=== PATIENT | male | born 1935 | race Caucasian/White ===

== ENCOUNTER → 2016-06-27 | Outpatient (CLI) | payer MEDICARE ==
[~2016-06-27] MED LIST: AMLO5TAB2 PO; ASP81TEC PO; EZET10TA5 PO; HYDR50TA3 PO; ISM60TCR PO; KCL10CCR PO; LISI20TA PO; METO100T2 PO; NTR.4SL SL; RANO10003 PO; SITA50TA PO; [UNRECOGNIZED DRUG - OTHER] PO
--- OUTSIDE RECORDS SUMMARY | 2016-06-27 08:27 | XMS REPORT | Continuity of Care Document ---
Author Author [facility] Organization [facility] Address Unknown Phone Unavailable Allergies Active Description Code Type Severity Reaction Onset Reported/Identified Relationship to Patient Clinical Status Yes No Known Drug Allergies [id number] Drug Allergy Unknown N/ A 09/29/2013 Medications Problems Date Dx Coded Attending Type Code Diagnosis Diagnosed By 06/11/2014 JEFF PENNINGTON MD Ot 327.23 06/11/2014 JEFF PENNINGTON MD Ot 327.51 09/06/2014 JEFF PENNINGTON MD Ot 585.3 09/06/2014 JEFF PENNINGTON MD Ot 793.19 09/06/2014 JEFF PENNINGTON MD Ot V81.5 10/21/2014 JEFF PENNINGTON MD Ot 585.3 10/21/2014 JEFF PENNINGTON MD Ot 793.19 10/21/2014 JEFF PENNINGTON MD Ot V81.5 Procedures Results Encounters ACCT No. Visit Date/Time Discharge Status Pt. Type Provider Facility Loc./Unit Complaint [id number] 09/03/2014 13:13:00 2014 23:59:59 CLS Outpatient JEFF PENNINGTON MD [facility] RAD [id number] 06/10/2014 19:50:00 2014 06:15:00 DIS Outpatient JEFF PENNINGTON MD [facility] SLEEP [id number] 02/02/2014 08:10:00 2013 23:59:59 CLS Outpatient [id number] 10/12/2013 11:52:00 2013 23:59:59 CLS Outpatient [id number] 09/29/2013 09:08:00 2013 13:45:00 DIS Inpatient
--- NOTE | 2016-06-27 12:06 | Diagnostic Imaging Report ---
Renal ultrasound. INDICATION: Chronic renal failure. FINDINGS: The right kidney is 10.7 cm, and the left kidney is 12.1 cm in length. The renal parenchyma is mildly atrophic and slightly hyperechoic compatible with chronic renal disease. In the upper pole of the left kidney there is a simple-appearing cyst measuring 2.5 x 1.8 x 1.8 cm. The urinary bladder appears unremarkable. IMPRESSION: A 2.5-cm simple cyst in the upper pole of the left kidney. No hydronephrosis. Dictated by: Dictated on workstation # [id number]
== END ==
LOC: RAD 08:24
PROVIDERS: ATTEND Internal Medicine Nephrology
DX: N28.1 Cyst of kidney, acquired (principal); N18.3 Chronic kidney disease, stage 3 (moderate); I10 Essential (primary) hypertension; E11.9 Type 2 diabetes mellitus without complications
CPT/HCPCS: 76770

== ENCOUNTER 2016-09-14 12:18 | Emergency (ER) | payer MEDICARE, OTHER ==
[~2016-09-14] VITALS: Ht 180.3 cm; Wt 95.5 kg
[2016-09-14 13:00] LABS: BASOPHILS % (AUTO) 0 % (0-10); EOSINOPHILS # (AUTO) 0.1 10^3/uL (0.0-0.3); EOSINOPHILS % (AUTO) 2 % (0-10); LYMPHOCYTES # (AUTO) 1.4 X 10^3 (1.0-4.0); LYMPHOCYTES % (AUTO) 26 % (12-44); MEAN CORPUSCULAR HEMOGLOBIN 32 PG (25-34); MEAN CORPUSCULAR HGB CONC 34 G/DL (32-36); MEAN CORPUSCULAR VOLUME 94 FL (80-99); MEAN PLATELET VOLUME 10.1 FL (7.4-10.4); MONOCYTES # (AUTO) 0.6 X 10^3 (0.0-1.0); MONOCYTES % (AUTO) 12 % (0-12); NEUTROPHILS # (AUTO) 3.2 X 10^3 (1.8-7.8); NEUTROPHILS % (AUTO) 59 % (42-75); PLATELET COUNT 144 10^3/uL (130-400); RED BLOOD COUNT 3.85 10^6/uL (4.35-5.85); RED CELL DISTRIBUTION WIDTH 13.8 % (10.0-14.5); WHITE BLOOD COUNT 5.3 10^3/uL (4.3-11.0)
[2016-09-14 13:12] LABS: ALANINE AMINOTRANSFERASE 23 U/L (0-55); ANION GAP 8 MMOL/L (5-14); ASPARTATE AMINO TRANSFERASE 26 U/L (5-34); BILIRUBIN,TOTAL 0.8 MG/DL (0.1-1.0); BLOOD UREA NITROGEN 42 MG/DL (7-18); BUN/CREATININE RATIO 21; CALCIUM 9.6 MG/DL (8.5-10.1); CARBON DIOXIDE 23 MMOL/L (21-32); CHLORIDE 103 MMOL/L (98-107); CREATININE SERUM 1.98 MG/DL (0.60-1.30); GFR ESTIMATED 33; GLUCOSE 134 MG/DL (70-105); MAGNESIUM 2.2 MG/DL (1.8-2.4); SODIUM 134 MMOL/L (135-145); TOTAL PROTEIN 6.6 G/DL (6.4-8.2)
--- NOTE | 2016-09-14 13:30 | Diagnostic Imaging Report ---
INDICATION: Bradycardia. COMPARISON: 09/29/2013. FINDINGS: PA and lateral view shows lungs to be well-aerated. There is no evidence of air trapping. There are no infiltrates. No pneumothorax or pleural effusion. No evidence of pulmonary edema. No pleural effusions. No bony abnormalities. IMPRESSION: Postoperative residue with no acute changes. Dictated by: Dictated on workstation # [id number]
[2016-09-14 13:31] LABS: TROPONIN I < 0.30 NG/ML (<0.30)
[2016-09-14 13:34] LABS: POTASSIUM 5.3 MMOL/L (3.6-5.0)
--- NOTE | 2016-09-14 14:05 | ED Cardiac General ---
History of Present Illness General Chief Complaint: Cardiac/General Problems Stated Complaint: IRR HEART RATE Nursing Triage Note: COMPLAINT OF IRREGULAR HR. STATES MACHINE AT HOME SAID IT WAS IN THE 40 AND 50. [facility] PHYSIC[facility] TOLD HIM TO COME TO THE ER. DENIES C/P ET SOA Source: patient Exam Limitations: no limitations History of Present Illness Time seen by provider: 12:35 Initial Comments This 81-year-old gentleman presents to the emergency room with complaints of bradycardia. He has noticed a low heart rate in the 40s and 50s for the past 3 days. He reports having less energy over the past month and feels fatigued with activity. He denies any chest pain, lightheadedness, or dizziness. He has some mild chronic shortness of air but no cough or fever. He presently takes metoprolol 50 mg twice daily. His primary care providers are in the [facility]. His PCP is Jeff Adame and his senior materials scientist is Dr. Lanza. Allergies and Home Medications Allergies Coded Allergies: No Known Drug Allergies (Unverified , 09/29/13) Home Medications Amlodipine Besylate 5 Mg Tablet, 5 MG PO DAILY, (Reported) Aspirin 81 Mg Tabec, 81 MG PO DAILY, (Reported) Ezetimibe 10 Mg Tablet, 10 MG PO HS, (Reported) Isosorbide Mononitrate 60 Mg Tab.sr.24h, 60 MG PO DAILY, (Reported) Lisinopril 20 Mg Tablet, 20 MG PO DAILY, (Reported) Metoprolol Tartrate 100 Mg Tablet, 25 MG PO BID, (Reported) TAKE ONE-FOURTH (100MG) TABLET TWICE A DAY Nitroglycerin 0.4 Mg Tab, SL UD PRN for CHEST PAIN, (Reported) TAKE 1 TABLET EVERY 5 MINUTES UP TO 3 DOSES NEEDED FOR CHEST PAIN Ranolazine 1,000 Mg Tab.sr.12h, 1,000 MG PO BID, (Reported) Sitagliptin Phosphate 50 Mg Tablet, 50 MG PO DAILY, (Reported) [colon care formula] , 1 TAB PO DAILY, (Reported) Review of Systems Constitutional: see HPI EENTM: No Symptoms Reported Respiratory: No Symptoms Reported Cardiovascular: See HPI Gastrointestinal: No Symptoms Reported Genitourinary: No Symptoms Reported Musculoskeletal: no symptoms reported Skin: no symptoms reported Psychiatric/Neurological: No Symptoms Reported Endocrine: No Symptoms Reported Hematologic/Lymphatic: No Symptoms Reported Past Zbgjaml-Zbujzx-Fblwqy Hx Patient Social History Alcohol Use: Denies Use Recreational Drug Use: No Smoking Status: Never a Smoker 2nd Hand Smoke Exposure: Yes Recent Foreign Travel: No Contact w/Someone Who Travel: No Recent Infectious Disease Expo: No Immunizations Up To Date Tetanus Booster (TDap): Less than 5yrs PED Vaccines UTD: No Date of Pneumonia Vaccine: Sep 30, 2011 Surgeries HX Surgeries: Yes (back surgery) Surgeries: CABG Respiratory Hx Respiratory Disorders: No Cardiovascular Hx Cardiac Disorders: Yes Cardiac Disorders: Coronary Artery Disease, Hypertension Neurological Hx Neurological Disorders: Yes Reproductive System Hx Reproductive Disorders: No Genitourinary Hx Genitourinary Disorders: No Gastrointestinal Hx Gastrointestinal Disorders: No Musculoskeletal Hx Musculoskeletal Disorders: Yes Musculoskeletal Disorders: Arthritis Endocrine Hx Endocrine Disorders: Yes Endocrine Disorders: Diabetes, Non-Insulin dep HEENT HX ENT Disorders: No Cancer Hx Cancer: No Psychosocial Hx Psychiatric Problems: No Integumentary HX Skin/Integumentary Disorder: No Blood Transfusions Hx Blood Disorders: No Adverse Reaction to a Blood Tr: No Family Medical History Family Medial History: Family history: Hypertension 19 MOTHER History of - disorder 19 FATHER (BACK PROBLEMS) 19 MOTHER (BACK PROBLEMS) G8 BROTHER (CANCER SPINE) G8 BROTHER (KNEE PROBLEMS) Hypercholesterolemia G8 SISTER Physical Exam Vital Signs Vital Sign - Last 12Hours 09/14/16 12:29 Temp 97.5 Pulse 44 Resp 18 B/P (MAP) 98/52 Pulse Ox 100 O2 Delivery Room Air Capillary Refill : Less Than 3 Seconds General Appearance: No Apparent Distress, WD/WN HEENT: PERRL/EOMI, Normal ENT Inspection Neck: Normal Inspection Respiratory: Lungs Clear, Normal Breath Sounds, No Accessory Muscle Use, No Respiratory Distress Cardiovascular: No Edema, Bradycardia, Systolic Murmur Gastrointestinal: Normal Bowel Sounds, Non Tender, Soft Extremity: Normal Inspection, No Pedal Edema Neurologic/Psychiatric: Alert, Oriented x3, No Motor/Sensory Deficits, Normal Mood/Affect, machine feeder raw stock II-XII Norm as Tested Skin: Normal Color, Warm/Dry Progress/Results/Core Measures Results/Orders Lab Results Laboratory Tests Test 09/14/16 12:42 Range/Units White Blood Count 5.3 4.3-11.0 10^3/uL Red Blood Count 3.85 L 4.35-5.85 10^6/uL Hemoglobin 12.2 L 13.3-17.7 G/DL Hematocrit 36 L 40-54 % Mean Corpuscular Volume 94 80-99 FL Mean Corpuscular Hemoglobin 32 25-34 PG Mean Corpuscular Hemoglobin Concent 34 32-36 G/DL Red Cell Distribution Width 13.8 10.0-14.5 % Platelet Count 144 130-400 10^3/uL Mean Platelet Volume 10.1 7.4-10.4 FL Neutrophils (%) (Auto) 59 42-75 % Lymphocytes (%) (Auto) 26 12-44 % Monocytes (%) (Auto) 12 0-12 % Eosinophils (%) (Auto) 2 0-10 % Basophils (%) (Auto) 0 0-10 % Neutrophils # (Auto) 3.2 1.8-7.8 X 10^3 Lymphocytes # (Auto) 1.4 1.0-4.0 X 10^3 Monocytes # (Auto) 0.6 0.0-1.0 X 10^3 Eosinophils # (Auto) 0.1 0.0-0.3 10^3/uL Basophils # (Auto) 0.0 0.0-0.1 10^3/uL Sodium Level 134 L 135-145 MMOL/L Potassium Level 5.3 H 3.6-5.0 MMOL/L Chloride Level 103 98-107 MMOL/L Carbon Dioxide Level 23 21-32 MMOL/L Anion Gap 8 5-14 MMOL/L Blood Urea Nitrogen 42 H 7-18 MG/DL Creatinine 1.98 H 0.60-1.30 MG/DL Estimat Glomerular Filtration Rate 33 BUN/Creatinine Ratio 21 Glucose Level 134 H 70-105 MG/DL Calcium Level 9.6 8.5-10.1 MG/DL Magnesium Level 2.2 1.8-2.4 MG/DL Total Bilirubin 0.8 0.1-1.0 MG/DL Aspartate Amino Transf (AST/SGOT) 26 5-34 U/L Alanine Aminotransferase (ALT/SGPT) 23 0-55 U/L Alkaline Phosphatase 44 40-136 U/L Troponin I < 0.30 <0.30 NG/ML B-Type Natriuretic Peptide 330.7 H <100.0 PG/ML Total Protein 6.6 6.4-8.2 G/DL Albumin 4.0 3.2-4.5 G/DL TSH [facility] Testing 2.63 0.35-4.94 UIU/ML My Orders Orders - BEVERLY JOHNSTON MD Ekg Tracing (09/14/16 12:24) Monitor-Rhythm Ecg Trace Only (09/14/16 12:24) BNP (09/14/16 12:49) Cbc With Automated Diff (09/14/16 12:49) Comprehensive Metabolic Panel (09/14/16 12:49) Magnesium (09/14/16 12:49) Thyroid Analyzer (09/14/16 12:49) Troponin I (09/14/16 12:49) Chest Pa/Lat (2 View) (09/14/16 12:49) Sodium Polystyrene Sulfonate (Kayexalate (09/14/16 14:15) Medications Given in ED Current Medications Medications Dose Ordered Sig/Hany Route Start Time Stop Time Status Last Admin Dose Admin Sodium Polystyrene Sulfonate 15 gm ONCE ONCE PO 09/14/16 14:15 09/14/16 14:16 DC 09/14/16 14:28 15 GM Vital Signs/I&O Vital Sign - Last 12Hours 09/14/16 09/14/16 12:29 17:38 Temp 97.5 Pulse 44 41 Resp 18 16 B/P (MAP) 98/52 Pulse Ox 100 100 O2 Delivery Room Air Blood Pressure Mean: 67 Progress Note : Progress Note Lab, EKG, and x-rays reviewed. Patient came to the emergency room specifically because of bradycardia but he has no specific symptoms directly associated with the bradycardia. Case was reviewed with Dr. Wheeler. We share some concerns about this patient's medications. First, the beta adamaris should be discontinued because of the significant bradycardia. Next, lisinopril should be discontinued due to patient's hyperkalemia and slight worsening of chronic renal failure. A dose of Kayexalate was provided prior to discharge at Dr. Wheeler's request. Finally, amlodipine should be increased to account for the loss of blood pressure control in the other 2 medications. Patient was advised to follow-up with his senior materials scientist and primary care provider soon as possible. He was also advised to consider consolidating the location of his health care services to facilitate better continuity of care. ECG Initial ECG Impression Date: September 14, 2016 Initial ECG Impression Time: 12:29 Initial ECG Rate: 44 Initial ECG Rhythm: S.Kishor Initial ECG Impression: Sinus Bradycardia Comment Sinus bradycardia with first-degree AV block. No ST elevation or depression. No axis deviation. Diagnostic Imaging Diagonstic Imaging: Xray Plain Films/CT/US/NM/MRI: chest Comments Chest x-ray viewed by me and report reviewed. See report below: NAME: VÍCTOR ORDONEZ [facility] REC#: [id number] PT STATUS: REG ER : 1935 PHYSICIAN: BEVERLY JOHNSTON MD ADMIT DATE: 09/14/16/ER Draft Date of Exam:09/14/16 CHEST PA/LAT (2 VIEW) INDICATION: Bradycardia. COMPARISON: 09/29/2013. FINDINGS: PA and lateral view shows lungs to be well-aerated. There is no evidence of air trapping. There are no infiltrates. No pneumothorax or pleural effusion. No evidence of pulmonary edema. No pleural effusions. No bony abnormalities. IMPRESSION: Postoperative residue with no acute changes. Dictated on workstation # [id number] Dict: 09/14/16 1325 Trans: 09/14/16 1329 [facility] [id number] Interpreted by: JOSE ARANDA MD Departure Impression Impression: Primary Impression: Sinus bradycardia Additional Impressions: Hyperkalemia Chronic kidney failure Qualified Codes: N18.9 - Chronic kidney disease, unspecified Disposition: 01 HOME, SELF-CARE Condition: Stable Time/Decision to Admit Time: 14:03 Departure-Patient Inst. Referrals: JEFF ADAME MD (PCP/Family) Primary Care Physician Patient Instructions: Bradycardia Add. Discharge Instructions: 1. Discontinue lisinopril. 2. Discontinue metoprolol. 3. Increase amlodipine to 10 mg daily starting with your next dose. 4. Follow-up with your senior materials scientist and your primary care provider soon as possible. 5. Return to the ER if you have worsening symptoms or become lightheaded or dizzy. 6. Consider establishing with a primary care provider and/or senior materials scientist locally to consolidate your healthcare. All discharge instructions reviewed with patient and/or family. Voiced understanding. BEVERLY JOHNSTON MD September 14, 2016 14:05
[2016-09-14] MEDS ORDERED: SOD POLYSTERENE 15 GM/60 ML (KAYEXALATE) UNIT DOSE PO ONE (14:15)
[2016-09-14 17:38] VITALS: BP 107/84
== END 2016-09-14 15:05 | disposition home or self-care (01) ==
LOC: EDUNIT# 12:18 → ER 12:21
DX: R00.1 Bradycardia, unspecified (principal); E87.5 Hyperkalemia; I12.9 Hypertensive chronic kidney disease with stage 1 through stage 4 chronic kidney disease, or unspecified chronic kidney disease; N18.9 Chronic kidney disease, unspecified; I11.9 Hypertensive heart disease without heart failure; I25.10 Atherosclerotic heart disease of native coronary artery without angina pectoris; I44.0 Atrioventricular block, first degree; E11.9 Type 2 diabetes mellitus without complications; Z79.82 Long term (current) use of aspirin; Z79.899 Other long term (current) drug therapy
CPT/HCPCS: 36415; 71020; 80053; 83735; 83880; 84443; 84484; 85025; 93005; 93041

== ENCOUNTER 2017-12-26 08:27 | Day surgery (SDC) | payer MEDICARE ==
[~2017-12-26] VITALS: Ht 180.3 cm; Wt 87.1 kg
[2017-12-26] VITALS (12 sets, daily range): BP systolic 113–141; BP diastolic 53–76
--- OUTSIDE RECORDS SUMMARY | 2017-12-26 08:32 | XMS REPORT | Continuity of Care Document ---
Author Author [facility] Organization [facility] Address Unknown Phone Unavailable Allergies Active Description Code Type Severity Reaction Onset Reported/Identified Relationship to Patient Clinical Status Yes No Known Drug Allergies [id number] Drug Allergy Unknown N/A 09/29/2013 Medications There is no data. Problems Date Dx Coded Attending Type Code Diagnosis Diagnosed By 09/30/2013 GIN ENRIQUE FACC, NINA FACP CCDS Ot 250.00 DIAB MATILDA WO COMPL, TYPE II OR UNSPEC TY 09/30/2013 NINA GREENFIELD MD, FACC FACP CCDS Ot 255.9 ADRENAL DISORDER N0S 09/30/2013 NINA GREENFIELD MD, FACC FACP CCDS Ot 272.4 HYPERLIPIDEMIA NEC/NOS 09/30/2013 NINA GREENFIELD MD, FACC FACP CCDS Ot 401.9 HYPERTENSION NOS 09/30/2013 NINA GREENFIELD MD, FACC FACP CCDS Ot 414.00 CORON ATHEROSCLER NOS TYPE VESSEL, NATIV 09/30/2013 NINA GREENFIELD MD, FACC FACP CCDS Ot 424.1 AORTIC VALVE DISORDER 09/30/2013 NINA GREENFIELD MD, FACC FACP CCDS Ot 433.10 CAROTID ARTERY OCCLUSION W O CEREBRAL IN 09/30/2013 NINA GREENFIELD MD, FACC FACP CCDS Ot 593.9 RENAL URETERAL DIS NOS 09/30/2013 NINA GREENFIELD MD, FACC FACP CCDS Ot 786.50 CHEST PAIN NOS 09/30/2013 NINA GREENFIELD MD, FACC FACP CCDS Ot 793.11 SOLITARY PULMONARY NODULE 09/30/2013 NINA GREENFIELD MD, FACC FACP CCDS Ot 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 06/11/2014 JEFF PENNINGTON MD Ot 327.23 OBSTRUCTIVE SLEEP APNEA (ADULT) (PEDIATR 06/11/2014 JEFF PENNINGTON MD Ot 327.51 PERIODIC LIMB MOVEMENT DISORDER 09/06/2014 JEFF PENNINGTON MD Ot 585.3 09/06/2014 JEFF PENNINGTON MD Ot 793.19 09/06/2014 JEFF PENNINGTON MD Ot V81.5 10/21/2014 JEFF PENNINGTON MD Ot 585.3 10/21/2014 JEFF PENNINGTON MD Ot 793.19 10/21/2014 JEFF PENNINGTON MD Ot V81.5 06/27/2016 YAHIR DPM, JOSÉ MIGUEL Q Ot 707.15 ULCER OF OTHER PART OF FOOT 06/27/2016 JEFF PENNINGTON MD Ot 793.11 SOLITARY PULMONARY NODULE 06/27/2016 JEFF PENNINGTON MD Ot V81.5 SCREEN FOR NEPHROPATHY 06/27/2016 JEFF PENNINGTON MD Ot 585.3 CHRONIC KIDNEY DISEASE, STAGE III (MODER 06/27/2016 JEFF PENNINGTON MD Ot 793.19 OTHER NONSPECIFIC ABNORMAL FINDING OF CHRISTINE 06/27/2016 JEFF PENNINGTON MD Ot V81.5 SCREEN FOR NEPHROPATHY 06/28/2016 JESSICA BENITEZ MD Ot E11.9 TYPE 2 DIABETES MELLITUS WITHOUT COMPLIC 06/28/2016 JESSICA BENITEZ MD Ot I10 ESSENTIAL (PRIMARY) HYPERTENSION 06/28/2016 JESSICA BENITEZ MD Ot N18.3 CHRONIC KIDNEY DISEASE, STAGE 3 (MODERAT 06/28/2016 JESSICA BENITEZ MD Ot N28.1 CYST OF KIDNEY, ACQUIRED 07/17/2016 JESSICA BENITEZ MD Ot E11.9 TYPE 2 DIABETES MELLITUS WITHOUT COMPLIC 07/17/2016 JESSICA BENITEZ MD Ot I10 ESSENTIAL (PRIMARY) HYPERTENSION 07/17/2016 JESSICA BENITEZ MD Ot N18.3 CHRONIC KIDNEY DISEASE, STAGE 3 (MODERAT 07/17/2016 JESSICA BENITEZ MD Ot N28.1 CYST OF KIDNEY, ACQUIRED 08/01/2016 JESSICA BENITEZ MD Ot E11.9 TYPE 2 DIABETES MELLITUS WITHOUT COMPLIC 08/01/2016 JESSICA BENITEZ MD Ot I10 ESSENTIAL (PRIMARY) HYPERTENSION 08/01/2016 JESSICA BENITEZ MD Ot N18.3 CHRONIC KIDNEY DISEASE, STAGE 3 (MODERAT 08/01/2016 JESSICA BENITEZ MD Ot N28.1 CYST OF KIDNEY, ACQUIRED 09/14/2016 VICKIE ENRIQUE, BEVERLY Rivera Ot E11.9 TYPE 2 DIABETES MELLITUS WITHOUT COMPLIC 09/14/2016 BEVERLY JOHNSTON MD Ot E87.5 HYPERKALEMIA 09/14/2016 BEVERLY JOHNSTON MD Ot 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 09/14/2016 BEVERLY JOHNSTON MD Ot I12.9 HYPERTENSIVE CHRONIC KIDNEY DISEASE W ST 09/14/2016 BEVERLY JOHNSTON MD Ot I25.10 ATHSCL HEART DISEASE OF [place] CORONARY 09/14/2016 BEVERLY JOHNSTON MD Ot I44.0 ATRIOVENTRICULAR BLOCK, FIRST DEGREE 09/14/2016 BEVERLY JOHNSTON MD Ot N18.9 CHRONIC KIDNEY DISEASE, UNSPECIFIED 09/14/2016 BEVERLY JOHNSTON MD Ot R00.1 BRADYCARDIA, UNSPECIFIED 09/14/2016 BEVERLY JOHNSTON MD Ot Z79.82 [facility]FP (CURRENT) USE OF ASPIRIN 09/14/2016 BEVERLY JOHNSTON MD Ot Z79.899 OTHER [facility] (CURRENT) DRUG THERAPY 09/14/2016 YAHIR DPM, JOSÉ MIGUEL Q Ot 707.15 ULCER OF OTHER PART OF FOOT 09/14/2016 JEFF PENNINGTON MD Ot 793.11 SOLITARY PULMONARY NODULE 09/14/2016 JEFF PENNINGTON MD Ot V81.5 SCREEN FOR NEPHROPATHY 09/14/2016 JEFF PENNINGTON MD Ot 585.3 CHRONIC KIDNEY DISEASE, STAGE III (MODER 09/14/2016 JEFF PENNINGTON MD Ot 793.19 OTHER NONSPECIFIC ABNORMAL FINDING OF CHRISTINE 09/14/2016 JEFF PENNINGTON MD Ot V81.5 SCREEN FOR NEPHROPATHY 09/14/2016 JESSICA BENITEZ MD, Ot E11.9 TYPE 2 DIABETES MELLITUS WITHOUT COMPLIC 09/14/2016 JESSICA BENITEZ MD, Ot I10 ESSENTIAL (PRIMARY) HYPERTENSION 09/14/2016 JESSICA BENITEZ MD, Ot N18.3 CHRONIC KIDNEY DISEASE, STAGE 3 (MODERAT 09/14/2016 JESSICA BENITEZ MD Ot N28.1 CYST OF KIDNEY, ACQUIRED 09/14/2016 YAHIR DPM, JOSÉ MIGUEL Q Ot 707.15 ULCER OF OTHER PART OF FOOT 09/14/2016 JEFF PENNINGTON MD Ot 793.11 SOLITARY PULMONARY NODULE 09/14/2016 JEFF PENNINGTON MD Ot V81.5 SCREEN FOR NEPHROPATHY 09/14/2016 JEFF PENNINGTON MD Ot 585.3 CHRONIC KIDNEY DISEASE, STAGE III (MODER 09/14/2016 JEFF PENNINGTON MD Ot 793.19 OTHER NONSPECIFIC ABNORMAL FINDING OF CHRISTINE 09/14/2016 JEFF PENNINGTON MD Ot V81.5 SCREEN FOR NEPHROPATHY 09/14/2016 JESSICA BENITEZ MD, Ot E11.9 TYPE 2 DIABETES MELLITUS WITHOUT COMPLIC 09/14/2016 JESSICA BENITEZ MD, Ot I10 ESSENTIAL (PRIMARY) HYPERTENSION 09/14/2016 JESSICA BENITEZ MD, Ot N18.3 CHRONIC KIDNEY DISEASE, STAGE 3 (MODERAT 09/14/2016 JESSICA BENITEZ MD, Ot N28.1 CYST OF KIDNEY, ACQUIRED 10/27/2016 BEVERLY JOHNSTON MD Ot E11.9 TYPE 2 DIABETES MELLITUS WITHOUT COMPLIC 10/27/2016 BEVERLY JOHNSTON MD Ot E87.5 HYPERKALEMIA 10/27/2016 BEVERLY JOHNSTON MD Ot 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 10/27/2016 BEVERLY JOHNSTON MD, Ot I12.9 HYPERTENSIVE CHRONIC KIDNEY DISEASE W ST 10/27/2016 BEVERLY JOHNSTON MD, Ot I25.10 ATHSCL HEART DISEASE OF [place] CORONARY 10/27/2016 BEVERLY JOHNSTON MD Ot I44.0 ATRIOVENTRICULAR BLOCK, FIRST DEGREE 10/27/2016 BEVERLY JOHNSTON MD, Ot N18.9 CHRONIC KIDNEY DISEASE, UNSPECIFIED 10/27/2016 BEVERLY JOHNSTON MD Ot R00.1 BRADYCARDIA, UNSPECIFIED 10/27/2016 BEVERLY JOHNSTON MD, Ot Z79.82 [facility] (CURRENT) USE OF ASPIRIN 10/27/2016 BEVERLY JOHNSTON MD, Ot Z79.899 OTHER INFECTION PREVENTION SPECIALIST (CURRENT) DRUG THERAPY Procedures There is no data. Results Test Result Range Complete blood count (CBC) with automated white blood cell (WBC) differential - 09/14/16 12:42 Blood leukocytes automated count (number/volume) 5.3 10*3/uL 4.3-11.0 Blood erythrocytes automated count (number/volume) 3.85 10*6/uL 4.35-5.85 Venous blood hemoglobin measurement (mass/volume) 12.2 g/dL 13.3-17.7 Blood hematocrit (volume fraction) 36 % 40-54 Automated erythrocyte mean corpuscular volume 94 [foz_us] 80-99 Automated erythrocyte mean corpuscular hemoglobin (mass per erythrocyte) 32 pg 25-34 Automated erythrocyte mean corpuscular hemoglobin concentration measurement ( mass/volume) 34 g/dL 32-36 Automated erythrocyte distribution width ratio 13.8 % 10.0-14.5 Automated blood platelet count (count/volume) 144 10*3/uL 130-400 Automated blood platelet mean volume measurement 10.1 [foz_us] 7.4-10.4 Automated blood neutrophils/100 leukocytes 59 % 42-75 Automated blood lymphocytes/100 leukocytes 26 % 12-44 Blood monocytes/100 leukocytes 12 % 0-12 Automated blood eosinophils/100 leukocytes 2 % 0-10 Automated blood basophils/100 leukocytes 0 % 0-10 Blood neutrophils automated count (number/volume) 3.2 10*3 1.8-7.8 Blood lymphocytes automated count (number/volume) 1.4 10*3 1.0-4.0 Blood monocytes automated count (number/volume) 0.6 10*3 0.0-1.0 Automated eosinophil count 0.1 10*3/uL 0.0-0.3 Automated blood basophil count (count/volume) 0.0 10*3/uL 0.0-0.1 Serum or plasma lithium measurement (moles/volume) - 09/14/16 12:42 BNP level 330.7 pg/mL <100.0 Comprehensive metabolic panel - 09/14/16 12:42 Serum or plasma sodium measurement (moles/volume) 134 mmol/L 135-145 Serum or plasma potassium measurement (moles/volume) 5.3 mmol/L 3.6-5.0 Serum or plasma chloride measurement (moles/volume) 103 mmol/L 98-107 Carbon dioxide 23 mmol/L 21-32 Serum or plasma anion gap determination (moles/volume) 8 mmol/L 5-14 Serum or plasma urea nitrogen measurement (mass/volume) 42 mg/dL 7-18 Serum or plasma creatinine measurement (mass/volume) 1.98 mg/dL 0.60-1.30 Serum or plasma urea nitrogen/creatinine mass ratio 21 NRG Serum or plasma creatinine measurement with calculation of estimated glomerular filtration rate 33 NRG Serum or plasma glucose measurement (mass/volume) 134 mg/dL 70-105 Serum or plasma calcium measurement (mass/volume) 9.6 mg/dL 8.5-10.1 Serum or plasma total bilirubin measurement (mass/volume) 0.8 mg/dL 0.1-1.0 Serum or plasma alkaline phosphatase measurement (enzymatic activity/volume) 44 U/L 40-136 Serum or plasma aspartate aminotransferase measurement (enzymatic activity/ volume) 26 U/L 5-34 Serum or plasma alanine aminotransferase measurement (enzymatic activity/volume ) 23 U/L 0-55 Serum or plasma protein measurement (mass/volume) 6.6 g/dL 6.4-8.2 Serum or plasma albumin measurement (mass/volume) 4.0 g/dL 3.2-4.5 Magnesium - 09/14/16 12:42 Magnesium 2.2 mg/dL 1.8-2.4 Serum or plasma troponin i.cardiac measurement (mass/volume) - 09/14/16 12:42 Serum or plasma troponin i.cardiac measurement (mass/volume) < ng/ mL <0.30 Serum or plasma thyrotropin measurement by detection limit <=0.05 miu/l (units/ volume) - 09/14/16 12:42 Serum or plasma thyrotropin measurement by detection limit <=0.05 miu/l (units/ volume) 2.63 u[iU]/mL 0.35-4.94 Encounters ACCT No. Visit Date/Time Discharge Status Pt. Type Provider Facility Loc./Unit Complaint [id number] 09/14/2016 12:21:00 09/14/2016 15:05:00 DIS Emergency BEVERLY JOHNSTON MD [facility] ER IRR HEART RATE [id number] 06/27/2016 08:24:00 06/27/2016 23:59:59 CLS Outpatient JESSICA BENITEZ MD [facility] RAD CHRONIC KIDNEY DISEASE,STAGE 3 [id number] 09/03/2014 13:13:00 09/03/2014 23:59:59 CLS Outpatient JEFF PENNINGTON MD [facility] RAD 6 MONTH FOLLOW UP [id number] 06/10/2014 19:50:00 06/11/2014 06:15:00 DIS Outpatient JEFF PENNINGTON MD [facility] SLEEP APNEA [id number] 02/02/2014 08:10:00 02/02/2014 23:59:59 CLS Outpatient JEFF PENNINGTON MD [facility] RAD ABNORMAL XRAY, MULTIPLE LUNG NODULES [id number] 10/12/2013 11:52:00 10/12/2013 23:59:59 CLS Outpatient YAHIR DPM, JOSÉ MIGUEL Q [facility] CARD HX OF R-4 TOE ULCER [id number] 09/29/2013 09:08:00 09/30/2013 13:45:00 DIS Inpatient GIN ENRIQUE FACC, NINA PRIETO CCDS [facility] CSD CHEST PAIN [id number] 09/04/2014 05:41:44 ACT Document Registration
[2017-12-26] MEDS ORDERED: LIDOCAINE 1% INJ 20 ML 20 ML VIAL ONE (08:40)
[2017-12-26] MEDS ORDERED: NS IV 1000 ML 1,000 ML ONE ×2 (08:41→11:08)
[2017-12-26] MEDS ORDERED: HEParin (CATH LAB) 2,000 ML IV ONE (08:46)
[2017-12-26] MEDS ORDERED: CLOPIDOGREL 300 MG (PLAVIX) TABLET PO ONE ×2 (08:52→09:15)
[2017-12-26] MEDS: NS IV 1000 ML 1,000 ML IV SCH ×4 (08:55→15:25)
[2017-12-26 09:24] LABS: HEMOGLOBIN 13.3 G/DL (13.3-17.7); MEAN PLATELET VOLUME 9.2 FL (7.4-10.4); RED BLOOD COUNT 4.11 10^6/uL (4.35-5.85); RED CELL DISTRIBUTION WIDTH 13.1 % (10.0-14.5)
[2017-12-26 09:33] LABS: INR 1.1 (0.8-1.4); PROTHROMBIN TIME PATIENT 14.1 SEC (12.2-14.7)
[2017-12-26 09:38] LABS: ALBUMIN 4.2 GM/DL (3.2-4.5); BILIRUBIN,TOTAL 0.7 MG/DL (0.1-1.0); CALCIUM 9.4 MG/DL (8.5-10.1); CREATININE SERUM 1.65 MG/DL (0.60-1.30); POTASSIUM 4.2 MMOL/L (3.6-5.0); TOTAL PROTEIN 7.2 GM/DL (6.4-8.2)
[2017-12-26] MEDS ORDERED: METO50TA15 PO (09:54)
[2017-12-26] MEDS ORDERED: TRAZ-190 PO (09:54)
[2017-12-26] MEDS ORDERED: KETOROLAC OD (09:54)
--- NOTE | 2017-12-26 10:32 | Cardiac Procedure Note-CS/ASA ---
Pre-Procedure Note Pre-Op Procedure Note H&P Reviewed The H&P was reviewed, patient examined and no changes noted. Date H&P Reviewed: Dec 26, 2017 Time H&P Reviewed: 10:32 Conscious Sedation Pre-Proced Time Reviewed: 10:32 ASA Class: 3 Airway Mallampati Classification: ([place] appropriate class) I. II. III, IV Lungs Heart ASA score ASA 1: a normal healthy patient ASA 2: a patient with a mild systemic disease (mid diabetes, controlled hypertension, obesity ASA 3: a patient with a severe systemic disease that limits activity (angina , COPD, prior Myocardial infarction) ASA 4: a patient with an incapacitating disease that is a constant threat to life (CHF, renal failure) ASA 5: a moribund patient not expected to survive 24 hrs. (ruptured aneurysm) ASA 6: a declared brain patient whose organs are being harvested. For emergent operations, add the letter E after the classification Grade 1 Sedation Plan: Analgesia, Amnesia, Plan communicated to team members, Discussed options with patient/fam, Discussed risks with patient/fam Note The patient is an appropriate candidate to undergo the planned procedure, sedation, and anesthesia. The patient immediately re-assessed prior to indication. Jensen QUEZADA MD Dec 26, 2017 10:32 am
[2017-12-26] MEDS ORDERED: fentaNYL INJECTION 100 MCG/2 ML AMP ONE (11:23)
[2017-12-26] MEDS ORDERED: HEParin 1000 UNIT/ML (10ML VIAL) FOR BOLUS ONE (11:23)
[2017-12-26] MEDS ORDERED: MIDAZOLAM 5 MG/5 ML (VERSED) VIAL ONE (11:23)
--- NOTE | 2017-12-26 13:24 | Coronary Angiography & PCI ---
Peripheral Angio & Interv DATE OF SERVICE: 12/26/17 PRIMARY PHYSICIAN: Alejandrina Adame MD PERFORMING INTERVENTIONALIST: Dr. Renetta Orourke REFERRING PHYSICIAN: Dr. Tod Grossman INDICATION: Left lower extremity critical limb ischemia PREOPERATIVE INDICATION: Left lower extremity critical limb ischemia, left big toe ulcer POSTOPERATIVE DIAGNOSIS: Severe bilateral PAD, successful drug-coated balloon angioplasty to left TP trunk and deep peroneal artery. HISTORY: This is a 82-year-old gentleman with history of diabetes, CAD/CABG. He presents with osteomyelitis and nonhealing ulcer of the left big toe. Severely abnormal left EZEKIEL and TBI. Left TBI 0.33, left EZEKIEL 0.65. Right TBI 0.65 and right EZEKIEL 1.13. CKD stage III with a GFR in the 40s. Therefore the patient was called in earlier and was given 1 L of normal saline. Plavix by mouth 600 mg was also given. Urgent peripheral angiography and possible intervention was recommended. PROCEDURE PERFORMED: 1. Abdominal aortogram and nonselective bilateral renal angiogram. 2. Bilateral lower extremity runoff. 3. Selective left lower extremity angiogram. 4. NEW ACCOUNTS CLERK to left TP trunk and deep peroneal artery. 5. Drug-coated balloon angioplasty to left TP trunk and deep peroneal artery. 6. Mynx closure of right femoral artery. SPECIMENS: None. ANESTHESIA: Conscious sedation. BLOOD LOSS: 20 mL. COMPLICATIONS: None. CONTRAST USED: 140 ml. FLUOROSCOPY DOSE: 192 Mgy. FLUOROSCOPY TIME: 10 minutes. ANTICOAGULATION: IV heparin. DESCRIPTION OF PROCEDURE: The patient was brought to the laborer filter plant after informed consent was taken. All the risks and complications were explained in detail. The patient was draped and prepped in the usual sterile fashion. Access was gained in the right femoral artery with a 6 Setswana sheath. We advanced a UF catheter over a 035 regular J-wire. The tip of the UF catheter was placed in the mid abdominal aorta and abdominal aortogram with nonselective renal angiogram was done. The UF catheter was then pulled down to the level of just above the bifurcation and a bilateral lower extremity runoff was done. Crossover was done with a storq wire. The tip of the storq wire was placed in the mid SFA. The UF catheter and the 6 Setswana sheath was taken out and a long 6 x 90 cm sheath was advanced till the level of distal left SFA. We then did a selective angiogram of the left lower extremity through this long sheath. FINDINGS: No significant disease in the mid abdominal aorta. Patent bilateral renal arteries. Patent left common iliac artery, external iliac artery, common femoral artery. Mild diffuse disease in the left SFA and popliteal artery. Subtotal occlusion of the left TP trunk with 99 percent stenosis of the proximal deep peroneal artery which supplies the left foot. Occluded left anterior tibial and posterior tibial arteries. Patent right common iliac artery, external iliac artery, common femoral artery. Mild diffuse disease in the right SFA and popliteal artery. Single-vessel runoff below the knee on the right through a deep peroneal artery which supplies collateral to a posterior tibial artery. Posterior tibial artery is totally occluded in the proximal and midsegment but reconstitutes distally via collaterals from the deep peroneal artery. The anterior tibial artery is occluded. RECOMMENDATIONS: Intervention is recommended to the TP trunk and deep peroneal artery on the left. INTERVENTIONAL DETAILS: 5000 units of IV heparin were given. ACT was 220 seconds. The lesion in the left TP trunk and deep peroneal artery was crossed with the command 0.014 wire. The tip of the wire was placed in the distal deep peroneal artery. We then took coyote 3X 120 balloon and inflated at 8 josiah for 3 minutes. Significant improvement in lesion stenosis was noted. The balloon was taken out and we then took a drug-coated balloon Lutonix 4 x 100 x 130 cm and inflated to 6 josiah for 3 minutes with excellent post results with less than 10 percent residual stenosis in both the TP trunk and the deep peroneal artery with brisk flow down to the foot. The wire, balloon was taken out and another picture was done which showed excellent results. The sheath was pulled back to the level of the bifurcation and another angiogram showed no vascular complication. Vascular closure to the right femoral artery was done. The patient tolerated the procedure well and did not have any complication. CONCLUSION: Severe bilateral PAD. Subtotal occlusion of the left TP trunk and severe stenosis of the proximal deep peroneal artery. Successful NEW ACCOUNTS CLERK followed by drug-coated balloon angioplasty of the left TP trunk and deep peroneal artery. Continue IV fluids and check BUN/creatinine the morning. Continue aspirin and plavix [facility]. Renetta Orourke MD, FACP, FACC, [facility] Vascular Medicine and Endovascular Interventions Jensen OROURKE MD Dec 26, 2017 1:24 pm
[2017-12-26] MEDS ORDERED: PATIENT MAY USE OWN MEDS, ALL PO SCH (13:30)
[2017-12-26] MEDS ORDERED: KETO5DRO79 OD (14:27)
[2017-12-26] MEDS ORDERED: AMLO10TA6 PO (14:27)
[2017-12-26] MEDS ORDERED: SODI473S7 TOP (14:27)
[2017-12-26] MEDS ORDERED: RANO10003 PO (14:27)
[2017-12-26] MEDS ORDERED: EZET10TA5 PO (14:27)
[2017-12-26] MEDS ORDERED: FURO20TA4 PO (14:27)
[2017-12-26] MEDS ORDERED: NITR0.4T42 SL (14:27)
[2017-12-26] MEDS ORDERED: ASPI-983 PO (14:27)
[2017-12-26] MEDS ORDERED: CIPR-226 PO (14:27)
[2017-12-26] MEDS ORDERED: SITA50TA PO (14:27)
[2017-12-26] MEDS ORDERED: ISM60TCR PO (14:27)
[2017-12-26] MEDS ORDERED: PRED5DRO24 OD (14:27)
[2017-12-26] MEDS ORDERED: NITROGLYCERIN 0.4 MG SL TABS BTL 25'S SL PRN (15:00)
[2017-12-26] MEDS: Prednisolone Acet 1% Eye Drop OD SCH ×2 (16:46→20:43)
[2017-12-26] MEDS: KETOROLAC TROMETHAMINE 0.5% OD SCH ×2 (16:46→20:43)
[2017-12-26] MEDS ORDERED: NON-FORMULARY MEDICATION 1 EA EA (Ketorolac Tromethamine 1 DROP) OD SCH (17:00)
[2017-12-26] MEDS: DAKIN'S 1/4 STRENGTH (0.125%) 473 ML BTL TOP SCH (20:43)
[2017-12-26] MEDS ORDERED: traZODone 100 MG (DESYREL) TAB PO SCH (21:00)
[2017-12-26] MEDS ORDERED: NON-FORMULARY MEDICATION 1 EA EA (Ciprofloxacin HCl (Cipro) 250 MG) PO SCH (21:00)
[2017-12-27] VITALS: BP 116/64
[2017-12-27] MEDS: NS IV 1000 ML 1,000 ML IV SCH ×2 (00:26→08:32)
[2017-12-27 04:26] VITALS: BP 125/65
[2017-12-27 06:07] LABS: HEMOGLOBIN 12.4 G/DL (13.3-17.7); MEAN PLATELET VOLUME 9.3 FL (7.4-10.4); RED BLOOD COUNT 3.95 10^6/uL (4.35-5.85); RED CELL DISTRIBUTION WIDTH 13.3 % (10.0-14.5)
[2017-12-27 06:20] LABS: CALCIUM 8.7 MG/DL (8.5-10.1); CREATININE SERUM 1.3 MG/DL (0.60-1.30); POTASSIUM 4.4 MMOL/L (3.6-5.0)
[2017-12-27] MEDS ORDERED: LINAGLIPTIN (TRADJENTA) 5 MG TABLET PO SCH (07:00)
[2017-12-27 08:22] VITALS: BP 128/66
[2017-12-27] MEDS: Prednisolone Acet 1% Eye Drop OD SCH (08:23)
[2017-12-27] MEDS: KETOROLAC TROMETHAMINE 0.5% OD SCH (08:23)
[2017-12-27] MEDS: DAKIN'S 1/4 STRENGTH (0.125%) 473 ML BTL TOP SCH (08:27)
[2017-12-27] MEDS ORDERED: amLODIPine 10 MG (NORVASC) TAB PO SCH ×2 (09:00)
[2017-12-27] MEDS ORDERED: ISOSORBIDE MONONITRATE 60 MG (IMDUR) TAB PO SCH ×2 (09:00)
[2017-12-27] MEDS ORDERED: eZETimibe 10 MG (ZETIA) TABLET PO SCH ×2 (09:00)
[2017-12-27] MEDS ORDERED: NON-FORMULARY MEDICATION 1 EA EA (Amlodipine Besylate 10 MG) PO SCH (09:00)
[2017-12-27] MEDS ORDERED: ASPIRIN E.C. 81 MG (ECOTRIN) TAB PO SCH ×3 (09:00)
[2017-12-27] MEDS ORDERED: CLOPIDOGREL 75 MG (PLAVIX) TABLET PO SCH (09:00)
[2017-12-27] MEDS ORDERED: NON-FORMULARY MEDICATION 1 EA EA (Sitagliptin Phosphate (Januvia) 50 MG) PO SCH (09:00)
--- NOTE | 2017-12-27 09:51 | Cardiology Discharge Summary ---
Diagnosis/Chief Complaint Date of Admission 12/26/2017 Date of Discharge 12/27/2017 Admission Diagnosis Left lower extremity critical limb ischemia. Final/Discharge Diagnosis Left lower extremity critical limb ischemia Chief Complaint/HPI Chief Complaint/HPI This is a 82-year-old gentleman with history of diabetes, CAD/CABG. He presents with osteomyelitis and nonhealing ulcer of the left big toe. Severely abnormal left EZEKIEL and TBI. Left TBI 0.33, left EZEKIEL 0.65. Right TBI 0.65 and right EZEKIEL 1.13. CKD stage III with a GFR in the 40s. Therefore the patient was called in earlier and was given 1 L of normal saline. Plavix by mouth 600 mg was also given. Urgent peripheral angiography and possible intervention was recommended. Discharge Summary Procedures Peripheral angiogram showed bilateral severe disease below the knee. Left lower extremity critical limb ischemia with one-vessel runoff below the knee. Subtotal left TP trunk and severe disease in proximal deep peroneal artery. Treated successfully with drug-coated balloon angioplasty. Discharge Physical Examination Cardiac: Normal first and second heart sounds, systolic murmur at the base. Normal peripheral examination. Normal right groin with no bruising or hematoma. Hospital Course Improved kidney function with IV fluids. Pending Labs Laboratory Tests 12/27/17 05:30: White Blood Count 6.0, Red Blood Count 3.95, Hemoglobin 12.4, Hematocrit 36, Mean Corpuscular Volume 91, Mean Corpuscular Hemoglobin 31, Mean Corpuscular Hemoglobin Concent 35, Red Cell Distribution Width 13.3, Platelet Count 195, Mean Platelet Volume 9.3, Sodium Level 136, Potassium Level 4.4, Chloride Level 106, Carbon Dioxide Level 22, Anion Gap 8, Blood Urea Nitrogen 26, Creatinine 1.30, Estimat Glomerular Filtration Rate 53, BUN/Creatinine Ratio 20, Glucose Level 99, Calcium Level 8.7 Discussion & Recommendations Discussion Long-term dual antiplatelet therapy. Will DC Lasix since the patient had CKD with improvement with IV fluids. Discharge took over 30 minutes to complete. Follow up appt.: Dr Grossman. I will be happy to see if the patient requires local vascular or cardiology follow up. Dicharge Diet: Cardiac Diet Activity as Tolerated: Yes Home Medications Reviewed patient Home Medication Reconciliation performed by pharmacy medication reconciliations appliance technician and/or nursing. Patients Allergies have been reviewed. Discharge Home Medications: Reviewed and agree with Discharge Medication list on patient's Discharge Instruction sheet Condition at discharge Stable. Instructions to patient/family Discussed at length with the patient. Jensen QUEZADA MD Dec 27, 2017 09:51
[2017-12-27] MEDS ORDERED: CLOP75TA28 PO (09:53)
--- NOTE | 2017-12-27 09:54 | Discharge Inst-Post CATH ---
Discharge Inst-CATH Post Cardiac Cath D/C Inst Follow Up/Plan Dr Grossman. Please let Dr Orourke if you need to follow up with Dr Orourke for vascular or Cardiology. CARDIAC CATH DISCHARGE INSTRUCTIONS *Hold Metformin for 48 hours post heart cath. ACTIVITY * Go Home directly and rest. * Limit activity of the leg (or wrist if it was used) for 7 days including aerobics, swimming, jogging, bicycling, etc. * Restrict stair-climbing for 7 days if possible, if not, climb up with your non -cath leg, then bring together on the same step. * Avoid lifting, pushing, pulling or excessive movement of the affected extremity for 7 days. * Customary sexual activity may be resumed after 2 days-use caution not to use a position that strains or causes pain to the affected extremity. * No driving for 24 hours. * NO SMOKING. * Avoid straining for bowel movements for 7 days. * Gentle walking on level ground is allowed. * Returning to work will depend on the type of procedure and the results. Your doctor will discuss this with you. CALL YOUR DOCTOR FOR ANY OF THE FOLLOWING: *If bleeding from the puncture site occurs- Apply gentle pressure to site with clean cloth and call your doctor or EMS. * If a knot or lump forms under the skin, increases in size, or causes pain. * If bruising appears to be worsening or moving further down your leg instead of disappearing. * Temperature above 101 F. CARE OF YOUR GROIN INCISION; * Bruising or purple discoloration of the skin near the puncture site is common. * You may shower only, no bathtub bathing for 5 days. Be careful to avoid slipping as your leg may feel stiff. * If a closure device was used on your femoral artery, please see the attached guide regarding care of the device and your leg. * REMOVE the dressing from your groin the next day after your procedure in the shower. CARE OF YOUR WRIST INCISION; * Bruising or purple discoloration of the skin near the puncture site is common. * You may shower. * DO NOT submerge wrist. * Remove dressing in 24 hours. Jensen OROURKE MD Dec 27, 2017 9:54 am
== END 2017-12-27 13:18 | disposition home or self-care (01) ==
LOC: CATH 08:27 → 4TH 13:25 → CATH 12-27 13:18
PROVIDERS: ATTEND Internal Medicine Interventional Cardiology
DX: I70.203 Unspecified atherosclerosis of native arteries of extremities, bilateral legs (principal); I70.245 Atherosclerosis of native arteries of left leg with ulceration of other part of foot; L97.529 Non-pressure chronic ulcer of other part of left foot with unspecified severity; M86.9 Osteomyelitis, unspecified; E11.9 Type 2 diabetes mellitus without complications; I25.10 Atherosclerotic heart disease of native coronary artery without angina pectoris; I12.9 Hypertensive chronic kidney disease with stage 1 through stage 4 chronic kidney disease, or unspecified chronic kidney disease; N18.3 Chronic kidney disease, stage 3 (moderate); E78.5 Hyperlipidemia, unspecified; Z95.1 Presence of aortocoronary bypass graft; Z79.82 Long term (current) use of aspirin; Z79.84 Long term (current) use of oral hypoglycemic drugs
CPT/HCPCS: 36415; 75625; 75716; 80048; 80053; 85027; 85347; 85610; 85730; 87081; 93005

== ENCOUNTER → 2017-12-31 | Outpatient (CLI) | payer MEDICARE ==
[~2017-12-31] MED LIST changes: +AMLO10TA6 PO; +ASPI-983 PO; +CIPR-226 PO; +CLOP75TA28 PO; +FURO20TA4 PO; +KETO5DRO79 OD; +KETOROLAC OD; +METO50TA15 PO; +NITR0.4T42 SL; +PRED5DRO24 OD; +SODI473S7 TOP; +TRAZ-190 PO
== END ==
LOC: WOUNDCARE 07:59
PROVIDERS: ATTEND Nurse Practitioner
DX: E11.621 Type 2 diabetes mellitus with foot ulcer (principal); I70.245 Atherosclerosis of native arteries of left leg with ulceration of other part of foot; L97.524 Non-pressure chronic ulcer of other part of left foot with necrosis of bone; L03.116 Cellulitis of left lower limb; N18.3 Chronic kidney disease, stage 3 (moderate)
CPT/HCPCS: 11042

== ENCOUNTER → 2018-01-09 | Outpatient (CLI) | payer MEDICARE | LOC: WOUNDCARE 10:35 | PROVIDERS: ATTEND Nurse Practitioner | DX: E11.621 Type 2 diabetes mellitus with foot ulcer (principal); L97.524 Non-pressure chronic ulcer of other part of left foot with necrosis of bone; L03.116 Cellulitis of left lower limb; N18.3 Chronic kidney disease, stage 3 (moderate); I70.245 Atherosclerosis of native arteries of left leg with ulceration of other part of foot | CPT/HCPCS: 11042 ==

== ENCOUNTER → 2018-01-14 | Outpatient (CLI) | payer MEDICARE | LOC: WOUNDCARE 09:18 | PROVIDERS: ATTEND Nurse Practitioner | DX: E11.621 Type 2 diabetes mellitus with foot ulcer (principal); L97.524 Non-pressure chronic ulcer of other part of left foot with necrosis of bone; L03.116 Cellulitis of left lower limb; N18.3 Chronic kidney disease, stage 3 (moderate); I70.245 Atherosclerosis of native arteries of left leg with ulceration of other part of foot | CPT/HCPCS: 11042 ==

== ENCOUNTER → 2018-01-16 | Outpatient (CLI) | payer MEDICARE | LOC: WOUNDCARE 10:16 | PROVIDERS: ATTEND Nurse Practitioner | DX: E11.621 Type 2 diabetes mellitus with foot ulcer (principal); L97.524 Non-pressure chronic ulcer of other part of left foot with necrosis of bone; L03.116 Cellulitis of left lower limb; N18.3 Chronic kidney disease, stage 3 (moderate); I70.245 Atherosclerosis of native arteries of left leg with ulceration of other part of foot | CPT/HCPCS: 29445 ==

== ENCOUNTER → 2018-01-23 | Outpatient (CLI) | payer MEDICARE | LOC: WOUNDCARE 10:03 | PROVIDERS: ATTEND Nurse Practitioner | DX: E11.621 Type 2 diabetes mellitus with foot ulcer (principal); L97.524 Non-pressure chronic ulcer of other part of left foot with necrosis of bone; L03.116 Cellulitis of left lower limb; N18.3 Chronic kidney disease, stage 3 (moderate); I70.245 Atherosclerosis of native arteries of left leg with ulceration of other part of foot | CPT/HCPCS: 11042 ==

== ENCOUNTER → 2018-01-30 | Outpatient (CLI) | payer MEDICARE | LOC: WOUNDCARE 09:43 | PROVIDERS: ATTEND Nurse Practitioner | DX: E11.621 Type 2 diabetes mellitus with foot ulcer (principal); I70.245 Atherosclerosis of native arteries of left leg with ulceration of other part of foot; L97.524 Non-pressure chronic ulcer of other part of left foot with necrosis of bone; L03.116 Cellulitis of left lower limb; N18.3 Chronic kidney disease, stage 3 (moderate) | CPT/HCPCS: 11042 ==

== ENCOUNTER → 2018-02-03 | Outpatient (CLI) | payer MEDICARE | LOC: WOUNDCARE 11:07 | PROVIDERS: ATTEND Surgery | DX: E11.621 Type 2 diabetes mellitus with foot ulcer (principal); I70.245 Atherosclerosis of native arteries of left leg with ulceration of other part of foot; L97.524 Non-pressure chronic ulcer of other part of left foot with necrosis of bone; M86.472 Chronic osteomyelitis with draining sinus, left ankle and foot; N18.3 Chronic kidney disease, stage 3 (moderate) | CPT/HCPCS: 11044; 87070; 87075; 87077; 87186; 87205 ==

== ENCOUNTER → 2018-02-13 | Outpatient (CLI) | payer MEDICARE | LOC: WOUNDCARE 09:56 | PROVIDERS: ATTEND Nurse Practitioner | DX: E11.621 Type 2 diabetes mellitus with foot ulcer (principal); I70.245 Atherosclerosis of native arteries of left leg with ulceration of other part of foot; L97.524 Non-pressure chronic ulcer of other part of left foot with necrosis of bone; N18.3 Chronic kidney disease, stage 3 (moderate); M86.472 Chronic osteomyelitis with draining sinus, left ankle and foot | CPT/HCPCS: 11042 ==

== ENCOUNTER → 2018-02-20 | Outpatient (CLI) | payer MEDICARE | LOC: WOUNDCARE 10:04 | PROVIDERS: ATTEND Nurse Practitioner | DX: E11.621 Type 2 diabetes mellitus with foot ulcer (principal); L97.524 Non-pressure chronic ulcer of other part of left foot with necrosis of bone; N18.3 Chronic kidney disease, stage 3 (moderate); I70.245 Atherosclerosis of native arteries of left leg with ulceration of other part of foot; M86.472 Chronic osteomyelitis with draining sinus, left ankle and foot | CPT/HCPCS: 11042 ==

== ENCOUNTER → 2018-02-27 | Outpatient (CLI) | payer MEDICARE | LOC: WOUNDCARE 09:44 | PROVIDERS: ATTEND Nurse Practitioner | DX: L97.524 Non-pressure chronic ulcer of other part of left foot with necrosis of bone (principal); E11.621 Type 2 diabetes mellitus with foot ulcer; N18.3 Chronic kidney disease, stage 3 (moderate); I70.245 Atherosclerosis of native arteries of left leg with ulceration of other part of foot; M86.472 Chronic osteomyelitis with draining sinus, left ankle and foot | CPT/HCPCS: 11042 ==

== ENCOUNTER → 2018-03-06 | Outpatient (CLI) | payer MEDICARE | LOC: WOUNDCARE 09:53 | PROVIDERS: ATTEND Nurse Practitioner | DX: E11.621 Type 2 diabetes mellitus with foot ulcer (principal); I70.245 Atherosclerosis of native arteries of left leg with ulceration of other part of foot; L97.524 Non-pressure chronic ulcer of other part of left foot with necrosis of bone; E11.69 Type 2 diabetes mellitus with other specified complication; M86.472 Chronic osteomyelitis with draining sinus, left ankle and foot; E11.22 Type 2 diabetes mellitus with diabetic chronic kidney disease; N18.3 Chronic kidney disease, stage 3 (moderate) | CPT/HCPCS: 97597 ==

== ENCOUNTER → 2018-03-17 | Outpatient (CLI) | payer MEDICARE | LOC: WOUNDCARE 12:06 | PROVIDERS: ATTEND Nurse Practitioner | DX: E11.621 Type 2 diabetes mellitus with foot ulcer (principal); I70.245 Atherosclerosis of native arteries of left leg with ulceration of other part of foot; L97.524 Non-pressure chronic ulcer of other part of left foot with necrosis of bone; M86.472 Chronic osteomyelitis with draining sinus, left ankle and foot; N18.3 Chronic kidney disease, stage 3 (moderate) | CPT/HCPCS: 99212 ==

== ENCOUNTER 2018-07-18 18:06 | Emergency (ER) | payer MEDICARE ==
[~2018-07-18] VITALS: Ht 182.9 cm; Wt 88.0 kg
[~2018-07-18 18:06] MED LIST changes: -AMLO10TA6 PO; +AMLO10TA7 PO
--- OUTSIDE RECORDS SUMMARY | 2018-07-18 18:12 | XMS REPORT | Encounter Summary ---
Author Author [facility] Organization [facility] Address Unknown Phone Unavailable Care Team Providers Care Overhauler Name Role Phone Alejandrina Adame MD PCP Encounter Details Date Type Department Care Team Description 06/18/2018 Documentation [facility] Harry Melchor MD Cardiovascular [address] [facility] [address] [place] [address] [address] [place] [address] [phone] Social History Tobacco Use Types Packs/Day Years Used Date Never Smoker Smokeless Tobacco: Never Used Alcohol Use Drinks/Week oz/Week Comments No Sex Assigned at Date Recorded Not on file as of this encounter Plan of Treatment Date Type Specialty Care Team Description 07/17/2018 Procedure Pass Radiology 07/17/2018 Procedure Pass Radiology 07/23/2018 Appointment [place] [address] [place] [address] [phone] 07/23/2018 [place] [address] [place] [address] [phone] 08/14/2018 Nurse Only Cardiology Vicky Duggan RN ANP [address] [place] [address] [phone] 08/14/2018 Office Visit Cardiology Vicky Duggan RN ANP [address] [place] [address] [phone] as of this encounter Visit Diagnoses Not on filein this encounter
--- OUTSIDE RECORDS SUMMARY | 2018-07-18 18:12 | XMS REPORT | Encounter Summary ---
Author Author [facility] Organization [facility] Address Unknown Phone Unavailable Care Team Providers Care Highway Painter Helper Name Role Phone Alejandrina Adame MD PCP Reason for Referral * Diagnostic Imaging (Routine) Status Reason Specialty Diagnoses / Referred By Referred To Procedures Contact Contact Closed Cardiology Diagnoses Ralph Arorah Cv Ultrasound Aortic valve MD Marlyn [address] stenosis, [address] [place], [place] etiology of [address] [address] cardiac valve [place], [place] Phone: disease [phone] unspecified Phone: Status post [phone] transcatheter Fax: aortic valve [phone] replacement (TAVR) using bioprosthesis P rocedures Echo Complete with Doppler and Color Flow * Diagnostic Imaging (Routine) Status Reason Specialty Diagnoses / Referred By Referred To Procedures Contact Contact Closed Cardiology Diagnoses Ralph Arora Cv Ultrasound Aortic valve MD Marlyn [address] stenosis, [address] [place], [place] etiology of [address] [address] cardiac valve [place], [place] Phone: disease [phone] unspecified Phone: Status post [phone] transcatheter Fax: aortic valve [phone] replacement (TAVR) using bioprosthesis P rocedures Echo Complete with Doppler and Color Flow Reason for Visit * Diagnostic Imaging (Routine) Status Reason Specialty Diagnoses / Referred By Referred To Procedures Contact Contact Closed Cardiology Diagnoses Ralph Arorah Cv Ultrasound Aortic valve MD Marlyn [address] stenosis, [address] [place], [place] etiology of [address] [address] cardiac valve [place], [place] Phone: disease [phone] unspecified Phone: Status post [phone] transcatheter Fax: aortic valve [phone] replacement (TAVR) using bioprosthesis P rocedures Echo Complete with Doppler and Color Flow Encounter Details Date Type Department Care Team Description 05/21/2018 [facility] Marlyn Arora MD Aortic valve stenosis, Encounter [address] [place] [address] [address] disease unspecified; [phone] [place] [address] Status post transcatheter [phone] aortic valve replacement (TAVR) using bioprosthesis Social History Tobacco Use Types Packs/Day Years Used Date Never Smoker Smokeless Tobacco: Never Used Alcohol Use Drinks/Week oz/Week Comments No Sex Assigned at Date Recorded Not on file as of this encounter Medications at Time of Discharge Medication Sig. Disp. Refills Start Date End Date acetaminophen (TYLENOL) Take 1-2 tablets (325-650 04/25/2018 325 MG tablet mg total) by mouth every 4 (four) hours as needed. amLODIPine (NORVASC) 5 MG Take 5 mg by mouth daily. tablet aspirin 81 MG EC tablet Take 81 mg by mouth daily. clopidogrel (PLAVIX) 75 Take 75 mg by mouth mg tablet daily. HYDROcodone-acetaminophen Take 1-2 tablets by mouth 20 tablet 0 2017 (NORCO) 5-325 mg per every 4 (four) hours as tablet needed. Max Daily Dose: 12 tablets isosorbide mononitrate Take 60 mg by mouth (IMDUR) 60 MG 24 hr daily. tablet lisinopril Take 1 tablet (20 mg 30 tablet 11 04/30/2018 (PRINIVIL,ZESTRIL) 20 MG total) by mouth daily. tablet nitroglycerin (NITROSTAT) Dissolve 0.4 mg under the 0.4 MG SL tablet tongue every 5 (five) minutes as needed for chest pain. May repeat for a total of 3 doses. ranolazine (RANEXA) 1,000 Take 1,000 mg by mouth 2 mg SR tablet (two) times a day. saw/vit E/sod Take by mouth. Take 1 willy/lyc/beta/pyg tablet daily. (PROSTATE HEALTH ORAL) sitaGLIPtin (JANUVIA) 50 Take 50 mg by mouth MG tablet daily. traZODone (DESYREL) 100 Take 100 mg by mouth MG tablet nightly. as of this encounter Plan of Treatment Date Type Specialty Care Team Description 07/17/2018 Procedure Pass Radiology 07/17/2018 Procedure Pass Radiology 07/23/2018 [place]oint[place] [address] [place] [address] [phone] 07/23/2018 [place] [address] [place] [address] [phone] 08/14/2018 Nurse Only Cardiology Vicky Duggan RN ANP [address] [facility] [address] [place] [address] 08/14/2018 Office Visit Cardiology [facility] [address] [place] [address] as of this encounter Procedures Procedure Name Priority Date/Time Associated Diagnosis Comments ECHO COMPLETE W DOPPLER Routine 05/21/2018 Aortic valve stenosis, Results for this AND COLOR FLOW 10:56 AM WEB MANAGER etiology of cardiac valve procedure are in the disease unspecified results section. Status post transcatheter aortic valve replacement (TAVR) using bioprosthesis in this encounter Results * Echo Complete with Doppler and Color Flow (05/21/2018 10:56 AM) Ejection Fraction 70 % [facility] Impressions Performed At 1. Normal left ventricular size and systolic function, with an estimated [facility] ejection fraction of 70%. 2. Borderline right ventricular with normal systolic function. 3. Status post 29 mm bioprosthetic transcatheter aortic valve.Mean gradient=10 mmHg.Mild perivalvular regurgitation (anterolateral jet).Trivial prosthetic regurgitation 4. Compared to the intraprocedural TTE dated 04/23/18, the mean bioprosthetic aortic valve gradient is higher (4 mmHg - > 10 mmHg) and mild perivalvular regurgitation is demonstrated.This is the first complete transthoracic echocardiogram since TAVR. Miquel Bojorquez M.D. (Electronically Signed) Final Date:21 May 2018 14:53 Narrative Performed At [facility] ECHOCARDIOGRAM REPORT [facility] Name:VÍCTOR HWANGDate: 19 10:19 Chart #:[id number] : 1935 Location:[employer] OPSono: banner Age: 82 Gender:MReferring: MARLYN ARORA MD Room #: OP Fellow: Indication:Status post transcatheter aortic valve replacement (TAVR) using bioprosthesis, Aortic valve stenosis, etiology of cardiac valve disease unspecified Procedure: [id number] Complete Echo 2D/Colorflow/Doppler BP: 136 / 68HR:60Ht: 72 Wt:191BSA 2.1 : 2D ECHO MEASUREMENTS LV Diastolic Diameter Bas4.8 cm3.6-5.4IVS Diastolic Thickness1.4 cm0.6-1.1 LV Systolic Diameter Base2.9 cm2.3-4.0LVPW Diastolic Thickness 1 cm0.6-1.1 LA Systolic Diameter LX4.9 cm2.3-3.8Ascending Aorta Diameter 3.3 cm2.1-3.4 AORTIC VALVE DOPPLER AV Peak Velocity 204 cm/s LVOT AV Kurtis Ratio0.47 AV Peak Gradient 16.6 mmHg MITRAL VALVE DOPPLER Mitral E Point Aiodswmt773 cm/s Mitral E to A Ratio1.6 MitralA Point Velocity 74.9 cm/s MV Deceleration Time 169 ms WALL SEGMENT ANALYSIS: ROUTINE LVSI : 1%FM :100 LAD: 1LCX : 1RCA : 1 FINDINGS LV Ejection Fraction: 70 This is the first transthoracic echocardiogram status post TAVR. Normal left ventricular systolic function, with an estimated ejection fraction of 70%. Mild septal hypertrophy. No regional wall motion abnormalities. Abnormal septal motion. Normal left ventricular dimensions. Borderline right ventricular with normal systolic function. Mild right and left atrial dilatation.LA volume index=36 ml/m2. Moderate diastolic dysfunction - elevated mean LA pressure with reduced LV relaxation. Status post 29 mm Medtronic Evolut Pro transcatheter aortic valve. Mean gradient=10 mmHg.Mild perivalvular regurgitation (anterolateral jet).Trivial prosthetic regurgitation. Mitral annular calcification with thickened leaflets and mild regurgitation. Normal pulmonic valve with trivial regurgitation. Normal tricuspid valve with trivial regurgitation. Unable to accurately estimate pulmonary artery pressure. No pericardial effusion. IVC is partially responsive to inspiration indicating elevated RA pressure. Ascending aorta not well visualized. No obvious intracardiac masses or thrombi. Atrial septal aneurysm. Procedure Note Interface, External Ris In - 05/21/2018 2:54 PM WEB MANAGER ECHOCARDIOGRAM REPORT [facility] Name: VÍCTOR HWANG Date: 05/21/2018 10:19 Chart #: [id number] : 1935 Location: [employer] OP Sono: [email or web address] Age: 82 Gender: M Referring: MARLYN ARORA MD Room #: OP Fellow: Indication:Status post transcatheter aortic valve replacement (TAVR) using bioprosthesis, Aortic valve stenosis, etiology of cardiac valve disease unspecified Procedure: [id number] Complete Echo 2D/Colorflow/Doppler BP: 136 / 68 HR: 60 Ht: 72 Wt: 191 BSA 2.1 : 2D ECHO MEASUREMENTS LV Diastolic Diameter Bas 4.8 cm 3.6-5.4 IVS Diastolic Thickness 1.4 cm 0.6-1.1 LV Systolic Diameter Base 2.9 cm 2.3-4.0 LVPW Diastolic Thickness 1 cm 0.6-1.1 LA Systolic Diameter LX 4.9 cm 2.3-3.8 Ascending Aorta Diameter 3.3 cm 2.1-3.4 AORTIC VALVE DOPPLER AV Peak Velocity 204 cm/s LVOT AV Kurtis Ratio 0.47 AV Peak Gradient 16.6 mmHg MITRAL VALVE DOPPLER Mitral E Point Velocity 119 cm/s Mitral E to A Ratio 1.6 Mitral A Point Velocity 74.9 cm/s MV Deceleration Time 169 ms WALL SEGMENT ANALYSIS: ROUTINE LVSI : 1 %FM : 100 LAD : 1 LCX : 1 RCA : 1 FINDINGS LV Ejection Fraction: 70 This is the first transthoracic echocardiogram status post TAVR. Normal left ventricular systolic function, with an estimated ejection fraction of 70%. Mild septal hypertrophy. No regional wall motion abnormalities. Abnormal septal motion. Normal left ventricular dimensions. Borderline right ventricular with normal systolic function. Mild right and left atrial dilatation. LA volume index=36 ml/m2. Moderate diastolic dysfunction - elevated mean LA pressure with reduced LV relaxation. Status post 29 mm Medtronic Evolut Pro transcatheter aortic valve. Mean gradient=10 mmHg. Mild perivalvular regurgitation (anterolateral jet). Trivial prosthetic regurgitation. Mitral annular calcification with thickened leaflets and mild regurgitation. Normal pulmonic valve with trivial regurgitation. Normal tricuspid valve with trivial regurgitation. Unable to accurately estimate pulmonary artery pressure. No pericardial effusion. IVC is partially responsive to inspiration indicating elevated RA pressure. Ascending aorta not well visualized. No obvious intracardiac masses or thrombi. Atrial septal aneurysm. IMPRESSION 1. Normal left ventricular size and systolic function, with an estimated ejection fraction of 70%. 2. Borderline right ventricular with normal systolic function. 3. Status post 29 mm bioprosthetic transcatheter aortic valve. Mean gradient= 10 mmHg. Mild perivalvular regurgitation (anterolateral jet). Trivial prosthetic regurgitation 4. Compared to the intraprocedural TTE dated 04/23/18, the mean bioprosthetic aortic valve gradient is higher (4 mmHg - > 10 mmHg) and mild perivalvular regurgitation is demonstrated. This is the first complete transthoracic echocardiogram since TAVR. Miquel Bojorquez M.D. (Electronically Signed) Final Date: 21 May 2018 14:53 Performing Organization Address City/State/Zipcode Phone Number [facility] in this encounter Visit Diagnoses Diagnosis Aortic valve stenosis, etiology of cardiac valve disease unspecified Status post transcatheter aortic valve replacement (TAVR) using bioprosthesis
--- OUTSIDE RECORDS SUMMARY | 2018-07-18 18:12 | XMS REPORT | Encounter Summary ---
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 Name Role Phone Alejandrina Adame MD PCP Reason for Referral * MRI/CAT/PET Scan (Routine) Status Reason Specialty Diagnoses / Referred By Referred To Procedures Contact Contact Pending Review Radiology Diagnoses Mirnawiharshal, [address] Other specified MD Michael [address] [facility] [facility] [place] [address] [place], [place] liver [address] [address] Solitary lung [place], Phone: [place] [address] P Phone: rocedures [phone] CT Abdomen w Fax: contrast [phone] * MRI/CAT/PET Scan (Routine) Status Reason Specialty Diagnoses / Referred By Referred To Procedures Contact Contact Pending Review Radiology Diagnoses Chicolwiharshal, [facility] [address] Other specified MD Michael [address] [place] [address] [place], [place] liver [address] [address] Solitary lung [place], Phone: [place] [address] P Phone: rocedures [phone] CT Chest w Fax: contrast [phone] Encounter Details Date Type Department Care Team Description 07/17/2018 Transcribe [facility] Michael Magdaleno MD Other specified diseases Orders [facility] [address] of liver (Primary Dx); [address] [address] [place] [address] [place] [address] [phone] Social History Tobacco Use Types Packs/Day Years Used Date Never Smoker Smokeless Tobacco: Never Used Alcohol Use Drinks/Week oz/Week Comments No Sex Assigned at Date Recorded Not on file as of this encounter Plan of Treatment Date Type Specialty Care Team Description 07/17/2018 Procedure Pass Radiology 07/17/2018 Procedure Pass Radiology 07/23/2018 Appointment [place] [address] [place] [address] [phone] 07/23/2018 Appointment [place] [address] [place] [address] [phone] 08/14/2018 Nurse Only Cardiology Vicky Duggan RN ANP [address] [place] [address] [phone] 08/14/2018 Office Visit Cardiology Vicky Duggan RN ANP [address] [place] [address] [phone] Name Priority Associated Diagnoses Order Schedule CT Chest w contrast Routine Other specified diseases 1 Occurrences starting of liver 07/17/2018 until Solitary lung [place] 2019 CT Abdomen w contrast Routine Other specified diseases 1 Occurrences starting of liver 07/17/2018 until Solitary lung [place] 2019 as of this encounter Visit Diagnoses Diagnosis Other specified diseases of liver - Primary Solitary lung [place] Other diseases of lung, not elsewhere classified
--- OUTSIDE RECORDS SUMMARY | 2018-07-18 18:12 | XMS REPORT | Clinical Summary ---
Author Author [facility] Organization [facility] Address Unknown Phone Unavailable Care Team Providers Care Computer Technician Name Role Phone Alejandrina Adame MD PCP Allergies Active Allergy Reactions Severity Noted Date Comments Atorvastatin 02/05/2018 Current Medications Prescription Sig. Disp. Refills Start End Date Status Date ranolazine (RANEXA) 1,000 Take 1,000 mg by mouth 2 Active mg SR tablet (two) times a day. clopidogrel (PLAVIX) 75 Take 75 mg by mouth Active mg tablet daily. amLODIPine (NORVASC) 5 MG Take 5 mg by mouth daily. Active tablet isosorbide mononitrate Take 60 mg by mouth Active (IMDUR) 60 MG 24 hr daily. tablet sitaGLIPtin (JANUVIA) 50 Take 50 mg by mouth Active MG tablet daily. aspirin 81 MG EC tablet Take 81 mg by mouth Active daily. traZODone (DESYREL) 100 Take 100 mg by mouth Active MG tablet nightly. nitroglycerin (NITROSTAT) Dissolve 0.4 mg under the Active 0.4 MG SL tablet tongue every 5 (five) minutes as needed for chest pain. May repeat for a total of 3 doses. saw/vit E/sod Take by mouth. Take 1 Active willy/lyc/beta/pyg tablet daily. (PROSTATE HEALTH ORAL) acetaminophen (TYLENOL) Take 1-2 tablets (325-650 04/25/20 Active 325 MG tablet mg total) by mouth every 18 4 (four) hours as needed. HYDROcodone-acetaminophen Take 1-2 tablets by mouth 20 tablet 0 Active (NORCO) 5-325 mg per every 4 (four) hours as 18 tablet needed. Max Daily Dose: 12 tablets lisinopril Take 1 tablet (20 mg 30 tablet 11 04/30/19 Active (PRINIVIL,ZESTRIL) 20 MG total) by mouth daily. 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), bioprosthetic 04/24/2018 Need for SBE (subacute bacterial endocarditis) prophylaxis 04/24/2018 New onset left bundle branch block (LBBB) s/p TAVR 04/24/2018 Cardiac pacemaker in situ 04/24/2018 Overview: Significant conduction disease/new LBBB post TAVR/Pacemaker Medtronic Mary Dr Xt Mri Device [id number] Coronary artery disease involving muscogee coronary artery 04/10/2018 Diabetes mellitus type 2, noninsulin dependent (HCC) Mixed hyperlipidemia Essential hypertension Coronary atherosclerosis of artery bypass graft CKD (chronic kidney disease) Aortic valve stenosis S/P CABG (coronary artery bypass graft) Overview: 1999: TRIANA to LAD, SVG to RCA. ZURDO (obstructive sleep apnea) Encounters Date Type Specialty Care Team Description 07/17/2018 Transcribe Radiology Michael Magdaleno MD Other specified diseases Orders of liver (Primary Dx); Solitary lung nodule 06/18/2018 Documentation Cardiology Marlyn Arora MD 05/29/2018 Telephone Cardiology Michael Calderón LPN [facility] 05/22/2018 Telephone Cardiology Michaelle Andino APRN 05/21/2018 [facility] Valve and Vascular Marlyn Arora MD S/p TAVR (transcatheter Encounter Michaelle Andino APRN aortic valve replacement), bioprosthetic (Primary Dx); Essential hypertension; Nonrheumatic aortic valve stenosis; Atherosclerosis of coronary artery bypass graft of muscogee heart with unstable angina pectoris (HCC); S/P CABG (coronary artery bypass graft); Need for SBE (subacute bacterial endocarditis) prophylaxis; New onset left bundle branch block (LBBB) s/p TAVR; Cardiac pacemaker in situ 05/21/2018 [facility] Cardiology Marlyn Arora MD Aortic valve stenosis, Encounter etiology of cardiac valve disease unspecified; Status post transcatheter aortic valve replacement (TAVR) using bioprosthesis 05/21/2018 Orders Only Valve and Vascular Michaelle Andino APRN 05/19/2018 Abstract Cardiology Belen Sands RN 05/13/2018 Telephone Valve and Vascular Cheryl Bundy LPN 04/30/2018 [facility] Valve and Vascular Lakisha Camp, ISAC S/p TAVR (transcatheter Encounter aortic valve replacement), bioprosthetic (Primary Dx); Essential hypertension; Stage 3 chronic kidney disease (HCC); Nonrheumatic aortic valve stenosis; S/P CABG (coronary artery bypass graft); Coronary artery disease involving muscogee coronary artery of muscogee heart without angina pectoris; Need for SBE (subacute bacterial endocarditis) prophylaxis; New onset left bundle branch block (LBBB) s/p TAVR 04/30/2018 Lab Lab Amauri Ac MD S/p TAVR (transcatheter aortic valve replacement), bioprosthetic 04/28/2018 Telephone Cardiology Okasna Perez LPN Follow-up 04/26/2018 Abstract Cardiology Toshia Colin RN 04/25/2018 Orders Only Cardiology Miriam England RN Pacemaker 04/25/2018 Orders Only Cardiology Miriam England RN Pacemaker ( Primary Dx) 04/25/2018 Transcribe Cardiology Sabrina Gray MA Cardiac pacemaker in situ Orders (Primary Dx) 04/24/2018 Procedure Pass Cardiothoracic Surgery 04/24/2018 Procedure Pass Cardiology 04/24/2018 Surgery Cardiology Bruno Oneill MD PACEMAKER INSERTION DUAL--MDT 04/23/2018 [facility] Cardiothoracic Surgery Amauri Ac MD S/P TAVR (transcatheter - Encounter aortic valve replacement) 04/25/2018 (Primary Dx); Aortic valve stenosis, etiology of cardiac valve disease unspecified; Aortic stenosis; Nonrheumatic aortic valve stenosis; Stage 3 chronic kidney disease (HCC); Coronary artery disease involving muscogee coronary artery of muscogee heart without angina pectoris; Essential hypertension; First degree atrioventricular block; Need for SBE (subacute bacterial endocarditis) prophylaxis 04/23/2018 Anesthesia Cardiothoracic Surgery Forrest Allen, DO Event 04/23/2018 Procedure Pass Cardiothoracic Surgery 04/23/2018 Surgery Cardiothoracic Surgery Amauri Ac MD Commercial: Transcatheter Aortic Valve Replacement, Right Transfemoral, 29 CV, perc con 04/21/2018 Procedure Pass Cardiothoracic Surgery 04/21/2018 Telephone Valve and Vascular Community Recreation CoordinatorCheryl LPN Records 04/21/2018 Documentation Cardiology Cheryl Dunham RN ANP 04/21/2018 Ancillary Cardiology Marlyn Arora MD Aortic stenosis Orders 04/16/2018 Procedure Pass Cardiology from Last 3 Months Social History Tobacco Use Types Packs/Day Years Used Date Never Smoker Smokeless Tobacco: Never Used Alcohol Use Drinks/Week oz/Week Comments No Sex Assigned at Date Recorded Not on file Last Filed Vital Signs Vital Sign Reading Time Taken Blood Pressure 135/64 05/21/2018 11:08 AM CUPBOARD BUILDER Pulse 62 05/21/2018 11:08 AM CUPBOARD BUILDER Temperature 36.8 C (98.2 F) 05/21/2018 11:08 AM CUPBOARD BUILDER Respiratory Rate 18 05/21/2018 11:08 AM CUPBOARD BUILDER Oxygen Saturation 97% 05/21/2018 11:08 AM CUPBOARD BUILDER Inhaled Oxygen - - Concentration Weight 90.7 kg (200 lb) 05/21/2018 11:08 AM CUPBOARD BUILDER Height 182.9 cm (6') 05/21/2018 11:08 AM CUPBOARD BUILDER Body Mass Index 27.12 05/21/2018 11:08 AM CUPBOARD BUILDER Plan of Treatment Date Type Specialty Care Team Description 07/17/2018 Procedure Pass Radiology 07/17/2018 Procedure Pass Radiology 07/23/2018 [place] [address] [place] [address] [phone] 07/23/2018 [place] [address] [place] [address] [phone] 08/14/2018 Nurse Only Cardiology Vicky Duggan RN ANP [address] [place] [address] [phone] 08/14/2018 Office Visit Cardiology Vicky Duggan RN ANP [address] [place] [address] [phone] Health Maintenance Due Date Last Done Comments Diabetes Mellitus 1935 Ophthalmology Exam Medicare Annual Wellness 1935 Td # 1935 Diabetes Mellitus Foot 1945 Exam Zoster Vaccine# (1 of 2) 1986 Pneumococcal Immunization 2001 65+ High/Highest Risk# (1 of 2 - PCV13) Lipid Screening 09/18/2018 09/18/2017 Diabetes Mellitus 10/15/2018 04/16/2018, 09/18/2017 Hemoglobin A1C Influenza Vaccine (Season 02/27/2019 03/20/2016, 03/21/2015, 02/18/2014, Ended) Additional history exists Fall Risk Assessment # 04/25/2019 04/25/2018 Implants Implanted Type Area Training Development Manager Device Expiration Model / Identifier Date Serial / Lot Closure Device Perclose Proglide Closure GOSS VASCULAR 97260-94 / (Order In 10's) [id number] Device / - [id number] Implanted: Qty: 1 on 04/17/2018 by Donald Upton III, MD Closure Device Perclose Proglide Closure GOSS VASCULAR 77805-27 / (Order In 10's) [id number] Device / - [id number] Implanted: Qty: 1 on 04/23/2018 by Amauri Ac MD Closure Device Perclose Proglide Closure GOSS VASCULAR 85456-64 / (Order In 10's) [id number] Device / - [id number] Implanted: Qty: 1 on 04/23/2018 by Amauri Ac MD Closure Device Perclose Proglide Closure GOSS VASCULAR 61912-03 / (Order In 10's) [id number] Device / - [id number] Implanted: Qty: 1 on 04/23/2018 by Amauri Ac MD Implant Lead Capsure Fix Novus Is-1 Lead Right: [employer] 12/06/2019 4076-58 / B1 Atrial/Ventricular Silicone 58cm Heart CARDIAC RHYTHM [id number] - [id number] Ventricle MGMT / Implanted: Qty: 1 on 04/24/2018 by [id number] Bruno Oneill MD Implant Lead Pacemaker Lead Right: MEDTR[employer] 01/30/2020 4076-52 / Atrial/Ventricle 52cm Capsure Fix Heart CARDIAC RHYTHM [id number] Novus 4076-52 - [id number] Atrium MGMT / Implanted: Qty: 1 on 04/24/2018 by [id number] Bruno Oneill MD Implant Evolut Pro Transcatheter Non-Tissue MEDTRONIC HEART 2019 EVOLUTPRO- Aortic Valve 29mm [id number] - Implant VALVE 29-US / [id number] / Implanted: Qty: 1 on 04/23/2018 by [id number] Marlyn Arora MD Implant Pacemaker Mary Dr Xt Mri Pacemaker Left: MED[employer]ONIC 2019 [id number] / Device [id number] - [id number] Chest CARDIAC RHYTHM [id number] Implanted: Qty: 1 on 04/24/2018 by MGMT / Bruno Oneill MD [id number] Procedures Procedure Name Priority Date/Time Associated Diagnosis Comments ECG Routine 05/21/2018 S/p TAVR (transcatheter Results for this 11:14 AM CUPBOARD BUILDER aortic valve procedure are in the replacement), results section. bioprosthetic ECHO COMPLETE W DOPPLER Routine 05/21/2018 Aortic valve stenosis, Results for this AND COLOR FLOW 10:56 AM CUPBOARD BUILDER etiology of cardiac valve procedure are in the disease unspecified results section. Status post transcatheter aortic valve replacement (TAVR) using bioprosthesis BASIC METABOLIC PANEL Routine 05/13/2018 Results for this 12:00 AM CUPBOARD BUILDER procedure are in the results section. BASIC METABOLIC PANEL Routine 04/30/2018 S/p TAVR (transcatheter Results for this 9:14 AM CUPBOARD BUILDER aortic valve procedure are in the replacement), results section. bioprosthetic INPATIENT DEVICE CHECK Routine 04/25/2018 Pacemaker Results for this 2:08 PM CUPBOARD BUILDER procedure are in the results section. GLUCOSE POC Routine 04/25/2018 Results for this 12:02 PM CUPBOARD BUILDER procedure are in the results section. XR CHEST 2 VIEWS (PA AND Timed 04/25/2018 Results for this LATERAL) 7:46 AM CUPBOARD BUILDER procedure are in the results section. GLUCOSE POC Routine 04/25/2018 Results for this 7:26 AM CUPBOARD BUILDER procedure are in the results section. ECG Routine 04/25/2018 Results for this 3:52 AM CUPBOARD BUILDER procedure are in the results section. COMPLETE BLOOD COUNT Routine 04/25/2018 Results for this 2:00 AM CUPBOARD BUILDER procedure are in the results section. BASIC METABOLIC PANEL Routine 04/25/2018 Results for this 2:00 AM CUPBOARD BUILDER procedure are in the results section. GLUCOSE POC Routine 04/24/2018 Results for this 9:16 PM CUPBOARD BUILDER procedure are in the results section. PACEMAKER INSERTION DUAL Routine 04/24/2018 Results for this 4:36 PM CUPBOARD BUILDER procedure are in the results section. GLUCOSE POC Routine 04/24/2018 Results for this 12:37 PM CUPBOARD BUILDER procedure are in the results section. GLUCOSE POC Routine 04/24/2018 Results for this 7:42 AM CUPBOARD BUILDER procedure are in the results section. XR CHEST SINGLE VIEW Routine 04/24/2018 Results for this FRONTAL 6:59 AM CUPBOARD BUILDER procedure are in the results section. BASIC METABOLIC PANEL Routine 04/24/2018 Results for this 2:51 AM CUPBOARD BUILDER procedure are in the results section. COMPLETE BLOOD COUNT Routine 04/24/2018 Results for this 2:51 AM CUPBOARD BUILDER procedure are in the results section. ECG Routine 04/24/2018 Results for this 2:42 AM CUPBOARD BUILDER procedure are in the results section. GLUCOSE POC Routine 04/23/2018 Results for this 9:09 PM CUPBOARD BUILDER procedure are in the results section. GLUCOSE POC Routine 04/23/2018 Results for this 5:02 PM CUPBOARD BUILDER procedure are in the results section. ECG Routine 04/23/2018 Results for this 1:39 PM CUPBOARD BUILDER procedure are in the results section. ECG STAT 04/23/2018 Results for this 10:39 AM CUPBOARD BUILDER procedure are in the results section. TAVR, FEMORAL APPROACH Routine 04/23/2018 Results for this 9:26 AM CUPBOARD BUILDER procedure are in the results section. ACTIVATED CLOTTING TIME Routine 04/23/2018 Results for this POC 9:12 AM CUPBOARD BUILDER procedure are in the results section. ECHO LIMITED W DOPPLER Routine 04/23/2018 Aortic stenosis Results for this AND COLOR FLOW 9:00 AM CUPBOARD BUILDER procedure are in the results section. ACTIVATED CLOTTING TIME Routine 04/23/2018 Results for this POC 8:22 AM CUPBOARD BUILDER procedure are in the results section. PROTHROMBIN TIME/INR STAT 04/23/2018 Results for this 6:57 AM CUPBOARD BUILDER procedure are in the results section. BASIC METABOLIC PANEL STAT 04/23/2018 Results for this 6:57 AM CUPBOARD BUILDER procedure are in the results section. RBCS 2 UNITS STAT 04/23/2018 Results for this 6:55 AM CUPBOARD BUILDER procedure are in the results section. ABORH TYPE STAT 04/23/2018 Results for this 6:55 AM CUPBOARD BUILDER procedure are in the results section. ANTIBODY SCREEN STAT 04/23/2018 Results for this 6:55 AM CUPBOARD BUILDER procedure are in the results section. ANESTHESIA ARTERIAL LINE Routine 04/23/2018 6:41 AM CUPBOARD BUILDER Procedure Note - Arabella Grigsby MD - 04/23/2018 6:41 AM CUPBOARD BUILDER Art Line Patient location during procedure: pre-op Start time: 04/23/2018 6:41 AM End time: 04/23/2018 6:41 AM Staffing Performed by: resident Preanesthe tic Checklist Preanesthe tic Checklist: patient identified , risks and benefits discussed, monitors and equipment checked, anesthesia consent and pre-op evaluation Timeout: correct patient, correct site, correct position, correct procedure and correct laterality Timeout Performed: 06:41 Line Placement Sterile Prep: hygiene prior to donning sterile gloves and ChloraPrep Insertion Site: right radial Local skin infiltrati on: 1% lidocaine administer ed. Catheter size: 20 gauge Dressing: occlusive dressing and biopatch Complicati ons: none Arterial waveform: Yes GLUCOSE POC Routine 04/23/2018 Results for this 6:41 AM CUPBOARD BUILDER procedure are in the results section. XMATCH STAT 04/23/2018 6:04 AM CUPBOARD BUILDER from Last 3 Months Results * Electrocardiogram (ECG) (05/21/2018 11:14 AM) Only the most recent of 5 results within the time period is included. QRSd 160 TRACEMASTER QT 467 TRACEMASTER QTC 471 TRACEMASTER ECGHR 61 TRACEMASTER ECGPR 295 [facility]:2018[facility]21 Pat Name: RONALDO HWANG Department: [facility] Room: Gender: Male Cloth Grader: [id number] :1935 Requested By: MARLYN ARORA Order Number: [id number] MD: Guille Corley Measurements IntervalsAxis Rate: 61 P:-74 ME: 295QRS:122 QRSD: 160T:57 QT: 467 QTc:471 Interpretive Statements Sinus or ectopic atrial rhythm Prolonged ME interval Consider left ventricular hypertrophy Anterior Q waves, possibly due to LVH Electronically Signed On 05-22-2018 9:23:22 CUPBOARD BUILDER by Guille Corley Procedure Note Interface, External Ris In - 05/22/2018 9:23 AM CUPBOARD BUILDER [facility] Test Date: 2018-05-21 Pat Name: RONALDO HWANG Department: [facility] Room: Gender: Male Cloth Grader: [id number] : 1935 Requested By: MARLYN ARORA Order Number: [id number] Reading MD: Guille Corley Measurements Intervals Hubbard Rate: 61 P: -74 ME: 295 QRS: 122 QRSD: 160 T: 57 QT: 467 QTc: 471 Interpretive Statements Sinus or ectopic atrial rhythm Prolonged ME interval Consider left ventricular hypertrophy Anterior Q waves, possibly due to LVH Electronically Signed On 05-22-2018 9:23:22 CUPBOARD BUILDER by Guille Corley Performing Organization Address City/State/Zipcode Phone Number TRACEMASTER * Echo Complete with Doppler and Color [...] At [facility] ECHOCARDIOGRAM REPORT [facility] Name:RONALDO HWANGDate: 19 10:19 Chart #:[id number] : 1935 Location:[facility] OPSono: npfeffer Age: 82 Gender:MReferring: MARLYN ARORA MD Room #: OP Fellow: Indication:Status post transcatheter aortic valve replacement (TAVR) using bioprosthesis, Aortic valve stenosis, etiology of cardiac valve disease unspecified Procedure: 15937 Complete Echo 2D/Colorflow/Doppler BP: 136 / 68HR:60Ht: 72 Wt:191BSA 2.1 : 2D ECHO MEASUREMENTS LV Diastolic Diameter Bas4.8 cm3.6-5.4IVS Diastolic Thickness1.4 cm0.6-1.1 LV Systolic Diameter Base2.9 cm2.3-4.0LVPW Diastolic Thickness 1 cm0.6-1.1 LA Systolic Diameter LX4.9 cm2.3-3.8Ascending Aorta Diameter 3.3 cm2.1-3.4 AORTIC VALVE DOPPLER AV Peak Velocity 204 cm/s LVOT AV Kurtis Ratio0.47 AV Peak Gradient 16.6 mmHg MITRAL VALVE DOPPLER Mitral E Point [id number] cm/s Mitral E to A Ratio1.6 MitralA [...] External Ris In - 05/21/2018 2:54 PM CUPBOARD BUILDER ECHOCARDIOGRAM REPORT [facility] Name: RONALDO HWANG Date: 05/21/2018 10:19 Chart #: [id number] : 1935 Location: [facility] OP Sono: npfealena Age: 82 Gender: M Referring: MARLYN ARORA MD Room #: OP Fellow: Indication:Status post transcatheter aortic valve replacement (TAVR) using bioprosthesis, Aortic valve stenosis, etiology of cardiac valve disease unspecified Procedure: 41324 Complete Echo 2D/Colorflow/Doppler BP: 136 / 68 [...] 21 May 2018 14:53 Performing Organization Address City/[facility] Phone Number [facility] * Basic Metabolic Panel (05/13/2018) Only the most recent of 5 results within the time period is included. Calcium 8.7 - 10.7 mg/dL Glucose 129 mg/dL Blood Urea Nitrogen 4 - 21 mg/dL Potassium 5.2 3.4 - 5.3 mmol/L Sodium 137 - 147 mmol/L Chloride 99 - 108 mmol/L Creatinine 1.6 (A) 0.6 - 1.3 mg/dL Carbon Dioxide 13 - 22 mmol/L BUN/Creatinine Ratio eGFR If NonAfricn Am 44 eGFR If Africn Am Specimen Blood * Inpatient Device Check (04/25/2018 2:08 PM) Impressions Performed At Device Interrogation Report DATE/TIME: 04/25/2018 2:09 PM Indication for interrogation: Next day post implant check Device Training Development Manager/Model:Rapidlea Boring Battery Voltage: MASOUD Atrial Pacing0.5% Ventricular Pacing 0.4% Underlying Rhythm: Normal Sinus Rhythm No Episodes noted. Based upon this interrogation, the device appears to be functioning normally and the leads appear stable. Atrial Lead Impedance 437 ohms Sensing 3 mV Pacing threshold 0.5V @ 0.4 ms Ventricle Lead Impedance 722 ohms Sensing 20 mV Pacing threshold 0.5V @ 0.4 ms Results communicated to primary team. Patient instructed regarding incision care, arm restrictions, and device follow up. Interrogation reviewed with Dr. Nino England, KAREN 04/25/2018 2:09 PM Electrophysiology Nurse Narrative Performed At * GLUCOSE POC (04/25/2018 12:02 PM) Only the most recent of 8 results within the time period is included. Glucose POC 118 (H) 70 - 100 mg/dL [facility] Performing Organization Address City/[facility]/Zipcode Phone Number [facility] [address] [place] [address] LABORATORIES * XR Chest 2 views (PA and lateral) (04/25/2018 7:46 AM) Impressions Performed At No complication of pacer insertion CHRISTINA READING SITE: [facility] Narrative Performed At Patient: SONI HWANG Sex#:Jensen # 1935 Bull#:[id number] Location:[address] [id number]#: [id number] Procedure Requested:[id number] XR CHEST 2 VIEWS (PA AND LATERAL) Reason for Exam:Lead placement Exam Ordered:04/25/20180700 Exam Date/Time:46 Begin exam date/time:04/25/20180742 XR CHEST 2 VIEWS (PA AND LATERAL) INDICATION: Lead placement. COMPARISON STUDY: Chest x-ray 04/24/2018 Life Support Devices: Since previous day, a dual-lead cardiac pacer has been inserted on the left. The leads lie in conventional locations. Lungs: Negative Pleura: Negative Heart and Mediastinum: Negative Bones and Soft Tissues: Sternotomy wires as before Procedure Note Interface, Rad Results In - 04/25/2018 9:24 AM CUPBOARD BUILDER Patient: RONALDO HWANG Sex#: M # 1935 Bull#: [id number] Location: [address] H417-01 Procedure Requested: [id number] XR CHEST 2 VIEWS (PA AND LATERAL) Reason for Exam: Lead placement Exam Ordered: 04/25/2018 0700 Exam Date/Time: 04/25/2018 0746 Begin exam date/time: 04/25/2018 0742 XR CHEST 2 VIEWS (PA AND LATERAL) INDICATION: Lead placement. COMPARISON STUDY: Chest x-ray 04/24/2018 Life Support Devices: Since previous day, a dual-lead cardiac pacer has been inserted on the left. The leads lie in conventional locations. Lungs: Negative Pleura: Negative Heart and Mediastinum: Negative Bones and Soft Tissues: Sternotomy wires as before IMPRESSION No complication of pacer insertion READING SITE: [facility] Performing Organization Address City/State/Zipcode Phone Number [facility] * Complete Blood Count (04/25/2018 2:00 AM) Only the most recent of 2 results within the time period is included. WBC 7.45 4.00 - 11.00 TH/uL [facility] RBC 3.74 (L) 4.31 - 5.84 MIL/uL [facility] Hemoglobin 11.9 (L) 13.0 - 17.0 g/dL [facility] Hematocrit 34 (L) 40 - 50 % [facility] MCV 90 80 - 99 fL [facility] MCH 32 27 - 34 pg [facility] MCHC 35 32 - 36 % [facility] RDW 13.3 9.0 - 14.5 % [facility] Platelet Count 118 (L) 140 - 400 TH/uL [facility] MPV 9.5 9.4 - 12.3 fL [facility] Nucleated RBCs 0 0 - 0 /100 [facility] Specimen Blood Performing Organization Address City/State/Zipcode Phone Number [facility] [address] [place] [address] LABORATORIES * Electrophysiology Procedure (04/24/2018 4:36 PM) Narrative Performed At [facility] CARDIAC ELECTROPHYSIOLOGY SERVICE OPERATIVE REPORT- PPM IMPLANTATION Date of Procedure: 04/24/2018 PREOPERATIVE DIAGNOSES:Significant conduction disease with 1st degree AV delay and new LBBB s/p TAVR, high risk for progressive complete heart block POSTOPERATIVE DIAGNOSES: Significant conduction disease with 1st degree AV delay and new LBBB s/p TAVR, high risk for progressive complete heart block PROCEDURES PERFORMED: 1. Implantation of RV lead 2. Implantation of RA lead 3. Implantation of pulse generator at the infraclavicular site. ATTENDING PHYSICIAN: Dr. Oneill DIRECTORY COMPILER PHYSICIAN(S): None ESTIMATED BLOOD LOSS: 20cc COMPLICATIONS: None ANESTHESIA: Fentanyl, Midazolam SPECIMEN: None PATIENT CONDITION:Stable TIME OUT: Time out was completed with verification of the correct patient identity, procedure to be performed, procedure site and implanted equipment. INDICATION FOR PROCEDURE: Briefly, the patient is a 82 y.o. male with a history of Significant conduction disease with 1st degree AV delay and new LBBB s/p TAVR, high risk for progressive complete heart block. The patient was seen and examined by an electrophysiology staff physician and deemed appropriate for implantation of a permanent pacemaker. PROCEDURE AND FINDINGS: The patient was brought to the electrophysiology laboratory in a fasted state. Informed consent was given by the Patient prior to the procedure and confirmed. Intravenous prophylactic antibiotics were administered prior to the procedure. After the patient and site of implantation was prepped and draped in the usual sterile fashion and after adequate anesthesia was given, the skin was infiltrated with 2% lidocaine and 1% bupivacaine 50/50 mixture. The skin was incised with a #10 scalpel. Blunt and electrosurgical dissection was carried out to the level of the prepectoral fascia with careful attention paid to hemostasis.The cephalic vein was identified and the vein was cannulated via modified Seldinger technique.J tip 0.035 inch guide wires were introduced and their course throughout the venous system was confirmed by visualizing their presence under fluoroscopy in the inferior vena cava. RIGHT VENTRICULAR LEAD: A 7 Serbian peel away sheath was brought to the field and placed into the venous system via over the wire technique. The right ventricular lead was placed via this sheath into the right ventricular [place] location. Adequate sensing, pacing impedance and pacing threshold parameters were obtained. The lead was attached via active fixation. There was no evidence of diaphragmatic stimulation at 10 V output. The peel away sheath was removed and the lead collar was advanced to the pectoral muscle and sutured with a pair of 0 Ethibond sutures and the suture sleeve. Tug testing of this lead confirmed stability of the lead and the length of the lead's slack was assessed as optimal with fluoroscopy. RIGHT ATRIAL LEAD: A 7 Serbian peel away sheath was brought to the field and placed into the venous system via over the wire technique. The right atrial lead was placed via this sheath into the right atrial [place] location. Adequate sensing, pacing impedance and pacing threshold parameters were obtained. The lead was attached via active fixation. There was no evidence of diaphragmatic stimulation at 10 V output. The peel away sheath was removed and the lead collar was advanced to the pectoral muscle and sutured with a pair of 0 Ethibond sutures and the suture sleeve. Tug testing of this lead confirmed stability of the lead and the length of the lead's slack was assessed as optimal with fluoroscopy. A pocket to house the pulse generator was formed between the prepectoral fascia and subcutaneous fat with a combination of blunt and electrosurgical dissection. The pocket to house the pulse generator was copiously irrigated with antibiotic containing normal saline and subsequently observed. The pulse generator was then brought to the field. The lead tips for all leads were cleaned and dried thoroughly. The leads were attached to the appropriate ports on the pulse generator. Tug testing was performed on all connections. The device and leads were placed within the pocket such that the coiled redundant leads were posterior to the pulse generator. The pocket was closed with 3 layers with one interrupted layer of 2-0 Vicryl, one continuous layer of 2-0 Vicryl, and Indermil surgical adhesive. The wound was covered with a sterile dressing. DEVICE IMPLANT SUMMARY: Devices Pacemaker Implant Pacemaker Boring Dr Xt Mri Device W1dr01 - [id number] - Implanted (Left) Chest Inventory item: Implant Pacemaker Mary Dr Xt Mri Device W1dr01 Model/Cat number: [id number] Serial number: [id number] Training Development Manager: [employer] [facility] Lot number: [id number] Implant Date: 04/24/2018 Pocket Location: Subcutaneous As of 04/24/2018 Status: Implanted Mode: MVP Lower Rate: 60 Upper Rate: 130 Lead Implant Lead Capsure Fix Novus Is-1 B1 Atrial/Ventricular Silicone 58cm - [id number] - Implanted (Right) Heart Ventricle Inventory item: Implant Lead Capsure Fix Novus Is-1 B1 Atrial/Ventricular Silicone 58cm Model/Cat number: [id number] Serial number: [id number] Training Development Manager: [employer] MGMT Lot number: [id number] Area/Chamber: Heart Ventricle Implant Date: 04/24/2018 As of 04/24/2018 Status: Implanted Location: RV Sensing Threshold (mV): 18.4 Slew Rate (V/s): 4 Pacing Impedance (ohms): 1,045 Capture Threshold (V): 0.4 Capture Threshold (mA): 0.4 Implant Lead Pacemaker Atrial/Ventricle 52cm Capsure Fix Novus 4076-52 - [id number] - Implanted (Right) Heart Atrium Inventory item: Implant Lead Pacemaker Atrial/Ventricle 52cm Capsure Fix Novus 4076-52 Model/Cat number: [id number] Serial number: [id number] Training Development Manager: [employer] MGMT Lot number: [id number] Area/Chamber: Heart Atrium Implant Date: 04/24/2018 As of 04/24/2018 Status: Implanted Location: RA Sensing Threshold (mV): 3.9 Slew Rate (V/s): 1.2 Pacing Impedance (ohms): 521 Capture Threshold (V): 0.7 Capture Threshold (mA): 1.2 CONCLUSION: Successful implantation of permanent pacemaker. RECOMMENDATION: 1. Chest x-ray, electrocardiogram, device check in a.m. 2. No routine post-procedure antibiotics. 3. Wound check in 10-14 days, device check in 3 months. 4. Patient to be instructed not to touch the wound or get wound wet for the period of one week. Patient instructed not to flex, extend, or abduct the shoulder joint ipsilateral to implantation more than 90 degrees for a period of 6 weeks. Movement of the shoulder below this threshold is encouraged. Patient also instructed not to drive x 1 week. Bruno Taylor, Attending Physician, was present for the duration of the procedure and performed all aspects of this procedure as the stiff leg derrick operator. Bruno Oneill MD 04/24/20184:30 PM Performing Organization Address City/State/Zipcode Phone Number [facility] * XR Chest single view frontal (04/24/2018 6:59 AM) Impressions Performed At No acute cardiopulmonary process [facility] READING SITE: [facility] Narrative Performed At Patient: SONI HWANG Sex#:Jensen # [id number] Bull#:[id number] Location:[address] [id number]#: [id number] Procedure Requested:[id number] XR CHEST SINGLE VIEW FRONTAL Reason for Exam:Post Transcatheter Aortic Valve Replacement Exam Ordered:04/24/20180000 Exam Date/Time: Begin exam date/time: XR CHEST SINGLE VIEW FRONTAL INDICATION: Post Transcatheter Aortic Valve Replacement. COMPARISON STUDY: Chest x-ray 04/16/2018 Life Support Devices: None Lungs: The limited visualized aspects of the lungs are clear. 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 COMPARISON STUDY: Chest x-ray 04/16/2018 Life Support Devices: None Lungs: The limited visualized aspects of the lungs are clear. The retrocardiac region is not well seen Pleura: Negative Heart and Mediastinum: New valve replacement Bones and Soft Tissues: Negative IMPRESSION No acute cardiopulmonary process READING SITE: [facility] Organization Address City/State/Zipcode Phone Number [facility] * Hybrid Cardiac Procedure (04/23/2018 9:26 AM) Narrative Performed At [facility] INTER[facility]AL CARDIOLOGY Transcatheter Aortic Valve Replacement via Transfemoral Approach Procedure Note Name: Ronaldo Hwang Age: 82 y.o. Date: April 23, 2018 STAFF PHYSICIANS: 1.Dr. Marlyn Arora 2.Dr. Amauri Ac Structural Interventional Fellow: Sera Tijerina MD All members of the heart team were present for the following: Vascular access Catheter placement Diagnostic Intervention Device implantation Vascular closure Intraprocedural medication ordering INDICATION FOR PROCEDURE: Severe Symptomatic Aortic Stenosis in a patient at intermediate risk for surgical AVR due to coexisting comorbidities PROCEDURES: 1.Successful transfemoral implantation of a 29 mm Medtronic CoreValve Evolut PRO Transcatheter Aortic Valve 2.Placement of a temporary venous pacemaker 3.Left heart catheterization 4.Balloon aortic valvuloplasty PROCEDURAL DETAILS: The patient was counseled extensively regarding the risks, benefits, and alternatives to the procedure and after answering all questions, the patient yielded informed consent. The patient was thereafter brought to the operative suite and monitored anesthesia care was delivered. Preprocedural antibiotic was administered intravenously. Sterile technique was used throughout the case. All vascular access was obtained using modified Seldinger technique. 6F sheaths were placed in the right and left femoral arteries, and a 8F sheath in the left femoral vein. A temporary pacing wire was placed in the right ventricle via the femoral venous sheath. The 6F sheath in the right femoral artery was preclosed with dual Perclose Proglide devices and the arteriotomy was upsized to an 8F sheath. A 6F pigtail catheter was advanced to the ascending aorta via the left femoral artery sheath and aortography was performed.Heparin anticoagulation was administered and ACT maintained within therapeutic range. A 6F JR4 was advanced to the aortic root via the 8F sheath.Using a 0.035" straight wire, the aortic valve was crossed.Over the wire, the JR4 catheter was advanced across the valve. Baseline hemodynamics (left heart catheterization) were obtained.A Confida wire was then advanced to the LV, and the CoreValve Evolut delivery systemwas delivered to the ascending aorta over the wire.After confirming appropriate placement across the aortic valve using aortic root angiogaphy, the 29 mm CoreValve Evolut was deployed without ventricular pacing. Following valve deployment, the valve was not well expanded; therefore, the valve was post-dilated with a 24 mm True Balloon during rapid ventricular pacing. Following post-dilatation, the valve was visibly expanded on fluoroscopy and transthoracic echocardiogram and aortography revealed a well-placed and well-seated valve, with trace aortic regurgitation. Next, the delivery catheter system was removed.A JR4 was advanced to the LV, and hemodynamics (left heart catheterization) were measured.Via the left femoral artery, a crossovercatheter was advanced to the right common iliac artery ostium. The right femoral artery device access site was successfully closed using the pre-deployed dual Perclose devices. Iliofemoral angiography demonstrated adequate hemostasis with brisk flow. Next, the left femoral artery access site was successfully closed using a Perclose device.The temporary pacemaker and the left femoral venous sheath were secured in place due to new bundle branch block. The patient tolerated the procedure well. Pre-procedural hemodynamics: AV mean gradient: 47 mmHg ANTONIA: 0.6 cm2 Ao: 129/57 mmHg LV: 175/22 mmHg Post-procedural hemodynamics: AV mean gradient: 6 mmHg ANTONIA: 2.6 cm2 Ao: 169/67 mmHg LV: 179/23 mmHg Follow-up: Patient was transferred to the CV Post Anesthesia care unit for further management. Sera Tijerina 04/23/2018 9:12 AM Performing Organization Address City/State/[facility] Hospital[facility] Phone Number [facility] * Activated Clotting Time POC (04/23/2018 9:12 AM) Only the most recent of 2 results within the time period is included. Activated Clotting Time 132 (H) 99 - 130 sec [facility] Performing Organization Address City/[facility]/Unm Hospitalcode Phone Number [facility] [address] [facility] [place] [address] [facility] [address] [place] [address] [facility] * Echo Limited with Doppler and Color Flow if Necessary (04/23/2018 9:00 AM) Ejection Fraction 70 % [facility] Impressions Performed At 1. Limited echo study to guide transcatheter aortic valve replacement. [facility] 2. Normal left ventricular systolic function, with an estimated ejection fraction of 70%. 3. Pre-procedure: severe calcific aortic valve stenosis with trivial regurgitation. 4. Post-procedure: successful implantation of a 29 mm Medtronic Evolut Pro transcatheter aortic valve with a mean gradient of 4 mmHg and trivialregurgitation Tod Maguire M.D. (Electronically Signed) Final Date:23 April 2018 10:01 Narrative Performed At [facility] ECHOCARDIOGRAM REPORT [facility] Name:RONALDO HWANGDate: 18 07:09 Chart #:[id number] : 1935 Location[facility]PSono: [facility] Age: 82 Gender:MReferring: MARLYN ARORA MD Room #: CVOR-5 Fellow: Indication:Nonrheumatic aortic (valve) stenosis Procedure: [id number] BP: 132 / 54HR:56Ht: 72 Wt:182BSA 2.0 : WALL SEGMENT ANALYSIS: ROUTINE LVSI : 1%FM :100 LAD: 1LCX : 1RCA : 1 FINDINGS LV Ejection Fraction: 70 Limited echo study to guide transcatheter aortic valve replacement. Normal left ventricular systolic function, with an estimated ejection fraction of 70%. Normal wall thickness. Normal wall motion. Normal left ventricular dimensions. Normal right ventricular size and systolic function. Normal right atrial size.Mild left atrial dilatation with an LA volume index=34 ml/m2. Moderate diastolic dysfunction - elevated mean LA pressure with reduced LV relaxation. Severe calcific aortic valve stenosis with trivial regurgitation. Moderate mitral annular calcification with trivial regurgitation. Normal tricuspid valve without regurgitation. No pericardial effusion. 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 Normal left ventricular systolic function, with an estimated ejection fraction of 70%. Normal wall thickness. Normal wall motion. Normal left ventricular dimensions. Normal right ventricular size and systolic function. Normal right atrial size. Mild left atrial dilatation with an LA volume index =34 ml/m2. Moderate diastolic dysfunction - elevated mean LA pressure with reduced LV relaxation. Severe calcific aortic valve stenosis with trivial regurgitation. Moderate mitral annular calcification with trivial regurgitation. Normal tricuspid valve without regurgitation. No pericardial effusion. IMPRESSION 1. Limited echo study to guide transcatheter aortic valve replacement. 2. Normal left ventricular systolic function, with an estimated ejection fraction of 70%. 3. Pre-procedure: severe calcific aortic valve stenosis with trivial regurgitation. 4. Post-procedure: successful implantation of a 29 mm Medtronic Evolut Pro transcatheter aortic valve with a mean gradient of 4 mmHg and trivial regurgitation Tod Maguire M.D. (Electronically Signed) Final Date: 23 April 2018 10:01 Performing Organization Address City/State/Zipcode Phone Number [facility] * Prothrombin Time/INR (04/23/2018 6:57 AM) Protime 14.7 11.4 - 15.0 sec [facility] INR 1.2 0.8 - 1.2 [facility] Specimen Blood Performing Organization Address City/[facility]/Zipcode Phone Number [facility] [address] [place] [address] LABORATORIES * RBCs 2 Units (04/23/2018 6:55 AM) 01 - PRODUCT ID Red Blood Cells [facility] 01 - UNIT NUMBER [id number] [facility] 01 - CROSS MATCH Compatible [facility] 01 - STATUS INFO Ready [facility] 01 - PRODUCT CODE [id number] [facility] 01 - BLOOD TYPE A Pos [facility] 02 - PRODUCT ID Red Blood Cells [facility] 02 - UNIT NUMBER [id number] [facility] 02 - CROSS MATCH Compatible [facility] 02 - STATUS INFO Ready [facility] 02 - PRODUCT CODE [id number] [facility] 02 - BLOOD TYPE A Pos [facility] Specimen Blood Performing Organization Address City/[facility]/Zipcode Phone Number [facility] [address] [place] [address] [phone] LABORATORIES * Antibody Screen (04/23/2018 6:55 AM) Antibody Screen Negative Negative [facility] Specimen Blood Performing Organization Address City/[facility]/Zipcode Phone Number [facility] [address] [place] [address] [phone] LABORATORIES * ABORH Type (04/23/2018 6:55 AM) ABORH Type A Positive [facility] Specimen Blood Performing Organization Address City/[facility]/Zipcode Phone Number [facility] [address] [place], [place] [address] [phone] LABORATORIES * XMATCH (04/23/2018 6:04 AM) Performing Organization Address City/[facility]/Zipcode Phone Number [facility] [address] [place] [address] from Last 3 Months
--- OUTSIDE RECORDS SUMMARY | 2018-07-18 18:12 | XMS REPORT | Encounter Summary ---
Author Author [facility] Organization [facility] Address Unknown Phone Unavailable Care Team Providers Care Assembly Person Name Role Phone Alejandrina Adame MD PCP Encounter Details Date Type Department Care Team Description 05/21/2018 Orders Only [facility] Michaelle Andino APRN [facility] [address] [place] [address] [place] [address] [phone] Social History Tobacco Use Types Packs/Day Years Used Date Never Smoker Smokeless Tobacco: Never Used Alcohol Use Drinks/Week oz/Week Comments No Sex Assigned at Date Recorded Not on file as of this encounter Plan of Treatment Date Type Specialty Care Team Description 07/17/2018 Procedure Pass Radiology 07/17/2018 Procedure Pass Radiology 07/23/2018 Appointment [place] [address] [place] [address] [phone] 07/23/2018 [place] [address] [place] [address] [phone] 08/14/2018 Nurse Only Cardiology Vicky Duggan RN ANP [address] [place] [address] [phone] 08/14/2018 Office Visit Cardiology Vicky Duggan RN ANP [address] [place] [address] [phone] as of this encounter Visit Diagnoses Not on filein this encounter
--- OUTSIDE RECORDS SUMMARY | 2018-07-18 18:12 | XMS REPORT | Encounter Summary ---
Author Author [facility] Organization [facility] Address Unknown Phone Unavailable Care Team Providers Care Nursery Hand Name Role Phone Alejandrina Adame MD PCP Reason for Visit * Reason Comments 1 month post TAVR Encounter Details Date Type Department Care Team Description 05/21/2018 [facility] Marlyn Arora MD S/p TAVR (transcatheter [facility]counter [facility] [address] aortic valve [address] replacement), [place] [address] [place] [address] bioprosthetic (Primary [phone] Dx); Essential hypertension; H Nonrheumatic aortic valve Michaelle gonzalez APRN stenosis; [address] Atherosclerosis of [address] [place] [address] graft of [place]aloon heart [phone] with unstable angina pectoris (HCC); S/P CABG (coronary artery bypass graft); Need for SBE (subacute bacterial endocarditis) prophylaxis; New onset left bundle branch block (LBBB) s/p TAVR; Cardiac pacemaker in situ Social History Tobacco Use Types Packs/Day Years Used Date Never Smoker Smokeless Tobacco: Never Used Alcohol Use Drinks/Week oz/Week Comments No Sex Assigned at Date Recorded Not on file as of this encounter Last Filed Vital Signs Vital Sign Reading Time Taken Blood Pressure 135/64 05/21/2018 11:08 AM COMMERCIAL ACCOUNT MANAGER Pulse 62 05/21/2018 11:08 AM COMMERCIAL ACCOUNT MANAGER Temperature 36.8 C (98.2 F) 05/21/2018 11:08 AM COMMERCIAL ACCOUNT MANAGER Respiratory Rate 18 05/21/2018 11:08 AM COMMERCIAL ACCOUNT MANAGER Oxygen Saturation 97% 05/21/2018 11:08 AM COMMERCIAL ACCOUNT MANAGER Inhaled Oxygen - - Concentration Weight 90.7 kg (200 lb) 05/21/2018 11:08 AM COMMERCIAL ACCOUNT MANAGER Height 182.9 cm (6') 05/21/2018 11:08 AM COMMERCIAL ACCOUNT MANAGER Body Mass Index 27.12 05/21/2018 11:08 AM COMMERCIAL ACCOUNT MANAGER in this encounter Medications at Time of Discharge [...] MG tablet nightly. as of this encounter Progress Notes * Michaelle Andino APRN - 05/21/2018 11:12 AM COMMERCIAL ACCOUNT MANAGER Formatting of this note may be different from the original. [facility] Appointment Date: 05/21/2018 Alejandrina Adame MD [address] [facility] [address] RE: Ronaldo Hwang : 1935 Visit provider: Michaelle Andino APRN Dear Alejandrina Adame MD, I had the pleasure of seeing Ronaldo Hwang in the office today. He is a(n) 82 y.o. male and presents with the following chief complaint(s): 1 month post TAVR HPI: Mr. Ronaldo Hwang presents to the valve clinic today for his 1-month followup status post transcatheter aortic valve replacement. As you know, he is an 82- year-old male with a past medical history of coronary artery disease status post prior CABG, hypertension, Type 2 diabetes, severe aortic stenosis, and chronic diastolic heart failure. He underwent a successful implantation of a 29 -mm Medtronic CoreValve Evolut Pro on 04/23/2018. He had a permanent pacemaker placed on postoperative day 1 due to a new left bundle branch block and first- degree AV block. Mr. Hwang presents to the clinic alone today and since his procedure last week he is doing well. 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 He states that his dyspnea on exertion is improving. He denies chest pain, dizziness, lightheadedness, palpitations, orthopnea, or syncope. He has NYHA class I symptoms today in the office. Patient Active Problem List Diagnosis SNOMED CT(R) Diabetes mellitus type 2, noninsulin dependent (HCC) TYPE 2 DIABETES MELLITUS Mixed hyperlipidemia MIXED HYPERLIPIDEMIA Essential hypertension ESSENTIAL HYPERTENSION Coronary atherosclerosis of artery bypass graft ARTERIOSCLEROSIS OF CORONARY ARTERY BYPASS GRAFT CKD (chronic kidney disease) CHRONIC KIDNEY DISEASE Aortic valve stenosis AORTIC VALVE STENOSIS S/P CABG (coronary artery bypass graft) HISTORY OF CORONARY ARTERY BYPASS GRAFTING Coronary artery disease involving [place] coronary artery CORONARY ARTERIOSCLEROSIS IN [place] ARTERY S/p TAVR (transcatheter aortic valve replacement), bioprosthetic HISTORY OF TISSUE GRAFT AORTIC VALVE REPLACEMENT Need for SBE (subacute bacterial endocarditis) prophylaxis RISK OF SUBACUTE BACTERIAL ENDOCARDITIS New onset left bundle branch block (LBBB) s/p TAVR LEFT BUNDLE BRANCH BLOCK ZURDO (obstructive sleep apnea) OBSTRUCTIVE SLEEP APNEA SYNDROME Cardiac pacemaker in situ CARDIAC PACEMAKER IN SITU 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 CHRONIC DIASTOLIC HEART FAILURE Past Medical History: Diagnosis Date Adrenal adenoma Cardiac pacemaker in situ 04/24/2018 Significant conduction disease/new LBBB post TAVR/Pacemaker Medtronic [address] Dr Xt Mri Device [id number] Cataract Cellulitis of left lower limb Chronic diastolic heart failure (HCC) Chronic osteoarthritis CKD (chronic kidney disease) Coronary atherosclerosis of artery bypass graft Coronary atherosclerosis of [place] coronary artery Diabetes mellitus, type 2 (HCC) 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 (HCC) Essential hypertension HL (hearing loss) LBBB (left bundle branch block) 04/25/2018 New onset left bundle branch block (LBBB) s/p TAVR Lung nodules Mixed hyperlipidemia Need for SBE (subacute bacterial endocarditis) prophylaxis 04/24/2018 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) Nonrheumatic aortic (valve) stenosis ZURDO (obstructive sleep apnea) 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 Surgeon: Donald Upton III, MD; Location: [facility]; Service: Cardiology - Cardiac Intervention Hemodynamics Peripheral Structural; Laterality: N/A; CORONARY ANGIOGRAPHY WITH SVG/TRIANA GRAFT VISUALIZATION 09/27/2016 Severe [place] vessel CAD manifested by OPTOMECHANICAL TECHNICIAN of LAD and RCA. Mild-moderate disease involving the LCX. Widely patent TRIANA to LAD. Known chronic occlusion of SVG to right coronary system. (SMPG) CORONARY ANGIOGRAPHY WITH SVG/TRIANA GRAFT VISUALIZATION 06/06/2012 1. Significant 2 vessel coronary disease with total occlusion of the RCA which filled retrograde with collaterals from the circumflex coronary artery. The LAD coronary artery was totally occluded and filled with a patent TRIANA which was poorly visualized.2. The SVG to the RCA was totally occluded. This graft had a large amount of thrombus.3. EMELYN was performed in conjunction with this study demonstr CORONARY ARTERY BYPASS GRAFT 08/1998 TRIANA to LAD, SVG to RCA. LUMBAR DISC SURGERY 04/1991 PACEMAKER INSERTION DUAL Left 04/24/[address] Xt Mri Device --MDT; Surgeon: Bruno Oneill MD; Location: [facility] CV LAB; Service: Electrophysiology lab - Invasive; Laterality: Left; TAVR, FEMORAL APPROACH Right 04/23/2018 Procedure: Commercial: Transcatheter Aortic Valve Replacement, Right Transfemoral, 29 CV, perc con ; Surgeon: Amauri Ac MD; Location: [facility] CV OR; Service: Heart; Laterality: Right; TONSILLECTOMY 1943 Final Medications: Current Outpatient Prescriptions Medication Sig Dispense Refill acetaminophen (TYLENOL) 325 MG tablet Take 1-2 tablets (325-650 mg total) by mouth every 4 (four) hours as needed. amLODIPine (NORVASC) 5 MG tablet Take 5 mg by mouth daily. aspirin 81 MG EC tablet Take 81 mg by mouth daily. clopidogrel (PLAVIX) 75 mg tablet Take 75 mg by mouth daily. HYDROcodone-acetaminophen (NORCO) 5-325 mg per tablet Take 1-2 tablets by mouth every 4 (four) hours as needed. Max Daily Dose: 12 tablets 20 tablet 0 isosorbide mononitrate (IMDUR) 60 MG 24 hr tablet Take 60 mg by mouth daily. lisinopril (PRINIVIL,ZESTRIL) 20 MG tablet Take 1 tablet (20 mg total) by mouth daily. 30 tablet 11 nitroglycerin (NITROSTAT) 0.4 MG SL tablet Dissolve 0.4 mg under the tongue every 5 (five) minutes as needed for chest pain. May repeat for a total of 3 doses. ranolazine (RANEXA) 1,000 mg SR tablet Take 1,000 mg by mouth 2 (two) times a day. saw/vit E/sod willy/lyc/beta/pyg (PROSTATE HEALTH ORAL) Take by mouth. Take 1 tablet daily. sitaGLIPtin (JANUVIA) 50 MG tablet Take 50 mg by mouth daily. traZODone (DESYREL) 100 MG tablet Take 100 mg by mouth nightly. No current facility-administered medications for this encounter. Allergies Allergen Reactions Lipitor [Atorvastatin] History reviewed. No pertinent family history. Social History: Social History Substance Use Topics Smoking status: Never Smoker Smokeless tobacco: Never Used Alcohol use No Review of Systems Constitution: Negative for chills, diaphoresis, fever, weakness, malaise/ fatigue and weight gain. HENT: Negative for nosebleeds and sore throat. Eyes: Negative for blurred vision, double vision, vision loss in left eye and vision loss in right eye. Cardiovascular: Positive for dyspnea on exertion. Negative for chest pain, irregular heartbeat, leg swelling, near-syncope, orthopnea, palpitations, paroxysmal nocturnal dyspnea and syncope. Respiratory: Negative for hemoptysis, sleep disturbances due to breathing and snoring. Endocrine: Negative for cold intolerance and heat intolerance. Hematologic/Lymphatic: Negative for bleeding problem. Bruises/bleeds easily. Skin: Positive for rash. Negative for poor wound healing and skin cancer. Musculoskeletal: Negative for falls. Gastrointestinal: Negative for hematemesis and hematochezia. Genitourinary: Negative for hematuria and non-menstrual bleeding. Neurological: Positive for numbness and paresthesias. Negative for dizziness and light-headedness. Psychiatric/Behavioral: Negative for altered mental status and depression. Allergic/Immunologic: Negative for HIV exposure and persistent infections. Vitals 05/21/2018 BP 135/64 Pulse 62 Resp 18 Height 6' 0" Weight 200 lb SpO2 97 Some recent data might be hidden BMI: Body mass index is 27.12 kg/m. Physical Exam Constitutional: He is oriented to person, place, and time. He appears well- developed and well-nourished. No distress. Neck: No JVD present. Cardiovascular: Normal rate and regular rhythm. Murmur heard. Pulses: Radial pulses are 2+ on the right side, and 2+ on the left side. Posterior tibial pulses are 2+ on the right side, and 2+ on the left side. Pulmonary/Chest: Effort normal and breath sounds normal. He has no rales. Abdominal: Soft. Bowel sounds are normal. He exhibits no distension. Musculoskeletal: Normal range of motion. He exhibits no edema. Neurological: He is alert and oriented to person, place, and time. Skin: Skin is warm and dry. Psychiatric: He has a normal mood and affect. His behavior is normal. Cholesterol Date Value 04/16/2018 151 mg/dL 09/18/2017 148 HDL Cholesterol (mg/dL) Date Value 09/18/2017 36 Triglycerides (mg/dL) Date Value 09/18/2017 161 (A) LDL Cholesterol Date/Time Value Ref Range Status 09/18/2017 80 mg/dL Final EKG: First Degree Heart Block and Ventricular pacing at 61 bpm Encounter Diagnoses Name Primary? 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 Severe aortic stenosis, now status post transcatheter aortic valve replacement. The patient remains on aspirin and Plavix. Plavix was initiated by his primary electrical tester, Dr. Drake, and we will defer management to him. He will require lifelong SBE prophylaxis. He should remain on aspirin 81 mg lifelong as well. The patient was noted to have a hematoma on his one-week followup. This is now improving and is nontender with no bruit heard on auscultation. He had an echocardiogram that was completed today. I will give him a call with these results once they are available. He had a referral to cardiac rehab; however, he has not been called, and I will follow up with this program for the patient. 2. Chronic diastolic heart failure. His last ejection fraction was 70%. He appears euvolemic on exam today. He brings in his weight log from home, and they have remained stable. No changes made to his medical therapy. 3. Hypertension. Blood pressure is 135/64. His home blood pressure logs are also well controlled. No changes made today. 4. Coronary artery disease, status post CABG. He had an angiogram completed prior to his TAVR that required no intervention. He does have some moderate disease. He has no complaints of angina and remains on Ranexa, Imdur, aspirin, and Norvasc. No changes made to his medicines today. He has a history of statin intolerance. 5. Diabetes Types 2. He also brings in his blood sugars from home, which are also well controlled and managed by his primary care physician. 6. Cardiac pacemaker in situ. His device incision site is well approximated and healed. He has his next device check on 05/26/2018. He will follow up with [facility] device clinic. Mr. Hwang will return to the valve clinic in 1 year's time with an office and echocardiogram. Treatment goals, progress and next steps, as above, were discussed and mutually agreed upon with the patient/family. Thank you for allowing me to participate in Ronaldo Hwang's care. If I can be of any further assistance, please do not hesitate to contact me. Sincerely, Michaelle Andino APRN /krystal in this encounter Plan of Treatment Date Type Specialty Care Team Description 07/17/2018 Procedure Pass Radiology 07/17/2018 Procedure Pass Radiology 07/23/2018 Appoint[place] [address] [place] [address] [phone] 07/23/2018 App[place] [address] [place] [address] [phone] 08/14/2018 Nurse Only Cardiology Vicky Duggan RN ANP [address] [place] [address] [phone] 08/14/2018 Office Visit Cardiology Vicky Duggan RN ANP [address] [place] [address] [phone] as of this encounter Procedures Procedure Name Priority Date/Time Associated Diagnosis Comments ECG Routine 05/21/2018 S/p TAVR (transcatheter Results for this 11:14 AM COMMERCIAL ACCOUNT MANAGER aortic valve procedure are in the replacement), results section. bioprosthetic in this encounter Results * Electrocardiogram (ECG) (05/21/2018 11:14 AM) QRSd 160 TRACEMASTER QT 467 TRACEMASTER QTC 471 TRACEMASTER ECGHR 61 TRACEMASTER ECGPR 295 TRACEMASTER Narrative Performed At [email or web address] [facility] Test Date:2018-05-21 Pat Name: RONALDO HWANG Department: [facility] Room: Gender: Male Air Box Tester: [id number] :1935 Requested By: MARLYN ARORA Order Number: [id number] MD: Guille Corley Measurements IntervalsAxis Rate: 61 P:-74 CA: 295QRS:122 QRSD: 160T:57 QT: 467 QTc:471 Interpretive Statements Sinus or ectopic atrial rhythm Prolonged CA interval Consider left ventricular hypertrophy Anterior Q waves, possibly due to LVH Electronically Signed On 05-22-2018 9:23:22 COMMERCIAL ACCOUNT MANAGER by Guille Corley Procedure Note Interface, External Ris In - 05/22/2018 9:23 AM COMMERCIAL ACCOUNT MANAGER [facility] Test Date: 2018-05-21 Pat Name: RONALDO HWANG Department: [facility] Room: Gender: Male Air Box Tester: [id number] : 1935 Requested By: MARLYN ARORA Order Number: [id number] Reading : Guille Corley Measurements Intervals [place] Rate: 61 P: -74 CA: 295 QRS: 122 QRSD: 160 T: 57 QT: 467 QTc: 471 Interpretive Statements Sinus or ectopic atrial rhythm Prolonged CA interval Consider left ventricular hypertrophy Anterior Q waves, possibly due to LVH Electronically Signed On 05-22-2018 9:23:22 COMMERCIAL ACCOUNT MANAGER by Guille Corley Performing Organization Address City/State/Zipcode Phone Number TRACEMASTER in this encounter Visit Diagnoses Diagnosis S/p TAVR (transcatheter aortic valve replacement), bioprosthetic - Primary Essential hypertension Unspecified essential hypertension Nonrheumatic aortic valve stenosis Atherosclerosis of coronary artery bypass graft of [place] heart with unstable angina pectoris (HCC) S/P CABG (coronary artery bypass graft) Postsurgical aortocoronary bypass status Need for SBE (subacute bacterial endocarditis) prophylaxis New onset left bundle branch block (LBBB) s/p TAVR Cardiac pacemaker in situ Diabetes mellitus type 2, noninsulin dependent (HCC) 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
--- OUTSIDE RECORDS SUMMARY | 2018-07-18 18:12 | XMS REPORT | Encounter Summary ---
Author Author [facility] Organization [facility] Address Unknown Phone Unavailable Care Team Providers Care Voicer Name Role Phone Alejandrina Adame MD PCP Encounter Details Date Type Department Care Team Description 05/22/2018 Telephone [facility] Michaelle Andino, ISAC [address] [address] [address] [place] [address] [phone] Social History Tobacco Use Types Packs/Day Years Used Date Never Smoker Smokeless Tobacco: Never Used Alcohol Use Drinks/Week oz/Week Comments No Sex Assigned at Date Recorded Not on file as of this encounter Miscellaneous Notes * Telephone Encounter - Michaelle Andino, ISAC - 05/22/2018 1:06 PM OPERATIONS BUSINESS PARTNER Called patient with one month echocardiogram results from 05/21/2018 s/p TAVR. Bioprosthetic aortic valve functioning well with mild regurgitation, mean gradient of 10 mmHg, was 4 mmHg at time of procedure. LMOM with valve clinic number to call back with questions per patient approval. in this encounter Plan of Treatment Date Type Specialty Care Team Description 07/17/2018 Procedure Pass Radiology 07/17/2018 Procedure Pass Radiology 07/23/2018 Appoint[place] [address] [place], [place] [id number] 07/23/2018 Appoint[place] [address] [place] [address] 08/14/2018 Nurse Only Cardiology Vicky Duggan RN ANP [address] [place] [address] [phone] 08/14/2018 Office Visit Cardiology Vicky Duggan RN ANP [address] [place] [address] [phone] as of this encounter Visit Diagnoses Not on filein this encounter
--- OUTSIDE RECORDS SUMMARY | 2018-07-18 18:12 | XMS REPORT | Encounter Summary ---
Author Author [facility] Organization [facility] Address Unknown Phone Unavailable Care Team Providers Care Solution Director Name Role Phone Alejandrina Adame MD PCP Reason for Visit * Reason Comments [facility] Encounter Details Date Type Department Care Team Description 05/29/2018 Telephone [facility] Michael Calderón LPN [facility] [address] [facility] [address] [place] [address] Social History Tobacco Use Types Packs/Day Years Used Date Never Smoker Smokeless Tobacco: Never Used Alcohol Use Drinks/Week oz/Week Comments No Sex Assigned at Date Recorded Not on file as of this encounter Miscellaneous Notes * Telephone Encounter - Michael Calderón LPN - 06/03/2018 1:50 PM TRAIN DRIVER Faxed signed paperwork to provided number. Confirmation received. Kept copy in file. * Telephone Encounter - Michael Calderón LPN - 05/29/2018 2:59 PM TRAIN DRIVER Received cardiac rehab orders for signature from Claudia Coates. Put into [facility] folder for signature. in this encounter Plan of Treatment Date Type Specialty Care Team Description 07/17/2018 Procedure Pass Radiology 07/17/2018 Procedure Pass Radiology 07/23/2018 Appoint[place] [address] [place] [address] 07/23/2018 Appoint[place] [address] [place], [place] [id number] 08/14/2018 Nurse Only Cardiology Vicky Duggan RN ANP [address] [place] [address] [phone] 08/14/2018 Office Visit Cardiology Vicky Duggan RN ANP [address] [place] [address] [phone] as of this encounter Visit Diagnoses Not on filein this encounter
--- OUTSIDE RECORDS SUMMARY | 2018-07-18 18:13 | XMS REPORT | Encounter Summary ---
Author Author [facility] Organization [facility] Address Unknown Phone Unavailable Care Team Providers Care Drag Car Racer Name Role Phone Alejandrina Adame MD PCP Reason for Visit * Reason Comments 1 week post TAVR Encounter Details Date Type Department Care Team Description 04/30/2018 [facility] Lakisha Camp APRN S/p TAVR (transcatheter Encounter [facility] [address] aortic valve [address]), [place] [address] [place] [address] bioprosthetic (Primary [phone] Dx); Essential hypertension; Stage 3 chronic kidney disease (HCC); Nonrheumatic aortic valve stenosis; S/P CABG (coronary artery bypass graft); Coronary artery disease involving [place] coronary artery of [place] heart without angina pectoris; Need for SBE (subacute bacterial endocarditis) prophylaxis; New onset left bundle branch block (LBBB) s/p TAVR Social History Tobacco Use Types Packs/Day Years Used Date Never Smoker Smokeless Tobacco: Never Used Alcohol Use Drinks/Week oz/Week Comments No Sex Assigned at Date Recorded Not on file as of this encounter Last Filed Vital Signs Vital Sign Reading Time Taken Blood Pressure 136/68 04/30/2018 9:36 AM AIRPLANE PILOT Pulse 65 04/30/2018 9:29 AM AIRPLANE PILOT Temperature 36.5 C (97.7 F) 04/30/2018 9:29 AM AIRPLANE PILOT Respiratory Rate 20 04/30/2018 9:29 AM AIRPLANE PILOT Oxygen Saturation 100% 04/30/2018 9:29 AM AIRPLANE PILOT Inhaled Oxygen - - Concentration Weight 86.8 kg (191 lb 6.4 oz) 04/30/2018 9:29 AM AIRPLANE PILOT Height 182.9 cm (6') 04/30/2018 9:29 AM AIRPLANE PILOT Body Mass Index 25.96 04/30/2018 9:29 AM AIRPLANE PILOT in this encounter Medications at Time of [...] as of this encounter Progress Notes * Lakisha Camp APRN - 04/30/2018 9:33 AM AIRPLANE PILOT Formatting of this note may be different from the original. [facility] Appointment Date: 04/30/2018 Alejandrina Adame MD [address] [facility] [address] RE: Ronaldo Hwang : 1935 Visit provider: Lakisha Camp APRN Dear Alejandrina Adame MD, I had the pleasure of seeing Ronaldo Hwang in the office today. He is a(n) 82 y.o. male and presents with the following chief complaint(s): 1 week post TAVR HPI: Mr. Ronaldo Hwang is a very pleasant 82-year-old gentleman with a past medical history of aortic stenosis, coronary artery disease status post CABG, hypertension, type 2 diabetes, chronic kidney disease, peripheral neuropathy, peripheral arterial disease, and a recent diabetic foot ulcer. He was evaluated in the multidisciplinary valve clinic and underwent successful right transfemoral implantation of a 29 mm Medtronic CoreValve Evolut Pro transcatheter valve in the aortic position on 04/23/2018. Postoperatively, he was monitored with a temporary pacemaker in place for development of a new left bundle branch block. Electrophysiology was consulted given his first-degree AV block at baseline with his new left bundle branch block and blocked PACs on telemetry and implanted a dual-chamber permanent pacemaker on 04/24/2018. The rest of his postoperative course was uncomplicated and he was discharged home on postoperative day #2. He presents to clinic today for his 1 week post-TAVR followup appointment. Mr. Hwang reports feeling quite a bit better following his valve replacement. He denies symptoms of angina, shortness of breath, dizziness, lightheadedness, palpitations, and bilateral lower extremity edema. He does have a knot in his right groin that is tender to deep palpation. He brings a log of his vital signs and daily weights. His weights and heart rates have been stable, but his blood pressure ranges from 138-145. His initial blood pressure in the office today was 150/70. On recheck, it was 136/68. He also tells me he has a followup appointment with his primary care doctor on May 06. Patient Active Problem List Diagnosis SNOMED CT(R) Type 2 diabetes mellitus (HCC) TYPE 2 DIABETES MELLITUS Mixed hyperlipidemia MIXED HYPERLIPIDEMIA Essential hypertension ESSENTIAL HYPERTENSION Coronary atherosclerosis of artery bypass graft ARTERIOSCLEROSIS OF CORONARY ARTERY BYPASS GRAFT CKD (chronic kidney disease) CHRONIC KIDNEY DISEASE Aortic valve stenosis AORTIC VALVE STENOSIS S/P CABG (coronary artery bypass graft) HISTORY OF CORONARY ARTERY BYPASS GRAFTING Coronary artery disease involving [place] coronary artery CORONARY ARTERIOSCLEROSIS IN [place]VI ARTERY S/p TAVR (transcatheter aortic valve replacement), bioprosthetic HISTORY OF TISSUE GRAFT AORTIC VALVE REPLACEMENT Need for SBE (subacute bacterial endocarditis) prophylaxis RISK OF SUBACUTE BACTERIAL ENDOCARDITIS New onset left bundle branch block (LBBB) s/p TAVR LEFT BUNDLE BRANCH BLOCK Past Medical History: Diagnosis Date Aortic valve stenosis Cataract Cellulitis of left lower limb Chronic osteoarthritis CKD (chronic kidney disease) Coronary atherosclerosis of artery bypass graft Coronary atherosclerosis of [place] coronary artery Diabetes mellitus, type 2 (HCC) 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 (HCC) Essential hypertension HL (hearing loss) Mixed hyperlipidemia Need for SBE (subacute bacterial endocarditis) prophylaxis 04/24/2018 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) ZURDO (obstructive sleep apnea) 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), bioprosthetic 04/24/2018 Past Surgical History: Procedure Laterality Date CATARACT SURGERY CATHETERIZATION, HEART, LEFT N/A 04/17/2018 Procedure: LEFT HEART CATHETERIZATION; Surgeon: Donald Upton III, MD; Location: [facility] CV LAB; Service: Cardiology - Cardiac Intervention Hemodynamics Peripheral Structural; Laterality: N/A; CORONARY ANGIOGRAM WITH GRAFT VISUALIZATION POSSIBLE PCI N/A 04/17/2018 Procedure: CORONARY ANGIOGRAPHY WITH POSSIBLE PCI w/ graft viz; Surgeon: Donald Upton III, MD; Location: [facility] CV LAB; Service: Cardiology - Cardiac Intervention Hemodynamics Peripheral Structural; Laterality: N/A; CORONARY ANGIOGRAPHY WITH SVG/TRIANA GRAFT VISUALIZATION 09/27/2016 Severe [place] vessel CAD manifested by ADVENTURE EDUCATION TEACHER of LAD and RCA. Mild-moderate disease involving [...] SURGERY 04/1991 PACEMAKER INSERTION DUAL Left 04/24/2018 Procedure: PACEMAKER INSERTION DUAL--MDT; Surgeon: Bruno Oneill MD; Location: [facility]; Service: Electrophysiology lab - Invasive; Laterality: Left; TAVR, FEMORAL APPROACH Right 04/23/2018 Procedure: Commercial: Transcatheter Aortic Valve Replacement, Right Transfemoral, 29 CV, perc con ; Surgeon: Amauri Ac MD; Location: [facility] CV OR; Service: Heart; Laterality: Right; TONSILLECTOMY [...] and vision loss in right eye. Cardiovascular: Negative for chest pain, dyspnea on exertion, irregular heartbeat, leg swelling, near-syncope, orthopnea, palpitations, paroxysmal nocturnal dyspnea and syncope. Respiratory: Negative for hemoptysis, shortness of breath, sleep disturbances due to breathing and snoring. Endocrine: Negative for cold intolerance and heat intolerance. Hematologic/Lymphatic: Negative for bleeding problem. Bruises/bleeds easily. Skin: Negative for poor wound healing, rash and skin cancer. Musculoskeletal: Negative for falls. Gastrointestinal: Negative for bloating, hematemesis and hematochezia. Genitourinary: Negative for hematuria and non-menstrual bleeding. Neurological: Negative for dizziness, light-headedness, numbness and paresthesias. Psychiatric/Behavioral: Negative for altered mental status and depression. Allergic/Immunologic: Negative for HIV exposure and persistent infections. Vitals 04/30/2018 04/30/2018 BP 136/68 150/70 Pulse - 65 Resp - 20 Height - 6' 0" Weight - 191 lb 6.4 oz SpO2 - 100 Some recent data might be hidden BMI: Body mass index is 25.96 kg/m. Physical Exam Constitutional: He is oriented to person, place, and time. He appears well- developed and well-nourished. No distress. HENT: Head: Normocephalic and atraumatic. Eyes: Conjunctivae are normal. No scleral icterus. Neck: Normal range of motion. Neck supple. No JVD present. Cardiovascular: Normal rate and regular rhythm. Murmur heard. Pulmonary/Chest: Effort normal and breath sounds normal. No respiratory distress. Abdominal: Soft. Musculoskeletal: Normal range of motion. He exhibits no edema. Neurological: He is alert and oriented to person, place, and time. No aphasia. Symmetrical facial movements. Skin: Skin is warm and dry. He is not diaphoretic. Left femoral access site WNL with no hematoma, bruit, or drainage. Right access site with small tender hematoma. No drainage or bruit. Pacemaker incision well approximated with no drainage. Mild ecchymosis. Psychiatric: He has a normal mood and affect. His behavior is normal. Cholesterol Date Value 04/16/2018 151 mg/dL 09/18/2017 148 HDL Cholesterol (mg/dL) Date Value 09/18/2017 36 Triglycerides (mg/dL) Date Value 09/18/2017 161 (A) LDL Cholesterol Date/Time Value Ref Range Status 09/18/2017 80 mg/dL Final Encounter Diagnoses Name Primary? S/p TAVR (transcatheter aortic valve replacement), bioprosthetic Yes Essential hypertension Stage 3 chronic kidney disease (HCC) Nonrheumatic aortic valve stenosis S/P CABG (coronary artery bypass graft) Coronary artery disease involving [place] coronary artery of [place] heart without angina pectoris Need for SBE (subacute bacterial endocarditis) prophylaxis New onset left bundle branch block (LBBB) s/p TAVR Cardiac pacemaker in situ Impression and Plan: 1. Severe aortic stenosis, status post transcatheter aortic valve replacement. He continues on aspirin therapy indefinitely. He is currently on Plavix, which is not required post-TAVR. Plavix was continued and we will defer the duration to his primary coal washer tender. He will require lifelong SBE prophylaxis. His post-procedure aortic valve mean gradient was 6.5 mmHg. We will repeat an echocardiogram 1 month post-TAVR to reassess his valve function. 2. Conduction disease with first-degree atrioventricular block and new left bundle branch block. Due to blocked PACs on telemetry, it was felt that he was at high risk for development of complete heart block and a dual-chamber pacemaker was implanted. I have taken off the Silverlon dressing today, and his wound is well approximated with no hematoma or drainage. He still has some mild ecchymosis around the site. 3. Chronic diastolic heart failure due to valvular disease. He is euvolemic on exam and reports symptoms consistent with NYHA class I functional status. 4. Coronary artery disease status post coronary artery bypass graft. Patient denies angina and continues on Norvasc, Imdur and Ranexa for anginal prevention. 5. Hypertension. The patient's home log of blood pressures have been elevated and in the office today. I have asked him to increase his lisinopril from 10 mg to 20 mg daily. He states that he has a followup appointment with his primary care physician, Dr. Alejandrina Adame, on the . He will have labs drawn at this time, and we will request a copy to make sure that his kidney function remains stable. 6. Chronic kidney disease. See plan above. 7. Lung nodules/hepatic mass/adrenal mass. 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 He is following with Dr. Michael Magdaleno. 8. Right femoral hematoma. Small hematoma without bruit at right access site. No drainage. Tender to deep palpation. We will recheck site at one month and if it is ribbon lap machine tender, will consider ultrasound. We will plan to see Mr. Hwang back in the multidisciplinary valve clinic for his 1 month post TAVR followup appointment. Treatment goals, progress and next steps, as above, were discussed and mutually agreed upon with the patient/ family. Thank you for allowing me to participate in Ronaldo Hwang's care. If I can be of any further assistance, please do not hesitate to contact me. Sincerely, Lakisha Camp APRN /aleisha in this encounter Plan of Treatment Date Type Specialty Care Team Description 07/17/2018 Procedure Pass Radiology 07/17/2018 Procedure Pass Radiology 07/23/2018 Appoint[place] [address] [place] [address] 07/23/2018 [place] [address] [place] [address] 08/14/2018 Nurse Only Cardiology Vicky Duggan RN ANP [address] [place] [address] [phone] 08/14/2018 Office Visit Cardiology Vicky Duggan RN ANP [address] [place] [address] [phone] as of this encounter Visit Diagnoses Diagnosis S/p TAVR (transcatheter aortic valve replacement), bioprosthetic - Primary Essential hypertension Unspecified essential hypertension Stage 3 chronic kidney disease (HCC) Nonrheumatic aortic valve stenosis S/P CABG (coronary artery bypass graft) Postsurgical aortocoronary bypass status Coronary artery disease involving [place] coronary artery of [place] heart without angina pectoris Need for SBE (subacute bacterial endocarditis) prophylaxis New onset left bundle branch block (LBBB) s/p TAVR Cardiac pacemaker in situ
--- OUTSIDE RECORDS SUMMARY | 2018-07-18 18:13 | XMS REPORT | Encounter Summary ---
Author Author [facility] Organization [facility] Address Unknown Phone Unavailable Care Team Providers Care Door Frame Builder Name Role Phone Alejandrina Adame MD PCP Encounter Details Date Type Department Care Team Description 04/30/2018 Lab [facility] Amauri Ac MD S/p TAVR ( transcatheter [address] aortic valve [address]), [place] [address] [place] [address] bioprosthetic [phone] Social History Tobacco Use Types Packs/Day Years Used Date Never Smoker Smokeless Tobacco: Never Used Alcohol Use Drinks/Week oz/Week Comments No Sex Assigned at Date Recorded Not on file as of this encounter Plan of Treatment Date Type Specialty Care Team Description 07/17/2018 Procedure Pass Radiology 07/17/2018 Procedure Pass Radiology 07/23/2018 Appoint[place] [address] [place] [address] [phone] 07/23/2018 [place] [address] [place] [address] [phone] 08/14/2018 Nurse Only Cardiology Vicky Duggan RN ANP [address] [place] [address] [phone] 08/14/2018 Office Visit Cardiology Vicky Duggan RN ANP [address] [place] [address] [phone] as of this encounter Procedures Procedure Name Priority Date/Time Associated Diagnosis Comments BASIC METABOLIC PANEL Routine 04/30/2018 S/p TAVR (transcatheter Results for this 9:14 AM MARINE DRAFTER aortic valve procedure are in the replacement), results section. bioprosthetic in this encounter Results * Basic Metabolic Panel (04/30/2018 9:14 AM) Sodium 136 133 - 147 MEQ/L [facility] Potassium 5.5 (H) 3.5 - 5.3 MEQ/L [facility] Chloride 102 96 - 112 [facility] Carbon Dioxide 26 20 - 32 [facility] Anion Gap 9 5 - 17 [facility] Calcium 9.2 8.4 - 10.5 mg/dL [facility] Glucose 129 (H) 70 - 100 mg/dL [facility] Blood Urea Nitrogen 32 (H) 7 - 26 mg/dL [facility] Creatinine 1.5 (H) 0.6 - 1.3 mg/dL [facility] eGFR Male AA 54 (L) 60 - 200 [facility] Comment: REGIONAL Chronic Kidney Disease less LABORATORIES than 60 mL/min/1.73 sq.m Kidney failure less than 15 mL/min/1.73 sq.m eGFR Male Non-AA 45 (L) 60 - 200 [facility] Comment: REGIONAL Chronic Kidney Disease less LABORATORIES than 60 mL/min/1.73 sq.m Kidney failure less than 15 mL/min/1.73 sq.m Specimen Blood Performing Organization Address City/State/Zipcode Phone Number [facility] [address] [place] [address] LABORATORIES in this encounter Visit Diagnoses Diagnosis S/p TAVR (transcatheter aortic valve replacement), bioprosthetic
--- OUTSIDE RECORDS SUMMARY | 2018-07-18 18:13 | XMS REPORT | Encounter Summary ---
Author Author [facility] Organization [facility] Address Unknown Phone Unavailable Care Team Providers Care Seo Analyst Name Role Phone Alejandrina Adame MD PCP Reason for Referral * Electrophysiology (Routine) Status Reason Specialty Diagnoses / Referred By Referred To Procedures Contact Contact Authorized Cardiology Diagnoses Nino [facility] Cardio Cl Pacemaker MD Bruno [address] [facility] [address] [place], [place] [address] Check [id number] Phone: Encounter Details Date Type Department Care Team Description 04/25/2018 Orders Only [facility] Miriam England RN Pacemaker ( Primary Dx) [facility] [address] [place] [address] Social History Tobacco Use Types Packs/Day Years Used Date Never Smoker Smokeless Tobacco: Never Used Alcohol Use Drinks/Week oz/Week Comments No Sex Assigned at Date Recorded Not on file as of this encounter Plan of Treatment Date Type Specialty Care Team Description 07/17/2018 Procedure Pass Radiology 07/17/2018 Procedure Pass Radiology 07/23/2018 [place] [address] [place] [address] 07/23/2018 [place] [address] [place] [address] 08/14/2018 Nurse Only Cardiology Vicky Duggan RN ANP [address] [place] [address] [phone] 08/14/2018 Office Visit Cardiology Vicky Duggan RN ANP [address] [place] [address] [phone] as of this encounter Results * Inpatient Device Check (04/25/2018 2:08 PM) Impressions Performed At Device Interrogation Report DATE/TIME: 04/25/2018 2:09 PM Indication for interrogation: Next day post implant check Device Telemetry Tech/Model:Wilocity Mary Battery Voltage: MASOUD Atrial Pacing0.5% Ventricular Pacing [...] follow up. Interrogation reviewed with Dr. Nino England RN 04/25/2018 2:09 PM Electrophysiology Nurse Narrative Performed At in this encounter Visit Diagnoses Diagnosis Pacemaker - Primary Cardiac pacemaker in situ
--- OUTSIDE RECORDS SUMMARY | 2018-07-18 18:13 | XMS REPORT | Encounter Summary ---
Author Author [facility] Organization [facility] Address Unknown Phone Unavailable Care Team Providers Care Rn Homecare Name Role Phone Alejandrina Adame MD PCP Encounter Details Date Type Department Care Team Description 05/13/2018 Telephone [facility] Cheryl Bundy LPN [facility] [address] [place] [address] Social History Tobacco Use Types Packs/Day Years Used Date Never Smoker Smokeless Tobacco: Never Used Alcohol Use Drinks/Week oz/Week Comments No Sex Assigned at Date Recorded Not on file as of this encounter Miscellaneous Notes * Telephone Encounter - Cheryl Bundy LPN - 05/13/2018 10:17 AM BENCH MACHINE OPERATOR [facility] [phone] * Telephone Encounter - Cheryl Bundy LPN - 05/13/2018 10:16 AM BENCH MACHINE OPERATOR From: Lakisha Camp [email or web address]> Sent: Sunday, May 13, 2018 9:07 AM To: Cheryl Bundy [email or web address]>; Maya Baugh [email or web address]> Subject: RE: Clinic Follow Up Yes please Lakisha Camp RN, [facility] Structural Cardiology Advanced Practice Provider [facility] From: Cheryl Bundy [email or web address]> Sent: Sunday, May 13, 2018 7:19 AM To: aLkisha Camp [email or web address]>; Maya Baugh <[email or web address]> Subject: RE: Clinic Follow Up Ronaldo Hwang did not collect labs when he was in to see his PCP. Would you like me to have him collect locally? From: Lakisha Camp <[email or web address]> Sent: April 10:49 AM To: Maya Baugh <[email or web address]>; Gregor Cheryl Arnold [email or web address]> Cc: Lakisha Camp <[email or web address]> Subject: FW: Clinic Follow Up Also, can you request lab records on Ronaldo Hwang [address] Alejandrina Hollins office. I increased Lisinopril and he was seeing her on 05/06 to have labs drawn. Thank you Lakisha Camp RN, [facility] in this encounter Plan of Treatment Date Type Specialty Care Team Description 07/17/2018 Procedure Pass Radiology 07/17/2018 Procedure Pass Radiology 07/23/2018 [place] [address] [place] [address] 07/23/2018 [place] [address] [place] [address] 08/14/2018 Nurse Only Cardiology Vicky Duggan RN ANP [address] [place] [address] [phone] 08/14/2018 Office Visit Cardiology Vicky Duggan RN ANP [address] [place] [address] [phone] Name Priority Associated Diagnoses Order Schedule Basic Metabolic Panel STAT Medication management Expected: 05/13/2018, Essential hypertension Expires: 05/13/2019 S/p TAVR (transcatheter aortic valve replacement), bioprosthetic as of this encounter Visit Diagnoses Diagnosis Medication management - Primary Essential hypertension Unspecified essential hypertension S/p TAVR (transcatheter aortic valve replacement), bioprosthetic
--- OUTSIDE RECORDS SUMMARY | 2018-07-18 18:13 | XMS REPORT | Encounter Summary ---
Author Author [facility] Organization [facility] Address Unknown Phone Unavailable Care Team Providers Care Procurement Assistant Name Role Phone Alejandrina Adame MD PCP Encounter Details Date Type Department Care Team Description 04/16/2018 Procedure Pass [facility] [address] [place] [address] Social History Tobacco Use Types Packs/Day Years Used Date Never Smoker Smokeless Tobacco: Never Used Alcohol Use Drinks/Week oz/Week Comments No Sex Assigned at Date Recorded Not on file as of this encounter Plan of Treatment Date Type Specialty Care Team Description 07/17/2018 Procedure Pass Radiology 07/17/2018 Procedure Pass Radiology 07/23/2018 [place] [address] [place] [address] [phone] 07/23/2018 App[place] [address] [place] [address] [phone] 08/14/2018 Nurse Only Cardiology Vicky Duggan RN ANP [address] [place] [address] [phone] 08/14/2018 Office Visit Cardiology Vicky Duggan RN ANP [address] [place] [address] [phone] as of this encounter Visit Diagnoses Not on filein this encounter
--- OUTSIDE RECORDS SUMMARY | 2018-07-18 18:13 | XMS REPORT | Encounter Summary ---
Author Author [facility] Organization [facility] Address Unknown Phone Unavailable Care Team Providers Care Lamp Shade Assembler Name Role Phone Alejandrina Adame MD PCP Reason for Referral * Electrophysiology (Routine) Status Reason Specialty Diagnoses / Referred By Referred To Procedures Contact Contact Authorized Cardiology Diagnoses [facility] Cardio Cl Pacemaker MD Bruno [address] [facility] [address] [place], [place] [address] Check [address] Phone: Encounter Details Date Type Department Care Team Description 04/25/2018 Orders Only [facility] Miriam England RN Pacemaker [facility] [address] [place] [address] Social History Tobacco Use Types Packs/Day Years Used Date Never Smoker Smokeless Tobacco: Never Used Alcohol Use Drinks/Week oz/Week Comments No Sex Assigned at Date Recorded Not on file as of this encounter Plan of Treatment Date Type Specialty Care Team Description 07/17/2018 Procedure Pass Radiology 07/17/2018 Procedure Pass Radiology 07/23/2018 Appointment [place] [address] [place], [place] [address] 07/23/2018 [place] [address] [place] [address] 08/14/2018 Nurse Only Cardiology Vicky Duggan RN ANP [address] [place] [address] [phone] 08/14/2018 Office Visit Cardiology Vicky Duggan RN ANP [address] [place] [address] [phone] as of this encounter Procedures Procedure Name Priority Date/Time Associated Diagnosis Comments INPATIENT DEVICE CHECK Routine 04/25/2018 Pacemaker Results for this 2:08 PM HEEL GOUGER procedure are in the results section. in this encounter Results * Inpatient Device Check (04/25/2018 2:08 PM) Impressions Performed At Device Interrogation Report DATE/TIME: 04/25/2018 2:09 PM Indication for interrogation: Next day post implant check Device Setup Operator/Model:Emprego Ligado Battery Voltage: MASOUD Atrial Pacing0.5% Ventricular Pacing [...] in this encounter Visit Diagnoses Diagnosis Pacemaker Cardiac pacemaker in situ
--- OUTSIDE RECORDS SUMMARY | 2018-07-18 18:13 | XMS REPORT | Encounter Summary ---
Author Author [facility] Organization [facility] Address Unknown Phone Unavailable Care Team Providers Care Gis Scientist Name Role Phone Alejandrina Adame MD PCP Reason for Referral * PaceArt (Routine) Status Reason Specialty Diagnoses / Referred By Referred To Procedures Contact Contact Authorized Cardiology Diagnoses [facility] Remote Cardiac MD Bruno Device pacemaker in [address] Remote Check at situ [address] [place], [place] rocedures [address] Remote Device Phone: Phone: Monitoring [phone] Fax: * PaceArt (Routine) Status Reason Specialty Diagnoses / Referred By Referred To Procedures Contact Contact Authorized Cardiology Diagnoses [facility] Cardio Cl Cardiac MD Bruno [address] pacemaker in [address] situ [place] [place] [address] rocedures [id number] Phone: Pacemaker Interrogation [phone] Encounter Details Date Type Department Care Team Description 04/25/2018 TranscriSabrina Kulkarni MA Cardiac pacemaker in situ Orders [facility] [address] [place] [address] Social History Tobacco Use Types Packs/Day Years Used Date Never Smoker Smokeless Tobacco: Never Used Alcohol Use Drinks/Week oz/Week Comments No Sex Assigned at Date Recorded Not on file as of this encounter Plan of Treatment Date Type Specialty Care Team Description 07/17/2018 Procedure Pass Radiology 07/17/2018 Procedure Pass Radiology 07/23/2018 [place] [address] [place] [address] [phone] 07/23/2018 [place] [address] [place] [address] [phone] 08/14/2018 Nurse Only Cardiology Vicky Duggan RN ANP [address] [place] [address] [phone] 08/14/2018 Office Visit Cardiology Vicky Duggan RN ANP [address] [place] [address] [phone] Name Priority Associated Diagnoses Order Schedule Pacemaker Interrogation Routine Cardiac pacemaker in situ 30 Occurrences starting 04/25/2018 until 04/20/2038 Remote Device Monitoring Routine Cardiac pacemaker in situ 100 Occurrences starting 04/25/2018 until 04/20/2038 as of this encounter Visit Diagnoses Diagnosis Cardiac pacemaker in situ - Primary
--- OUTSIDE RECORDS SUMMARY | 2018-07-18 18:13 | XMS REPORT | Encounter Summary ---
Author Author [facility] Organization [facility] Address Unknown Phone Unavailable Care Team Providers Care Filter Washer Name Role Phone Alejandrina Adame MD PCP Encounter Details Date Type Department Care Team Description 04/26/2018 Abstract [facility] Toshia Colin RN [facility] [address] [place] [address] Social History Tobacco Use Types Packs/Day Years Used Date Never Smoker Smokeless Tobacco: Never Used Alcohol Use Drinks/Week oz/Week Comments No Sex Assigned at Date Recorded Not on file as of this encounter Plan of Treatment Date Type Specialty Care Team Description 07/17/2018 Procedure Pass Radiology 07/17/2018 Procedure Pass Radiology 07/23/2018 [place] [address] [place] [address] [phone] 07/23/2018 Appoint[place] [address] [place] [address] [phone] 08/14/2018 Nurse Only Cardiology Vicky Duggan RN ANP [address] [place] [address] [phone] 08/14/2018 Office Visit Cardiology Vicky Duggan RN ANP [address] [place] [address] [phone] as of this encounter Visit Diagnoses Not on filein this encounter
--- OUTSIDE RECORDS SUMMARY | 2018-07-18 18:13 | XMS REPORT | Encounter Summary ---
Author Author [facility] Organization [facility] Address Unknown Phone Unavailable Care Team Providers Care Auto Body Detailer Name Role Phone Alejandrina Adame MD PCP Reason for Visit * Reason Comments Follow-up Encounter Details Date Type Department Care Team Description 04/28/2018 Telephone [facility] Oksana Perez LPN Follow-up [facility] [address] [place] [address] Social History Tobacco Use Types Packs/Day Years Used Date Never Smoker Smokeless Tobacco: Never Used Alcohol Use Drinks/Week oz/Week Comments No Sex Assigned at Date Recorded Not on file as of this encounter Miscellaneous Notes * Telephone Encounter - Oksana Perez LPN - 04/28/2018 11:37 AM RESEARCH LABORATORY TECHNICIAN Pt inquired about appts - Reported appt on 04/30 and 05/01- inquired if both could be done at the same time. Educated pt to keep appts- Two different scheduled appt. in this encounter Plan of Treatment Date Type Specialty Care Team Description 07/17/2018 Procedure Pass Radiology 07/17/2018 Procedure Pass Radiology 07/23/2018 [place]oint[place] [address] [place], [place] [address] 07/23/2018 Appoint[place] [address] [place], [place] [address] 08/14/2018 Nurse Only Cardiology Vicky Duggan RN ANP [address] [facility] [address] [place] [address] [phone] 08/14/2018 Office Visit Cardiology Vicky Duggan RN ANP [address] [facility] [address] [place] [address] [phone] as of this encounter Visit Diagnoses Not on filein this encounter
--- OUTSIDE RECORDS SUMMARY | 2018-07-18 18:13 | XMS REPORT | Encounter Summary ---
Author Author [facility] Organization [facility] Address Unknown Phone Unavailable Care Team Providers Care Manager Rfid Name Role Phone Alejandrina Adame MD PCP Encounter Details Date Type Department Care Team Description 05/19/2018 Abstract [facility] solution [facility] [address] [place] [address] Social History Tobacco Use Types Packs/Day Years Used Date Never Smoker Smokeless Tobacco: Never Used Alcohol Use Drinks/Week oz/Week Comments No Sex Assigned at Date Recorded Not on file as of this encounter Plan of Treatment Date Type Specialty Care Team Description 07/17/2018 Procedure Pass Radiology 07/17/2018 Procedure Pass Radiology 07/23/2018 [place] [address] [place] [address] [phone] 07/23/2018 [place] [address] [place] [address] [phone] 08/14/2018 Nurse Only Cardiology Vicky Duggan RN ANP [address] [place] [address] [phone] 08/14/2018 Office Visit Cardiology Vicky Duggan RN ANP [address] [place] [address] [phone] as of this encounter Procedures Procedure Name Priority Date/Time Associated Diagnosis Comments BASIC METABOLIC PANEL Routine 05/13/2018 Results for this 12:00 AM RESAWYER procedure are in the results section. in this encounter Results * Basic Metabolic Panel (05/13/2018) Calcium 8.7 - 10.7 mg/dL Glucose 129 mg/dL Blood Urea Nitrogen 4 - 21 mg/dL Potassium 5.2 3.4 - 5.3 mmol/L Sodium 137 - 147 mmol/L Chloride 99 - 108 mmol/L Creatinine 1.6 (A) 0.6 - 1.3 mg/dL Carbon Dioxide 13 - 22 mmol/L BUN/Creatinine Ratio eGFR If NonAfricn Am 44 eGFR If Africn Am Specimen Blood in this encounter Visit Diagnoses Diagnosis ZURDO (obstructive sleep apnea) Obstructive sleep apnea (adult) (pediatric) Cardiac pacemaker in situ
--- OUTSIDE RECORDS SUMMARY | 2018-07-18 18:14 | XMS REPORT | Encounter Summary ---
Author Author [facility] Organization [facility] Address Unknown Phone Unavailable Care Team Providers Care Ekg Technician Name Role Phone Alejandrina Adame MD PCP Encounter Details Date Type Department Care Team Description 04/24/2018 Procedure Pass [facility] [address] [place] [address] Social History Tobacco Use Types Packs/Day Years Used Date Never Smoker Smokeless Tobacco: Never Used Alcohol Use Drinks/Week oz/Week Comments No Sex Assigned at Date Recorded Not on file as of this encounter Plan of Treatment Date Type Specialty Care Team Description 07/17/2018 Procedure Pass Radiology 07/17/2018 Procedure Pass Radiology 07/23/2018 [place] [address] [place] [address] [phone] 07/23/2018 App[place] [address] [place] [address] [phone] 08/14/2018 Nurse Only Cardiology Vicky Duggan RN ANP [address] [place] [address] [phone] 08/14/2018 Office Visit Cardiology Vicky Duggan RN ANP [address] [place] [address] [phone] as of this encounter Visit Diagnoses Not on filein this encounter
--- OUTSIDE RECORDS SUMMARY | 2018-07-18 18:14 | XMS REPORT | Encounter Summary ---
Author Author [facility] Organization [facility] Address Unknown Phone Unavailable Care Team Providers Care Gre Tutor Name Role Phone Alejandrina Adame MD PCP Encounter Details Date Type Department Care Team Description 04/24/2018 Procedure Pass [facility] [address] [place] [address] Social History Tobacco Use Types Packs/Day Years Used Date Never Smoker Smokeless Tobacco: Never Used Alcohol Use Drinks/Week oz/Week Comments No Sex Assigned at Date Recorded Not on file as of this encounter Plan of Treatment Date Type Specialty Care Team Description 07/17/2018 Procedure Pass Radiology 07/17/2018 Procedure Pass Radiology 07/23/2018 Appoint[place] [address] [place] [address] [phone] 07/23/2018 [place] [address] [place] [address] [phone] 08/14/2018 Nurse Only Cardiology Vicky Duggan RN ANP [address] [place] [address] [phone] 08/14/2018 Office Visit Cardiology Vicky Duggan RN ANP [address] [place] [address] [phone] as of this encounter Visit Diagnoses Not on filein this encounter
--- OUTSIDE RECORDS SUMMARY | 2018-07-18 18:14 | XMS REPORT | Encounter Summary ---
Author Author [facility] Address Unknown Phone Unavailable Care Team Providers Care Insole And Outsole Preparer Name Role Phone Alejandrina Adame MD PCP Reason for Referral * Rehabilitation - Outpatient (Routine) Status Reason Specialty Diagnoses / Referred By Referred To Procedures Contact Contact Closed Specialty Cardiac Diagnoses Ruiz, Services Rehabilitation S/P TAVR MD Marlyn Required (transcatheter [address] aortic valve Landon 1999 replacement) [place] [address] * Diagnostic Imaging (Routine) Status Reason Specialty Diagnoses / Referred By Referred To Procedures Contact Contact Pending Review Diagnoses Estrellitatrmikaela, Aortic stenosis MD Marlyn P [address] rocedures [place] 1999 Echo Limited [place], [place] with Doppler and [address] Color Flow if Phone: Necessary [phone] * Diagnostic Imaging (Routine) Status Reason Specialty Diagnoses / Referred By Referred To Procedures Contact Contact Pending Review Diagnoses Estrellitatriwalla, Aortic stenosis MD Marlyn P [address] rocedures [address] Limited [place], [place] with Doppler and [address] Color Flow if Phone: Necessary [phone] Reason for Visit * Auth/Cert (Routine) Status Reason Specialty Diagnoses / Referred By Referred To Procedures Contact Contact Pending Review Procedures Amauri Ac, Case request operating room: [facility]0 [address] Commercial: Landon 50-II Transcatheter [place], [place] Aortic Valve [address] Replacement, Phone: Right [phone] Transfemoral 26 Fax: ED or 29 CV, perc con Encounter Details Date Type Department Care Team Description 04/23/2018 [facility] Amauri Ac MD S/P TAVR (transcatheter - Encounter [address] aortic valve replacement ) 04/25/2018 [place] [address] Landon 50-II (Primary Dx); [phone] [place] [address] Aortic valve stenosis, etiology of cardiac valve disease unspecified; Aortic stenosis; Nonrheumatic aortic valve stenosis; Stage 3 chronic kidney disease (HCC); Coronary artery disease involving [place] coronary artery of [place] heart without angina pectoris; Essential hypertension; First degree atrioventricular block; Need for SBE (subacute bacterial endocarditis) prophylaxis Social History Tobacco Use Types Packs/Day Years Used Date Never Smoker Smokeless Tobacco: Never Used Alcohol Use Drinks/Week oz/Week Comments No Sex Assigned at Date Recorded Not on file as of this encounter Last Filed Vital Signs Vital Sign Reading Time Taken Blood Pressure 125/52 04/25/2018 11:13 AM CLINICAL TRIALS MANAGER Pulse 68 04/25/2018 11:13 AM CLINICAL TRIALS MANAGER Temperature 36.5 C (97.7 F) 04/25/2018 11:13 AM CLINICAL TRIALS MANAGER Respiratory Rate 20 04/25/2018 11:13 AM CLINICAL TRIALS MANAGER Oxygen Saturation 100% 04/25/2018 11:13 AM CLINICAL TRIALS MANAGER Inhaled Oxygen - - Concentration Weight 82.7 kg (182 lb 4.8 oz) 04/25/2018 3:58 AM CLINICAL TRIALS MANAGER Height 182.9 cm (6' 0.01") 04/23/2018 6:10 AM CLINICAL TRIALS MANAGER Body Mass Index 24.72 04/25/2018 3:58 AM CLINICAL TRIALS MANAGER in this encounter Discharge Summaries * Amauri Ac MD - 04/25/2018 1:01 PM CLINICAL TRIALS MANAGER Formatting of this note may be different from the original. [facility] Discharge Summary Admission Date: 04/23/2018 Discharge Date: 04/25/2018 PCP: Alejandrina Adame MD Today I had the pleasure of discharging Ronaldo Hwang from the [facility] following Procedure(s): Commercial: Transcatheter Aortic Valve Replacement, Right Transfemoral, 29 CV, perc con , performed by Primary: Amauri Ac MD Assisting: Marlyn Arora MD Fruit Loader Machine Operator: Tod Maguire MD Fellow: Sera Tijerina MD on 04/23/2018. As you know, Ronaldo Hwang is an 82 y.o. male with PMH significant for CAD s/p CABG 1998, HTN, DM2 with peripheral neuropathy, and PAD. 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 He experienced progressively worsening symptoms of dyspnea on exertion, exertional angina, edema, and shortness of breath (on Ranexa therapy). ECHO 02/05/18 demonstrated EF 70% with severe aortic valve stenosis with trivial regurgitation (mean gradient 42mmHg, ANTONIA 0.8cm2) with mild dilatation of the ascending aorta at 4.3cm, trivial mitral and tricuspid valve regurgitation. Most recent cardiac cath 2016 demonstrated patent TRIANA to LAD but with a RCA VAMP THROATER and RCA EVH graft that was occluded. He was evaluated in our multidisciplinary valve clinic and with an STS of 4.1% was deemed a TAVR candidate and underwent the above procedure by Dr. Ac on . Postoperatively, Ronaldo Hwang has done well. He recovered and was transferred to the step down unit same day. While on the step-down unit, Ronaldo Hwang had post op pain and new left bundle branch. He was evaluated by cardiology and underwent PPM placement . He was restarted on his Plavix by cardiology prior to his discharge. He has continued to progress postoperatively with no pressing issues. He is ambulating, tolerating food and fluids, and has had a bowel movement. All labs and CXR are within normal limits and his rhythm has been stable in the post op period.Medications have been titrated appropriately and we feel he has achieved maximum hospital benefit at this time and is ready to discharge home. Criteria Met for Discharge: a stable rhythm ambulating eating bowel movement vital signs stable pain under control all surgical incisions are within normal limits We feel at this time that the patient is ready for discharge. Discharge Diagnosis: Patient Active Problem List Diagnosis SNOMED CT(R) Type 2 diabetes mellitus (HCC) TYPE 2 DIABETES MELLITUS Mixed hyperlipidemia MIXED HYPERLIPIDEMIA Essential hypertension ESSENTIAL HYPERTENSION Coronary atherosclerosis of [place] coronary artery CORONARY ARTERIOSCLEROSIS IN [place] ARTERY Coronary atherosclerosis of artery bypass graft ARTERIOSCLEROSIS OF CORONARY ARTERY BYPASS GRAFT CKD (chronic kidney disease) CHRONIC KIDNEY DISEASE Aortic valve stenosis AORTIC VALVE STENOSIS S/P CABG (coronary artery bypass graft) HISTORY OF CORONARY ARTERY BYPASS GRAFTING Coronary artery disease involving [place] coronary artery CORONARY ARTERIOSCLEROSIS IN [place] ARTERY Acute on chronic [facility] chf Lab Results: Last 3 CBC Results (within last 7 days): Most Recent Result within the last 7 days Lab Units 04/24/18 0251 WBC TH/uL 9.89 HEMOGLOBIN g/dL 12.4* HEMATOCRIT % 36* PLATELET COUNT TH/uL 132* Last 3 BMP Results (within the last 7 days): Most Recent Result within the last 7 days Lab Units 04/24/18 0251 04/23/18 0657 SODIUM MEQ/L 132* 136 POTASSIUM MEQ/L 4.3 4.9 CHLORIDE MEQ/L 102 103 CARBON DIOXIDE MEQ/L 24 25 BLOOD UREA NITROGEN mg/dL 29* 33* CREATININE mg/dL 1.3 1.4* GLUCOSE mg/dL 119* 141* CALCIUM mg/dL 8.3* 9.1 Last 3 INR Results (within the last 7 days): Most Recent Result within the last 7 days Lab Units 04/23/18 0657 INR 1.2 Last [id number] Hemoglobin A1C Date Value Ref Range Status 04/16/2018 6.1 (H) 4.0 - 5.6 % Final Comment: Non-diabetic 4.0 - 5.6 % Prediabetes 5.7 - 6.4 % Diabetes >=6.5 % Vitals: 04/24/18 0342 04/24/18 0738 BP: 122/51 Pulse: 67 Resp: 19 Temp: 36.7 C (98.1 F) SpO2: 96% Weight: 85 kg (187 lb 4.8 oz) Height: Ejection Fraction: 70% Admission Weight: Weight: 85.7 kg (189 lb) Current Weight: Weight: 85 kg (187 lb 4.8 oz) Dismissal Plan: Ronaldo Hwang will be discharged to home with self care. Post-Operative Instructions: Seek immediate medical help by calling 911 or go to your nearest Emergency Department if you experience any of the following: Sudden numbness or weakness in your face, arms, or legs could be signs of a stroke. Think "BE FAST": Balance, Eyes, Face, Arms, Speech, and Time Bowel movement that is dark black or bright red Access Site Care Your access sites will have small bandages. Please keep them clean and dry. You may wash your access sites with soap and water in the shower. Avoid all lotions and salves to the access site. Avoid bath tubs, hot tubs, pools for the first 1-2 weeks until your access sites are healed. You should check your access/incision site for any drainage, redness, pain, or swelling. It is normal for the puncture/incision site to be tender, but this should improve with time. If you notice any of these changes, please call our office promptly. Activity Restrictions No driving for one week (unless otherwise instructed) No lifting greater than 10 pounds for one week Try not to strain when coughing, sneezing or when using the bathroom Walk. One of the best ways to get stronger after your TAVR procedure is to walk. If your physician team agrees, start with short walks at home. Walk a little more each day. Take someone with you until you feel OK to walk alone. Permanent Restrictions You now have an artificial heart valve and will require antibiotics prior to seeing your dentist. Please tell your dentist that you have an artificial heart valve and he/she should provide you antibiotics for any procedures. Attached, you will find the AHA's wallet card that you should take with you to any dental appointments. Home Monitoring Please keep a daily record of your Heart Rate, Blood Pressure, and Weight written down for 1 week following your procedure. Your TAVR team will ask for this log at your follow up visit. TAVR Post-Procedure Home Monitoring Log Date Time Heart Rate Blood Pressure Temp Weight Incision/Groin Site Inspection Please bring with you at your 1 week appointment in the Valve Clinic Follow Up We will plan to see you back in our TAVR clinic three times post-operatively (1 week, 1 month, and 1 year). If you need to change this appointment, please call our valve clinic. 1 week: Your appointment has been arranged prior to discharge. We will be looking at your access sites and making sure you are recovering well. You will need to bring your Home Monitoring Log. 1 month: You will have an echocardiogram to check your valve function before your appointment. 1 year: You will have another echocardiogram prior to your appointment in clinic to check your valve function. Thank you so much for choosing [facility] for your TAVR It was a pleasure to be involved in your care! Questions: TAVR Clinic Team [phone] (VALV) Travel Nurse's Office: [facility] ([facility]) [phone] Surgeon's Office: [facility] [phone] Hygiene Guidelines: Keep incisions clean and dry Wash your incisions with soap and water every day and allow to pat or air dry and leave open to air No creams or ointments on your incision Follow-up Instructions: PCP in 1 month Follow-Up with Cardiology Heart Failure Service in 1 week (at below appointment) Follow-Up in Valve Clinic in 1 week: 04/30/17 at 10AM Follow-Up in Valve Clinic in 1 month: 05/21/17 ECHO at 10:15 with appointment to follow at 11:30AM Discharge Medications: Discharge Medications Unreviewed Medications Indication(s) amLODIPine 5 MG tablet Commonly known as: NORVASC 5 mg, Oral, Daily aspirin 81 MG EC tablet 81 mg, Oral, Daily clopidogrel 75 mg tablet Commonly known as: PLAVIX 75 mg, Oral, Daily isosorbide mononitrate 60 MG 24 hr tablet Commonly known as: IMDUR 60 mg, Oral, Daily lisinopril 10 MG tablet Commonly known as: PRINIVIL,ZESTRIL 10 mg, Oral, Daily nitroglycerin 0.4 MG SL tablet Commonly known as: NITROSTAT 0.4 mg, Sublingual, Every 5 min PRN, May repeat for a total of 3 doses. PROSTATE HEALTH ORAL Oral, Take 1 tablet daily. RANEXA 1,000 mg SR tablet Generic drug: ranolazine 1,000 mg, Oral, 2 times daily sitaGLIPtin 50 MG tablet Commonly known as: JANUVIA 50 mg, Oral, Daily traZODone 100 MG tablet Commonly known as: DESYREL 100 mg, Oral, Nightly Thank you for the opportunity to participate in Ronaldo frances. If you should have any questions or concerns, please do not hesitate to contact us at [phone]. Chanelle Radha RENAE 04/24/2018 11:30 AM in this encounter Discharge Instructions * Pre-Procedure Instructions - Raquel Ledezma RN - 04/17/2018 9:38 AM CLINICAL TRIALS MANAGER Formatting of this note may be different from the original. Current Outpatient Prescriptions Medication Sig Note: amLODIPine (NORVASC) 5 MG tablet Take 5 mg by mouth daily. Note: aspirin 81 MG EC tablet Take 81 mg by mouth daily. Note:Take day of surgery clopidogrel (PLAVIX) 75 mg tablet Take 75 mg by mouth daily. Note:Take day of surgery isosorbide mononitrate (IMDUR) 60 MG 24 hr tablet Take 60 mg by mouth daily. Note: lisinopril (PRINIVIL,ZESTRIL) 10 MG tablet Take 10 mg by mouth daily. Note: nitroglycerin (NITROSTAT) 0.4 MG SL tablet Dissolve 0.4 mg under the tongue every 5 (five) minutes as needed for chest pain. May repeat for a total of 3 doses. Note: ranolazine (RANEXA) 1,000 mg SR tablet Take 1,000 mg by mouth 2 (two) times a day. Note: saw/vit E/sod willy/lyc/beta/pyg (PROSTATE HEALTH ORAL) Take by mouth. Take 1 tablet daily. Note: sitaGLIPtin (JANUVIA) 50 MG tablet Take 50 mg by mouth daily. Note: traZODone (DESYREL) 100 MG tablet Take 100 mg by mouth nightly. Note: * Michaelle Andino APRN - 04/25/2018 Discharge Instructions for Patients with Transcatheter Aortic Valve Replacement Access site care Your access sites will have small bandages. These bandages can be removed the day after your procedure if there is no drainage. Please keep your access sites clean and dry. You may wash them with soap and water in the shower the day after your procedure. Avoid all lotions and salves to the access site. Avoid bath tubs, hot tubs, pools for the first 1-2 weeks until your access sites are healed. You should check your access/ incision site for any drainage, redness, pain, or swelling. It is normal for the puncture/ incision site to be tender, but this should improve with time. If you notice any of these changes, please call our office promptly. Activity Restrictions -No driving for one week (unless otherwise instructed). -No lifting greater than 10 pounds x 1 week. -Do not submerge access sites in water x 1 week. You may shower the day after your procedure. Permanent Restrictions You now have an artificial heart valve and will require prevention of infective endocarditis with dental procedures, including cleaning. You should have been given a wallet card prior to discharge. If you cannot locate this card, you can download the information from the [place] [employer] website ( search Infective (Bacterial) Endocarditis Wallet Card). Please tell your dentist that you have an artificial heart valve and he/she should provide you with the appropriate antibiotics. Other Items Following a TAVR, you may be at risk for developing conduction system disease and require the placement of a pacemaker. Please promptly alert our office or seek emergency evaluation if you experience any new or worsening dizziness, lightheadedness, or feel like you are going to pass out. Follow Up We will plan to see you back in our TAVR clinic three times post-operatively (1 week, 1 month, and 1 year). Your 1 week follow up appointment has been arranged prior to your discharge. If you need to change this appointment, please call our valve clinic. At one week, we are assessing your access sites and making sure you are recovering well from your procedure and are not experiencing any complications. At one month and one year, please plan on a long day. You will have an echocardiogram prior to your appointment in clinic to assess your valve function. Cardiac Rehabilitation Your valve replacement qualifies you for cardiac rehab. Our cardiac rehab nurse specialist should have visited with you prior to discharge to discuss your preferred location. We encourage you to participate in cardiac rehab to regain your strength and increase your exercise tolerance following your valve replacement. Most of our patients receive a call from the rehab facility three weeks after discharge. If you have not been contacted by your preferred facility, please let us know at your 1 month follow up appointment. Thank you so much for choosing [facility] for your transcatheter valve replacement. It was a pleasure to be involved in your care ! If you have any questions, please contact the TAVR Clinic Team at . in this encounter Medications at Time of [...] (IMDUR) 60 MG 24 hr daily. tablet nitroglycerin (NITROSTAT) Dissolve 0.4 mg [...] 100 mg by mouth MG tablet nightly. lisinopril Take 10 mg by mouth 04/30/2018 (PRINIVIL,ZESTRIL) 10 MG daily. tablet as of this encounter Progress Notes * Vicky Duggan RN ANP - 04/25/2018 10:49 AM [facility] Electrophysiology Follow up 04/25/2018 Ronaldo Hwang 1935 Today's post implant chest x-ray, ECG, and device interrogation have been reviewed. The chest x-ray shows no effusion or pneumothorax. The ECG demonstrates sinus rhythm with LBBB, rate 69 bpm, QT 468 ms/ cQT 502 ms Device interrogation demonstrates normal device function and stable leads. The patient has been instructed on wound care, temporary and permanent restrictions, as well as follow-up. We have arranged a 7-10 day nurse visit to assess the pocket incision. I have added the instructions to discharge AVS for reference. The dressing may be removed on 04/30/2018 at time of follow up TAVR visit. At this time, we will sign off. If any questions or concerns, please do not hesitate to contact us at or . Vicky Duggan RN, ANP- * Amauri Ac MD - 04/25/2018 7:15 AM CLINICAL TRIALS MANAGER Formatting of this note may be different from the original. [facility] POST-OP Progress Note Date: 04/25/2018 POD #2 TAVR via right transfemoral with 29mm Morales Medtronic Evolut Pro POD # 1 PPM due to conduction delay and first degree Surgeon: Osorio Subjective: no acute events overnight Vitals: Vitals: 04/25/18 0339 04/25/18 0358 BP: 100/52 Pulse: 71 Resp: 18 Temp: 36.4 C (97.6 F) SpO2: 97% Weight: 82.7 kg (182 lb 4.8 oz) Height: Labs: Last 3 CBC Results (within last 7 days): Most Recent Result within the last 7 days Lab Units 04/25/18 0200 04/24/18 0251 WBC TH/uL 7.45 9.89 HEMOGLOBIN g/dL 11.9* 12.4* HEMATOCRIT % 34* 36* PLATELET COUNT TH/uL 118* 132* Last 3 BMP Results (within the last 7 days): Most Recent Result within the last 7 days Lab Units 04/25/18 0200 04/24/18 0251 04/23/18 0657 SODIUM MEQ/L 133 132* 136 POTASSIUM MEQ/L 4.7 4.3 4.9 CHLORIDE MEQ/L 103 102 103 CARBON DIOXIDE MEQ/L 25 24 25 BLOOD UREA NITROGEN mg/dL 30* 29* 33* CREATININE mg/dL 1.4* 1.3 1.4* GLUCOSE mg/dL 130* 119* 141* CALCIUM mg/dL 8.7 8.3* 9.1 INR: Most Recent Result within the last 7 days Lab Units 04/23/18 0657 INR 1.2 Cultures: no ABx: n/a Weight on Admission: Weight: 85.7 kg (189 lb) Weight Trend: Vitals: 04/23/18 0610 04/24/18 0342 04/25/18 0358 Weight: 85.7 kg (189 lb) 85 kg (187 lb 4.8 oz) 82.7 kg (182 lb 4.8 oz) Diuretics: No Intake/Output Summary (Last 24 hours) at 04/25/18 0715 Last data filed at 04/25/18 0500 Gross per 24 hour Intake 990 ml Output 650 ml Net 340 ml Telemetry: NSR with 1st degree AVB. Physical Exam: General Appearance: Well developed, no acute distress, appears stated age Resp: Clear, non-labored, no wheezing Cardiac: Regular rate and rhythm, no murmurs, gallops or rubs. No edema. No jugular venous distension. Normal pulses throughout without carotid bruit. No LE varicosities GI: Soft, active bowel sounds, non-tender, non-distended, no hepatomegaly Extremeties No edema, FROM Incision: Bilateral puncture sites-Clean, dry, and intact. Assessment/Plan: 1. POD #2 TAVR POD # 1 PPM 2. Acute on Chronic diastolic heart failure due to valvular disease 3. Severe aortic stenosis s/p #1 4. CAD s/p CABG 5. 1st degree AVB- s/p PPM 6. CKD- stable Plan: discuss resumption of Plavix today. Home soon. * Alfreda Ann RN - 04/24/2018 11:59 AM CLINICAL TRIALS MANAGER TAVR 04/23/18. Spoke with patient and his family about the benefits of Outpatient Cardiac Rehab. Stated he very doesn't want to go but is interested in hearing more from the program at [facility] in [place], [place]. Given brochure from program. I will fax his contact information and order to the program for follow-up at home. Stated he is always active and hasn't been slowing down so he doesn't think cardiac rehab will be necessary. * Collette Oconnor RN [facility] - 04/24/2018 10:56 AM CLINICAL TRIALS MANAGER Formatting of this note may be different from the original. Initial Wound Assessment Chief Complaint/Reason for Consult: hawa buttocks rash, abrasion to left great toe History of Present Illness: pt had chronic left great toe neuropathic ulcer for 3 months. Pt reports wound healed recently. Pt admitted for TAVR. Pt also reports chronic rash on his buttocks that he has "had for years" Pt has seen dermatology. Pt reports using lotion to area. Focused Review of Systems: CAD, CABG x3, HTN, DM, PAD, CKD, Assessment: 04/24/18 1000 Skin Integumentary (WDL) X Skin Abnormality Scar (left great plantar toe, resolving wound. healed) Wound Other (comment) Buttocks Right;Left chronic rash vs dermatitis Date First Assessed/Time First Assessed: 04/24/18 1053 Present on hospital admission?: Yes Primary Wound Type: Other (comment) Location: Buttocks Wound Location Orientation: Right;Left Wound Description (Comments): chronic rash vs dermatitis Wound Image Dressing Status Open to air Non-Staged Extent of Tissue Involvement Partial thickness, skin Wound Site Assessment Blanchable;Red;White Shape Irregular Edges Indistinct, diffuse edges Drainage Amount None Tammy-wound Assessment Appropriate for race;Dry Interventions Assessed, no intervention at this time Plan/Recommendation: Q 2 hour turn while in bed Q 1 hour turn when in chair or HOB is over 30 degrees Pressure Redistribution Boot Chair Cushion Reduce layers of linen Position Wedges Dressing changes: no dressing. Apply clear zinc to area BIDprn. If pt does not discharge home in 24hours, then start Eucerin cream daily as needed. Education: Pressure ulcer prevention, Pressure ulcer treatment, wound care plan was mutally agreed upon with pt. Collette Oconnor RN [facility] * Lakisha Camp, ASSISTANT FINANCE MANAGER - 04/24/2018 10:00 AM CLINICAL TRIALS MANAGER Formatting of this note may be different from the original. Structural Cardiology Progress Note Hospital Day: 1 Chief complaint: Severe aortic stenosis s/p TAVR POD 1 Clinical summary: Mr. Ronaldo Hwang is a very pleasant 82 year old male with a history of aortic stenosis, coronary artery disease s/p CABG (1998), hypertension, type 2 diabetes, chronic kidney disease, peripheral neuropathy, peripheral arterial disease, diabetic foot ulcer with possible osteomyelitis. He was referred to the Multidisciplinary Valve Clinic following an echocardiogram that demonstrated severe aortic stenosis with a preserved ejection fraction. At that time, he noted increased fatigue and reduced exercise tolerance, consistent with NYHA class III functional status. Given a calculated STS predicted risk of morality equal to 4.1%, the patient was deemed an intermediate surgical risk and the collaborative decision was made to proceed with TAVR. Unfortunately, valve replacement had to be delayed until he recovered from a diabetic ulcer and had his hepatic mass, adrenal mass, and pulmonary nodules further evaluated. He was electively admitted and underwent a successful right transfemoral implantation of a 29 mm Medtronic CoreValve Evolut PRO transcatheter valve in the aortic position on 04/23/2018. Post-operatively, he was monitored in the CV PACU with a TPM in place for new left bundle branch block. [place] events during this stay: 04/23- TAVR with echo guidance. TPM for new LBBB. Discontinued. 04/24- PPM implantation. CHANGES IN THE PAST 24 HOURS: Clinical: Doing very well sitting up in chair. Ambulating without difficulty. Denies angina, SOA, palpitations, dizziness/ lightheadedness. Sinus pauses on telemetry. Labs/tests/procedures: Procedures performed 04/23/2018: 1. Successful transfemoral implantation of a 29 mm Medtronic CoreValve Evolut PRO Transcatheter Aortic Valve 2. Placement of a temporary venous pacemaker 3. Left heart catheterization 4. Balloon aortic valvuloplasty Intraoperative echocardiogram 04/23/2018: 1. Limited echo study to guide transcatheter aortic valve replacement. 2. Normal left ventricular systolic function, with an estimated ejection fraction of 70%. 3. Pre-procedure: severe calcific aortic valve stenosis with trivial regurgitation. 4. Post-procedure: successful implantation of a 29 mm Medtronic Evolut Pro transcatheter aortic valve with a mean gradient of 4 mmHg and trivial regurgitation Chest X Ray 04/24/2018: No acute cardiopulmonary process EKG/Telemetry: Normal Sinus Rhythm, first degree AVB. LBBB. Occasional sinus pause. and Telemetry was personally reviewed ASSESSMENT & PLAN: Principal Problem: Aortic valve stenosis Active Problems: Type 2 diabetes mellitus (HCC) Essential hypertension Coronary atherosclerosis of artery bypass graft CKD (chronic kidney disease) S/P CABG (coronary artery bypass graft) Coronary artery disease involving [place] coronary artery S/p TAVR (transcatheter aortic valve replacement), bioprosthetic Need for SBE (subacute bacterial endocarditis) prophylaxis First degree atrioventricular block New onset left bundle branch block (LBBB) s/p TAVR Severe aortic stenosis s/p TAVR -Pre-procedure hemodynamics: AV mean gradient 47.3 mmHg; ANTONIA 0.59 cm2 -Post-procedure hemodynamics: AV mean gradient 6.5 mmHg; ANTONIA 2.6 cm2 -Aspirin 81 mg daily indefinitely. Patient currently on Plavix, defer to primary cardiology on duration. -Ongoing surveillance for radiation dermatitis. Patient recently received 361 mGy of radiation during coronary angiography and 514 mGy for TAVR procedure. Conduction disease -Pre-existing first degree AVB with new LBBB s/p TAVR. Sinus pauses on telemetry. -EP consulted. Chronic diastolic heart failure due to valvular disease (EF 70%) -Intraoperative LVEDP=23. ETfpcVRJ=219. Coronary artery disease s/p CABG -Recent angiogram with no indication for PCI. Hypertension -Well controlled. Instructed to bring log of daily vitals to clinic follow up. Chronic kidney disease -Preoperative Cr/ GFR=1.4/49. -Patient received 110 mL of contrast during procedure. -Pre and post op hydration. -Kidney function stable. Lung nodules/ hepatic mass/ adrenal mass -PET scan performed at [facility] on 03/03/18 (scanned into media), which was not definitive for lung cancer. -Needle biopsy performed- Chondroid [place]. -Following with Dr. Michael Scott. Discharge Planning -Referral to cardiac rehabilitation at discharge -Lifelong SBE prophylaxis. Patient and son educated and given wallet card. -One week follow up in Valve Clinic. I have performed an independent review of the following: Telemetry I have discussed the case with the following: Consulting Physician Family OBJECTIVE: Vitals: BP: 122/51 Pulse: 67 Temp: 36.7 C (98.1 F) Resp: 19 SpO2: 96 % Patient Vitals for the past 96 hrs: Weight 04/24/18 0342 85 kg (187 lb 4.8 oz) 04/23/18 0610 85.7 kg (189 lb) Intake/Output Summary (Last 24 hours) at 04/24/18 1141 Last data filed at 04/24/18 0738 Gross per 24 hour Intake 3786.8 ml Output 1865 ml Net 1921.8 ml Physical Exam Constitutional: He is oriented to person, place, and time. He appears well- developed and well-nourished. No distress. Neck: Normal range of motion. Neck supple. No JVD present. Cardiovascular: Normal rate and normal heart sounds. No murmur heard. Pulmonary/Chest: Effort normal and breath sounds normal. No respiratory distress. Abdominal: Soft. Musculoskeletal: Normal range of motion. He exhibits no edema. Neurological: He is alert and oriented to person, place, and time. No aphasia. Symmetrical facial movements. Skin: Skin is warm and dry. He is not diaphoretic. Groin sites soft with no drainage, hematoma, or bruit. Scheduled medications: amLODIPine 5 mg Oral Daily aspirin 81 mg Oral Daily clopidogrel 75 mg Oral Daily isosorbide mononitrate 60 mg Oral Daily lidocaine (cardiac) (pf) 1 mg/kg Intravenous See Admin Instructions lisinopril 10 mg Oral Daily pantoprazole 40 mg Oral Daily polyethylene glycol 17 g Oral Daily ranolazine 1,000 mg Oral BID senna-docusate 2 tablet Oral BID sitaGLIPtin 50 mg Oral Daily traZODone 100 mg Oral Nightly Infusion medications: DOButamine Stopped (04/23/18 1108) [facility] labs: Recent Labs 04/23/18 0657 04/24/18 0251 WBC -- 9.89 HGB -- 12.4* HCT -- 36* PLT -- 132* INR 1.2 -- Recent Labs 04/23/18 0657 04/24/18 0251 NA 136 132* K 4.9 4.3 CL 103 102 CO2 25 24 BUN 33* 29* CREAT 1.4* 1.3 GLU 141* 119* No lab components to display No lab components to display Lab Results Component Value Date HGBA1C 6.1 (H) 04/16/2018 GLU 119 (H) 04/24/2018 GLU 141 (H) 04/23/2018 GLU 106 (H) 04/16/2018 * Amauri Ac MD - 04/24/2018 6:49 AM CLINICAL TRIALS MANAGER Formatting of this note may be different from the original. [facility] POST-OP Progress Note Date: 04/24/2018 POD #1 TAVR via right transfemoral with 29mm [place] Medtronic Evolut Pro Surgeon: Osorio Subjective: no acute events overnight Vitals: Vitals: 04/24/18 0234 04/24/18 0342 BP: 110/46 Pulse: 66 Resp: 18 Temp: 36.8 C (98.3 F) SpO2: 95% Weight: 85 kg (187 lb 4.8 oz) Height: Labs: Last 3 CBC Results (within last 7 days): Most Recent Result within the last 7 days Lab Units 04/24/18 0251 WBC TH/uL 9.89 HEMOGLOBIN g/dL 12.4* HEMATOCRIT % 36* PLATELET COUNT TH/uL 132* Last 3 BMP Results (within the last 7 days): Most Recent Result within the last 7 days Lab Units 04/24/18 0251 04/23/18 0657 SODIUM MEQ/L 132* 136 POTASSIUM MEQ/L 4.3 4.9 CHLORIDE MEQ/L 102 103 CARBON DIOXIDE MEQ/L 24 25 BLOOD UREA NITROGEN mg/dL 29* 33* CREATININE mg/dL 1.3 1.4* GLUCOSE mg/dL 119* 141* CALCIUM mg/dL 8.3* 9.1 INR: Most Recent Result within the last 7 days Lab Units 04/23/18 0657 INR 1.2 Cultures: no ABx: n/a Weight on Admission: Weight: 85.7 kg (189 lb) Weight Trend: Vitals: 04/23/18 0610 04/24/18 0342 Weight: 85.7 kg (189 lb) 85 kg (187 lb 4.8 oz) Diuretics: No Intake/Output Summary (Last 24 hours) at 04/24/18 0649 Last data filed at 04/24/18 0608 Gross per 24 hour Intake 4980.84 ml Output 1725 ml Net 3255.84 ml Urine: 1715ml/24 hours Telemetry: NSR with 1st degree AVB. Physical Exam: General Appearance: Well developed, no acute distress, appears stated age Resp: Clear, non-labored, no wheezing Cardiac: Regular rate and rhythm, no murmurs, gallops or rubs. No edema. No jugular venous distension. Normal pulses throughout without carotid bruit. No LE varicosities GI: Soft, active bowel sounds, non-tender, non-distended, no hepatomegaly Extremeties No edema, FROM Incision: Bilateral puncture sites-Clean, dry, and intact. Assessment/Plan: 1. POD #1 TAVR 2. Acute on Chronic diastolic heart failure due to valvular disease 3. Severe aortic stenosis s/p #1 4. CAD s/p CABG 5. 1st degree AVB-new left BBB after TAVR 6. 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 No pacing. No indication for pacer. Discharge home. Amauri Ac md * Phi Carrolla, STACKER DRIVER - 04/23/2018 5:32 PM CLINICAL TRIALS MANAGER EP brief note: Reviewed baseline EKG and post TAVR EKG's x [address] Solis at the request of structural service. Given new LBBB and pre-existing first degree recommend leaving temporary wire in overnight. Would keep NPO in the event conduction disease does not recover. Ultimate decision regarding removal of temporary wire up to structural service. Marlyn [id number] 04/23/2018 5:39 PM * Lakisha Camp, ASSISTANT FINANCE MANAGER - 04/23/2018 5:17 PM CLINICAL TRIALS MANAGER Structural Cardiology Rounds with Dr. Arora -s/p TAVR via right femoral artery access site. -Patient in CVPACU with no complaints. -Bilateral groin with no drainage, hematoma, or bruit. Right access site with old drainage contained within gauze dressing. Left access site with venous sheath in place. -TPM left in place post-procedure due to new LBBB. First degree AVB at baseline + new LBBB with QRS stable in 150s + self expanding valve. EKG in AM. Discussed with EP (Marlyn and Dr. Solis) who recommend TPM overnight and keeping NPO for possible PPM if conduction disease does not recover. Discussed recommendations with Dr. Arora and given lack of pacing on telemetry, decision was made to discontinue TPM. -Okay to transfer. * Simi Villavicencio - 04/23/2018 6:58 AM CLINICAL TRIALS MANAGER Ronaldo was lying in bed, waiting for surgery. When asked what I should include in the prayer, the first thing he said was, "For the doctors, nurses, and technicians who will be doing the surgery." I also prayed for comfort and strength for Ronaldo. Ronaldo stated he wasn't sure why God has kept him around for 82 years, but he thought God must not be done with him. Ronaldo has a positive attitude toward his surgery, and relies on his flaco. ..Spiritual Care Assessment Spiritual Care Assessment Referral Source: Architectural Renderer Rounding Visit Status: Other (see note) (Pt welcomed surgical dental assistant) Spiritual Distress: None Distress: None Well Being Indicators: Coping, Hopeful, Involved w Decisions, Meaning/Purpose, Spiritual Well Being, Utilizes Support Is the patient receiving a transplant?: No Spiritual Care Plan Spiritual Care Plan/Intervention Interventions: Patient Support, Caring Presence, Spiritual Support, Prayers/ Scripture Outcomes: Uses support/resources, Decides with Values, Personal Spiritualty, Practice Spirituality, Spiritual Well Being Evaluation: Outcomes met Duration of Visit (mins): 10 ..Simi Villavicencio, 04/23/2018 7:17 AM in this encounter H&P Notes * Ning Nicholas PA - 04/23/2018 6:49 AM CLINICAL TRIALS MANAGER Mr. Hwang is seen and examined in the pre-op holding area. His history and physical examination done on 04/16/18 were reviewed and have no significant changes. The patient's questions were answered to his satisfaction, and he desires to proceed as scheduled with Transcatheter aortic valve replacement via femoral acess. Pre-op labs and CXR have been reviewed and results are acceptable. * Ning Nicholas PA - 04/23/2018 6:47 AM CLINICAL TRIALS MANAGER Formatting of this note may be different from the original. Below is the H&P of Mr. Ronaldo Hwang performed by Dr. Vernon on 04/16/18. RE: Ronaldo Hwang : 1935 Visit provider: Henrry Vernon MD Dear Alejandrina Adame MD, I had the pleasure of seeing Ronaldo Hwang in the office today. He is a(n) 82 y.o. male and presents with the following chief complaint(s): No chief complaint on file. HPI: Mr. Ronaldo Hwang is a 82 y.o. male who presents to the multidisciplinary valve clinic for TAVR second opinion. He has a past medical history of coronary artery disease status post coronary artery bypass grafting x3 in 1998, hypertension, diabetes, peripheral neuropathy, peripheral artery disease. 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 He had a cathin 2016 showing a patent TRIANA to the LAD but a chronic total occlusion of the RCA and RCA EVH graft that was occluded. Mild to moderate disease involving the LCX. Most recent echocardiogram on 02/05/18 demonstrated an EF of 70%, severe aortic valve stenosis with trivial regurgitation (mean gradient=42mmHg,ANTONIA=0.8cm2), mild dilatation of the ascending aorta at 4.3cm, trivial mitral and tricuspid valve regurgitation. Carotid ultrasound on 02/05/18 demonstrated mild heterogeneous atherosclerotic changes. Today,he continues to describe progressive symptoms of dyspnea with activity. He does have angina with exertion as well as shortness of breath and he is on Ranexa therapy. He states that he has some mild swelling in his lower extremities. He has been released by [facility] wound care as his diabetic ulceration of the plantar aspect of his left great toe has improved. He does describe a procedure that he had to improve blood flow to his left leg in November. He denies any syncope or near syncope, dizziness or palpitations. STS Risk 4.1% Patient Active Problem List Diagnosis SNOMED CT(R) Type 2 diabetes mellitus (HCC) TYPE 2 DIABETES MELLITUS Mixed hyperlipidemia MIXED HYPERLIPIDEMIA Essential hypertension ESSENTIAL HYPERTENSION Coronary atherosclerosis of [place] coronary artery CORONARY ARTERIOSCLEROSIS IN [place] ARTERY Coronary atherosclerosis of artery bypass graft ARTERIOSCLEROSIS OF CORONARY ARTERY BYPASS GRAFT CKD (chronic kidney disease) CHRONIC KIDNEY DISEASE Aortic valve stenosis AORTIC VALVE STENOSIS S/P CABG (coronary artery bypass graft) HISTORY OF CORONARY ARTERY BYPASS GRAFTING Coronary artery disease involving [place] coronary artery CORONARY ARTERIOSCLEROSIS IN [place] ARTERY Past Medical History: Diagnosis Date Aortic valve stenosis Cellulitis of left lower limb Chronic osteoarthritis CKD (chronic kidney disease) Coronary atherosclerosis of artery bypass graft Coronary atherosclerosis of [place] coronary artery Diabetes mellitus, type 2 (HCC) 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 Mild-moderate disease involving [...] this study demonstr CORONARY ARTERY BYPASS GRAFT 1998 TRIANA to LAD, SVG to RCA. LUMBAR DISC SURGERY TONSILLECTOMY Final Medications: Current Medications Current Outpatient Prescriptions Medication Sig Dispense Refill amLODIPine (NORVASC) 5 MG tablet Take 5 mg by mouth daily. aspirin 81 MG EC tablet Take 81 mg by mouth daily. clopidogrel (PLAVIX) 75 mg tablet Take 75 mg by mouth daily. isosorbide mononitrate (IMDUR) 60 MG 24 hr tablet Take 60 mg by mouth daily. lisinopril (PRINIVIL,ZESTRIL) 10 MG tablet Take 10 mg by mouth daily. nitroglycerin (NITROSTAT) 0.4 MG SL tablet Dissolve 0.4 mg under the tongue every 5 (five) minutes as needed for chest pain. May repeat for a total of 3 doses. ranolazine (RANEXA) 1,000 mg SR tablet Take 1,000 mg by mouth 2 (two) times a day. sitaGLIPtin (JANUVIA) 50 MG tablet Take 50 mg by mouth daily. traZODone (DESYREL) 100 MG tablet Take 100 mg by mouth nightly. No current facility-administered medications for this encounter. Allergies Allergen Reactions Lipitor [Atorvastatin] No family history on file. Social History: Social History Substance Use Topics Smoking status: Never Smoker Smokeless tobacco: Never Used Alcohol use No Review of Systems Constitution: Positive for malaise/fatigue. Negative for chills and fever. HENT: Negative. Negative for sore throat. Eyes: Negative. Negative for blurred vision. Cardiovascular: Positive for chest pain, dyspnea on exertion and leg swelling ( occaisional). Negative for syncope. Respiratory: Positive for shortness of breath. Endocrine: Negative. Hematologic/Lymphatic: Negative. Skin: Positive for poor wound healing (left great toe wound improved). Negative for rash. Musculoskeletal: Negative. Gastrointestinal: Positive for constipation (occaisional). Negative for abdominal pain, diarrhea and nausea. Genitourinary: Negative. Neurological: Negative. Psychiatric/Behavioral: Negative. Negative for altered mental status. Allergic/Immunologic: Negative. Vitals 04/10/2018 BP 120/64 BP Location Left arm Pulse 67 Height 6' 0" Weight 190 lb Some recent data might be hidden BMI: There is no height or weight on file to calculate BMI. Physical Exam Constitutional: He is oriented to person, place, and time. He appears well- developed and well-nourished. HENT: Head: Normocephalic and atraumatic. Nose: Nose normal. Eyes: Pupils are equal, round, and reactive to light. EOM are normal. Neck: Normal range of motion. Neck supple. Cardiovascular: Normal rate and intact distal pulses. Murmur heard. Systolic murmur is present Pulmonary/Chest: Effort normal and breath sounds normal. Abdominal: Soft. Bowel sounds are normal. Musculoskeletal: Normal range of motion. Neurological: He is alert and oriented to person, place, and time. Skin: Skin is warm and dry. Left great toe ulcer healing, with no tunneling noted. Psychiatric: He has a normal mood and affect. His behavior is normal. Cholesterol (no units) Date Value 09/18/2017 148 HDL Cholesterol (mg/dL) Date Value 09/18/2017 36 Triglycerides (mg/dL) Date Value 09/18/2017 161 (A) LDL Cholesterol Date/Time Value Ref Range Status 09/18/2017 80 mg/dL Final No diagnosis found. Impression and Plan: Mr. Hwang is an 82-year-old male with prior CABG and severe aortic stenosis. Cardiac catheterization in 2017 demonstrated patent TRIANA-LAD. His symptoms today include progressive shortness of breath and chest pain with activity. Given his advanced age, medical comorbidities, and prior sternotomy with patent grafts, he is at increased risk for surgical AVR. I agree with plan for TAVR. He will need repeat coronary angiography prior to TAVR as well. Treatment goals , progress and next steps, as above, were discussed and mutually agreed upon with the patient/family. Thank you for allowing me to participate in Ronaldo Hwang's care. If I can be of any further assistance, please do not hesitate to contact me. Sincerely, Henrry Vernon MD in this encounter Procedure Notes * 04/23/2018 9:11 AM CLINICAL TRIALS MANAGER Formatting of this note may be different from the original. INTERVENTIONAL CARDIOLOGY Transcatheter Aortic Valve Replacement via Transfemoral Approach Procedure Note Name: Ronaldo Hwang Age: 82 y.o. Date: April 23, 2018 STAFF PHYSICIANS: 1. Dr. Marlyn Arora 2. Dr. Amauri Ac Structural Interventional Fellow: Sera Tijerina MD All members of the heart team were present for the following: Vascular access Catheter placement Diagnostic Intervention Device implantation Vascular closure Intraprocedural medication ordering INDICATION FOR PROCEDURE: Severe Symptomatic Aortic Stenosis in a patient at intermediate risk for surgical AVR due to coexisting comorbidities PROCEDURES: 1. Successful transfemoral implantation of a 29 mm Medtronic CoreValve Evolut PRO Transcatheter Aortic Valve 2. Placement of a temporary venous pacemaker 3. Left heart catheterization 4. Balloon aortic valvuloplasty PROCEDURAL DETAILS: The patient was [...] left femoral artery sheath and aortography was performed. Heparin anticoagulation was administered and ACT maintained within therapeutic range. A 6F JR4 was advanced to the aortic root via the 8F sheath. Using a 0.035" straight wire, the aortic valve was crossed. Over the wire, the JR4 catheter was advanced across the valve. Baseline hemodynamics (left heart catheterization ) were obtained. A Confida wire was then advanced to the LV, and the CoreValve Evolut delivery system was delivered to the ascending aorta over the wire. After confirming appropriate placement across the aortic valve using aortic root angiogaphy, the 29 mm CoreValve Evolut was deployed without ventricular pacing. Following valve deployment, the valve was not well expanded; therefore, the valve was post-dilated with a 24 mm True Balloon during rapid ventricular pacing. Following post-dilatation, the valve was visibly expanded on fluoroscopy and transthoracic echocardiogram and aortography revealed a well- placed and well-seated valve, with trace aortic regurgitation. Next, the delivery catheter system was removed. A JR4 was advanced to the LV, and hemodynamics (left heart catheterization) were measured. Via the left femoral artery, a crossover catheter was advanced to the right common iliac artery ostium. The right femoral artery device access site was successfully closed using the pre-deployed dual Perclose devices. Iliofemoral angiography demonstrated adequate hemostasis with brisk flow. Next, the left femoral artery access site was successfully closed using a Perclose device. The temporary pacemaker and the left femoral venous [...] further management. Sera Tijerina 04/23/2018 9:12 AM in this encounter Consult Notes * Bruno Oneill MD - 04/24/2018 9:01 AM CLINICAL TRIALS MANAGER Associated Order(s): IP CONSULT TO ELECTROPHYSIOLOGY Formatting of this note may be different from the original. [facility] EP Cardiology Consult Date: 04/24/2018 Established [facility] patient: Yes: Provider: MIRTA Evans Last date seen: 04/10/2018 PCP: Alejandrina Adame MD Case discussed with Requesting Physician: Yes Requesting Physician: Dr Arora Reason for consult: LBBB Note generated by: Vicky Duggan RN, ANP-BC HPI: This is a 82 year old male with a PMH of CAD, prior CABG, HTN, HLP, CKD, DM2 severe who underwent TAVR evaluation. He was subsequently admitted on and underwent successful TAVR with 29 mm Medtronic CoreValve. Post procedure he was noted to have a LBBB that has persisted overnight. Echocardiogram shows preserved EF at 70%. He has been followed at [facility] in [place] wound care clinic for a diabetic foot ulcer that has now improved. He has been discharged from their care. Overnight, he denies dizziness, lightheadedness or near syncope. He denies chest pain or SOA. No lower extremity edema today, and procedure site is minimally tender. 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) Essential hypertension First degree atrioventricular block HL (hearing loss) Mixed hyperlipidemia 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) ZURDO (obstructive sleep apnea) Osteomyelitis (HCC) distal phalanx Past Surgical History: Procedure Laterality Date CATARACT SURGERY CATHETERIZATION, HEART, LEFT N/A 04/17/2018 Procedure: LEFT HEART CATHETERIZATION; Surgeon: Donald Upton III, MD; Location: [facility]; Service: Cardiology - Cardiac Intervention Hemodynamics Peripheral Structural; Laterality: N/A; CORONARY ANGIOGRAM WITH GRAFT VISUALIZATION POSSIBLE PCI N/A 04/17/2018 Procedure: CORONARY ANGIOGRAPHY WITH POSSIBLE PCI w/ graft viz; Surgeon: Donald Upton III, MD; Location: [facility]; Service: Cardiology - Cardiac Intervention Hemodynamics Peripheral Structural; Laterality: N/A; CORONARY ANGIOGRAPHY WITH SVG/TRIANA GRAFT VISUALIZATION 09/27/2016 Severe [place] vessel CAD manifested by VAMP THROATER of LAD and RCA. Mild-moderate disease involving [...] this study demonstr CORONARY ARTERY BYPASS GRAFT 1998 TRIANA to LAD, SVG to RCA. LUMBAR DISC SURGERY TAVR, FEMORAL APPROACH 04/23/2018 TONSILLECTOMY Social History: reports that he has never smoked. He has never used smokeless tobacco. He reports that he does not drink alcohol or use drugs. No family history on file. Family History of Premature CAD: No Review of Systems 10 points reviewed and found negative except as noted in the HPI, or below: Review of Systems Allergies Allergen Reactions Lipitor [Atorvastatin] Medications-Current: amLODIPine 5 mg Oral Daily aspirin 81 mg Oral Daily clopidogrel 75 mg Oral Daily isosorbide mononitrate 60 mg Oral Daily lidocaine (cardiac) (pf) 1 mg/kg Intravenous See Admin Instructions lisinopril 10 mg Oral Daily pantoprazole 40 mg Oral Daily polyethylene glycol 17 g Oral Daily ranolazine 1,000 mg Oral BID senna-docusate 2 tablet Oral BID sitaGLIPtin 50 mg Oral Daily traZODone 100 mg Oral Nightly DOButamine Stopped (04/23/18 1108) LABS & IMAGING: Xr Chest Single View Frontal Result Date: 04/24/2018 No acute cardiopulmonary process READING SITE: [facility] EKG: Normal Sinus Rhythm and LBBB at 66 bpm with first degree AV block, QT 488 ms, cQT 512 ms Telemetry: Normal Sinus Rhythm Most Recent Result within the last 7 days Lab Units 04/24/18 0251 04/23/18 0657 WBC TH/uL 9.89 -- HEMOGLOBIN g/dL 12.4* -- HEMATOCRIT % 36* -- PLATELET COUNT TH/uL 132* -- INR -- 1.2 Recent Labs 04/23/18 0657 04/24/18 0251 NA 136 132* CL 103 102 CO2 25 24 BUN 33* 29* CREAT 1.4* 1.3 Most Recent Result within the last 7 days Lab Units 04/24/18 0251 04/23/18 0657 POTASSIUM MEQ/L 4.3 4.9 Most Recent Result within the last 7 days Lab Units 04/24/18 0251 04/23/18 0657 GLUCOSE mg/dL 119* 141* No lab components to display No lab components to display Lab Results Component Value Date HGBA1C 6.1 (H) 04/16/2018 NTPROBNP 514 04/16/2018 Coronary angiogram: Date: 04/17/2018 40-50% focal ostial LM w/o pressure damping, VAMP THROATER of proximal LAD after S1/D1 with patent TRIANA to mid LAD, mild to moderate nonobstructive disease in large LCX and OMB1, dom RCA with long ostial and distal RCA CTOs with good L to R collaterals from LCX to RPL and from TRIANA supplied LAD to RPDA. L to L collaterals are noted from OMB to occluded D2. Patent TRIANA to LAD. VAMP THROATER of RCA SVG. No left sided vein graft was seen, thus if ever present is occluded at ostium. Echo: Date: 04/23/2018 1. Limited echo study to guide transcatheter aortic valve replacement. 2. Normal left ventricular systolic function, with an estimated ejection fraction of 70%. 3. Pre-procedure: severe calcific aortic valve stenosis with trivial regurgitation. 4. Post-procedure: successful implantation of a 29 mm Medtronic Evolut Pro transcatheter aortic valve with a mean gradient of 4 mmHg and trivial regurgitation PHYSICAL EXAM: Temp: [36 C (96.8 F)-38.1 C (100.5 F)] 36.7 C (98.1 F) Pulse: [58-82] 67 Resp: [12-38] 19 BP: (99-139)/(38-78) 122/51 Arterial Line BP: (117-187)/(24-65) 187/65 Physical Exam Constitutional: He is oriented to person, place, and time. He appears well- developed. HENT: Head: Normocephalic. Eyes: Pupils are equal, round, and reactive to light. Neck: Normal range of motion. Neck supple. Cardiovascular: Normal rate and regular rhythm. Pulmonary/Chest: Effort normal and breath sounds normal. Abdominal: Soft. Bowel sounds are normal. Musculoskeletal: Normal range of motion. Neurological: He is alert and oriented to person, place, and time. Skin: Skin is warm and dry. Psychiatric: He has a normal mood and affect. ASSESSMENT & PLAN: Active Problems: * No active hospital problems. * 1. First degree AV block with new LBBB - Patient at risk for progression of AV block post TAVR - Recommend proceeding with dual chamber pacemaker today per Dr Oneill - Procedure, restrictions post implant and follow up reviewed with patient. He is aware that arc welding will not be recommended post implant. He is disappointed with that recommendation, but is interesting in proceeding with implant. Electronically signed by Vicky Duggan RN ANP, 04/24/2018 9:01 AM STAFF ATTESTATION: I, Bruno Oneill MD, have seen and examined this patient. I have reviewed and edited the details outlined by my colleague ROSALINDA Duggan in this note as needed. I would add the following centeno elements of the patient's history, physical exam and plan after my personal evaluation: 82M with CAD, CABG, HTN, HLD, CKD, DM2, severe s/p TAVR 04/23 now with new LBBB and preexisting 1st degree AV block. He is otherwise feeling well currently and tolerated the TAVR procedure well. Telemetry now demonstrates sinus rhythm, 1st deg AV block, LBBB, and blocked PACs. Exam demonstrates normal rhythm and II/ systolic murmur. With new wide LBBB and 1st degree AV block there is reasonable concern for worsening conduction disease and complete heart block. Given this risk, believe it is reasonable to implant a dual chamber PPM. I discussed with the patient the risks/benefits of this approach. We discussed risks/benefits of device implant. We discussed risks of bleeding, damage to blood vessels, infection, pericardial effusion/tamponade, pneumothorax, lead dislodgement, lead /device malfunction. The patient understands and agrees to proceed. Plan -dual chamber PPM today I have performed an independent review of the following: EKG Telemetry Echocardiogram I have discussed the case with the following: Consulting Physician Another healthcare provider in this encounter Nursing Notes * Aishwarya Morris RN - 04/25/2018 5:40 AM CLINICAL TRIALS MANAGER End of shift note: Pt remains in SR with 1st degree AVB and BBB per tele. Pressure dressing in place over left upper chest incision s/p PPM placement. Shoulder immobilizer also in place. Pt reporting mild discomfort at incision site. Pt reporting adequate relief with PRN norco administered x1 through shift. Slept well overnight. Continue plan of care. * Alejandrina Garcia RN - 04/24/2018 5:34 PM CLINICAL TRIALS MANAGER Pt transferred back to bed from [facility]. Diet transitioned to simply healthy - menu given to patient. Family remains at bedside. Jello given. Pt states he feels groggy. Given warm blanket and bed alarm in place. Will continue to monitor. * Alejandrina Garcia RN - 04/24/2018 2:46 PM CLINICAL TRIALS MANAGER [facility] Family at bedside. * Aishwarya Morris RN - 04/24/2018 5:41 AM CLINICAL TRIALS MANAGER End of shift note: Pt remains in sinus rhythm with 1st degree AVB and BBB per tele. Pt did have occasional short pauses overnight, often after a PVC. Tele strips saved to chart. EKG completed this AM. NPO since midnight for potential pacemaker today. EP and cardiology to assess. Pt with low grade fever early in night with temp max of 100.5 F. PRN tylenol administered x1. Last temp 98.3 F. Bilat groin sites remain clean, dry, and intact. Pt ambulated one lap around unit this AM with minimal assist with gait belt and shopping cart. Pt tolerating activity well with no complaints. Continue plan of care. * Aishwarya Morris RN - 04/23/2018 7:00 PM CLINICAL TRIALS MANAGER Pt transferred to [facility]. Bedside report received from W1 RN. 2 RN skin check completed with Arleth Rosales RN. Bilat groin sites clean, dry, and intact covered with gauze and Tegaderm dressing. Blanchable redness with flaking to bilat gluteal folds - pt states is "not new". Healing abrasion noted under L great toe - pt reports was "infected" and has been following at wound clinic for. Will consult wound. Pt resting in bed comfortably with no complaints. VSS. Continue plan of care. * Sisi Minor RN - 04/23/2018 6:59 PM CLINICAL TRIALS MANAGER Patient transferred to [facility] 417. Report given to Elisha. Patient able to have HOB adjusted to 30 degrees. Transferred on telemetry. * Jamal Rosales RN - 04/23/2018 6:50 PM CLINICAL TRIALS MANAGER Patient received to 417 per bed. B groin with gauze and tegaderm intact. Report taken from Sisi from CVICU and relayed to Aishwarya on W2 shift. 2 RN skin check with Aishwarya JONES.Jamal Rosales in this encounter Miscellaneous Notes * Care Progression Final DC Note - Gavi Giraldo LMSW - 04/25/2018 12:09 PM CLINICAL TRIALS MANAGER Final Discharge Note Pt had a TAVR on 04/23/18. Pt had PPM placed on 04/24/18. MARVEL completed a chart review and met pt in rounds. MARVEL does not anticipate pt will have any needs to be addressed by this SW. Anticipated discharge disposition: Home Self Care Discharge goal and plan is mutually agreed upon by patient and team. Patient will discharge to: Home, self-care. Transportation: Family. Discharge Time: Once pts ride arrives. Special Instructions: None. Gavi Giraldo, 04/25/2018 12:11 PM * Multidisciplinary Discharge Rounds Note - Gavi Giraldo LMSW - 04/25/2018 12: 09 PM CLINICAL TRIALS MANAGER Care Progression Multidisciplinary Discharge Rounds Note Patients Anticipated discharge disposition: Home Self Care Discharge Comments: PPM placement yesterday. Pt is ready for discharge home, self-care today. The following are potential DC Needs/Barriers: Additional Testing needed ( comment) Consults needed and/or active: Consults Needed: (None) Disciplines Present: Social Work, Primary RN, Physician, Patient, Nurse Practitioner Gavi Giraldo, 04/25/2018 12:09 PM #[phone] * Sign-Off Note - Michaelle Andino, ISAC - 04/25/2018 8:55 AM CLINICAL TRIALS MANAGER Formatting of this note may be different from the original. [facility] Sign-Off Note Name: Ronaldo Hwang CPI: [id number] Date of : 1935 Primary care physician: Alejandrina Adame MD Date of admission: 04/23/2018 Date of sign-off: 04/25/2018 Admitting physician: Amauri Ac MD Reason for consult: s/p TAVR Current problem list: Principal Problem: Aortic valve stenosis Active Problems: Type 2 diabetes mellitus (HCC) Essential hypertension Coronary atherosclerosis of artery bypass graft CKD (chronic kidney disease) S/P CABG (coronary artery bypass graft) Coronary artery disease involving [place] coronary artery S/p TAVR (transcatheter aortic valve replacement), bioprosthetic Need for SBE (subacute bacterial endocarditis) prophylaxis First degree atrioventricular block New onset left bundle branch block (LBBB) s/p TAVR Hospital course/plans: Mr. Ronaldo Carlisle a very pleasant 82year old malewith a history of aortic stenosis, coronary artery disease s/p CABG, hypertension, type 2 diabetes , chronic kidney disease, chronic diastolic heart failure, peripheral arterial disease with a healed diabetic foot ulcer with possible osteomyelitis. Hewas referred to the [facility] following an echocardiogram that demonstrated severe aortic stenosis with a preserved ejection fraction. At that time, henoted increased fatigue and reduced exercise tolerance, consistent with NYHA class IIIfunctional status. Given a calculated STS predicted risk of morality equal to4.1%, the patient was deemed an intermediatesurgical risk and the collaborative decision was made to proceed with TAVR. Unfortunately, valve replacement had to be delayed until he recovered from a diabetic ulcer and had his hepatic mass, adrenal mass, and pulmonary nodules further evaluated. Hewas electively admitted and underwent a successful right transfemoral implantation of a 29 mm Medtronic CoreValve Evolut PROtranscatheter valveon 04/23/2018. Post-operatively,he was monitored in the CV PACU with a TPM in place for new left bundle branch block and 1st degree AV block. Given the new LBBB and 1st degree AV block electrophysiology was consulted and a PPM was placed on 04/24/2018. He has been able to ambulate in the halls with standby nursing assistance without difficulty or complaints. He has no complaints of pain and is ready to go home today. He denies chest pain, shortness of breath, dizziness, lightheadedness, orthopnea, palpitations or syncope. Centeno events during this stay: 04/23- TAVR with echo guidance. TPM for new LBBB. Discontinued. 04/24- PPM implantation. 04/25-home ASSESSMENT & PLAN: Severe aortic stenosis s/p TAVR -POD 2 -Aspirin 81 mg daily indefinitely. Patient currently on Plavix, defer to primary cardiology on duration. -Ongoing surveillance for radiation dermatitis. Patient 514 mGy for TAVR procedure. -Cardiac rehab ordered. Plans to attend at [facility] in [place], [place]. -lifelong SBE prophylaxis, wallet card given to patient Conduction disease -Pre-existing first degree AVB with new LBBB s/p TAVR. -EP consulted and a dual chamber PPM was placed on 04/24/2018. -pocket site without hematoma or ecchymosis. Dressing in place. Received pacemaker education by EP nurse prior to discharge. -will complete wound check at his one week follow up appointment. -follow with EP as directed. Chronic diastolic heart failure due to valvular disease (EF 70%) -Intraoperative LVEDP=23. MYhqoKOI=648. -NYHA class I symptoms -weight stable, down 7 lbs since admission. -patient does not take a diuretic at home. -patient to keep weight log and bring to his one week follow up. Coronary artery disease s/p CABG -Moderate disease on recent angiogram with no indication for PCI. -continue aspirin, imdur, ranexa, and plavix. Allergy to statins. 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 -denies angina today. Previously had intermittent complaints of chest pain with exertion prior to TAVR. Hypertension -Controlled. SBP 96-130. -continue Norvasc 5 mg daily, Isosorbide 60 mg daily, and lisinopril 10 mg daily. -patient to keep blood pressure log and bring to his follow up appointment. Chronic kidney disease -Preoperative Cr/ GFR=1.3/53. Today is, 1.4/49. -Patient received 110 mL of contrast during procedure. -BMP in one week. Lung nodules/ hepatic mass/ adrenal mass -PET scan performed at [facility] on 03/03/18 (scanned into media), which was not definitive for lung cancer. -Needle biopsy performed- Chondroid [place]. -Following with Dr. Michael Scott. Diabetes mellitus type II -continue home sitagliptin 50 mg daily -recent hemoglobin a1c 6.1 -follow up with PCP for management. Physical exam: BP 130/58 (BP Location: Right arm, Patient Position: Supine) | Pulse 67 | Temp 37.1 C (98.8 F) (Oral) | Resp 18 | Ht 1.829 m (6' 0.01") | Wt 82.7 kg (182 lb 4.8 oz) | SpO2 94% | BMI 24.72 kg/m General appearance: NAD, Well developed CV: Regular rate and rhythm, Systolic ejection murmur, grade 2/6, S1, S2 normal Ext: no pedal edema Vasc: Left Radial: 2+ Right Radial: 2+ Left DP: 2+ Right DP: 2+ Psych: Appropriate, Alert, Oriented x 3, Conversant Resp: clear to auscultation, non-labored GI: Soft, +BS, Nontender, Nondistended Skin: Warm, No jaundice, No rashes Neuro: No focal neuro deficits, Moves all extremities MS: Stable gait, ROM intact, No clubbing Centeno laboratory findings during this hospitalization: Most Recent Result within the last 7 days Lab Units 04/25/18 0200 04/23/18 0657 HEMOGLOBIN g/dL 11.9* < > -- HEMATOCRIT % 34* < > -- WBC TH/uL 7.45 < > -- PLATELET COUNT TH/uL 118* < > -- INR -- -- 1.2 CREATININE mg/dL 1.4* < > 1.4* BLOOD UREA NITROGEN mg/dL 30* < > 33* POTASSIUM MEQ/L 4.7 < > 4.9 < >=values in this interval not displayed. Imaging/Procedures performed during this hospitalization: Procedures performed 04/23/2018: 1. Successful transfemoral implantation of a 29mm Medtronic CoreValve Evolut PRO TranscatheterAortic Valve 2. Placement of a temporary venous pacemaker 3. Left heart catheterization 4. Balloon aortic valvuloplasty Intraoperative echocardiogram 04/23/2018: 1. Limited echo study to guide transcatheter aortic valve replacement. 2. Normal left ventricular systolic function, with an estimated ejection fraction of 70%. 3. Pre-procedure: severe calcific aortic valve stenosis with trivial regurgitation. 4. Post-procedure: successful implantation of a 29 mm Medtronic Evolut Pro transcatheter aortic valve with a mean gradient of 4 mmHg and trivial regurgitation Chest X Ray 04/24/2018: No acute cardiopulmonary process. PPM 04/24/2018: PROCEDURES PERFORMED: 1. Implantation of RV lead 2. Implantation of RA lead 3. Implantation of pulse generator at the infraclavicular site. Successful implantation of permanent pacemaker. amLODIPine 5 mg Oral Daily aspirin 81 mg Oral Daily aspirin 81 mg Oral Once ceFAZolin 2 g Intravenous Once clopidogrel 75 mg Oral Daily isosorbide mononitrate 60 mg Oral Daily lidocaine (cardiac) (pf) 1 mg/kg Intravenous See Admin Instructions lisinopril 10 mg Oral Daily pantoprazole 40 mg Oral Daily polyethylene glycol 17 g Oral Daily ranolazine 1,000 mg Oral BID senna-docusate 2 tablet Oral BID sitaGLIPtin 50 mg Oral Daily traZODone 100 mg Oral Nightly Activity limitations: No lifting greater than 10 pounds for 1 week Follow up: EMIGDIO Morton in 1 week(s) at [facility] on 2018 at 10:00 am Lab testing to be completed after discharge: BMP in one week. At this point we will plan to sign-off. We appreciate the opportunity to have participated in this patient's care. Please call us if we can be of any further assistance to the care of this patient. * Plan of Care - Alejandrina Garcia RN - 04/25/2018 8:33 AM CLINICAL TRIALS MANAGER Problem: Knowledge Deficit Goal: Patient/family/caregiver demonstrates understanding of disease process, treatment plan, medications, and discharge instructions Complete learning assessment and assess knowledge base. Outcome: Progressing Patient verbalizes understanding of treatment plan and asks questions appropriately. All questions answered to patient's satisfaction. Encouraged patient to participate in plan of care. Goal: Patient/Family/Caregiver sets realistic goals Outcome: Progressing Problem: Pain Goal: Patient's pain/discomfort is manageable Outcome: Progressing Pain controlled with current regimen. Pain assessed per protocol. Problem: Skin Integrity Goal: Skin integrity is maintained or improved Assess and monitor skin integrity. Identify patients at risk for skin breakdown on admission and per policy. Collaborate with interdisciplinary team and initiate plans and interventions as needed. Outcome: Progressing Skin clean, dry, and intact unless otherwise noted. See flowsheet for exceptions. Problem: Safety Goal: Patient will be injury free during hospitalization Outcome: Progressing Problem: Nutrition Goal: Patient's nutritional intake is adequate Outcome: Progressing Patient tolerating prescribed diet. Denies N/V. Bowel sounds WNL. Encouraged PO intake. Problem: Potential for Compromised Skin Integrity Goal: Nutritional status is improving Monitor and assess patient for malnutrition (ex- brittle hair, bruises, dry skin , pale skin and conjunctiva, muscle wasting, smooth red tongue, and disorientation). Collaborate with interdisciplinary team and initiate plan and interventions as ordered. Monitor patient's weight and dietary intake as ordered or per policy. Utilize nutrition screening tool and intervene per policy. Determine patient's food preferences and provide high-protein, high- caloric foods as appropriate. Outcome: Progressing Goal: Skin integrity is maintained or improved Assess and monitor skin integrity. Identify patients at risk for skin breakdown on admission and per policy. Collaborate with interdisciplinary team and initiate plans and interventions as needed. Outcome: Progressing Skin clean, dry, and intact unless otherwise noted. See flowsheet for exceptions. Problem: Risk for Falls Goal: Patient will not fall during their Inpatient stay Outcome: Progressing All necessary fall precautions in place including non-slip socks, bed alarm in place, fall band on, bed in lowest locked position, floor free of clutter, and the call light in reach. Patient instructed to call nurse before getting out of bed. Will continue to monitor. * Plan of Care - Aishwarya Morris RN - 04/25/2018 1:47 AM CLINICAL TRIALS MANAGER Problem: Knowledge Deficit Goal: Patient/family/caregiver demonstrates understanding of disease process, treatment plan, medications, and discharge instructions Complete learning assessment and assess knowledge base. Outcome: Progressing Reviewed plan of care with pt. Pt asking appropriate questions related to plan of care with all questions answered to pt's satisfaction. Continue with plan. Goal: Patient/Family/Caregiver sets realistic goals Outcome: Progressing Problem: Pain Goal: Patient's pain/discomfort is manageable Outcome: Progressing Pt reporting mild discomfort at left upper chest. PRN norco administered with good relief. Will continue to assess and monitor. Problem: Skin Integrity Goal: Skin integrity is maintained or improved Assess and monitor skin integrity. Identify patients at risk for skin breakdown on admission and per policy. Collaborate with interdisciplinary team and initiate plans and interventions as needed. Outcome: Progressing All skin clean, dry, and intact unless otherwise noted on flowsheet. See flowsheet for wound and skin assessment. Problem: Safety Goal: Patient will be injury free during hospitalization Outcome: Progressing All necessary fall precautions in place; see flowsheet. Problem: Nutrition Goal: Patient's nutritional intake is adequate Outcome: Progressing Simply healthy diet; tolerating well. Denies n/v. Audible bowel sounds. Problem: Potential for Compromised Skin Integrity Goal: Nutritional status is improving Monitor and assess patient for malnutrition (ex- brittle hair, bruises, dry skin , pale skin and conjunctiva, muscle wasting, smooth red tongue, and disorientation). Collaborate with interdisciplinary team and initiate plan and interventions as ordered. Monitor patient's weight and dietary intake as ordered or per policy. Utilize nutrition screening tool and intervene per policy. Determine patient's food preferences and provide high-protein, high- caloric foods as appropriate. Outcome: Progressing Simply healthy diet; tolerating well. Denies n/v. Audible bowel sounds. Goal: Skin integrity is maintained or improved Assess and monitor skin integrity. Identify patients at risk for skin breakdown on admission and per policy. Collaborate with interdisciplinary team and initiate plans and interventions as needed. Outcome: Progressing All skin clean, dry, and intact unless otherwise noted on flowsheet. See flowsheet for wound and skin assessment. Problem: Risk for Falls Goal: Patient will not fall during their Inpatient stay Outcome: Progressing All necessary fall precautions in place; see flowsheet. * Sedation Documentation - Bruno Oneill MD - 04/24/2018 3:00 PM [facility] Pre-Sedation Assessment H&P Update Chief complaint/ History of present illness/ Indication for procedure: Significant conduction disease with 1st degree AV delay and new LBBB s/p TAVR Planned Procedure/ Treatment: Pacemaker Implantation History and Physical Status: New H&P on Chart (within 24 hours of procedure) Pre-Sedation/Analgesia ASA Status: III - Patient with severe systemic disease Plan for Anesthesia: Level 2 (Moderate - EP Lab) Airway Assessment: Mallampati Class II: Visibility of hard and soft palate, upper portion of tonsils and uvula [facility] Clinical Frailty Scale: Vulnerable - While not dependent on others for daily help, often symptoms limit activities. A common complaint is being " slowed up", and/or being tired during the day. * Discharge Planning - Gavi Giraldo, OLYA - 04/24/2018 1:06 PM CLINICAL TRIALS MANAGER Discharge Planning Interventions General Discharge Note Pt had a TAVR on 04/23/18. Pt is having PPM placed today. Anticipate discharge home soon. SW attempted to meet with pt, but his room was full of family will attempt at a later, more appropriate time. Gavi Enzo, 04/24/2018 1:08 PM #[phone] * Plan of Care - Alejandrina Garcia RN - 04/24/2018 12:13 PM CLINICAL TRIALS MANAGER Problem: Knowledge Deficit Goal: Patient/family/caregiver demonstrates understanding of disease process, treatment plan, medications, and discharge instructions Complete learning assessment and assess knowledge base. Outcome: Progressing Patient verbalizes understanding of treatment plan and asks questions appropriately. All questions answered to patient's satisfaction. Encouraged patient to participate in plan of care. Goal: Patient/Family/Caregiver sets realistic goals Outcome: Progressing Problem: Pain Goal: Patient's pain/discomfort is manageable Outcome: Progressing Pain controlled with current regimen. Pain assessed per protocol. Problem: Skin Integrity Goal: Skin integrity is maintained or improved Assess and monitor skin integrity. Identify patients at risk for skin breakdown on admission and per policy. Collaborate with interdisciplinary team and initiate plans and interventions as needed. Outcome: Progressing Skin clean, dry, and intact unless otherwise noted. See flowsheet for exceptions. Problem: Safety Goal: Patient will be injury free during hospitalization Outcome: Progressing Problem: Nutrition Goal: Patient's nutritional intake is adequate Outcome: Progressing Patient tolerating prescribed diet. Denies N/V. Bowel sounds WNL. Encouraged PO intake. Problem: Potential for Compromised Skin Integrity Goal: Nutritional status is improving Monitor and assess patient for malnutrition (ex- brittle hair, bruises, dry skin , pale skin and conjunctiva, muscle wasting, smooth red tongue, and disorientation). Collaborate with interdisciplinary team and initiate plan and interventions as ordered. Monitor patient's weight and dietary intake as ordered or per policy. Utilize nutrition screening tool and intervene per policy. Determine patient's food preferences and provide high-protein, high- caloric foods as appropriate. Outcome: Progressing Goal: Skin integrity is maintained or improved Assess and monitor skin integrity. Identify patients at risk for skin breakdown on admission and per policy. Collaborate with interdisciplinary team and initiate plans and interventions as needed. Outcome: Progressing Skin clean, dry, and intact unless otherwise noted. See flowsheet for exceptions. * Plan of Care - Aishwarya Morris RN - 04/24/2018 2:12 AM CLINICAL TRIALS MANAGER Problem: Knowledge Deficit Goal: Patient/family/caregiver demonstrates understanding of disease process, treatment plan, medications, and discharge instructions Complete learning assessment and assess knowledge base. Outcome: Progressing Reviewed plan of care with pt. Pt asking appropriate questions r/t plan of care with all questions answered to pt's satisfaction. Continue with plan. Goal: Patient/Family/Caregiver sets realistic goals Outcome: Progressing Problem: Pain Goal: Patient's pain/discomfort is manageable Outcome: Progressing Pt denying pain at assessment. Will continue to assess and monitor. Problem: Skin Integrity Goal: Skin integrity is maintained or improved Assess and monitor skin integrity. Identify patients at risk for skin breakdown on admission and per policy. Collaborate with interdisciplinary team and initiate plans and interventions as needed. Outcome: Progressing 2 RN skin check completed. See flowsheet for assessment. Problem: Safety Goal: Patient will be injury free during hospitalization Outcome: Progressing All necessary fall precautions in place; see flowsheet. Problem: Nutrition Goal: Patient's nutritional intake is adequate Outcome: Progressing NPO at midnight for potential pacemaker placement today per EP. Problem: Potential for Compromised Skin Integrity Goal: Nutritional status is improving Monitor and assess patient for malnutrition (ex- brittle hair, bruises, dry skin , pale skin and conjunctiva, muscle wasting, smooth red tongue, and disorientation). Collaborate with interdisciplinary team and initiate plan and interventions as ordered. Monitor patient's weight and dietary intake as ordered or per policy. Utilize nutrition screening tool and intervene per policy. Determine patient's food preferences and provide high-protein, high- caloric foods as appropriate. Outcome: Progressing NPO at midnight for potential pacemaker placement today per EP. Goal: Skin integrity is maintained or improved Assess and monitor skin integrity. Identify patients at risk for skin breakdown on admission and per policy. Collaborate with interdisciplinary team and initiate plans and interventions as needed. Outcome: Progressing 2 RN skin check completed. See flowsheet for assessment. Problem: Risk for Falls Goal: Patient will not fall during their Inpatient stay Outcome: Progressing All necessary fall precautions in place; see flowsheet. * Operative Note - Amauri Ac MD - 04/23/2018 9:08 AM CLINICAL TRIALS MANAGER Name: RONALDO HWANG MRN: Date of : 1935 Attending Physician: Amauri Ac MD Date of Procedure: 04/23/2018 PREOPERATIVE DIAGNOSES: Critical aortic stenosis with vgqrx-qn-yoqipzm diastolic congestive heart failure as evidenced by an elevated LVEDP of 22 at the time of his intervention. POSTOPERATIVE DIAGNOSES: Critical aortic stenosis with mdyye-nh-gxmyvok diastolic congestive heart failure as evidenced by an elevated LVEDP of 22 at the time of his intervention. PROCEDURES: 1. Intraoperative transthoracic echo per echocardiology. 2. Transcatheter aortic valve replacement utilizing a 29-mm Medtronic Evolut Pro transcatheter aortic valve with right percutaneous transfemoral access. 3. Left heart catheterization with pre and post-valve deployment LVEDP. 4. Temporary right ventricular pacemaker. 5. Ascending and iliofemoral angiography. 6. Balloon aortic valvuloplasty. SURGEON: Amauri Ac MD. JOY OPERATOR HELPER: Marlyn Arora MD. PURCHASING SUPERVISOR: Tod Maguire MD. ANESTHESIOLOGIST: Arabella Grigsby MD. COMPLICATIONS: None. DRAINS: None. ANESTHESIA: Conscious sedation and local infiltration of 1% lidocaine without epinephrine. INDICATIONS: Please see consult note. TECHNIQUE: The patient was taken to the hybrid room, placed in supine position. Under conscious sedation, his chest, abdomen, groins were prepped and draped in the usual sterile fashion. After obtaining adequate monitoring, local infiltration of lidocaine was achieved and percutaneous bilateral femoral artery and left femoral venous access were obtained with micropuncture technique and 6 Nigerien sheaths. A temporary right ventricular pacemaker was positioned with good thresholds tested and ascending angiography was done with pigtail catheter in the noncoronary sinus to determine our appropriate deployment angle. We exchanged out our right transfemoral arterial sheath over a stiff wire and then crossed the aortic valve and obtained a left heart catheterization with a note of elevated LVEDP of 22. We then inspected under fluoroscopy our crimped 29-mm Evolut Pro transcatheter valve and once confirmed it was crimped appropriately. We then exchanged out our previously placed a 16- Nigerien Cook catheter and took our device in. We initially deployed it and we were too low. We recaptured and redeployed, but it was markedly constrained. We removed the device and then anticipating the need for ballooning, prepped a 24-mm balloon. Patient had some decrease in blood pressure and was supported with inotropes with improvement of LV function by transthoracic echocardiogram as well as hemodynamics. We then proceeded to go back in and redeploy the valve , released it at a nice depths of 4, and then post-dilated with rapid ventricular pacing. Balloon demonstrated good expansion of the transcatheter valve with trivial to no perivalvular AI. Hemodynamics now were baseline with a mean gradient of 5-6 with left heart catheterization measurement. Completion ascending angiography was done. Crossover catheter was placed [id number], and the device was removed and Percloses placed. Iliofemoral angiography demonstrated widely patent vessel. We did have a new bundle branch, but no need for pacing. A temporary pacemaker was left in place. The patient tolerated the procedure well. Amauri Ac MD [id number] CC: cc: [facility] * Brief Operative Note - Amauri Ac MD - 04/23/2018 9:02 AM CLINICAL TRIALS MANAGER Formatting of this note may be different from the original. Brief Operative Note Ronaldo Hwang 04/23/2018 Event Time In Procedure / Incision Start 0800 No case tracking events are documented in the log. Pre-op Diagnosis: Aortic Stenosis with acute on chronic lehman chf with elevated lvedp of 22 Post-op Diagnosis: same Procedure: Commercial: Transcatheter Aortic Valve Replacement, Right Transfemoral, 29 CV, perc con , Right Surgeon(s) and Role: * Sera Tijerina MD - Fellow * Marlyn Arora MD - Assisting * Tod Maguire MD - Fruit Loader Machine Operator * Amauri Ac MD - Primary Anesthesia Type: Monitor Anesthesia Care Staff: Street Cleaning Equipment Operator: Simi Diaz RN; Albertina Boo RN Assembler Equipment: Toan Kincaid CCP Assistant Buyer: ANTHONY Perez Scrub Person: SHARRI HudsonT; Charlette Rodrigez RN CV Lab Nurse: Stevie Souza RN CV Lab Recorder: ANTHONY Cruz Anesthesiologist: Arabella Grigsby MD Insurance Office Manager: Forrest Allen DO Findings: Estimated Blood Loss: Specimens: Implants: Implant Name Type Inv. Item Serial No. Gut Snatcher Lot No. LRB No. Used Action IMPLANT EVOLUT PRO TRANSCATHETER AORTIC VALVE 29MM [id number] Non-Tissue Implant IMPLANT EVOLUT PRO TRANSCATHETER AORTIC VALVE 29MM EVOLUTPRO- 29-US [id number] MEDTRONIC HEART VALVE [id number] Right 1 Implanted Complications: none Amauri Ac Date: 04/23/2018 Time: 9:02 AM in this encounter Plan of Treatment Date Type Specialty Care Team Description 07/17/2018 Procedure Pass Radiology 07/17/2018 Procedure Pass Radiology 07/23/2018 Appointment [place] [address] [place] [address] 07/23/2018 [place] [address] [place] [address] 08/14/2018 Nurse Only Cardiology Vicky Duggan RN ANP [address] [place] [address] [phone] 08/14/2018 Office Visit Cardiology Vicky Duggan RN ANP [address] [place] [address] [phone] Name Priority Associated Diagnoses Order Schedule PACEMAKER OUTSIDE RECORD Ordered: 04/24/2018 Name Priority Associated Diagnoses Order Schedule Amb Referral To Cardiac Rehab Routine S/P TAVR (transcatheter 1 Occurrences starting aortic valve replacement) 04/24/2018 until 10/25/2018 as of this encounter Procedures Procedure Name Priority Date/Time Associated Diagnosis Comments GLUCOSE POC Routine 04/25/2018 Results for this 12:02 PM CLINICAL TRIALS MANAGER procedure are in the results section. XR CHEST 2 VIEWS (PA AND Timed 04/25/2018 Results for this LATERAL) 7:46 AM CLINICAL TRIALS MANAGER procedure are in the results section. GLUCOSE POC Routine 04/25/2018 Results for this 7:26 AM CLINICAL TRIALS MANAGER procedure are in the results section. ECG Routine 04/25/2018 Results for this 3:52 AM CLINICAL TRIALS MANAGER procedure are in the results section. COMPLETE BLOOD COUNT Routine 04/25/2018 Results for this 2:00 AM CLINICAL TRIALS MANAGER procedure are in the results section. BASIC METABOLIC PANEL Routine 04/25/2018 Results for this 2:00 AM CLINICAL TRIALS MANAGER procedure are in the results section. GLUCOSE POC Routine 04/24/2018 Results for this 9:16 PM CLINICAL TRIALS MANAGER procedure are in the results section. PACEMAKER INSERTION DUAL Routine 04/24/2018 Results for this 4:36 PM CLINICAL TRIALS MANAGER procedure are in the results section. GLUCOSE POC Routine 04/24/2018 Results for this 12:37 PM CLINICAL TRIALS MANAGER procedure are in the results section. GLUCOSE POC Routine 04/24/2018 Results for this 7:42 AM CLINICAL TRIALS MANAGER procedure are in the results section. XR CHEST SINGLE VIEW Routine 04/24/2018 Results for this FRONTAL 6:59 AM CLINICAL TRIALS MANAGER procedure are in the results section. COMPLETE BLOOD COUNT Routine 04/24/2018 Results for this 2:51 AM CLINICAL TRIALS MANAGER procedure are in the results section. BASIC METABOLIC PANEL Routine 04/24/2018 Results for this 2:51 AM CLINICAL TRIALS MANAGER procedure are in the results section. ECG Routine 04/24/2018 Results for this 2:42 AM CLINICAL TRIALS MANAGER procedure are in the results section. GLUCOSE POC Routine 04/23/2018 Results for this 9:09 PM CLINICAL TRIALS MANAGER procedure are in the results section. GLUCOSE POC Routine 04/23/2018 Results for this 5:02 PM CLINICAL TRIALS MANAGER procedure are in the results section. ECG Routine 04/23/2018 Results for this 1:39 PM CLINICAL TRIALS MANAGER procedure are in the results section. ECG STAT 04/23/2018 Results for this 10:39 AM CLINICAL TRIALS MANAGER procedure are in the results section. TAVR, FEMORAL APPROACH Routine 04/23/2018 Results for this 9:26 AM CLINICAL TRIALS MANAGER procedure are in the results section. ACTIVATED CLOTTING TIME Routine 04/23/2018 Results for this POC 9:12 AM CLINICAL TRIALS MANAGER procedure are in the results section. ECHO LIMITED W DOPPLER Routine 04/23/2018 Aortic stenosis Results for this AND COLOR FLOW 9:00 AM CLINICAL TRIALS MANAGER procedure are in the results section. ACTIVATED CLOTTING TIME Routine 04/23/2018 Results for this POC 8:22 AM CLINICAL TRIALS MANAGER procedure are in the results section. PROTHROMBIN TIME/INR STAT 04/23/2018 Results for this 6:57 AM CLINICAL TRIALS MANAGER procedure are in the results section. BASIC METABOLIC PANEL STAT 04/23/2018 Results for this 6:57 AM CLINICAL TRIALS MANAGER procedure are in the results section. RBCS 2 UNITS STAT 04/23/2018 Results for this 6:55 AM CLINICAL TRIALS MANAGER procedure are in the results section. ANTIBODY SCREEN STAT 04/23/2018 Results for this 6:55 AM CLINICAL TRIALS MANAGER procedure are in the results section. ABORH TYPE STAT 04/23/2018 Results for this 6:55 AM CLINICAL TRIALS MANAGER procedure are in the results section. GLUCOSE POC Routine 04/23/2018 Results for this 6:41 AM CLINICAL TRIALS MANAGER procedure are in the results section. XMATCH STAT 04/23/2018 6:04 AM CLINICAL TRIALS MANAGER in this encounter Results * Basic Metabolic Panel (04/30/2018 9:14 AM) Only the most recent of 4 results within the time period is included. Sodium 136 133 - 147 MEQ/L [facility] Potassium 5.5 (H) 3.5 - 5.3 MEQ/L [facility] Chloride 102 96 - 112 MEQ/L [facility] Carbon Dioxide 26 20 - 32 MEQ/L [facility] Anion Gap 9 5 - 17 [facility] Calcium 9.2 8.4 - 10.5 mg/dL [facility] Glucose 129 (H) 70 - 100 mg/dL [facility] Blood Urea Nitrogen 32 (H) 7 - 26 mg/dL [facility] Creatinine 1.5 (H) 0.6 - 1.3 mg/dL [facility] eGFR Male AA 54 (L) 60 - 200 [facility] Comment: REGIONAL Chronic Kidney Disease less LABORATORIES than 60 mL/min/1.73 sq.m Kidney failure less than 15 mL/min/1.73 sq.m eGFR Male Non-AA 45 (L) 60 - 200 [facility] Comment: REGIONAL Chronic Kidney Disease less LABORATORIES than 60 mL/min/1.73 sq.m Kidney failure less than 15 mL/min/1.73 sq.m Specimen Blood Performing Organization Address City/[facility] Phone Number [facility] [address] [place] [address] LABORATORIES * GLUCOSE POC (04/25/2018 12:02 PM) Only the most recent of 8 results within the time period is included. Glucose POC 118 (H) 70 - 100 mg/dL [facility] LABORATORIES Performing Organization Address [facility] Phone Number [facility] [address] [place] [address] LABORATORIES * XR Chest 2 views (PA and lateral) (04/25/2018 7:46 AM) Impressions Performed At No complication of pacer insertion [facility] READING SITE: [facility] Narrative Performed At Patient: SONI HWANG Sex#:Jensen # 1935 Bull#:[id number] Location:[address] K010-59Jcotohker#: [id number] Procedure Requested:[id number] XR CHEST 2 VIEWS (PA AND LATERAL) Reason for Exam:Lead placement Exam Ordered: Exam Date/Time: Begin exam date/time: XR CHEST 2 VIEWS (PA AND LATERAL) INDICATION: Lead placement. COMPARISON STUDY: Chest x-ray 04/24/2018 Life Support Devices: Since previous day, a dual-lead cardiac pacer has been inserted on the left. The leads lie in conventional locations. Lungs: Negative Pleura: Negative Heart and Mediastinum: Negative Bones and Soft Tissues: Sternotomy wires as before Procedure Note Interface, Rad Results In - 04/25/2018 9:24 AM CLINICAL TRIALS MANAGER Patient: RONALDO HWANG Sex#: M # 1935 Bull#: [id number] Location: [address] H417-01 Procedure Requested: [id number] XR CHEST 2 VIEWS (PA AND LATERAL) Reason for Exam: Lead placement Exam Ordered: 04/25/2018 0700 Exam Date/Time: 04/25/201846 Begin exam date/time: 04/25/2018741 XR CHEST 2 VIEWS (PA AND LATERAL) INDICATION: Lead placement. COMPARISON STUDY: Chest x-ray 04/24/2018 Life Support Devices: Since previous day, a dual-lead cardiac pacer has been inserted on the left. The leads lie in conventional locations. Lungs: Negative Pleura: Negative Heart and Mediastinum: Negative Bones and Soft Tissues: Sternotomy wires as before IMPRESSION No complication of pacer insertion READING SITE: [facility] Performing Organization Address City/[facility] Phone Number [facility] * Electrocardiogram (ECG) (04/25/2018 3:52 AM) Only the most recent of 4 results within the time period is included. 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: [id number] :1935 Requested By: BRUNO ONEILL Order Number: [id number] MD: Ignacio Trejo Measurements IntervalsAxis Rate: 69 P:-65 NH: 264QRS:35 QRSD: 150T:95 QT: 468 QTc:502 Interpretive Statements SINUS RHYTHM FIRST DEGREE AV BLOCK PROBABLE LEFT ATRIAL ABNORMALITY NONSPECIFIC INTRAVENTRICULAR CONDUCTION DELAY LEFT VENTRICULAR HYPERTROPHY Electronically Signed On 04-25-2018 10:16:55 CLINICAL TRIALS MANAGER by Ignacio Trejo Procedure Note Interface, External Ris In - 04/25/2018 10:16 AM CLINICAL TRIALS MANAGER [facility] Test Date: 2018-04-25 Pat Name: RONALDO HWANG Department: [address] Room: [facility] 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: [id number] : 1935 Requested By: BRUNO ONEILL Order Number: [id number] Reading MD: Ignacio Trejo Measurements Intervals [place] Rate: 69 P: -65 NH: 264 QRS: 35 QRSD: 150 T: 95 QT: 468 QTc: 502 Interpretive Statements SINUS RHYTHM FIRST DEGREE AV BLOCK PROBABLE LEFT ATRIAL ABNORMALITY NONSPECIFIC INTRAVENTRICULAR CONDUCTION DELAY LEFT VENTRICULAR HYPERTROPHY Electronically Signed On 04-25-2018 10:16:55 CLINICAL TRIALS MANAGER by Ignacio Trejo Performing Organization Address City/[facility]/Zipcode Phone Number [facility]AC[facility] * Complete Blood Count (04/25/2018 2:00 AM) Only the most recent of 2 results within the time period is included. WBC 7.45 4.00 - 11.00 TH/uL [facility] RBC 3.74 (L) 4.31 - 5.84 MIL/uL [facility] Hemoglobin 11.9 (L) 13.0 - 17.0 g/dL [facility] Hematocrit 34 (L) 40 - 50 % [facility] MCV 90 80 - 99 fL [facility] MCH 32 27 - 34 pg [facility] MCHC 35 32 - 36 % [facility] RDW 13.3 9.0 - 14.5 % [facility] Platelet Count 118 (L) 140 - 400 TH/uL [facility] MPV 9.5 9.4 - 12.3 fL [facility] Nucleated RBCs 0 0 - 0 /100 [facility] Specimen Blood Performing Organization Address City/[facility]/Zipcode Phone Number [facility] [address] [place] [address] LABORATORIES * Electrophysiology Procedure (04/24/2018 4:36 PM) Narrative Performed At [facility] CARDIAC ELECTROPHYSIOLOGY SERVICE OPERATIVE REPORT- PPM IMPLANTATION [...] the infraclavicular site. ATTENDING PHYSICIAN: Dr. Oneill GRAND SCRIBE PHYSICIAN(S): None ESTIMATED BLOOD LOSS: 20cc COMPLICATIONS: [...] vena cava. RIGHT VENTRICULAR LEAD: A 7 Nigerien peel away sheath was brought to the field and placed into the venous system via over the wire technique. The right ventricular lead was placed via this sheath into the right ventricular Berth[place] location. Adequate sensing, pacing impedance and pacing [...] with fluoroscopy. RIGHT ATRIAL LEAD: A 7 Nigerien peel away sheath was brought to the [...] DEVICE IMPLANT SUMMARY: Devices Pacemaker Implant Pacemaker Mary Dr Xt Mri Device [id number] - [id number] - Implanted (Left) Chest Inventory item: Implant Pacemaker Mary Dr Xt Mri Device [id number] Model/Cat number: [id number] Serial number: [id number] Gut Snatcher: MEDTRONIC CARDIAC RHYTHM MGMT Lot number: [id number] Implant Date: 04/24/2018 Pocket Location: Subcutaneous As of 04/24/2018 Status: Implanted Mode: MVP Lower Rate: 60 Upper Rate: 130 Lead Implant Lead Capsure Fix Novus Is-1 B1 Atrial/Ventricular Silicone 58cm - [id number] - Implanted (Right) Heart Ventricle Inventory item: Implant Lead Capsure Fix Novus Is-1 B1 Atrial/Ventricular Silicone 58cm Model/Cat number: 4076-58 Serial number: [id number] Gut Snatcher: MEDTRONIC CARDIAC RHYTHM MGMT Lot number: [id number] Area/Chamber: Heart Ventricle Implant Date: 04/24/2018 As of 04/24/2018 Status: Implanted Location: RV Sensing Threshold (mV): 18.4 Slew Rate (V/s): 4 Pacing Impedance (ohms): 1,045 Capture Threshold (V): 0.4 Capture Threshold (mA): 0.4 Implant Lead Pacemaker Atrial/Ventricle 52cm Capsure Fix Novus 4076-52 - [id number] - Implanted (Right) Heart Atrium Inventory item: Implant Lead Pacemaker Atrial/Ventricle 52cm Capsure Fix Novus 4076-52 Model/Cat number: [id number] Serial number: [id number] Gut Snatcher: MEDTRONIC CARDIAC RHYTHM MGMT Lot number: [id number] Area/Chamber: Heart Atrium Implant Date: 04/24/2018 As [...] 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 Bruno Oneill MD 04/24/20184:30 PM Performing Organization Address City/State/Zipcode Phone Number [facility] * XR Chest single view frontal (04/24/2018 6:59 AM) Impressions Performed At No acute cardiopulmonary process [facility] READING SITE: [facility] Narrative Performed At Patient: SONI HWANG Sex#:M # 1935 Bull#:[id number] Location:[address] Y924-66Fbccmdtsk#: [id number] Procedure Requested:[id number] XR CHEST SINGLE VIEW FRONTAL Reason for [...] Rad Results In - 04/24/2018 8:09 AM CLINICAL TRIALS MANAGER Patient: RONALDO HWANG Sex#: M # 1935 Bull#: [id number] Location: [address] H417-01 Procedure Requested: [id number] XR CHEST SINGLE VIEW FRONTAL Reason for [...] IMPRESSION No acute cardiopulmonary process READING SITE: [facility] Organization Address City/State/Zipcode Phone Number [facility] * Hybrid Cardiac Procedure (04/23/2018 9:26 AM) Narrative Performed At [facility] Transcatheter Aortic Valve Replacement via [...] mmHg Follow-up: Patient was transferred to the Post Anesthesia care unit for further management. Sera Tijerina 04/23/2018 9:12 AM Performing Organization Address City/State/Zipcode Phone Number [facility] * Activated Clotting Time POC (04/23/2018 9:12 AM) Only the most recent of 2 results within the time period is included. Activated Clotting Time 132 (H) 99 - 130 sec [facility] Performing Organization Address City/[facility]/Zipcode Phone Number [facility] [address] [facility] [place] [address] [facility] [address] [facility] [facility] [place] [address] [facility] * Echo Limited with Doppler [...] Imaging Center Name:RONALDO HWANGDate: 18 07:09 Chart #:[id number] : 1935 [facility]ono: [facility] Age: 82 Gender:MReferring: MARLYN ARORA MD [facility] Fellow: Indication:Nonrheumatic aortic (valve) stenosis Procedure: [id number] BP: 132 / 54HR:56Ht: 72 Wt:182BSA 2.0 [...] External Ris In - 04/23/2018 10:02 AM CLINICAL TRIALS MANAGER ECHOCARDIOGRAM REPORT [facility] Name: RONALDO HWANG Date: 04/23/2018 07:09 Chart #: [id number] : 1935 Location: [facility] Sono: [facility] Age: 82 Gender: M Referring: MARLYN ARORA MD Room #: CVOR-5 Fellow: Indication:Nonrheumatic aortic (valve) stenosis Procedure: [id number] BP: 132 / 54 HR: 56 Ht: [...] 23 April 2018 10:01 Performing Organization Address City/[facility]/Zipcode Phone Number [facility] * Prothrombin Time/INR (04/23/2018 6:57 AM) Protime 14.7 11.4 - 15.0 sec [facility] LABORATORIES INR 1.2 0.8 - 1.2 [facility] LABORATORIES Specimen Blood Performing Organization Address City/[facility] [facility]Zipcode Phone Number [address] [address] LABORATORIES * RBCs 2 Units (04/23/2018 6:55 AM) 01 - PRODUCT ID Red Blood Cells [facility] LABORATORIES 01 - UNIT NUMBER [id number] [facility] LABORATORIES 01 - CROSS MATCH Compatible [facility] LABORATORIES 01 - STATUS INFO Ready [facility] LABORATORIES 01 - PRODUCT CODE [id number] [facility] LABORATORIES 01 - BLOOD TYPE A Pos [facility] LABORATORIES 02 - PRODUCT ID Red Blood Cells [facility] LABORATORIES 02 - UNIT NUMBER [id number] [facility] LABORATORIES 02 - CROSS MATCH Compatible [facility] LABORATORIES 02 - STATUS INFO Ready [facility] LABORATORIES 02 - PRODUCT CODE [id number] [facility] LABORATORIES 02 - BLOOD TYPE A Pos [facility] LABORATORIES Specimen Blood Performing Organization Address City/[facility] Phone Number [address] [address] [phone] LABORATORIES * Antibody Screen (04/23/2018 6:55 AM) Antibody Screen Negative Negative [facility] LABORATORIES Specimen Blood Performing Organization Address City/[facility] Phone Number [address] [address] LABORATORIES * ABORH Type (04/23/2018 6:55 AM) ABORH Type A Positive [facility] LABORATORIES Specimen Blood Performing Organization Address City/[facility]/Zipcode Phone Number [address] [phone] LABORATORIES * XMATCH (04/23/2018 6:04 AM) Performing Organization Address City/State/Zipcode Phone Number [facility] [phone] [place] [address] in this encounter Visit Diagnoses Diagnosis Aortic valve stenosis, etiology of cardiac valve disease unspecified S/P TAVR (transcatheter aortic valve replacement) Nonrheumatic aortic valve stenosis Stage 3 chronic kidney disease (HCC) Coronary artery disease involving [place] coronary artery of [place] heart without angina pectoris Essential hypertension Unspecified essential hypertension First degree atrioventricular block Need for SBE (subacute bacterial endocarditis) prophylaxis New onset left bundle branch block (LBBB) s/p TAVR S/p TAVR (transcatheter aortic valve replacement), 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, without long-term current use of insulin (HCC) CKD (chronic kidney disease) Chronic kidney disease, unspecified Coronary atherosclerosis of artery bypass graft Diabetes mellitus type 2, noninsulin dependent (HCC) 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 If 65 or older do not exceed 3 GM/DAY. If chronic alcoholic do not exceed 2 GM/DAY. acetaminophen (TYLENOL) tablet 650 mg Given 04/23/2018 650 mg 650 mg, Oral, Every 4 hours PRN, 21:03 CLINICAL TRIALS MANAGER headaches, fever, mild pain (1-3), or if patients declines higher pain score therapy, Starting 04/23/18 at 1034, Do not exceed 4 GM/DAY of acetaminophen. If 65 or older do not exceed 3 GM/DAY. If chronic alcoholic do not exceed 2 GM/DAY. aluminum-magnesium hydroxide-simethicone (MAALOX PLUS) 400-400-40 mg/5 mL suspension 15 mL 15 mL, Oral, Every 4 hours PRN, indigestion, heartburn, dyspepsia, Starting Sat04/23/18 at 1034 amLODIPine (NORVASC) tablet 5 mg Given 04/24/2018 5 mg 5 mg, Oral, Daily, First dose on Ban 08:59 CLINICAL TRIALS MANAGER 04/24/18 at 0900 Given 04/25/2018 5 mg 07:58 CLINICAL TRIALS MANAGER aspirin chewable tablet 81 mg Given 04/24/2018 81 mg 81 mg, Oral, Daily, First dose on Ban 07:56 CLINICAL TRIALS MANAGER 04/24/18 at 0900, Hold for platelets less than 90. Start POD #1. Given 04/25/2018 81 mg 07:59 CLINICAL TRIALS MANAGER atropine injection 0.5-1 mg 0.5-1 mg, Intravenous, As indicated, bradycardia, Starting Sat04/23/18 at 1034, Symptomatic bradycardia, and notify physician. bisacodyl (DULCOLAX) suppository 10 mg 10 mg, Rectal, Daily PRN, constipation, Starting Sat04/23/18 at 1034, If unable to take PO ceFAZolin (ANCEF) injection New Bag 04/24/2018 2 g Intra-op continuous PRN, Starting Ban 15:40 CLINICAL TRIALS MANAGER 04/24/18 at 1540, Intra-Procedure (Cath) ceFAZolin (ANCEF) injection New Bag 04/24/2018 1 g Chest Intra-op continuous PRN, Starting Ban 16:14 CLINICAL TRIALS MANAGER 04/24/18 at 1614, Intra-Procedure (Cath) cefuroxime (ZINACEF) 1.5 g in sodium New Bag 04/23/2018 1.5 g 100 mL/ hr chloride ADDV (NS) 50 mL IVPB 17:20 CLINICAL TRIALS MANAGER 1.5 g, Intravenous, at 100 mL/hr, Every 8 hours, Indications: PERIOPERATIVE, First dose on Sat04/23/18 at 1600, For 2 doses, PACU & Post-op, 1st post-op dose to be given 8 hours after the pre-op dose. New Bag 04/24/2018 1.5 g 100 mL/hr 00:18 CLINICAL TRIALS MANAGER clopidogrel (PLAVIX) tablet 75 mg Given 04/24/2018 75 mg 75 mg, Oral, Daily, First dose on Ban 08:59 CLINICAL TRIALS MANAGER 04/24/18 at 0900 Given 04/25/2018 75 mg 07:58 CLINICAL TRIALS MANAGER DOBUTamine (DOBUTREX) infusion 2000 Restarted 04/23/2018 3 mcg/kg/min 7.71 mL/hr mcg/mL (PMX) 09:34 CLINICAL TRIALS MANAGER 2.5-20 mcg/kg/min 85.7 kg (6.4275-51.42 mL/hr, rounded to 6.43-51.42 mL/hr), Intravenous, at 6.43-51.42 mL/hr, Continuous, Starting Sat04/23/18 at 1030, PACU & Post-op, Begin infusion at 2.5 mcg/kg/min and titrate by 2.5 mcg/kg/min every 5 minutes to maintain a CI greater than BP >65mmHg Infusion not to exceed 20 mcg/kg/min. Rate/Dose Change 04/23/2018 2 mcg/kg/min 5.14 mL/hr 10:05 CLINICAL TRIALS MANAGER Rate/Dose Change 04/23/2018 1 mcg/kg/min 2.57 mL/hr 11:00 CLINICAL TRIALS MANAGER HYDROcodone-acetaminophen (NORCO) 5-325 Given 04/24/2018 1 tablet mg per tablet 1-2 tablet 20:58 CLINICAL TRIALS MANAGER 1-2 tablet, Oral, Every 4 hours PRN, moderate pain (pain score 4-6), or if patients declines higher pain score therapy, Starting Sat04/23/18 at 1034, Do not exceed 4 GM/DAY of acetaminophen. If 65 or older do not exceed 3 GM/DAY. If chronic alcoholic do not exceed 2 GM/DAY. isosorbide mononitrate (IMDUR) 24 hr Given 04/24/2018 60 mg tablet 60 mg 08:59 CLINICAL TRIALS MANAGER 60 mg, Oral, Daily, First dose on Ban 04/24/18 at 0900, DO NOT CRUSH OR CHEW. Given 04/25/2018 60 mg 07:58 CLINICAL TRIALS MANAGER lidocaine (cardiac) (pf) (XYLOCAINE) syringe 84 mg 84 mg (rounded from 84.8 mg=1 mg/kg 84.8 kg), Intravenous, See admin instructions, Starting Sat04/23/18 at 1034, For PVC's greater than 6 per min., V-tech,bigeminy, or multifocal PVC's and notify physician. lisinopril (PRINIVIL,ZESTRIL) tablet 10 Given 04/24/2018 10 mg mg 08:59 CLINICAL TRIALS MANAGER 10 mg, Oral, Daily, First dose on Ban 04/24/18 at 0900 Given 04/25/2018 10 mg 07:58 CLINICAL TRIALS MANAGER magnesium hydroxide (MILK OF MAGNESIA) suspension 30 mL 30 mL, Oral, Daily PRN, constipation, Starting Sat04/23/18 at 1034 nitroglycerin (NITROSTAT) SL tablet 0.4 mg 0.4 mg, Sublingual, As needed, chest pain, Starting Sat04/23/18 at 1034, For suspected angina and notify physician. Obtain 12 lead ECG before administering medication. May repeat every 5 minutes for a total of 3 doses. Check BP prior to each dose. Discontinue use for SBP less than 90 mmHg. Notify physician if given. DO NOT CRUSH OR CHEW. ondansetron (ZOFRAN) injection 4 mg 4 mg, Intravenous, Every 6 hours PRN, nausea, Starting Sat04/23/18 at 1034 pantoprazole (PROTONIX) EC tablet 40 mg Given 04/24/2018 40 mg 40 mg, Oral, Daily, First dose on Ban 07:56 CLINICAL TRIALS MANAGER 04/24/18 at 0700, Start POD #1 DO NOT CRUSH OR CHEW. Given 04/25/2018 40 mg 06:24 CLINICAL TRIALS MANAGER polyethylene glycol (GLYCOLAX) packet 17 Given 04/25/2018 17 g g 08:09 CLINICAL TRIALS MANAGER 17 g, Oral, Daily, First dose on Ban 04/24/18 at 0900, Administer daily until first BM, then PRN for prevention of constipation. Mixed in 4-8 ounces liquid. potassium chloride (KAYCIEL) 20 mEq/15 mL solution 20 mEq 20 mEq, Oral, As needed, for potassium replacement, Starting Sat04/23/18 at 1034, K+ < 3.5 - 20 mEq and notify physician K+ 3.5 - 3.6 - 20 mEq every 4 hours x 2 doses K+ 3.7 - 4 - 20 mEq Re-check potassium level the following AM potassium chloride (KLOR-CON) CR tablet 20 mEq 20 mEq, Oral, As needed, for potassium replacement, Starting Sat04/23/18 at 1034, K+ < 3.5 - 20 mEq and notify physician K+ 3.5 - 3.6 - 20 mEq every 4 hours x 2 doses K+ 3.7 - 4 - 20 mEq Re-check potassium level the following AM DO NOT CRUSH OR CHEW. potassium chloride 20 mEq in 100 mL IVPB 20 mEq, Intravenous, Administer over 60 Minutes, As needed, for potassium replacement, Starting Sat04/23/18 at 1034, If UO is < 30 mL/hr, check with physician prior to K+ replacement. K+ 3.7 - 4.3 - 20 mEq via central line over 60 minutes K+ < 3.7 - 40 mEq via central line over 120 minutes Recheck potassium PRN. Potassium chloride should be infused at a rate of 10 mEq/hr through a peripheral line, or at a rate of 20 mEq/hr through a central line. ranolazine (RANEXA) 12 hr tablet 1,000 Given 04/24/2018 1,000 mg mg 20:59 CLINICAL TRIALS MANAGER 1,000 mg, Oral, 2 times daily, First dose on Ban 04/24/18 at 0900, DO NOT CRUSH OR CHEW. Given 04/25/2018 1,000 mg 07:59 CLINICAL TRIALS MANAGER senna-docusate (PERICOLACE) 8.6-50 mg 2 tablet 2 tablet, Oral, 2 times daily, First dose on Ban 04/24/18 at 0900, Start POD #1. May hold for loose stools. sitaGLIPtin (JANUVIA) tablet 50 mg Given 04/25/2018 50 mg 50 mg, Oral, Daily, First dose on Ban 07:58 CLINICAL TRIALS MANAGER 04/24/18 at 0900 sodium chloride 0.9% (NS) IV Bolus New Bag 04/23/2018 259 mL 259 mL/ hr Left Arm 259 mL (rounded from 258.6 mL=3 mL/kg 07:05 CLINICAL TRIALS MANAGER 86.2 kg), Intravenous, Administer over 60 Minutes, Once, Sat04/23/18 at 0630, For 1 dose, Pre-op, Resume sodium chloride 0.9% infusion at 100 mL/hr when bolus is complete sodium chloride 0.9% infusion New Bag 04/23/2018 1.5 mL/kg/hr 127.2 mL /hr 1.5 mL/kg/hr 10:48 CLINICAL TRIALS MANAGER 84.8 kg (127.2 mL/hr), Intravenous, Continuous, Starting Sat04/23/18 at 1100, For 4 hours, PACU & Post-op, Maximum rouj=283 mL/hr traZODone (DESYREL) tablet 100 mg Given 04/24/2018 100 mg 100 mg, Oral, Nightly, First dose on Abn 20:59 CLINICAL TRIALS MANAGER 04/24/18 at 2100 in this encounter
--- OUTSIDE RECORDS SUMMARY | 2018-07-18 18:15 | XMS REPORT | Encounter Summary ---
Author Author [facility] Organization [facility] Address Unknown Phone Unavailable Care Team Providers Care Wafer Polisher Name Role Phone Alejandrina Adame MD PCP Encounter Details Date Type Department Care Team Description 04/23/2018 Procedure Pass [facility] [address] [place] [address] Social History Tobacco Use Types Packs/Day Years Used Date Never Smoker Smokeless Tobacco: Never Used Alcohol Use Drinks/Week oz/Week Comments No Sex Assigned at Date Recorded Not on file as of this encounter Plan of Treatment Date Type Specialty Care Team Description 07/17/2018 Procedure Pass Radiology 07/17/2018 Procedure Pass Radiology 07/23/2018 Appointment [place] [address] [place] [address] [phone] 07/23/2018 App[place] [address] [place] [address] [phone] 08/14/2018 Nurse Only Cardiology Vicky Duggan RN ANP [address] [place] [address] [phone] 08/14/2018 Office Visit Cardiology Vicky Duggan RN ANP [address] [place] [address] [phone] as of this encounter Visit Diagnoses Not on filein this encounter
--- OUTSIDE RECORDS SUMMARY | 2018-07-18 18:15 | XMS REPORT | Encounter Summary ---
Author Author [facility] Organization [facility] Address Unknown Phone Unavailable Care Team Providers Care Director Of Materials Management Name Role Phone Alejandrina Adame MD PCP Reason for Visit * Auth/Cert (Routine) Status Reason Specialty Diagnoses / Referred By Referred To Procedures Contact Contact Pending Review Procedures Amauri Ac, Case request operating room: [address] [place] [address] Commercial: [address] 50-II Transcatheter [place], [place] Aortic Valve [address] Replacement, Phone: Right [phone] Transfemoral 26 Fax: ED or 29 CV, perc con Encounter Details Date Type Department Care Team Description 04/23/2018 Anesthesia [facility] Forrest Allen DO Event [address] [facility] [address] [place] [address] Med Ed Dept [phone] [place] [address] [phone] Anesthesia Record Procedure Name Responsible Anesthesia Start Time Anesthesia Stop Time Anesthesiologist Commercial: Transcatheter Arabella Grigsby MD 04/23/18 0718 04/23/18 0931 Aortic Valve Replacement, Right Transfemoral, 29 CV, perc con (Right ) Date Time Event Comment 627 Anesthesia 2018 Initial Contact 0658 AN Equip Check 0718 In room 0718 An Start 0724 An Start Data 0724 Pt eval immediately prior to anesthesia 0724 An Induction 0725 Spontaneous respirations 0730 Anesthesia Ready 0801 Quick Note Procedure Start 0835 Quick Note Deploying valve 0915 Procedure stop - Primary case 0919 an stop data 0926 Out of Room 0931 Handoff I completed my SBAR handoff to the receiving nurse in the PACU. 0931 An Stop Meds Name Total propofol 10mg/mL 50 mg protamine 100 mg heparin 1,000unit/mL 10mL 14,000 Units phenylepherine 0.1mg/mL 600 mcg fentaNYL (SUBLIMAZE) injection 50 mcg/mL 25 mcg propofol (DIPRIVAN) infusion 10 mg/mL 625.4 mg phenylephrine (CHRIS-SYNEPHRINE) 10 mg in No volumes recorded sodium chloride 0.9 % (NS) 250 mL infusion cefuroxime (ZINACEF) injection 1.5 g 1,500 mg epinephrine 1mg/mL 100 mcg DOBUTamine (DOBUTREX) infusion 2000 8.06 mg mcg/mL (PMX) sodium chloride 0.9% 350 mL * Name Cell Saver Blood Intake O2 N2O Air EtSEVO EtISO EtDES EtN2O * No blood administrations on file. Type Details Placement Removal Arterial Date: 04/23/18; Time: 0641 (created via 04/23/18 0641 by Arabella 04/23/18 1357 by Sisi Barrett Line procedure documentation); Size: 20 G; MD Iván Watson RN Location: Radial; Site Prep: Other (Comment), Other (Comment); Removal Date: 04/23/18; Removal Time: 1357 Peripheral Date: 04/23/18; Time: 0800; Size 04/23/18 0800 by Sisi Barrett 1317 by Alejandrina IV (gauge): 20 G; Orientation: Right; KAREN Minor RN Location: Forearm; Site Prep: Chlorhexidine; Inserted By: Anesthesia; Removal Date: 04/25/18; Removal Time: 1317 Arterial 04/23/18; 0806; 6 Fr.; Left; Anatomical 04/23/18 0806 by Simi 0902 by Simi Sheath landmarks, Guidewire; Femoral; Sutured; KAREN Diaz RN Dr Almomani; 04/23/18; 09; Treatment Complete Arterial 04/23/18; 0808; 16 Fr.; Right; 04/23/18 0808 by Simi 04/23/18 0903 by Simi Sheath Guidewire, Anatomical landmarks; KAREN Diaz RN Femoral; Sutured; Dr. Bhatia; 04/23/18; 0903; Treatment Complete Venous 04/23/18; 0808; 8 Fr.; Left; Anatomical 04/23/18 0808 by Simi 1710 by Sheath landmarks, Guidewire; Femoral; Sutured, KAREN Diaz Securement device - adhesive; Dr. Bhatia; 04/23/18; 1710; Per order; No complications Wound 04/23/18; 0911; Groin; 04/25/18; 1317 04/23/18 0911 by Simi 1317 by KAREN Mccain RN in this encounter Social History Tobacco Use Types Packs/Day Years Used Date Never Smoker Smokeless Tobacco: Never Used Alcohol Use Drinks/Week oz/Week Comments No Sex Assigned at Date Recorded Not on file as of this encounter Plan of Treatment Date Type Specialty Care Team Description 07/17/2018 Procedure Pass Radiology 07/17/2018 Procedure Pass Radiology 07/23/2018 Appoint[place] [address] [place] [address] [phone] 07/23/2018 App[place] [address] [place] [address] [phone] 08/14/2018 Nurse Only Cardiology Vicky Duggan RN ANP [address] [facility] [address] [place] [address] [phone] 08/14/2018 Office Visit Cardiology Vicky Duggan RN ANP [address] [facility] [address] [place] [address] [phone] Name Priority Associated Diagnoses Date/Time Anesthesia Art Line Routine 04/23/2018 6:41 AM ASSOCIATE OF SCIENCE IN NURSING as of this encounter Visit Diagnoses Not on filein this encounter Administered Medications Medication Order MAR Action Action Date Dose Rate Site cefuroxime (ZINACEF) injection Given 04/23/2018 1,500 mg As needed, Starting 04/23/18 at 07:57 ASSOCIATE OF SCIENCE IN NURSING 0757, Anesthesia Intra-op DOBUTamine (DOBUTREX) infusion [address] [facility] Bag 04/23/2018 3 mcg/kg/min 7.63 mL/hr mcg/mL (PMX) 08:46 ASSOCIATE OF SCIENCE IN NURSING Continuous PRN, Starting Sat04/23/18 at 0846, Anesthesia Intra-op Rate/Dose Change 04/23/2018 2 mcg/kg/min 5.09 mL/hr 08:51 ASSOCIATE OF SCIENCE IN NURSING EPINEPHrine HCl (PF) (ADRENALIN) 1 mg/mL Given 04/23/2018 100 mcg (1 mL) injection 08:43 ASSOCIATE OF SCIENCE IN NURSING As needed, Starting Sat04/23/18 at 0843, Anesthesia Intra-op fentaNYL (SUBLIMAZE) injection Given 04/23/2018 25 mcg As needed, Starting Sat04/23/18 at 07:23 ASSOCIATE OF SCIENCE IN NURSING 0723, Anesthesia Intra-op heparin (porcine) 1,000 unit/mL Given 04/23/2018 10,000 Units injection 08:15 ASSOCIATE OF SCIENCE IN NURSING As needed, Starting Sat04/23/18 at 0815, Anesthesia Intra-op Given 04/23/2018 4,000 Units 08:26 ASSOCIATE OF SCIENCE IN NURSING phenylephrine (CHRIS-SYNEPHRINE) 10 mg in New Bag 04/23/2018 0.5 63.6 mL /hr sodium chloride 0.9 % (NS) 250 mL 07:31 ASSOCIATE OF SCIENCE IN NURSING mcg/kg/min infusion Continuous PRN, Starting Sat04/23/18 at 0731, Anesthesia Intra-op Rate/Dose Change 04/23/2018 1 mcg/kg/min 127.2 mL/hr 07:36 ASSOCIATE OF SCIENCE IN NURSING Rate/Dose Change 04/23/2018 1.5 190.8 mL/hr 07:51 ASSOCIATE OF SCIENCE IN NURSING mcg/kg/min phenylephrine HCl in 0.9% NaCl Given 04/23/2018 200 mcg (NEOSYNEPHRINE) 1 mg/10 mL (100 mcg/mL) 08:37 ASSOCIATE OF SCIENCE IN NURSING injection As needed, Starting Sat04/23/18 at 0731, Anesthesia Intra-op Given 04/23/2018 100 mcg 09:02 ASSOCIATE OF SCIENCE IN NURSING Given 04/23/2018 100 mcg 09:03 ASSOCIATE OF SCIENCE IN NURSING propofol (DIPRIVAN) infusion 10 mg/mL New Bag 04/23/2018 75 38.16 mL/ hr Continuous PRN, Starting Sat04/23/18 at 07:24 ASSOCIATE OF SCIENCE IN NURSING mcg/kg/min 0724, Anesthesia Intra-op Rate/Dose Change 04/23/2018 50 25.44 mL/hr 08:53 ASSOCIATE OF SCIENCE IN NURSING mcg/kg/min propofol (DIPRIVAN) injection Given 04/23/2018 20 mg As needed, Starting Sat04/23/18 at 07:25 ASSOCIATE OF SCIENCE IN NURSING 0725, Anesthesia Intra-op Given 04/23/2018 30 mg 07:28 ASSOCIATE OF SCIENCE IN NURSING protamine (AMATINE) injection Given 04/23/2018 100 mg As needed, Starting Sat04/23/18 at 09:03 ASSOCIATE OF SCIENCE IN NURSING 0903, Anesthesia Intra-op sodium chloride 0.9% infusion New Bag 04/23/2018 Continuous PRN, Starting Sat04/23/18 at 07:24 ASSOCIATE OF SCIENCE IN NURSING 0724, Anesthesia Intra-op in this encounter
--- OUTSIDE RECORDS SUMMARY | 2018-07-18 18:15 | XMS REPORT | Encounter Summary ---
Author Author [facility] Organization [facility] Address Unknown Phone Unavailable Care Team Providers Care Heel Attacher Wood Name Role Phone Alejandrina Adame MD PCP Reason for Visit * Auth/Cert (Routine) Status Reason Specialty Diagnoses / Referred By Referred To Procedures Contact Contact Pending Review Procedures Amauri Ac, Case request operating room: [address] [facility] Commercial: Landon 50-II Transcatheter [place], [place] Aortic Valve [address] Replacement, Phone: Right [phone] Transfemoral 26 Fax: ED or 29 CV, perc con Encounter Details Date Type Department Care Team Description 04/24/2018 Surgery [facility] Bruno Oneill MD PACEMAKER INSERTION [address] [facility] [address] [facility] D[place]--[place] [address] [address] [place] [address] [phone] Social History Tobacco Use Types Packs/Day Years Used Date Never Smoker Smokeless Tobacco: Never Used Alcohol Use Drinks/Week oz/Week Comments No Sex Assigned at Date Recorded Not on file as of this encounter Last Filed Vital Signs Vital Sign Reading Time Taken Blood Pressure 125/52 04/25/2018 11:13 AM OCCUPATIONAL HYGIENIST Pulse 68 04/25/2018 11:13 AM OCCUPATIONAL HYGIENIST Temperature 36.5 C (97.7 F) 04/25/2018 11:13 AM OCCUPATIONAL HYGIENIST Respiratory Rate 20 04/25/2018 11:13 AM OCCUPATIONAL HYGIENIST Oxygen Saturation 100% 04/25/2018 11:13 AM OCCUPATIONAL HYGIENIST Inhaled Oxygen - - Concentration Weight 82.7 kg (182 lb 4.8 oz) 04/25/2018 3:58 AM OCCUPATIONAL HYGIENIST Height 182.9 cm (6' 0.01") 04/23/2018 6:10 AM OCCUPATIONAL HYGIENIST Body Mass Index 24.72 04/25/2018 3:58 AM OCCUPATIONAL HYGIENIST in this encounter Discharge Summaries * Amauri Ac MD - 04/25/2018 1:01 PM OCCUPATIONAL HYGIENIST Formatting of this note may be different from the original. [facility] Cardiothoracic and Vascular Discharge Summary Admission Date: 04/23/2018 Discharge Date: 04/25/2018 PCP: Alejandrina Adame MD Today I had the pleasure of discharging Ronaldo Hwang from the [facility] following Procedure(s): Commercial: Transcatheter Aortic Valve Replacement, Right Transfemoral, 29 CV, perc con , performed by Primary: Amauri Ac MD Assisting: Marlyn Arora MD Patent Paralegal: Tod Maguire MD Fellow: Sera Tijerina MD on 04/23/2018. As you know, Ronaldo Hwang is an 82 y.o. male with PMH significant for CAD s/p CABG 1998, HTN, DM2 with peripheral neuropathy, and PAD. He follows with his credit portfolio advisor at [facility]. He experienced progressively worsening symptoms of dyspnea on exertion, exertional angina, edema, and shortness of breath (on Ranexa therapy). ECHO 02/05/18 demonstrated EF 70% with severe aortic valve stenosis with trivial regurgitation (mean gradient 42mmHg, ANTONIA 0.8cm2) with mild dilatation of the ascending aorta at 4.3cm, trivial mitral and tricuspid valve regurgitation. Most recent cardiac cath 2017 demonstrated patent TRIANA to LAD but with a RCA CLOCK AND WATCH HANDS DIPPER and RCA EVH graft that was occluded. [...] Essential hypertension ESSENTIAL HYPERTENSION Coronary atherosclerosis of [place] coronary artery CORONARY ARTERIOSCLEROSIS IN [place] ARTERY Coronary atherosclerosis of artery bypass graft ARTERIOSCLEROSIS OF CORONARY ARTERY BYPASS GRAFT CKD (chronic kidney disease) CHRONIC KIDNEY DISEASE Aortic valve stenosis AORTIC VALVE STENOSIS S/P CABG (coronary artery bypass graft) HISTORY OF CORONARY ARTERY BYPASS GRAFTING Coronary artery disease involving [place] coronary artery CORONARY ARTERIOSCLEROSIS IN [place] ARTERY Acute on chronic lehman chf Lab [...] function. Thank you so much for choosing [facility] for your TAVR It was a pleasure to be involved in your care! Questions: TAVR Clinic Team [phone] (VALV) Head Cleaning Porter's Office: [facility] ([facility] [phone] Surgeon's Office: [facility] ([facility] [phone] Hygiene Guidelines: Keep incisions clean and dry [...] you for the opportunity to participate in [facility]. If you should have any questions or concerns, please do not hesitate to contact us at [phone]. Chanelle PALACIOS-C 04/24/2018 11:30 AM in this encounter Discharge Instructions * Pre-Procedure Instructions - Raquel Ledezma RN - 04/17/2018 9:38 AM OCCUPATIONAL HYGIENIST Formatting of this note may be different [...] you can download the information from the [employer] website ( search Infective (Bacterial) [...] appointment. Thank you so much for choosing [facility] for your transcatheter valve replacement. It was a pleasure to be involved in your care ! If you have any questions, please contact the TAVR Clinic Team at [phone]. in this encounter Medications at Time of [...] Duggan RN ANP - 04/25/2018 10:49 AM [facility] Electrophysiology Follow up 04/25/2018 Ronaldo Hwang 1935 [...] us at or . Vicky Duggan RN, ANP-BC * Amauri Ac MD - 04/25/2018 7:15 AM OCCUPATIONAL HYGIENIST Formatting of this note may be different from the original. [facility] Cardiothoracic and Vascular POST-OP Progress Note Date: [...] Alfreda Ann RN - 04/24/2018 11:59 AM OCCUPATIONAL HYGIENIST TAVR 04/23/18. Spoke with patient and his family about the benefits of Outpatient Cardiac Rehab. Stated he very doesn't want to go but is interested in hearing more from the program at [facility] in [place], [place]. Given brochure from program. I will fax his contact information and order to the program for follow-up at home. Stated he is always active and hasn't been slowing down so he doesn't think cardiac rehab will be necessary. * Collette Oconnor RN WCC - 04/24/2018 10:56 AM OCCUPATIONAL HYGIENIST Formatting of this note may be different [...] agreed upon with pt. Collette Oconnor RN [facility] * Lakisha Camp APRN - 04/24/2018 10:00 AM OCCUPATIONAL HYGIENIST Formatting of this note may be different [...] artery bypass graft) Coronary artery disease involving [place] coronary artery S/p TAVR (transcatheter aortic valve [...] to valvular disease (EF 70%) -Intraoperative LVEDP=23. HXnfrBOA=867. Coronary artery disease s/p CABG -Recent angiogram with no indication for PCI. Hypertension -Well controlled. Instructed to bring log of daily vitals to clinic follow up. Chronic kidney disease -Preoperative Cr/ GFR=1.4/49. -Patient received 110 mL of contrast during procedure. -Pre and post op hydration. -Kidney function stable. Lung nodules/ hepatic mass/ adrenal mass -PET scan performed at [facility] on 03/03/18 (scanned into media), [...] Amauri Ac MD - 04/24/2018 6:49 AM OCCUPATIONAL HYGIENIST Formatting of this note may be different from the original. 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 CKD-pulmonary physician 1.3 today Pt is progressing with resolving acute on chronic lehman chf after tavr. No pacing. No indication for pacer. Discharge home. Amauri Ac md * Marlyn Carroll, ESTEFANY - 04/23/2018 5:32 PM OCCUPATIONAL HYGIENIST EP brief note: Reviewed baseline EKG and post TAVR EKG's x [address] Solis at the request of structural service. Given new LBBB and pre-existing first degree recommend leaving temporary wire in overnight. Would keep NPO in the event conduction disease does not recover. Ultimate decision regarding removal of temporary wire up to structural service. Marlyn CarrollKicxt-JicdqASE-KH 04/23/2018 5:39 PM * Lakisha Camp APRN - 04/23/2018 5:17 PM OCCUPATIONAL HYGIENIST Structural Cardiology Rounds with Dr. Arora -s/p [...] to discontinue TPM. -Okay to transfer. * CristianotoriSimi Jensen - 04/23/2018 6:58 AM OCCUPATIONAL HYGIENIST Ronaldo was lying in bed, waiting for [...] Care Assessment Spiritual Care Assessment Referral Source: Insurance Agency Owner Rounding Visit Status: Other (see note) (Pt welcomed pmo lead) Spiritual Distress: None Distress: None Well Being [...] Ning Nicholas PA - 04/23/2018 6:49 AM OCCUPATIONAL HYGIENIST Mr. Hwang is seen and examined in [...] Ning Nicholas PA - 04/23/2018 6:47 AM OCCUPATIONAL HYGIENIST Formatting of this note may be different from the original. Below is the H&P of Mr. Ronaldo Hwang performed by Dr. Vernon on 04/16/18. RE: Ronaldo Hwang : 1935 Visit provider: Henrry Vernon MD Dear Alejandrina Admae MD, I had the pleasure of seeing [...] He was sent to us by his credit portfolio advisor at [facility]. He had a cathin 2016 showing a [...] extremities. 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 He does describe a procedure that he had to improve blood flow to his left leg in November /December. He denies any syncope or near syncope, dizziness or palpitations. STS Risk 4.1% Patient Active Problem List Diagnosis SNOMED CT(R) Type 2 diabetes mellitus (HCC) TYPE 2 DIABETES MELLITUS Mixed hyperlipidemia MIXED HYPERLIPIDEMIA Essential hypertension ESSENTIAL HYPERTENSION Coronary atherosclerosis of [place] coronary artery CORONARY ARTERIOSCLEROSIS IN [place] ARTERY Coronary atherosclerosis of artery bypass graft ARTERIOSCLEROSIS OF CORONARY ARTERY BYPASS GRAFT CKD (chronic kidney disease) CHRONIC KIDNEY DISEASE Aortic valve stenosis AORTIC VALVE STENOSIS S/P CABG (coronary artery bypass graft) HISTORY OF CORONARY ARTERY BYPASS GRAFTING Coronary artery disease involving [place] coronary artery CORONARY ARTERIOSCLEROSIS IN [place] ARTERY Past Medical History: Diagnosis Date Aortic valve stenosis Cellulitis of left lower limb Chronic osteoarthritis CKD (chronic kidney disease) Coronary atherosclerosis of artery bypass graft Coronary atherosclerosis of [place] coronary artery Diabetes mellitus, type 2 (HCC) [...] ANGIOGRAPHY WITH SVG/TRIANA GRAFT VISUALIZATION 09/27/2016 Severe [place] vessel CAD manifested by CLOCK AND WATCH HANDS DIPPER of LAD and RCA. Mild-moderate disease involving [...] encounter Procedure Notes * 04/23/2018 9:11 AM OCCUPATIONAL HYGIENIST Formatting of this note may be different [...] Bruno Oneill MD - 04/24/2018 9:01 AM OCCUPATIONAL HYGIENIST Associated Order(s): IP CONSULT TO ELECTROPHYSIOLOGY Formatting of this note may be different from the original. [facility] EP Cardiology Consult Date: 04/24/2018 Established [facility] patient: Yes: Provider: MIRTA Evans Last [...] at 70%. He has been followed at [facility] in [place] wound care clinic for a diabetic foot [...] of artery bypass graft Coronary atherosclerosis of [place] coronary artery Diabetes mellitus, type 2 (HCC) [...] CATHETERIZATION; Surgeon: Donald Upton III, MD; Location: [facility]; Service: Cardiology - Cardiac Intervention Hemodynamics Peripheral Structural; Laterality: N/A; CORONARY ANGIOGRAM WITH GRAFT VISUALIZATION POSSIBLE PCI N/A 04/17/2018 Procedure: CORONARY ANGIOGRAPHY WITH POSSIBLE PCI w/ graft viz; Surgeon: Donald Upton III, MD; Location: [facility]; Service: Cardiology - Cardiac Intervention Hemodynamics Peripheral Structural; Laterality: N/A; CORONARY ANGIOGRAPHY WITH SVG/TRIANA GRAFT VISUALIZATION 09/27/2016 Severe [place] vessel CAD manifested by CLOCK AND WATCH HANDS DIPPER of LAD and RCA. Mild-moderate disease involving [...] this study demonstr CORONARY ARTERY BYPASS GRAFT 1999 TRIANA to LAD, SVG to RCA. LUMBAR [...] 04/24/2018 No acute cardiopulmonary process READING SITE: [facility] EKG: Normal Sinus Rhythm and LBBB at 66 bpm with first degree AV block, QT 488 ms, cQT 512 ms Telemetry: Normal Sinus Rhythm Most Recent Result within the last 7 days Lab Units 04/24/18 0251 04/23/18 0657 WBC TH/uL 9.89 -- HEMOGLOBIN g/dL 12.4* -- HEMATOCRIT % 36* -- PLATELET COUNT TH/uL 132* -- INR -- 1.2 Recent Labs 04/23/18 0657 04/24/18 025 NA 136 132* CL 103 102 CO2 [...] 40-50% focal ostial LM w/o pressure damping, CLOCK AND WATCH HANDS DIPPER of proximal LAD after S1/D1 with patent TRIANA to mid LAD, mild to moderate nonobstructive disease in large LCX and OMB1, dom RCA with long ostial and distal RCA CTOs with good L to R collaterals from LCX to RPL and from TRIANA supplied LAD to RPDA. L to L collaterals are noted from OMB to occluded D2. Patent TRIANA to LAD. CLOCK AND WATCH HANDS DIPPER of RCA SVG. No left sided vein [...] Aishwarya Morris RN - 04/25/2018 5:40 AM OCCUPATIONAL HYGIENIST End of shift note: Pt remains in [...] Alejandrina Garcia RN - 04/24/2018 5:34 PM OCCUPATIONAL HYGIENIST Pt transferred back to bed from [facility]. Diet transitioned to simply healthy - menu given to patient. Family remains at bedside. Jello given. Pt states he feels groggy. Given warm blanket and bed alarm in place. Will continue to monitor. * Alejandrina Garcia RN - 04/24/2018 2:46 PM OCCUPATIONAL HYGIENIST Pt transferred to [facility] via cart. Family at bedside. * Aishwarya Morris RN - 04/24/2018 5:41 AM OCCUPATIONAL HYGIENIST End of shift note: Pt remains in [...] Aishwarya Morris RN - 04/23/2018 7:00 PM OCCUPATIONAL HYGIENIST Pt transferred to [facility]. Bedside report received from W1 RN. 2 [...] Sisi Minor RN - 04/23/2018 6:59 PM OCCUPATIONAL HYGIENIST Patient transferred to [facility]. Report given to Elisha. Patient able to have HOB adjusted to 30 degrees. Transferred on telemetry. * Jamal Rosales RN - 04/23/2018 6:50 PM OCCUPATIONAL HYGIENIST Patient received to 417 per bed. B groin with gauze and tegaderm intact. Report taken from Sisi from CVICU and relayed to Aishwarya on W2 shift. 2 RN skin check with Aishwarya JONES.Jamal Rosales in this encounter Miscellaneous Notes * Care Progression Final DC Note - Gavi Giraldo PSYCHIC READER - 04/25/2018 12:09 PM OCCUPATIONAL HYGIENIST Final Discharge Note Pt had a TAVR on 04/23/18. Pt had PPM placed on 04/24/18. SW completed a chart review and met pt in rounds. SW does not anticipate pt will have any [...] Giraldo LMSW - 04/25/2018 12: 09 PM OCCUPATIONAL HYGIENIST Care Progression Multidisciplinary Discharge Rounds Note Patients Anticipated discharge disposition: Home Self Care Discharge Comments: PPM placement yesterday. Pt is ready for discharge home, self-care today. The following are potential DC Needs/Barriers: Additional Testing needed ( comment) Consults needed and/or active: Consults Needed: (None) Disciplines Present: Social Work, Primary RN, Physician, Patient, Nurse Practitioner Gavi Giraldo, 04/25/2018 12:09 PM #[phone] * Sign-Off Note - Michaelle Andino APRN - 04/25/2018 8:55 AM OCCUPATIONAL HYGIENIST Formatting of this note may be different from the original. [facility] Sign-Off Note Name: Ronaldo Hwang CPI: [id number] Date of : 1935 Primary care physician: [...] artery bypass graft) Coronary artery disease involving [place] coronary artery S/p TAVR (transcatheter aortic valve [...] -Cardiac rehab ordered. Plans to attend at [facility] in [place], [place]. -lifelong SBE prophylaxis, wallet card given [...] to valvular disease (EF 70%) -Intraoperative LVEDP=23. YBhmeHUE=716. -NYHA class I symptoms -weight stable, down 7 lbs since admission. -patient does not take a diuretic at home. -patient to keep weight log and bring to his one week follow up. Coronary artery disease s/p CABG -Moderate disease on recent angiogram with no indication for PCI. -continue aspirin, imdur, ranexa, and plavix. Allergy to statins. Follows wit his primary credit portfolio advisor at [facility]. -denies angina today. Previously [...] mass/ adrenal mass -PET scan performed at [facility] on 03/03/18 (scanned into media), [...] 10 pounds for 1 week Follow up: Lakisha Camp, AGACNP-BC in 1 week(s) at [facility] on 2018 at 10:00 am Lab testing to be completed after discharge: TAM in one week. At this point we will plan to sign-off. We appreciate the opportunity to have participated in this patient's care. Please call us if we can be of any further assistance to the care of this patient. * Plan of Care - Alejandrina Garcia RN - 04/25/2018 8:33 AM OCCUPATIONAL HYGIENIST Problem: Knowledge Deficit Goal: Patient/family/caregiver demonstrates understanding [...] Aishwarya Morris RN - 04/25/2018 1:47 AM OCCUPATIONAL HYGIENIST Problem: Knowledge Deficit Goal: Patient/family/caregiver demonstrates understanding [...] Bruno Oneill MD - 04/24/2018 3:00 PM OCCUPATIONAL HYGIENIST [facility] Pre-Sedation Assessment H&P Update Chief complaint/ History [...] palate, upper portion of tonsils and uvula CSHA Clinical Frailty Scale: Vulnerable - While not dependent on others for daily help, often symptoms limit activities. A common complaint is being " slowed up", and/or being tired during the day. * Discharge Planning - Gavi Giraldo LMSW - 04/24/2018 1:06 PM OCCUPATIONAL HYGIENIST Discharge Planning Interventions General Discharge Note Pt had a TAVR on 04/23/18. Pt is having PPM placed today. Anticipate discharge home soon. SW attempted to meet with pt, but his room was full of family will attempt at a later, more appropriate time. Gavi Giraldo, 04/24/2018 1:08 PM * Plan of Care - Alejandrina Garcia RN - 04/24/2018 12:13 PM OCCUPATIONAL HYGIENIST Problem: Knowledge Deficit Goal: Patient/family/caregiver demonstrates understanding [...] Aishwarya Morris RN - 04/24/2018 2:12 AM OCCUPATIONAL HYGIENIST Problem: Knowledge Deficit Goal: Patient/family/caregiver demonstrates understanding [...] Amauri Ac MD - 04/23/2018 9:08 AM OCCUPATIONAL HYGIENIST Name: RONALDO HWANG MRN: Date of : 1935 Attending Physician: Amauri Ac MD Date of Procedure: 04/23/2018 PREOPERATIVE DIAGNOSES: Critical aortic stenosis with xqgam-py-fiuyrjm diastolic congestive heart failure as evidenced by an elevated LVEDP of 22 at the time of his intervention. POSTOPERATIVE DIAGNOSES: Critical aortic stenosis with lyhix-sc-sflcudq diastolic congestive heart failure as evidenced by [...] Balloon aortic valvuloplasty. SURGEON: Amauri Ac MD. TIN CAN FEEDER: Marlyn Arora MD. COMMUNICATIONS EQUIPMENT INSTALLER: Tod Maguire MD. ANESTHESIOLOGIST: Arabella Grigsby MD. [...] were obtained with micropuncture technique and 6 Beninese sheaths. A temporary right ventricular pacemaker was [...] exchanged out our previously placed a 16- Beninese Cook catheter and took our device in. [...] angiography was done. Crossover catheter was placed jtfx-xn-ceyzr, and the device was removed and Percloses placed. Iliofemoral angiography demonstrated widely patent vessel. We did have a new bundle branch, but no need for pacing. A temporary pacemaker was left in place. The patient tolerated the procedure well. Amauri Ac MD [id number] CC: cc: [facility] * Brief Operative Note - Amauri Ac MD - 04/23/2018 9:02 AM OCCUPATIONAL HYGIENIST Formatting of this note may be different [...] - Assisting * Tod Maguire MD - Patent Paralegal * Amauri Ac MD - Primary Anesthesia Type: Monitor Anesthesia Care Staff: Executive Communications Manager: Simi Diaz RN; Albertina Boo RN Fuel Technician: Toan Kincaid CCP Steel Box Toe Inserter: Efra Sarkar SENIOR ACCOUNTING MANAGER Scrub Person: SHRARI HudsonT; Charlette Rodrigez RN CV Lab Nurse: Stevie Souza RN CV Lab Recorder: Phoenix Wade RUST Anesthesiologist: Arabella Grigsby MD Furniture Maker: Forrest Allen DO Findings: Estimated Blood Loss: Specimens: Implants: Implant Name Type Inv. Item Serial No. Local Coordinator Lot No. LRB No. Used Action IMPLANT EVOLUT PRO TRANSCATHETER AORTIC VALVE 29MM [id number] - [id number] Non-Tissue Implant IMPLANT EVOLUT PRO TRANSCATHETER AORTIC VALVE 29MM EVOLUTPRO- 29-US [id number] MEDTR[employer] HEART VALVE [id number] Right 1 Implanted Complications: none Amauri Ac Date: 04/23/2018 Time: 9:02 AM in this encounter Plan of Treatment Date Type Specialty Care Team Description 07/17/2018 Procedure Pass Radiology 07/17/2018 Procedure Pass Radiology 07/23/2018 Appoint[place] [address] [place] [address] 07/23/2018 [place] [address] [place] [address] 08/14/2018 Nurse Only Cardiology Vicky Duggan RN ANP [address] [place] [address] [phone] 08/14/2018 Office Visit Cardiology Vicky Duggan RN ANP [address] [place] [address] [phone] Name Priority Associated Diagnoses Order Schedule PACEMAKER OUTSIDE RECORD Ordered: 04/24/2018 Name Priority Associated Diagnoses Order Schedule Amb Referral To Cardiac Rehab Routine S/P TAVR (transcatheter 1 Occurrences starting aortic valve replacement) 04/24/2018 until 10/25/2018 as of this encounter Procedures Procedure Name Priority Date/Time Associated Diagnosis Comments GLUCOSE POC Routine 04/25/2018 Results for this 12:02 PM OCCUPATIONAL HYGIENIST procedure are in the results section. XR CHEST 2 VIEWS (PA AND Timed 04/25/2018 Results for this LATERAL) 7:46 AM OCCUPATIONAL HYGIENIST procedure are in the results section. GLUCOSE POC Routine 04/25/2018 Results for this 7:26 AM OCCUPATIONAL HYGIENIST procedure are in the results section. ECG Routine 04/25/2018 Results for this 3:52 AM OCCUPATIONAL HYGIENIST procedure are in the results section. COMPLETE BLOOD COUNT Routine 04/25/2018 Results for this 2:00 AM OCCUPATIONAL HYGIENIST procedure are in the results section. BASIC METABOLIC PANEL Routine 04/25/2018 Results for this 2:00 AM OCCUPATIONAL HYGIENIST procedure are in the results section. GLUCOSE POC Routine 04/24/2018 Results for this 9:16 PM OCCUPATIONAL HYGIENIST procedure are in the results section. PACEMAKER INSERTION DUAL Routine 04/24/2018 Results for this 4:36 PM OCCUPATIONAL HYGIENIST procedure are in the results section. GLUCOSE POC Routine 04/24/2018 Results for this 12:37 PM OCCUPATIONAL HYGIENIST procedure are in the results section. GLUCOSE POC Routine 04/24/2018 Results for this 7:42 AM OCCUPATIONAL HYGIENIST procedure are in the results section. XR CHEST SINGLE VIEW Routine 04/24/2018 Results for this FRONTAL 6:59 AM OCCUPATIONAL HYGIENIST procedure are in the results section. COMPLETE BLOOD COUNT Routine 04/24/2018 Results for this 2:51 AM OCCUPATIONAL HYGIENIST procedure are in the results section. BASIC METABOLIC PANEL Routine 04/24/2018 Results for this 2:51 AM OCCUPATIONAL HYGIENIST procedure are in the results section. ECG Routine 04/24/2018 Results for this 2:42 AM OCCUPATIONAL HYGIENIST procedure are in the results section. GLUCOSE POC Routine 04/23/2018 Results for this 9:09 PM OCCUPATIONAL HYGIENIST procedure are in the results section. GLUCOSE POC Routine 04/23/2018 Results for this 5:02 PM OCCUPATIONAL HYGIENIST procedure are in the results section. ECG Routine 04/23/2018 Results for this 1:39 PM OCCUPATIONAL HYGIENIST procedure are in the results section. ECG STAT 04/23/2018 Results for this 10:39 AM OCCUPATIONAL HYGIENIST procedure are in the results section. TAVR, FEMORAL APPROACH Routine 04/23/2018 Results for this 9:26 AM OCCUPATIONAL HYGIENIST procedure are in the results section. ACTIVATED CLOTTING TIME Routine 04/23/2018 Results for this POC 9:12 AM OCCUPATIONAL HYGIENIST procedure are in the results section. ECHO LIMITED W DOPPLER Routine 04/23/2018 Aortic stenosis Results for this AND COLOR FLOW 9:00 AM OCCUPATIONAL HYGIENIST procedure are in the results section. ACTIVATED CLOTTING TIME Routine 04/23/2018 Results for this POC 8:22 AM OCCUPATIONAL HYGIENIST procedure are in the results section. PROTHROMBIN TIME/INR STAT 04/23/2018 Results for this 6:57 AM OCCUPATIONAL HYGIENIST procedure are in the results section. BASIC METABOLIC PANEL STAT 04/23/2018 Results for this 6:57 AM OCCUPATIONAL HYGIENIST procedure are in the results section. RBCS 2 UNITS STAT 04/23/2018 Results for this 6:55 AM OCCUPATIONAL HYGIENIST procedure are in the results section. ANTIBODY SCREEN STAT 04/23/2018 Results for this 6:55 AM OCCUPATIONAL HYGIENIST procedure are in the results section. ABORH TYPE STAT 04/23/2018 Results for this 6:55 AM OCCUPATIONAL HYGIENIST procedure are in the results section. GLUCOSE POC Routine 04/23/2018 Results for this 6:41 AM OCCUPATIONAL HYGIENIST procedure are in the results section. XMATCH STAT 04/23/2018 6:04 AM OCCUPATIONAL HYGIENIST in this encounter Results * Basic Metabolic Panel (04/30/2018 9:14 AM) Only the most recent of 4 results within the time period is included. Sodium 136 133 - 147 MEQ/L [facility] Potassium 5.5 (H) 3.5 - 5.3 MEQ/L [facility] Chloride 102 96 - 112 MEQ/L [facility] Carbon Dioxide 26 20 - 32 MEQ/L [facility] Anion Gap 9 5 - 17 [facility] Calcium 9.2 8.4 - 10.5 mg/dL [facility] Glucose 129 (H) 70 - 100 mg/dL [facility] Blood Urea Nitrogen 32 (H) 7 - 26 mg/dL [facility] Creatinine 1.5 (H) 0.6 - 1.3 mg/dL [facility] eGFR Male AA 54 (L) 60 - 200 [facility] Comment: REGIONAL Chronic Kidney Disease less LABORATORIES than 60 mL/min/1.73 sq.m Kidney failure less than 15 mL/min/1.73 sq.m eGFR Male Non-AA 45 (L) 60 - 200 [facility] Comment: REGIONAL Chronic Kidney Disease less LABORATORIES than 60 mL/min/1.73 sq.m Kidney failure less than 15 mL/min/1.73 sq.m Specimen Blood Performing Organization Address City/[facility] Phone Number [address] [phone] LABORATORIES * GLUCOSE POC (04/25/2018 12:02 PM) Only the most recent of 8 results within the time period is included. Glucose POC 118 (H) 70 - 100 mg/dL [facility] Performing Organization Address City/[facility] Phone Number [address] [phone] LABORATORIES * XR Chest 2 views (PA and lateral) (04/25/2018 7:46 AM) Impressions Performed At No complication of pacer insertion CHRISTINA READING SITE: [facility] Narrative Performed At Patient: SONI HWANG Sex#:Jensen # 1935 Bull#:[id number] Location:[facility] H4S [id number]#: [id number] Procedure Requested:[id number] XR CHEST 2 VIEWS (PA AND LATERAL) [...] Rad Results In - 04/25/2018 9:24 AM OCCUPATIONAL HYGIENIST Patient: RONALDO HWANG Sex#: M # 1935 Bull#: [id number] Location: [place] [address] Procedure Requested: [id number] XR CHEST 2 VIEWS (PA AND LATERAL) [...] No complication of pacer insertion READING SITE: [facility] Organization Address City/State/[facility] Phone Number [facility] * Electrocardiogram (ECG) (04/25/2018 3:52 AM) Only the most recent of 4 results within the time period is included. QRSd 150 [facility] QT 468 [facility] QTC 502 [facility] ECGHR 69 [facility] ECGPR 264 [facility] Narrative Performed At [facility] Test Date:2018-04-25 Pat Name: RONALDO HWANG Department: [address] Room: [facility] Gender: Male Mdm Developer: [id number] :1935 Requested By: BRUNO ONEILL Order Number: [id number] MD: Ignacio Trejo Measurements IntervalsAxis Rate: 69 P:-65 LA: 264QRS:35 QRSD: 150T:95 QT: 468 QTc:502 Interpretive Statements SINUS RHYTHM FIRST DEGREE AV BLOCK PROBABLE LEFT ATRIAL ABNORMALITY NONSPECIFIC INTRAVENTRICULAR CONDUCTION DELAY LEFT VENTRICULAR HYPERTROPHY Electronically Signed On 04-25-2018 10:16:55 OCCUPATIONAL HYGIENIST by Ignacio Trejo Procedure Note Interface, External Ris In - 04/25/2018 10:16 AM OCCUPATIONAL HYGIENIST [facility] Test Date: 2018-04-25 Pat Name: RONALDO HWANG Department: [address] Room: H417 Gender: Male Mdm Developer: [id number] : 1935 Requested By: BRUNO ONEILL Order Number: [id number] Reading MD: Ignacio Trejo Measurements Intervals [place] Rate: 69 P: -65 LA: 264 QRS: 35 QRSD: 150 T: 95 QT: 468 QTc: 502 Interpretive Statements SINUS RHYTHM FIRST DEGREE AV BLOCK PROBABLE LEFT ATRIAL ABNORMALITY NONSPECIFIC INTRAVENTRICULAR CONDUCTION DELAY LEFT VENTRICULAR HYPERTROPHY Electronically Signed On 04-25-2018 10:16:55 OCCUPATIONAL HYGIENIST by Ignacio Trejo Performing Organization Address City/State/Zipcode Phone Number [facility] * Complete Blood Count (04/25/2018 2:00 AM) Only the most recent of 2 results within the time period is included. WBC 7.45 4.00 - 11.00 TH/uL [facility] RBC 3.74 (L) 4.31 - 5.84 MIL/uL [facility] Hemoglobin 11.9 (L) 13.0 - 17.0 g/dL [facility] Hematocrit 34 (L) 40 - 50 % [facility] MCV 90 80 - 99 fL [facility] MCH 32 27 - 34 pg [facility] MCHC 35 32 - 36 % [facility] RDW 13.3 9.0 - 14.5 % [facility] Platelet Count 118 (L) 140 - 400 TH/uL [facility] MPV 9.5 9.4 - 12.3 fL [facility] Nucleated RBCs 0 0 - 0 /100 [facility] Specimen Blood Performing Organization Address City/State/Zipcode Phone Number [facility] [address] [place] [address] [phone] LABORATORIES * Electrophysiology Procedure (04/24/2018 4:36 PM) Narrative Performed At [facility] CARDIAC ELECTROPHYSIOLOGY SERVICE OPERATIVE REPORT- PPM IMPLANTATION [...] the infraclavicular site. ATTENDING PHYSICIAN: Dr. Oneill PROCESS PLANNER PHYSICIAN(S): None ESTIMATED BLOOD LOSS: 20cc COMPLICATIONS: [...] vena cava. RIGHT VENTRICULAR LEAD: A 7 Beninese peel away sheath was brought to the field and placed into the venous system via over the wire technique. The right ventricular lead was placed via this sheath into the right ventricular [place] location. Adequate sensing, pacing impedance and pacing [...] with fluoroscopy. RIGHT ATRIAL LEAD: A 7 Beninese peel away sheath was brought to the [...] DEVICE IMPLANT SUMMARY: Devices Pacemaker Implant Pacemaker Okay Dr Xt Mri Device [id number] - [id number] - Implanted (Left) Chest Inventory item: Implant Pacemaker Okay Dr Xt Mri Device [id number] Model/Cat number: [id number] Serial number: [id number] Local Coordinator: [employer] CARDIAC RHYTHM MGMT Lot number: [id number] Implant Date: 04/24/2018 Pocket Location: Subcutaneous As of 04/24/2018 Status: Implanted Mode: MVP Lower Rate: 60 Upper Rate: 130 Lead Implant Lead Capsure Fix Novus Is-1 B1 Atrial/Ventricular Silicone 58cm - [id number] - Implanted (Right) Heart Ventricle Inventory item: Implant Lead Capsure Fix Novus Is-1 B1 Atrial/Ventricular Silicone 58cm Model/Cat number: [id number] Serial number: [id number] Local Coordinator: [employer] CARDIAC RHYTHM MGMT Lot number: [id number] Area/Chamber: Heart Ventricle Implant Date: 04/24/2018 As of 04/24/2018 Status: Implanted Location: RV Sensing Threshold (mV): 18.4 Slew Rate (V/s): 4 Pacing Impedance (ohms): 1,045 Capture Threshold (V): 0.4 Capture Threshold (mA): 0.4 Implant Lead Pacemaker Atrial/Ventricle 52cm Capsure Fix Novus 4076-52 - [id number] - Implanted (Right) Heart Atrium Inventory item: Implant Lead Pacemaker Atrial/Ventricle 52cm Capsure Fix Novus 4076-52 Model/Cat number: [id number] Serial number: [id number] Local Coordinator: [employer] CARDIAC RHYTHM MGMT Lot number: [id number] Area/Chamber: Heart Atrium Implant Date: 04/24/2018 As [...] all aspects of this procedure as the proof operator. Bruno Oneill MD 04/24/20184:30 PM Performing Organization Address City/State/Zipcode Phone Number [facility] * XR Chest single view frontal (04/24/2018 6:59 AM) Impressions Performed At No acute cardiopulmonary process CHRISTINA READING SITE: [facility] Narrative Performed At Patient: SONI HWANG Sex#:Jensen # 1935 Bull#:[id number] Location:[address] [id number]#: [id number] Procedure Requested:[id number] XR CHEST SINGLE VIEW FRONTAL Reason for Exam:Post Transcatheter Aortic Valve Replacement Exam Ordered:04/24/20180000 Exam Date/Time:59 Begin exam date/time:04/24/20180640 XR CHEST SINGLE VIEW FRONTAL INDICATION: Post Transcatheter Aortic Valve Replacement. COMPARISON STUDY: Chest x-ray 04/16/2018 Life Support Devices: None Lungs: The limited visualized aspects of the lungs are clear. The retrocardiac region is not well seen Pleura: Negative Heart and Mediastinum: New valve replacement Bones and Soft Tissues: Negative Procedure Note Interface, Rad Results In - 04/24/2018 8:09 AM OCCUPATIONAL HYGIENIST Patient: RONALDO HWANG Sex#: M # 1935 Bull#: [id number] Location: [address] H417-01 Procedure Requested: [id number] XR CHEST SINGLE VIEW FRONTAL Reason for Exam: Post Transcatheter Aortic Valve Replacement Exam Ordered: 04/24/2018 0000 Exam Date/Time: 04/24/201859 Begin exam date/time: 04/24/2018 06 XR CHEST SINGLE VIEW FRONTAL INDICATION: Post Transcatheter Aortic Valve Replacement. COMPARISON STUDY: Chest x-ray 04/16/2018 Life Support Devices: None Lungs: The limited visualized aspects of the lungs are clear. The retrocardiac region is not well seen Pleura: Negative Heart and Mediastinum: New valve replacement Bones and Soft Tissues: Negative IMPRESSION No acute cardiopulmonary process READING SITE: [facility] Performing Organization Address City/State/Zipcode Phone Number [facility] * Hybrid Cardiac Procedure (04/23/2018 9:26 AM) Narrative Performed At [facility] Transcatheter Aortic Valve Replacement via [...] Post Anesthesia care unit for further management. Abbiejane Tijerina 04/23/2018 9:12 AM Performing Organization Address City/[facility] Phone Number [facility] * Activated Clotting Time POC (04/23/2018 9:12 AM) Only the most recent of 2 results within the time period is included. Activated Clotting Time 132 (H) 99 - 130 sec [facility] Performing Organization Address City/[facility] Phone Number [facility] [address] [facility] [place] [address] [facility] [address] [place] [facility] [place] [address] [facility] * Echo Limited with Doppler and [...] Imaging Center Name:RONALDO HWANGDate: 18 07:09 Chart #:[id number] : 1935 Location:[facility] IPSono: [facility] Age: 82 Gender:MReferring: MARLYN ARORA MD Room #: CVOR-5 Fellow: Indication:Nonrheumatic aortic (valve) stenosis Procedure: [id number] BP: 132 / 54HR:56Ht: 72 Wt:182BSA 2.0 [...] External Ris In - 04/23/2018 10:02 AM OCCUPATIONAL HYGIENIST ECHOCARDIOGRAM REPORT Cardiovascular Imaging Center Name: RONALDO HWANG Date: 04/23/2018 07:09 Chart #: [id number] : 1935 Location: [facility] Sono: [facility] Age: 82 Gender: M Referring: MARLYN ARORA MD Room #: CVOR-5 Fellow: Indication:Nonrheumatic aortic (valve) stenosis Procedure: [id number] BP: 132 / 54 HR: 56 Ht: [...] 23 April 2018 10:01 Performing Organization Address [facility] Phone Number [facility] * Prothrombin Time/INR (04/23/2018 6:57 AM) Protime 14.7 11.4 - 15.0 sec [facility]ORATORIES INR 1.2 0.8 - 1.2 [facility] Specimen Blood Performing Organization Address City/[facility] Phone Number [address] [address] LABORATORIES * RBCs 2 Units (04/23/2018 6:55 AM) 01 - PRODUCT ID Red Blood Cells [facility] 01 - UNIT NUMBER [id number] [facility] 01 - CROSS MATCH Compatible [facility] 01 - STATUS INFO Ready [facility] 01 - PRODUCT CODE [id number] [facility] 01 - BLOOD TYPE A Pos [facility] 02 - PRODUCT ID Red Blood Cells [facility] 02 - UNIT NUMBER [id number] [facility] 02 - CROSS MATCH Compatible [facility] 02 - STATUS INFO Ready [facility] 02 - PRODUCT CODE [id number] [facility] 02 - BLOOD TYPE A Pos [facility] Specimen Blood Performing Organization Address [facility] Phone Number [address] [address] LABORATORIES * Antibody Screen (04/23/2018 6:55 AM) Antibody Screen Negative Negative [facility] Specimen Blood Performing Organization Address City/[facility] Phone Number [facility] [address] [place] [address] LABORATORIES * ABORH Type (04/23/2018 6:55 AM) ABORH Type A Positive [facility] Specimen Blood Performing Organization Address [facility] Phone Number [facility] [address] [place] [address] [phone] LABORATORIES * XMATCH (04/23/2018 6:04 AM) Performing Organization Address [facility] Phone Number [facility] [address] [place] [address] in this encounter Visit Diagnoses Not on filein this encounter Admitting Diagnoses Diagnosis Aortic Stenosis Aortic valve [...] mg, Oral, Every 4 hours PRN, 21:03 OCCUPATIONAL HYGIENIST headaches, fever, mild pain (1-3), or if [...] Oral, Daily, First dose on Ban 08:59 OCCUPATIONAL HYGIENIST 04/24/18 at 0900 Given 04/25/2018 5 mg 07:58 OCCUPATIONAL HYGIENIST aspirin chewable tablet 81 mg Given 04/24/2018 81 mg 81 mg, Oral, Daily, First dose on Ban 07:56 OCCUPATIONAL HYGIENIST 04/24/18 at 0900, Hold for platelets less than 90. Start POD #1. Given 04/25/2018 81 mg 07:59 OCCUPATIONAL HYGIENIST atropine injection 0.5-1 mg 0.5-1 mg, Intravenous, As indicated, bradycardia, Starting Sat04/23/18 at 1034, Symptomatic bradycardia, and notify physician. bisacodyl (DULCOLAX) suppository 10 mg 10 mg, Rectal, Daily PRN, constipation, Starting 04/23/18 at 1034, If unable to take PO bupivacaine (MARCAINE) 0.5 % (5 mg/mL) Given 04/24/2018 17 mL Chest injection 15:51 OCCUPATIONAL HYGIENIST As needed, Starting Ban 04/24/18 at 1551, Intra-Procedure (Cath) ceFAZolin (ANCEF) injection New Bag 04/24/2018 2 g Intra-op continuous PRN, Starting Ban 15:40 OCCUPATIONAL HYGIENIST 04/24/18 at 1540, Intra-Procedure (Cath) ceFAZolin (ANCEF) injection New Bag 04/24/2018 1 g Chest Intra-op continuous PRN, Starting Ban 16:14 OCCUPATIONAL HYGIENIST 04/24/18 at 1614, Intra-Procedure (Cath) clopidogrel (PLAVIX) tablet 75 mg Given 04/24/2018 75 mg 75 mg, Oral, Daily, First dose on Ban 08:59 OCCUPATIONAL HYGIENIST 04/24/18 at 0900 Given 04/25/2018 75 mg 07:58 OCCUPATIONAL HYGIENIST fentaNYL (SUBLIMAZE) injection Given 04/24/2018 25 mcg As needed, Starting Ban 04/24/18 at 15:49 OCCUPATIONAL HYGIENIST 1541, Intra-Procedure (Cath) Given 04/24/2018 25 mcg 15:54 OCCUPATIONAL HYGIENIST Given 04/24/2018 25 mcg 16:15 OCCUPATIONAL HYGIENIST HYDROcodone-acetaminophen (NORCO) 5-325 Given 04/24/2018 1 tablet mg per tablet 1-2 tablet 20:58 OCCUPATIONAL HYGIENIST 1-2 tablet, Oral, Every 4 hours PRN, moderate pain (pain score 4-6), or if patients declines higher pain score therapy, Starting 04/23/18 at 1034, Do not exceed 4 GM/DAY of acetaminophen. If 65 or older do not exceed 3 GM/DAY. If chronic alcoholic do not exceed 2 GM/DAY. isosorbide mononitrate (IMDUR) 24 hr Given 04/24/2018 60 mg tablet 60 mg 08:59 OCCUPATIONAL HYGIENIST 60 mg, Oral, Daily, First dose on Ban 04/24/18 at 0900, DO NOT CRUSH OR CHEW. Given 04/25/2018 60 mg 07:58 OCCUPATIONAL HYGIENIST lidocaine (cardiac) (pf) (XYLOCAINE) syringe 84 mg 84 mg (rounded from 84.8 mg=1 mg/kg 84.8 kg), Intravenous, See admin instructions, Starting 04/23/18 at 1034, For PVC's greater than 6 per min., V-tech,bigeminy, or multifocal PVC's and notify physician. lidocaine (XYLOCAINE) 10 mg/mL (1 %) Given 04/24/2018 17 mL Chest injection 15:51 OCCUPATIONAL HYGIENIST As needed, Starting Ban 04/24/18 at 1551, Intra-Procedure (Cath) lisinopril (PRINIVIL,ZESTRIL) tablet 10 Given 04/24/2018 10 mg mg 08:59 OCCUPATIONAL HYGIENIST 10 mg, Oral, Daily, First dose on Ban 04/24/18 at 0900 Given 04/25/2018 10 mg 07:58 OCCUPATIONAL HYGIENIST magnesium hydroxide (MILK OF MAGNESIA) suspension 30 mL 30 mL, Oral, Daily PRN, constipation, Starting Sat04/23/18 at 1034 midazolam (PF) (VERSED) injection Given 04/24/2018 1 mg As needed, Starting Ban 04/24/18 at 15:49 OCCUPATIONAL HYGIENIST 1541, Intra-Procedure (Cath) Given 04/24/2018 1 mg 15:54 OCCUPATIONAL HYGIENIST Given 04/24/2018 0.5 mg 16:13 OCCUPATIONAL HYGIENIST nitroglycerin (NITROSTAT) SL tablet 0.4 mg 0.4 mg, Sublingual, As needed, chest pain, Starting 04/23/18 at 1034, For suspected angina and notify [...] Oral, Daily, First dose on Ban 07:56 OCCUPATIONAL HYGIENIST 04/24/18 at 0700, Start POD #1 DO NOT CRUSH OR CHEW. Given 04/25/2018 40 mg 06:24 OCCUPATIONAL HYGIENIST polyethylene glycol (GLYCOLAX) packet 17 Given 04/25/2018 17 g g 08:09 OCCUPATIONAL HYGIENIST 17 g, Oral, Daily, First dose on [...] 1,000 Given 04/24/2018 1,000 mg mg 20:59 OCCUPATIONAL HYGIENIST 1,000 mg, Oral, 2 times daily, First dose on Ban 04/24/18 at 0900, DO NOT CRUSH OR CHEW. Given 04/25/2018 1,000 mg 07:59 OCCUPATIONAL HYGIENIST senna-docusate (PERICOLACE) 8.6-50 mg 2 tablet 2 tablet, Oral, 2 times daily, First dose on Ban 04/24/18 at 0900, Start POD #1. May hold for loose stools. sitaGLIPtin (JANUVIA) tablet 50 mg Given 04/25/2018 50 mg 50 mg, Oral, Daily, First dose on Ban 07:58 OCCUPATIONAL HYGIENIST 04/24/18 at 0900 traZODone (DESYREL) tablet 100 mg Given 04/24/2018 100 mg 100 mg, Oral, Nightly, First dose on Ban 20:59 OCCUPATIONAL HYGIENIST 04/24/18 at 2100 in this encounter
--- OUTSIDE RECORDS SUMMARY | 2018-07-18 18:16 | XMS REPORT | Encounter Summary ---
Author Author [facility] Organization [facility] Address Unknown Phone Unavailable Care Team Providers Care Pediatric Oncology Nurse Name Role Phone Alejandrina Adame MD PCP Encounter Details Date Type Department Care Team Description 04/21/2018 Procedure Pass [facility] [address] [place] [address] Social History Tobacco Use Types Packs/Day Years Used Date Never Smoker Smokeless Tobacco: Never Used Alcohol Use Drinks/Week oz/Week Comments No Sex Assigned at Date Recorded Not on file as of this encounter Plan of Treatment Date Type Specialty Care Team Description 07/17/2018 Procedure Pass Radiology 07/17/2018 Procedure Pass Radiology 07/23/2018 Appoint[place] [address] [place] [address] [phone] 07/23/2018 [place] [address] [place] [address] [phone] 08/14/2018 Nurse Only Cardiology Vicky Duggan RN ANP [address] [place] [address] [phone] 08/14/2018 Office Visit Cardiology Vicky Duggna RN ANP [address] [place] [address] [phone] as of this encounter Visit Diagnoses Not on filein this encounter
--- OUTSIDE RECORDS SUMMARY | 2018-07-18 18:16 | XMS REPORT | Encounter Summary ---
Author Author [facility] Organization [facility] Address Unknown Phone Unavailable Care Team Providers Care Pediatrics Physician Name Role Phone Alejandrina Adame MD PCP Reason for Visit * Reason Comments Records Encounter Details Date Type Department Care Team Description 04/21/2018 Telephone [facility] Gregor RENAE Luna [facility] [address] [facility], [address] [place] [address] Social History Tobacco Use Types Packs/Day Years Used Date Never Smoker Smokeless Tobacco: Never Used Alcohol Use Drinks/Week oz/Week Comments No Sex Assigned at Date Recorded Not on file as of this encounter Miscellaneous Notes * Telephone Encounter - Gregor RENAE Luna - 04/21/2018 1:29 PM SMOKE EATER Requested stat records KDriver in this encounter Plan of Treatment Date Type Specialty Care Team Description 07/17/2018 Procedure Pass Radiology 07/17/2018 Procedure Pass Radiology 07/23/2018 Appoint[place] [address] [place] [address] [phone] 07/23/2018 App[place] [address] [place] [address] [phone] 08/14/2018 Nurse Only Cardiology Vicky Duggan, RN ANP [address] [place] [address] [phone] 08/14/2018 Office Visit Cardiology Vicky Duggan RN ANP [address] [facility] [address] [place] [address] [phone] as of this encounter Visit Diagnoses Not on filein this encounter
--- OUTSIDE RECORDS SUMMARY | 2018-07-18 18:16 | XMS REPORT | Encounter Summary ---
Author Author [facility] Organization [facility] Address Unknown Phone Unavailable Care Team Providers Care Airborne Operations Manager Name Role Phone Alejandrina Adame MD PCP Reason for Visit * Auth/Cert (Routine) Status Reason Specialty Diagnoses / Referred By Referred To Procedures Contact Contact Pending Review Procedures Amauri Ac, Case request operating room: [address] [facility] Commercial: Landon 50-II Transcatheter [place], [place] Aortic Valve [address] Replacement, Phone: Right [phone] Transfemoral 26 Fax: ED or 29 CV, perc con Encounter Details Date Type Department Care Team Description 04/23/2018 Surgery [facility] Amauri Ac MD Commercial : [address]catheter [address] Aortic Valve Replacement, [place] [address] [address]andon 50-II Right Transfemoral, [address] [place] [address] CV, perc con [phone] Social History Tobacco Use Types Packs/Day Years Used Date Never Smoker Smokeless Tobacco: Never Used Alcohol Use Drinks/Week oz/Week Comments No Sex Assigned at Date Recorded Not on file as of this encounter Last Filed Vital Signs Vital Sign Reading Time Taken Blood Pressure 125/52 04/25/2018 11:13 AM WEALTH MANAGEMENT ADVISOR Pulse 68 04/25/2018 11:13 AM WEALTH MANAGEMENT ADVISOR Temperature 36.5 C (97.7 F) 04/25/2018 11:13 AM WEALTH MANAGEMENT ADVISOR Respiratory Rate 20 04/25/2018 11:13 AM WEALTH MANAGEMENT ADVISOR Oxygen Saturation 100% 04/25/2018 11:13 AM WEALTH MANAGEMENT ADVISOR Inhaled Oxygen - - Concentration Weight 82.7 kg (182 lb 4.8 oz) 04/25/2018 3:58 AM WEALTH MANAGEMENT ADVISOR Height 182.9 cm (6' 0.01") 04/23/2018 6:10 AM WEALTH MANAGEMENT ADVISOR Body Mass Index 24.72 04/25/2018 3:58 AM WEALTH MANAGEMENT ADVISOR in this encounter Discharge Summaries * Amauri Ac MD - 04/25/2018 1:01 PM WEALTH MANAGEMENT ADVISOR Formatting of this note may be different from the original. [facility] Cardiothoracic and Vascular Discharge Summary Admission Date: 04/23/2018 Discharge Date: 04/25/2018 PCP: Alejandrina Adame MD Today I had the pleasure of discharging Ronaldo Hwang from the [facility] following Procedure(s): Commercial: Transcatheter Aortic Valve Replacement, Right Transfemoral, 29 CV, perc con , performed by Primary: Amauri Ac MD Assisting: Marlyn Arora MD Winder Hand: Tod Maguire MD Fellow: Sera Tijerina MD on 04/23/2018. As you know, Ronaldo Hwang is an 82 y.o. male with PMH significant for CAD s/p CABG 1998, HTN, DM2 with peripheral neuropathy, and PAD. He follows with his content production specialist at [facility]. He experienced progressively worsening symptoms of dyspnea [...] TRIANA to LAD but with a RCA SUPERVISOR OF OPERATIONS and RCA EVH graft that was occluded. [...] Essential hypertension ESSENTIAL HYPERTENSION Coronary atherosclerosis of yocha dehe coronary artery CORONARY ARTERIOSCLEROSIS IN LITTLE SHELL TRIBE ARTERY Coronary atherosclerosis of artery bypass graft ARTERIOSCLEROSIS OF CORONARY ARTERY BYPASS GRAFT CKD (chronic kidney disease) CHRONIC KIDNEY DISEASE Aortic valve stenosis AORTIC VALVE STENOSIS S/P CABG (coronary artery bypass graft) HISTORY OF CORONARY ARTERY BYPASS GRAFTING Coronary artery disease involving yocha dehe coronary artery CORONARY ARTERIOSCLEROSIS IN LITTLE SHELL TRIBE ARTERY Acute on chronic lehman chf Lab [...] function. Thank you so much for choosing [facility] for your TAVR It was a pleasure to be involved in your care! Questions: TAVR Clinic Team [phone] (VALV) Supervisor Beam Department's Office: [facility] ([facility]) [phone] Surgeon's Office: [facility] ([facility] [phone] Hygiene Guidelines: Keep incisions clean and dry [...] you for the opportunity to participate in [facility]. If you should have any questions or concerns, please do not hesitate to contact us at [phone]. Chanelle PALACIOS-C 04/24/2018 11:30 AM in this encounter Discharge Instructions * Pre-Procedure Instructions - Raquel Ledezma RN - 04/17/2018 9:38 AM WEALTH MANAGEMENT ADVISOR Formatting of this note may be different [...] mg by mouth nightly. Note: * Michaelle Andino, PASTING INSPECTOR - 04/25/2018 Discharge Instructions for Patients with [...] you can download the information from the [place] [employer] website ( search Infective (Bacterial) [...] appointment. Thank you so much for choosing [facility] for your transcatheter valve replacement. It [...] saw/vit E/sod Take by mouth. Take 1 iwlly/lyc/beta/pyg tablet daily. (PROSTATE HEALTH ORAL) sitaGLIPtin (JANUVIA) 50 Take 50 mg by mouth MG tablet daily. traZODone (DESYREL) 100 Take 100 mg by mouth MG tablet nightly. lisinopril Take 10 mg by mouth 04/30/2018 (PRINIVIL,ZESTRIL) 10 MG daily. tablet as of this encounter Progress Notes * Vicky Duggan RN ANP - 04/25/2018 10:49 AM WEALTH MANAGEMENT ADVISOR [facility] Electrophysiology Follow up 04/25/2018 Ronaldo [...] Amauri Ac MD - 04/25/2018 7:15 AM WEALTH MANAGEMENT ADVISOR Formatting of this note may be different from the original. [facility] Cardiothoracic and Vascular POST-OP Progress Note [...] Alfreda Ann RN - 04/24/2018 11:59 AM WEALTH MANAGEMENT ADVISOR TAVR 04/23/18. Spoke with patient and his family about the benefits of Outpatient Cardiac Rehab. Stated he very doesn't want to go but is interested in hearing more from the program at [facility] in [place], [place]. Given brochure from program. I will fax his contact information and order to the program for follow-up at home. Stated he is always active and hasn't been slowing down so he doesn't think cardiac rehab will be necessary. * Collette Oconnor RN WCC - 04/24/2018 10:56 AM WEALTH MANAGEMENT ADVISOR Formatting of this note may be different [...] plan was mutally agreed upon with pt. KAREN Valente * Lakisha Camp, PASTING INSPECTOR - 04/24/2018 10:00 AM WEALTH MANAGEMENT ADVISOR Formatting of this note may be different [...] artery bypass graft) Coronary artery disease involving yocha dehe coronary artery S/p TAVR (transcatheter aortic valve [...] to valvular disease (EF 70%) -Intraoperative LVEDP=23. ODirpGHY=430. Coronary artery disease s/p CABG -Recent angiogram with no indication for PCI. Hypertension -Well controlled. Instructed to bring log of daily vitals to clinic follow up. Chronic kidney disease -Preoperative Cr/ GFR=1.4/49. -Patient received 110 mL of contrast during procedure. -Pre and post op hydration. -Kidney function stable. Lung nodules/ hepatic mass/ adrenal mass -PET scan performed at [facility] on 03/03/18 (scanned into media), which was [...] Vitals for the past 96 hrs: Weight 12/27/18 0342 85 kg (187 lb 4.8 oz) [...] Amauri Ac MD - 04/24/2018 6:49 AM WEALTH MANAGEMENT ADVISOR Formatting of this note may be different from the original. 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 No pacing. No indication for pacer. Discharge home. Amauri Ac md * Marlyn Carroll, HOME HEALTH CAREGIVER - 04/23/2018 5:32 PM WEALTH MANAGEMENT ADVISOR EP brief note: Reviewed baseline EKG and post TAVR EKG's x [address] Solis at the request of structural service. Given new LBBB and pre-existing first degree recommend leaving temporary wire in overnight. Would keep NPO in the event conduction disease does not recover. Ultimate decision regarding removal of temporary wire up to structural service. Marlyn CarrollYhwgc-[id number]-XC 04/23/2018 5:39 PM * Lakisha Camp, ISAC - 04/23/2018 5:17 PM WEALTH MANAGEMENT ADVISOR Structural Cardiology Rounds with Dr. Arora -s/p [...] * Simi Villavicencio - 04/23/2018 6:58 AM WEALTH MANAGEMENT ADVISOR Ronaldo was lying in bed, waiting for [...] Care Assessment Spiritual Care Assessment Referral Source: Operational Risk Consultant Rounding Visit Status: Other (see note) (Pt welcomed telemetry rn) Spiritual Distress: None Distress: None Well Being [...] Ning Nicholas PA - 04/23/2018 6:49 AM WEALTH MANAGEMENT ADVISOR Mr. Hwang is seen and examined in [...] Ning Nicholas PA - 04/23/2018 6:47 AM WEALTH MANAGEMENT ADVISOR Formatting of this note may be different [...] He was sent to us by his content production specialist at [facility]. He had a cathin 2016 showing a patent TRINAA to the LAD but a chronic total [...] extremities. He has been released by [facility] wound care as his diabetic ulceration of [...] Essential hypertension ESSENTIAL HYPERTENSION Coronary atherosclerosis of yocha dehe coronary artery CORONARY ARTERIOSCLEROSIS IN LITTLE SHELL TRIBE ARTERY Coronary atherosclerosis of artery bypass graft ARTERIOSCLEROSIS OF CORONARY ARTERY BYPASS GRAFT CKD (chronic kidney disease) CHRONIC KIDNEY DISEASE Aortic valve stenosis AORTIC VALVE STENOSIS S/P CABG (coronary artery bypass graft) HISTORY OF CORONARY ARTERY BYPASS GRAFTING Coronary artery disease involving yocha dehe coronary artery CORONARY ARTERIOSCLEROSIS IN LITTLE SHELL TRIBE ARTERY Past Medical History: Diagnosis Date Aortic valve stenosis Cellulitis of left lower limb Chronic osteoarthritis CKD (chronic kidney disease) Coronary atherosclerosis of artery bypass graft Coronary atherosclerosis of yocha dehe coronary artery Diabetes mellitus, type 2 (HCC) [...] ANGIOGRAPHY WITH SVG/TRIANA GRAFT VISUALIZATION 09/27/2016 Severe yocha dehe vessel CAD manifested by SUPERVISOR OF OPERATIONS of LAD and RCA. Mild-moderate disease involving [...] encounter Procedure Notes * 04/23/2018 9:11 AM WEALTH MANAGEMENT ADVISOR Formatting of this note may be different [...] Anesthesia care unit for further management. Sera Lilliana 04/23/2018 9:12 AM in this encounter Consult Notes * Bruno Oneill MD - 04/24/2018 9:01 AM WEALTH MANAGEMENT ADVISOR Associated Order(s): IP CONSULT TO ELECTROPHYSIOLOGY Formatting of this note may be different from the original. [facility] EP Cardiology Consult Date: 04/24/2018 Established [facility] patient: Yes: Provider: MIRTA Evans Last date [...] at 70%. He has been followed at [facility] in [place] wound care clinic for a diabetic foot [...] of artery bypass graft Coronary atherosclerosis of yocha dehe coronary artery Diabetes mellitus, type 2 (HCC) [...] CATHETERIZATION; Surgeon: Donald Upton III, MD; Location: [facility] CV LAB; Service: Cardiology - Cardiac Intervention Hemodynamics Peripheral Structural; Laterality: N/A; CORONARY ANGIOGRAM WITH GRAFT VISUALIZATION POSSIBLE PCI N/A 04/17/2018 Procedure: CORONARY ANGIOGRAPHY WITH POSSIBLE PCI w/ graft viz; Surgeon: Donald Upton III, MD; Location: [facility] CV LAB; Service: Cardiology - Cardiac Intervention Hemodynamics Peripheral Structural; Laterality: N/A; CORONARY ANGIOGRAPHY WITH SVG/TRIANA GRAFT VISUALIZATION 09/27/2016 Severe yocha dehe vessel CAD manifested by SUPERVISOR OF OPERATIONS of LAD and RCA. Mild-moderate disease involving [...] 04/24/2018 No acute cardiopulmonary process READING SITE: [facility] EKG: Normal Sinus Rhythm and LBBB at 66 bpm with first degree AV block, QT 488 ms, cQT 512 ms Telemetry: Normal Sinus Rhythm Most Recent Result within the last 7 days Lab Units 04/24/18 02504/23/18 0657 WBC TH/uL 9.89 -- HEMOGLOBIN g/dL 12.4* -- HEMATOCRIT % 36* -- PLATELET COUNT TH/uL 132* -- INR -- 1.2 Recent Labs 04/23/1857 04/24/18 025 NA 136 132* CL 103 102 CO2 25 24 BUN 33* 29* CREAT 1.4* 1.3 Most Recent Result within the last 7 days Lab Units 04/24/18 0251 04/23/18 0657 POTASSIUM MEQ/L 4.3 4.9 Most Recent Result within the last 7 days Lab Units 04/24/18 02504/23/18 0657 GLUCOSE mg/dL 119* 141* No lab components to display No lab components to display Lab Results Component Value Date HGBA1C 6.1 (H) 04/16/2018 NTPROBNP 514 04/16/2018 Coronary angiogram: Date: 04/17/2018 40-50% focal ostial LM w/o pressure damping, SUPERVISOR OF OPERATIONS of proximal LAD after S1/D1 with patent TRIANA to mid LAD, mild to moderate nonobstructive disease in large LCX and OMB1, dom RCA with long ostial and distal RCA CTOs with good L to R collaterals from LCX to RPL and from TRIANA supplied LAD to RPDA. L to L collaterals are noted from OMB to occluded D2. Patent TRIANA to LAD. SUPERVISOR OF OPERATIONS of RCA SVG. No left sided vein [...] Aishwarya Morris RN - 04/25/2018 5:40 AM WEALTH MANAGEMENT ADVISOR End of shift note: Pt remains in [...] Alejandrina Garcia RN - 04/24/2018 5:34 PM WEALTH MANAGEMENT ADVISOR Pt transferred back to bed from [facility]. Diet transitioned to simply healthy - menu given to patient. Family remains at bedside. Jello given. Pt states he feels groggy. Given warm blanket and bed alarm in place. Will continue to monitor. * Alejandrina Garcia RN - 04/24/2018 2:46 PM WEALTH MANAGEMENT ADVISOR Pt transferred to [facility] via cart. Family at bedside. * Aishwarya Morris RN - 04/24/2018 5:41 AM WEALTH MANAGEMENT ADVISOR End of shift note: Pt remains in [...] Aishwarya Morris RN - 04/23/2018 7:00 PM WEALTH MANAGEMENT ADVISOR Pt transferred to [facility]. Bedside report received from W1 RN. [...] Sisi Minor RN - 04/23/2018 6:59 PM WEALTH MANAGEMENT ADVISOR Patient transferred to [facility] 417. Report given to Elisha. Patient able to have HOB adjusted to 30 degrees. Transferred on telemetry. * Jamal Rosales RN - 04/23/2018 6:50 PM WEALTH MANAGEMENT ADVISOR Patient received to [facility] per bed. B groin with gauze and tegaderm intact. Report taken from Sisi from CVICU and relayed to Aishwarya on W2 shift. 2 RN skin check with Aishwarya JONES.Jamal Rosales in this encounter Miscellaneous Notes * Care Progression Final DC Note - Gavi GiraldoOLYA - 04/25/2018 12:09 PM WEALTH MANAGEMENT ADVISOR Final Discharge Note Pt had a TAVR [...] * Multidisciplinary Discharge Rounds Note - Gavi GiraldoOLYA - 04/25/2018 12: 09 PM WEALTH MANAGEMENT ADVISOR Care Progression Multidisciplinary Discharge Rounds Note Patients Anticipated discharge disposition: Home Self Care Discharge Comments: PPM placement yesterday. Pt is ready for discharge home, self-care today. The following are potential DC Needs/Barriers: Additional Testing needed ( comment) Consults needed and/or active: Consults Needed: (None) Disciplines Present: Social Work, Primary RN, Physician, Patient, Nurse Practitioner Gavi Giraldo, 04/25/2018 12:09 PM #[phone] * Sign-Off Note - Michaelle Andino APRN - 04/25/2018 8:55 AM WEALTH MANAGEMENT ADVISOR Formatting of this note may be different from the original. [facility] Sign-Off Note Name: Ronaldo Hwang CPI: [id number] Date of : 1935 Primary care physician: [...] artery bypass graft) Coronary artery disease involving yocha dehe coronary artery S/p TAVR (transcatheter aortic valve [...] -Cardiac rehab ordered. Plans to attend at [facility] in [place], [place]. -lifelong SBE prophylaxis, wallet card given [...] to valvular disease (EF 70%) -Intraoperative LVEDP=23. LHxdvSRF=116. -NYHA class I symptoms -weight stable, down 7 lbs since admission. -patient does not take a diuretic at home. -patient to keep weight log and bring to his one week follow up. Coronary artery disease s/p CABG -Moderate disease on recent angiogram with no indication for PCI. -continue aspirin, imdur, ranexa, and plavix. Allergy to statins. Follows wit his primary content production specialist at [facility]. -denies angina today. Previously had intermittent complaints [...] mass/ adrenal mass -PET scan performed at [facility] on 03/03/18 (scanned into media), which was [...] Lakisha Camp, AGACNP-BC in 1 week(s) at [facility] on 2018 at 10:00 am Lab testing to be completed after discharge: TAM in one week. At this point we will plan to sign-off. We appreciate the opportunity to have participated in this patient's care. Please call us if we can be of any further assistance to the care of this patient. * Plan of Care - Alejandrina Garcia, RN - 04/25/2018 8:33 AM WEALTH MANAGEMENT ADVISOR Problem: Knowledge Deficit Goal: Patient/family/caregiver demonstrates understanding [...] Aishwarya Morris RN - 04/25/2018 1:47 AM WEALTH MANAGEMENT ADVISOR Problem: Knowledge Deficit Goal: Patient/family/caregiver demonstrates understanding [...] Bruno Oneill MD - 04/24/2018 3:00 PM WEALTH MANAGEMENT ADVISOR [facility] Pre-Sedation Assessment H&P Update Chief [...] palate, upper portion of tonsils and uvula CS Clinical Frailty Scale: Vulnerable - While not dependent on others for daily help, often symptoms limit activities. A common complaint is being " slowed up", and/or being tired during the day. * Discharge Planning - Gavi Giraldo LMSW - 04/24/2018 1:06 PM WEALTH MANAGEMENT ADVISOR Discharge Planning Interventions General Discharge Note Pt had a TAVR on 04/23/18. Pt is having PPM placed today. Anticipate discharge home soon. SW attempted to meet with pt, but his room was full of family will attempt at a later, more appropriate time. Gavi Giraldo, 04/24/2018 1:08 PM #[phone] * Plan of Care - Alejandrina Garcia RN - 04/24/2018 12:13 PM WEALTH MANAGEMENT ADVISOR Problem: Knowledge Deficit Goal: Patient/family/caregiver demonstrates understanding [...] exceptions. * Plan of Care - Aishwarya Morris, KAREN - 04/24/2018 2:12 AM WEALTH MANAGEMENT ADVISOR Problem: Knowledge Deficit Goal: Patient/family/caregiver demonstrates understanding [...] Amauri Ac MD - 04/23/2018 9:08 AM WEALTH MANAGEMENT ADVISOR Name: RONALDO HWANG MRN: Date of : 1935 Attending Physician: Amauri Ac MD Date of Procedure: 04/23/2018 PREOPERATIVE DIAGNOSES: Critical aortic stenosis with uuffc-an-eqqadga diastolic congestive heart failure as evidenced by an elevated LVEDP of 22 at the time of his intervention. POSTOPERATIVE DIAGNOSES: Critical aortic stenosis with kuemy-rv-gsixkqu diastolic congestive heart failure as evidenced by [...] Balloon aortic valvuloplasty. SURGEON: Amauri Ac MD. SENIOR ACCOUNTING SPECIALIST: Marlyn Arora MD. WEIGHT REDUCTION SPECIALIST: Tod Maguire MD. ANESTHESIOLOGIST: Arabella Grigsby MD. [...] were obtained with micropuncture technique and 6 Moroccan sheaths. A temporary right ventricular pacemaker was [...] exchanged out our previously placed a 16- Moroccan LegitTrader catheter and took our device in. We [...] angiography was done. Crossover catheter was placed seya-yu-aqaew, and the device was removed and Percloses placed. Iliofemoral angiography demonstrated widely patent vessel. We did have a new bundle branch, but no need for pacing. A temporary pacemaker was left in place. The patient tolerated the procedure well. Amauri Ac MD [id number] CC: cc: [facility], [facility] * Brief Operative Note - Amauri Ac MD - 04/23/2018 9:02 AM WEALTH MANAGEMENT ADVISOR Formatting of this note may be different [...] - Assisting * Tod Maguire MD - Winder Hand * Amauri Ac MD - Primary Anesthesia Type: Monitor Anesthesia Care Staff: Airframe Technician: Simi Diaz RN; Albertina Boo RN Parts Analyst: Toan Kincaid CCP Call Or Contact Centre Operator: Efra Sarkar GOURMET COFFEE ATTENDANT Scrub Person: SHARRI HudsonT; Charlette Rodrigez RN CV Lab Nurse: Stevie Souza RN CV Lab Recorder: Phoenix Wade GOURMET COFFEE ATTENDANT Anesthesiologist: Arabella Grisgby MD Air Quality Technician: Forrest Allen DO Findings: Estimated Blood Loss: Specimens: Implants: Implant Name Type Inv. Item Serial No. Middleware Administrator Lot No. LRB No. Used Action IMPLANT EVOLUT PRO TRANSCATHETER AORTIC VALVE 29MM [id number] - [id number] Non-Tissue Implant IMPLANT EVOLUT PRO TRANSCATHETER AORTIC VALVE 29MM EVOLUTPRO- 29-US [id number] MEDTRONIC HEART VALVE [id number] Right 1 Implanted Complications: none Amauri Ac Date: 04/23/2018 Time: 9:02 AM in this encounter Plan of Treatment Date Type Specialty Care Team Description 07/17/2018 Procedure Pass Radiology 07/17/2018 Procedure Pass Radiology 07/23/2018 Appoint[place] [address] [place] [address] 07/23/2018 App[place] [address] [place] [address] 08/14/2018 Nurse Only Cardiology Vicky Duggan RN ANP [address] [place] [address] [phone] 08/14/2018 Office Visit Cardiology Vicky Duggan RN ANP [address] [place] [address] [phone] Name Priority Associated Diagnoses Order Schedule PACEMAKER OUTSIDE RECORD Ordered: 04/24/2018 Name Priority Associated Diagnoses Order Schedule Amb Referral To Cardiac Rehab Routine S/P TAVR (transcatheter 1 Occurrences starting aortic valve replacement) 04/24/2018 until 10/25/2018 as of this encounter Procedures Procedure Name Priority Date/Time Associated Diagnosis Comments GLUCOSE POC Routine 04/25/2018 Results for this 12:02 PM WEALTH MANAGEMENT ADVISOR procedure are in the results section. XR CHEST 2 VIEWS (PA AND Timed 04/25/2018 Results for this LATERAL) 7:46 AM WEALTH MANAGEMENT ADVISOR procedure are in the results section. GLUCOSE POC Routine 04/25/2018 Results for this 7:26 AM WEALTH MANAGEMENT ADVISOR procedure are in the results section. ECG Routine 04/25/2018 Results for this 3:52 AM WEALTH MANAGEMENT ADVISOR procedure are in the results section. COMPLETE BLOOD COUNT Routine 04/25/2018 Results for this 2:00 AM WEALTH MANAGEMENT ADVISOR procedure are in the results section. BASIC METABOLIC PANEL Routine 04/25/2018 Results for this 2:00 AM WEALTH MANAGEMENT ADVISOR procedure are in the results section. GLUCOSE POC Routine 04/24/2018 Results for this 9:16 PM WEALTH MANAGEMENT ADVISOR procedure are in the results section. PACEMAKER INSERTION DUAL Routine 04/24/2018 Results for this 4:36 PM WEALTH MANAGEMENT ADVISOR procedure are in the results section. GLUCOSE POC Routine 04/24/2018 Results for this 12:37 PM WEALTH MANAGEMENT ADVISOR procedure are in the results section. GLUCOSE POC Routine 04/24/2018 Results for this 7:42 AM WEALTH MANAGEMENT ADVISOR procedure are in the results section. XR CHEST SINGLE VIEW Routine 04/24/2018 Results for this FRONTAL 6:59 AM WEALTH MANAGEMENT ADVISOR procedure are in the results section. COMPLETE BLOOD COUNT Routine 04/24/2018 Results for this 2:51 AM WEALTH MANAGEMENT ADVISOR procedure are in the results section. BASIC METABOLIC PANEL Routine 04/24/2018 Results for this 2:51 AM WEALTH MANAGEMENT ADVISOR procedure are in the results section. ECG Routine 04/24/2018 Results for this 2:42 AM WEALTH MANAGEMENT ADVISOR procedure are in the results section. GLUCOSE POC Routine 04/23/2018 Results for this 9:09 PM WEALTH MANAGEMENT ADVISOR procedure are in the results section. GLUCOSE POC Routine 04/23/2018 Results for this 5:02 PM WEALTH MANAGEMENT ADVISOR procedure are in the results section. ECG Routine 04/23/2018 Results for this 1:39 PM WEALTH MANAGEMENT ADVISOR procedure are in the results section. ECG STAT 04/23/2018 Results for this 10:39 AM WEALTH MANAGEMENT ADVISOR procedure are in the results section. TAVR, FEMORAL APPROACH Routine 04/23/2018 Results for this 9:26 AM WEALTH MANAGEMENT ADVISOR procedure are in the results section. ACTIVATED CLOTTING TIME Routine 04/23/2018 Results for this POC 9:12 AM WEALTH MANAGEMENT ADVISOR procedure are in the results section. ECHO LIMITED W DOPPLER Routine 04/23/2018 Aortic stenosis Results for this AND COLOR FLOW 9:00 AM WEALTH MANAGEMENT ADVISOR procedure are in the results section. ACTIVATED CLOTTING TIME Routine 04/23/2018 Results for this POC 8:22 AM WEALTH MANAGEMENT ADVISOR procedure are in the results section. PROTHROMBIN TIME/INR STAT 04/23/2018 Results for this 6:57 AM WEALTH MANAGEMENT ADVISOR procedure are in the results section. BASIC METABOLIC PANEL STAT 04/23/2018 Results for this 6:57 AM WEALTH MANAGEMENT ADVISOR procedure are in the results section. RBCS 2 UNITS STAT 04/23/2018 Results for this 6:55 AM WEALTH MANAGEMENT ADVISOR procedure are in the results section. ANTIBODY SCREEN STAT 04/23/2018 Results for this 6:55 AM WEALTH MANAGEMENT ADVISOR procedure are in the results section. ABORH TYPE STAT 04/23/2018 Results for this 6:55 AM WEALTH MANAGEMENT ADVISOR procedure are in the results section. GLUCOSE POC Routine 04/23/2018 Results for this 6:41 AM WEALTH MANAGEMENT ADVISOR procedure are in the results section. XMATCH STAT 04/23/2018 6:04 AM WEALTH MANAGEMENT ADVISOR in this encounter Results * Basic Metabolic Panel (04/30/2018 9:14 AM) Only the most recent of 4 results within the time period is included. Sodium 136 133 - 147 MEQ/L [facility] Potassium 5.5 (H) 3.5 - 5.3 MEQ/L [facility] Chloride 102 96 - 112 MEQ/L [facility] Carbon Dioxide 26 20 - 32 MEQ/L [facility] Anion Gap 9 5 - 17 [facility] Calcium 9.2 8.4 - 10.5 mg/dL [facility] Glucose 129 (H) 70 - 100 mg/dL [facility] Blood Urea Nitrogen 32 (H) 7 - 26 mg/dL [facility] Creatinine 1.5 (H) 0.6 - 1.3 mg/dL [facility] eGFR Male AA 54 (L) 60 - 200 [facility] Comment: REGIONAL Chronic Kidney Disease less LABORATORIES than 60 mL/min/1.73 sq.m Kidney failure less than 15 mL/min/1.73 sq.m eGFR Male Non-AA 45 (L) 60 - 200 [facility] Comment: REGIONAL Chronic Kidney Disease less LABORATORIES than 60 mL/min/1.73 sq.m Kidney failure less than 15 mL/min/1.73 sq.m Specimen Blood Performing Organization Address City/[facility] Phone Number [address] [phone] LABORATORIES * GLUCOSE POC (04/25/2018 12:02 PM) Only the most recent of 8 results within the time period is included. Glucose POC 118 (H) 70 - 100 mg/dL [facility] Performing Organization Address City/[facility] Phone Number [address] [phone] LABORATORIES * XR Chest 2 views (PA and lateral) (04/25/2018 7:46 AM) Impressions Performed At No complication of pacer insertion CHRISTINA READING SITE: [facility] Narrative Performed At Patient: SONI HWANG Sex#:Jensen # 1935 Bull#:[id number] Location:[address] F197-13Zekiqulyj#: [id number] Procedure Requested:[id number] XR CHEST 2 VIEWS (PA AND LATERAL) [...] Rad Results In - 04/25/2018 9:24 AM WEALTH MANAGEMENT ADVISOR Patient: RONALDO HWANG Sex#: M # 1935 Bull#: [id number] Location: [place] [address]- Procedure Requested: [id number] XR CHEST 2 VIEWS (PA AND LATERAL) [...] No complication of pacer insertion READING SITE: [facility] Organization Address City/State/Zipcoky Phone Number [place] * Electrocardiogram (ECG) (04/25/2018 3:52 AM) Only the most recent of 4 results within the time period is included. QRSd 150 TRACEMASTER QT 468 TRACEMASTER QTC 502 TRACEMASTER ECGHR 69 TRACEMASTER ECGPR 264 TRACEMASTER Narrative [facility]formed At [facility] Test Date:2018-04-25 Pat Name: RONALDO HWANG Department: [address] Room: [facility] Gender: Male Director Supplier Quality: [id number] :1935 Requested By: BRUNO ONEILL Order Number: [id number] MD: Ignacio Trejo Measurements IntervalsAxis Rate: 69 P:-65 SC: 264QRS:35 QRSD: 150T:95 QT: 468 QTc:502 Interpretive Statements SINUS RHYTHM FIRST DEGREE AV BLOCK PROBABLE LEFT ATRIAL ABNORMALITY NONSPECIFIC INTRAVENTRICULAR CONDUCTION DELAY LEFT VENTRICULAR HYPERTROPHY Electronically Signed On 04-25-2018 10:16:55 WEALTH MANAGEMENT ADVISOR by Ignacio Trejo Procedure Note Interface, External Ris In - 04/25/2018 10:16 AM WEALTH MANAGEMENT ADVISOR [facility] Test Date: 2018-04-25 Pat Name: RONALDO HWANG Department: [place] [id number] Room: H417 Gender: Male Director Supplier Quality: [id number] : 1935 Requested By: BRUNO ONEILL Order Number: [id number] Reading MD: Ignacio Trejo Measurements Intervals [place] Rate: 69 P: -65 SC: 264 QRS: 35 QRSD: 150 T: 95 QT: 468 QTc: 502 Interpretive Statements SINUS RHYTHM FIRST DEGREE AV BLOCK PROBABLE LEFT ATRIAL ABNORMALITY NONSPECIFIC INTRAVENTRICULAR CONDUCTION DELAY LEFT VENTRICULAR HYPERTROPHY Electronically Signed On 04-25-2018 10:16:55 WEALTH MANAGEMENT ADVISOR by Ignacio Trejo Performing Organization Address City/State/[facility] Phone Number TRAC[facility] * Complete Blood Count (04/25/2018 2:00 AM) Only the most recent of 2 results within the time period is included. WBC 7.45 4.00 - 11.00 TH/uL [facility] RBC 3.74 (L) 4.31 - 5.84 MIL/uL [facility] Hemoglobin 11.9 (L) 13.0 - 17.0 g/dL [facility] Hematocrit 34 (L) 40 - 50 % [facility] MCV 90 80 - 99 fL [facility] MCH 32 27 - 34 pg [facility] MCHC 35 32 - 36 % [facility] RDW 13.3 9.0 - 14.5 % [facility] Platelet Count 118 (L) 140 - 400 TH/uL [facility] MPV 9.5 9.4 - 12.3 fL [facility] Nucleated RBCs 0 0 - 0 /100 [facility] Specimen Blood Performing Organization Address City/State/Zipcode Phone Number [facility] [address] [place] [address] LABORATORIES * Electrophysiology Procedure (04/24/2018 4:36 PM) Narrative Performed At [facility] CARDIAC ELECTROPHYSIOLOGY SERVICE OPERATIVE REPORT- PPM [...] the infraclavicular site. ATTENDING PHYSICIAN: Dr. Oneill SENIOR FINANCIAL ANALYST PHYSICIAN(S): None ESTIMATED BLOOD LOSS: 20cc COMPLICATIONS: [...] vena cava. RIGHT VENTRICULAR LEAD: A 7 Moroccan peel away sheath was brought to the field and placed into the venous system via over the wire technique. The right ventricular lead was placed via this sheath into the right ventricular [place] location. Adequate sensing, pacing impedance and pacing [...] with fluoroscopy. RIGHT ATRIAL LEAD: A 7 Moroccan peel away sheath was brought to the [...] Mary Dr Xt Mri Device [id number] - [id number] - Implanted (Left) Chest Inventory item: Implant Pacemaker Mary Dr Xt Mri Device [id number] Model/Cat number: [id number] Serial number: [id number] Middleware Administrator: Jingdong CARDIAC RHYTHM MGMT Lot number: [id number] Implant Date: 04/24/2018 Pocket Location: Subcutaneous As of 04/24/2018 Status: Implanted Mode: MVP Lower Rate: 60 Upper Rate: 130 Lead Implant Lead Capsure Fix Novus Is-1 B1 Atrial/Ventricular Silicone 58cm - [id number] - Implanted (Right) Heart Ventricle Inventory item: Implant Lead Capsure Fix Novus Is-1 B1 Atrial/Ventricular Silicone 58cm Model/Cat number: [id number] Serial number: [id number] Middleware Administrator: [employer] CARDIAC RHYTHM MGMT Lot number: [id number] Area/Chamber: Heart Ventricle Implant Date: 04/24/2018 As of 04/24/2018 Status: Implanted Location: RV Sensing Threshold (mV): 18.4 Slew Rate (V/s): 4 Pacing Impedance (ohms): 1,045 Capture Threshold (V): 0.4 Capture Threshold (mA): 0.4 Implant Lead Pacemaker Atrial/Ventricle 52cm Capsure Fix Novus 4076-52 - [id number] - Implanted (Right) Heart Atrium Inventory item: Implant Lead Pacemaker Atrial/Ventricle 52cm Capsure Fix Novus 4076-52 Model/Cat number: [id number] Serial number: [id number] Middleware Administrator: [employer] CARDIAC RHYTHM MGMT Lot number: [id number] Area/Chamber: Heart Atrium Implant Date: 04/24/2018 As [...] 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 Bruno Oneill MD 04/24/20184:30 PM Performing Organization Address City/State/Zipcode Phone Number [facility] * XR Chest single view frontal (04/24/2018 6:59 AM) Impressions Performed At No acute cardiopulmonary process CHRISTINA READING SITE: [facility] Narrative Performed At Patient: SONI HWANG Sex#:M # 1935 Bull#:[id number] Location:[address] T376-08Hfmwiyahh#: [id number] Procedure Requested:[id number] XR CHEST SINGLE VIEW FRONTAL Reason for Exam:Post Transcatheter Aortic Valve Replacement Exam Ordered:04/24/20180000 Exam Date/Time:04/24/20180659 Begin exam date/time:04/24/20180640 XR CHEST SINGLE VIEW FRONTAL INDICATION: Post Transcatheter Aortic Valve Replacement. COMPARISON STUDY: Chest x-ray 04/16/2018 Life Support Devices: None Lungs: The limited visualized aspects of the lungs are clear. The retrocardiac region is not well seen Pleura: Negative Heart and Mediastinum: New valve replacement Bones and Soft Tissues: Negative Procedure Note Interface, Rad Results In - 04/24/2018 8:09 AM WEALTH MANAGEMENT ADVISOR Patient: RONALDO HWANG Sex#: M # 1935 Bull#: [id number] Location: [address] H417-01 Procedure Requested: [id number] XR CHEST SINGLE VIEW FRONTAL Reason for [...] IMPRESSION No acute cardiopulmonary process READING SITE: [facility] Performing Organization Address City/State/Zipcode Phone Number [place] * Hybrid Cardiac Procedure (04/23/2018 9:26 AM) Narrative Performed At [facility] INTERVENTIONAL CARDIOLOGY Transcatheter Aortic Valve Replacement via [...] Tijerina 04/23/2018 9:12 AM Performing Organization Address City/[facility] Phone Number [facility] * Activated Clotting Time POC (04/23/2018 9:12 AM) Only the most recent of 2 results within the time period is included. Activated Clotting Time 132 (H) 99 - 130 sec [facility] Performing Organization Address City/[facility] Phone Number [facility] [address] [place] [address] [facility] [address] [place] [address] [facility] * Echo Limited with Doppler and [...] ECHOCARDIOGRAM REPORT [facility] Name:RONALDO HWANGDate: 07:09 Chart #:[id number] : 1935 Location:[facility] IPSono: [facility] Age: 82 Gender:MReferring: MARLYN ARORA MD Room #: CVOR-5 Fellow: Indication:Nonrheumatic aortic (valve) stenosis Procedure: [id number] BP: 132 / 54HR:56Ht: 72 Wt:182BSA 2.0 [...] External Ris In - 04/23/2018 10:02 AM WEALTH MANAGEMENT ADVISOR ECHOCARDIOGRAM REPORT [facility] Name: RONALDO HWANG Date: 04/23/2018 07:09 Chart #: [id number] : 1935 Location: [facility] Sono: [facility] Age: 82 Gender: M Referring: MARLYN ARORA MD Room #: CVOR-5 Fellow: Indication:Nonrheumatic aortic (valve) stenosis Procedure: [id number] BP: 132 / 54 HR: 56 Ht: [...] 23 April 2018 10:01 Performing Organization Address [facility] Phone Number [facility] * Prothrombin Time/INR (04/23/2018 6:57 AM) Protime 14.7 11.4 - 15.0 sec [facility] INR 1.2 0.8 - 1.2 [facility] Specimen Blood Performing Organization Address [facility] [place] [address] [phone] LABORATORIES * RBCs 2 Units (04/23/2018 6:55 AM) 01 - PRODUCT ID Red Blood Cells [facility] 01 - UNIT NUMBER [id number] [facility] 01 - CROSS MATCH Compatible [facility] 01 - STATUS INFO Ready [facility] 01 - PRODUCT CODE [id number] [facility] 01 - BLOOD TYPE A Pos [facility] 02 - PRODUCT ID Red Blood Cells [facility] 02 - UNIT NUMBER [id number] [facility] 02 - CROSS MATCH Compatible [facility] 02 - STATUS INFO Ready [facility] 02 - PRODUCT CODE [id number] [facility] 02 - BLOOD TYPE A Pos [facility] Specimen Blood Performing Organization Address [facility] Phone Number [place] [address] [place] [address] LABORATORIES * Antibody Screen (04/23/2018 6:55 AM) Antibody Screen Negative Negative [facility] Specimen Blood Performing Organization Address [facility] Phone Number [facility] [address] [place] [address] LABORATORIES * ABORH Type (04/23/2018 6:55 AM) ABORH Type A Positive [facility] Specimen Blood Performing Organization Address [facility] Phone Number [facility] [address] [place] [address] [phone] LABORATORIES * XMATCH (04/23/2018 6:04 AM) Performing Organization Address [facility] Phone Number [facility] [address] [place] [address] in this encounter Visit Diagnoses Not on [...] mg, Oral, Every 4 hours PRN, 21:03 WEALTH MANAGEMENT ADVISOR headaches, fever, mild pain (1-3), or if patients declines higher pain score therapy, Starting 04/23/18 at 1034, Do not exceed 4 GM/DAY of acetaminophen. If 65 or older do not exceed 3 GM/DAY. If chronic alcoholic do not exceed 2 GM/DAY. aluminum-magnesium hydroxide-simethicone (MAALOX PLUS) 400-400-40 mg/5 mL suspension 15 mL 15 mL, Oral, Every 4 hours PRN, indigestion, heartburn, dyspepsia, Starting 04/23/18 at 1034 amLODIPine (NORVASC) tablet 5 mg Given 04/24/2018 5 mg 5 mg, Oral, Daily, First dose on Ban 08:59 WEALTH MANAGEMENT ADVISOR 04/24/18 at 0900 Given 04/25/2018 5 mg 07:58 WEALTH MANAGEMENT ADVISOR aspirin chewable tablet 81 mg Given 04/24/2018 81 mg 81 mg, Oral, Daily, First dose on Ban 07:56 WEALTH MANAGEMENT ADVISOR 04/24/18 at 0900, Hold for platelets less than 90. Start POD #1. Given 04/25/2018 81 mg 07:59 WEALTH MANAGEMENT ADVISOR atropine injection 0.5-1 mg 0.5-1 mg, Intravenous, As indicated, bradycardia, Starting Sat04/23/18 at 1034, Symptomatic bradycardia, and notify physician. bisacodyl (DULCOLAX) suppository 10 mg 10 mg, Rectal, Daily PRN, constipation, Starting Sat04/23/18 at 1034, If unable to take PO ceFAZolin (ANCEF) injection New Bag 04/24/2018 2 g Intra-op continuous PRN, Starting Ban 15:40 WEALTH MANAGEMENT ADVISOR 04/24/18 at 1540, Intra-Procedure (Cath) ceFAZolin (ANCEF) injection New Bag 04/24/2018 1 g Chest Intra-op continuous PRN, Starting Ban 16:14 WEALTH MANAGEMENT ADVISOR 04/24/18 at 1614, Intra-Procedure (Cath) clopidogrel (PLAVIX) tablet 75 mg Given 04/24/2018 75 mg 75 mg, Oral, Daily, First dose on Ban 08:59 WEALTH MANAGEMENT ADVISOR 04/24/18 at 0900 Given 04/25/2018 75 mg 07:58 WEALTH MANAGEMENT ADVISOR heparin (porcine) 1,000 unit/mL 5,000 Given 04/23/2018 1,000 mL Operative Units in sodium chloride 0.9 % (NS) 07:48 WEALTH MANAGEMENT ADVISOR Site 1,000 mL OR irrigation As needed, Starting Sat04/23/18 at 0748, Intra-op HYDROcodone-acetaminophen (NORCO) 5-325 Given 04/24/2018 1 tablet mg per tablet 1-2 tablet 20:58 WEALTH MANAGEMENT ADVISOR 1-2 tablet, Oral, Every 4 hours PRN, moderate pain (pain score 4-6), or if patients declines higher pain score therapy, Starting Sat04/23/18 at 1034, Do not exceed 4 GM/DAY of acetaminophen. If 65 or older do not exceed 3 GM/DAY. If chronic alcoholic do not exceed 2 GM/DAY. iodixanol (VISIPAQUE) 320 mg iodine/mL Given 04/23/2018 110 mL Operative injection 09:05 WEALTH MANAGEMENT ADVISOR Site As needed, Starting 04/23/18 at 0905, Intra-op isosorbide mononitrate (IMDUR) 24 hr Given 04/24/2018 60 mg tablet 60 mg 08:59 WEALTH MANAGEMENT ADVISOR 60 mg, Oral, Daily, First dose on Ban 04/24/18 at 0900, DO NOT CRUSH OR CHEW. Given 04/25/2018 60 mg 07:58 WEALTH MANAGEMENT ADVISOR lidocaine (cardiac) (pf) (XYLOCAINE) syringe 84 mg 84 mg (rounded from 84.8 mg=1 mg/kg 84.8 kg), Intravenous, See admin instructions, Starting 04/23/18 at 1034, For PVC's greater than 6 per min., V-tech,bigeminy, or multifocal PVC's and notify physician. lidocaine (XYLOCAINE) 10 mg/mL (1 %) Given 04/23/2018 10 mL Operative injection 08:11 WEALTH MANAGEMENT ADVISOR Site As needed, Starting 04/23/18 at 0811, Intra-op lisinopril (PRINIVIL,ZESTRIL) tablet 10 Given 04/24/2018 10 mg mg 08:59 WEALTH MANAGEMENT ADVISOR 10 mg, Oral, Daily, First dose on Ban 04/24/18 at 0900 Given 04/25/2018 10 mg 07:58 WEALTH MANAGEMENT ADVISOR magnesium hydroxide (MILK OF MAGNESIA) suspension 30 [...] Intravenous, Every 6 hours PRN, nausea, Starting 12/26/18 at 1034 pantoprazole (PROTONIX) EC tablet 40 mg Given 04/24/2018 40 mg 40 mg, Oral, Daily, First dose on Ban 07:56 WEALTH MANAGEMENT ADVISOR 04/24/18 at 0700, Start POD #1 DO NOT CRUSH OR CHEW. Given 04/25/2018 40 mg 06:24 WEALTH MANAGEMENT ADVISOR polyethylene glycol (GLYCOLAX) packet 17 Given 04/25/2018 17 g g 08:09 WEALTH MANAGEMENT ADVISOR 17 g, Oral, Daily, First dose on [...] 1,000 Given 04/24/2018 1,000 mg mg 20:59 WEALTH MANAGEMENT ADVISOR 1,000 mg, Oral, 2 times daily, First dose on Ban 04/24/18 at 0900, DO NOT CRUSH OR CHEW. Given 04/25/2018 1,000 mg 07:59 WEALTH MANAGEMENT ADVISOR senna-docusate (PERICOLACE) 8.6-50 mg 2 tablet 2 tablet, Oral, 2 times daily, First dose on Ban 04/24/18 at 0900, Start POD #1. May hold for loose stools. sitaGLIPtin (JANUVIA) tablet 50 mg Given 04/25/2018 50 mg 50 mg, Oral, Daily, First dose on Ban 07:58 WEALTH MANAGEMENT ADVISOR 04/24/18 at 0900 sodium chloride irrigation (NS) 0.9 % Given 04/23/2018 3,000 mL Operative As needed, Starting 04/23/18 at 08:12 WEALTH MANAGEMENT ADVISOR Site 0810, Intra-op traZODone (DESYREL) tablet 100 mg Given 04/24/2018 100 mg 100 mg, Oral, Nightly, First dose on Ban 20:59 WEALTH MANAGEMENT ADVISOR 04/24/18 at 2100 in this encounter
--- OUTSIDE RECORDS SUMMARY | 2018-07-18 18:16 | XMS REPORT | Encounter Summary ---
Author Author [facility] Organization [facility] Address Unknown Phone Unavailable Care Team Providers Care Water Sponger Name Role Phone Alejandrina Adame MD PCP Reason for Referral * Diagnostic Imaging (Routine) Status Reason Specialty Diagnoses / Referred By Referred To Procedures Contact Contact Pending Review Diagnoses Ruiz Aortic stenosis MD [facility]arlyn [facility] [address] [facility] [address] Echo Limited [place], [place] with Doppler and [address] Color Flow if Phone: Necessary [phone] Encounter Details Date Type Department Care Team Description 04/21/2018 Ancillary [facility] Marlyn Arora MD Aortic stenosis Orders [address] [place] [address] [address] [place] [address] [phone] Social History Tobacco Use Types Packs/Day Years Used Date Never Smoker Smokeless Tobacco: Never Used Alcohol Use Drinks/Week oz/Week Comments No Sex Assigned at Date Recorded Not on file as of this encounter Plan of Treatment Date Type Specialty Care Team Description 07/17/2018 Procedure Pass Radiology 07/17/2018 Procedure Pass Radiology 07/23/2018 App[place] [address] [place] [address] 07/23/2018 [place] [address] [place] [address] 08/14/2018 Nurse Only Cardiology Vicky Duggan RN ANP [address] [place] [address] [phone] 08/14/2018 Office Visit Cardiology Vicky Duggan RN ANP [address] [place] [address] [phone] as of this encounter Results * Echo Limited with Doppler and Color [...] ECHOCARDIOGRAM REPORT Cardiovascular Imaging Center Name:VÍCTOR HWANGDate: 18 07:09 Chart #:[id number] : 1935 Location:[facility] IPSono: [facility] Age: 82 Gender:MReferring: MARLYN ARORA MD Room #: CVOR-5 Fellow: Indication:Nonrheumatic aortic (valve) stenosis Procedure: [id number] BP: 132 / 54HR:56Ht: 72 Wt:182BSA 2.0 [...] External Ris In - 04/23/2018 10:02 AM DERRICK FOLLOWER ECHOCARDIOGRAM REPORT [facility] Center Name: VÍCTOR HWANG Date: 04/23/2018 07:09 Chart #: [id number] : 1935 Location: [facility] Sono: [facility] Age: 82 Gender: M Referring: MARLYN ARORA MD Room #: CVOR-5 Fellow: Indication:Nonrheumatic aortic (valve) stenosis Procedure: [id number] BP: 132 / 54 HR: 56 Ht: [...] in this encounter Visit Diagnoses Diagnosis Aortic stenosis Aortic valve disorders
--- OUTSIDE RECORDS SUMMARY | 2018-07-18 18:16 | XMS REPORT | Encounter Summary ---
Author Author [facility] Organization [facility] Address Unknown Phone Unavailable Care Team Providers Care Bone Char Puller Name Role Phone Alejandrina Aadme MD PCP Encounter Details Date Type Department Care Team Description 04/21/2018 Documentation [facility] Cheryl Dunham, RN [address] [place] [address] [address] [facility] [phone] [address] [phone] Social History Tobacco Use Types Packs/Day Years Used Date Never Smoker Smokeless Tobacco: Never Used Alcohol Use Drinks/Week oz/Week Comments No Sex Assigned at Date Recorded Not on file as of this encounter Progress Notes * Cheryl Dunham, RN ANP - 04/21/2018 11:55 AM CHIEF WELLNESS OFFICER .This patient is currently undergoing evaluation for transcatheter aortic valve replacement. The patient's case was presented during the weekly Saturday Structural Heart Conference and given a calculated STS predicted risk of morality equal to 4.1%, the patient has been deemed a intermediate surgical risk and the following plans have been made: -Patient is tentatively scheduled for TAVR on 04/23/18 pending receiving PET scan/biopsy results from oncology at [facility]. -Valve: 26 ED -Access site: right TF -Anesthesia: perc con -Special considerations: cleared from wound care in this encounter Plan of Treatment Date Type Specialty Care Team Description 07/17/2018 Procedure Pass Radiology 07/17/2018 Procedure Pass Radiology 07/23/2018 Appointment [place] [address] [place] [address] [phone] 07/23/2018 [place] [address] [facility] [address] [place] [address] [phone] 08/14/2018 Nurse Only Cardiology Vicky Duggan RN ANP [address] [facility] [address] [place] [address] [phone] 08/14/2018 Office Visit Cardiology Vicky Duggan RN ANP [address] [place] [address] [phone] as of this encounter Visit Diagnoses Not on filein this encounter
--- OUTSIDE RECORDS SUMMARY | 2018-07-18 18:18 | XMS REPORT | Continuity of Care Document ---
Author Author [facility] Organization [facility] Address Unknown Phone Unavailable Allergies Active Description Code Type Severity Reaction Onset Reported/Identified Relationship to Patient Clinical Status Yes No Known Drug Allergies [id number] Drug Allergy Unknown N/A 09/29/2013 Yes atorvastatin [id number] Drug Allergy Unknown N/A 12/26/2017 Medications There is no data. 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 09/14/2016 BEVERLY JOHNSTON MD Ot I12.9 HYPERTENSIVE CHRONIC KIDNEY DISEASE W ST 09/14/2016 BEVERLY JOHNSTON MD Ot I25.10 ATHSCL HEART DISEASE OF [place] CORONARY 09/14/2016 BEVERLY JOHNSTON MD Ot I44.0 ATRIOVENTRICULAR BLOCK, FIRST DEGREE 09/14/2016 BEVERLY JOHNSTON MD Ot N18.9 CHRONIC KIDNEY DISEASE, UNSPECIFIED 09/14/2016 BEVERLY JOHNSTON MD Ot R00.1 BRADYCARDIA, UNSPECIFIED 09/14/2016 BEVERLY JOHNSTON MD Ot Z79.82 GROUP HOME (CURRENT) USE OF ASPIRIN 09/14/2016 BEVERLY JOHNSTON MD Ot Z79.899 OTHER GROUP HOME (CURRENT) DRUG THERAPY 09/14/2016 YAHIR LUGO, JOSÉ MIGUEL Q Ot 707.15 ULCER OF [...] V81.5 SCREEN FOR NEPHROPATHY 09/14/2016 JESSICA BENITEZ MD Ot E11.9 TYPE 2 DIABETES MELLITUS WITHOUT COMPLIC 09/14/2016 JESSICA BENITEZ MD Ot I10 ESSENTIAL (PRIMARY) HYPERTENSION 09/14/2016 JESSICA BENITEZ MD, Ot N18.3 CHRONIC KIDNEY DISEASE, STAGE 3 (MODERAT 09/14/2016 JESSICA BENITEZ MD, Ot N28.1 CYST OF KIDNEY, ACQUIRED 09/14/2016 [...] I10 ESSENTIAL (PRIMARY) HYPERTENSION 09/14/2016 JESSICA BENITEZ MD Ot N18.3 CHRONIC KIDNEY DISEASE, STAGE 3 (MODERAT 09/14/2016 JESSICA BENITEZ MD Ot 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 OF KIDNEY, ACQUIRED 10/27/2016 BEVERLY JOHNSTON MD Ot E11.9 TYPE 2 DIABETES MELLITUS WITHOUT COMPLIC 10/27/2016 BEVERLY JOHNSTON MD Ot E87.5 HYPERKALEMIA 10/27/2016 BEVERLY JOHNSTON MD Ot 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 10/27/2016 BEVERLY JOHNSTON MD Ot I12.9 HYPERTENSIVE CHRONIC KIDNEY DISEASE W ST 10/27/2016 BEVERLY JOHNSTON MD Ot I25.10 ATHSCL HEART DISEASE OF [place] CORONARY 10/27/2016 BEVERLY JOHNSTON MD Ot I44.0 ATRIOVENTRICULAR BLOCK, FIRST DEGREE 10/27/2016 BEVERLY JOHNSTON MD Ot N18.9 CHRONIC KIDNEY DISEASE, UNSPECIFIED 10/27/2016 BEVERLY JOHNSTON MD Ot R00.1 BRADYCARDIA, UNSPECIFIED 10/27/2016 BEVERLY JOHNSTON MD Ot Z79.82 GROUP HOME (CURRENT) USE OF ASPIRIN 10/27/2016 BEVERLY JOHNSTON MD Ot Z79.899 OTHER GROUP HOME (CURRENT) DRUG THERAPY 12/19/2017 YAHIR ULGO, JOSÉ MIGUEL Q Ot 707.15 ULCER OF OTHER PART OF FOOT 12/19/2017 ADITI ENRIQUE, JEFF Barrett Ot 793.11 SOLITARY PULMONARY NODULE 12/19/2017 JEFF PENNINGTON MD Ot V81.5 SCREEN FOR NEPHROPATHY 12/19/2017 JEFF PENNINGTON MD Ot 585.3 CHRONIC KIDNEY DISEASE, STAGE III (MODER 12/19/2017 JEFF PENNINGTON MD Ot 793.19 OTHER NONSPECIFIC ABNORMAL FINDING OF CHRISTINE 12/19/2017 JEFF PENNINGTON MD Ot V81.5 SCREEN FOR NEPHROPATHY 12/19/2017 JESSICA BENITEZ MD Ot E11.9 TYPE 2 DIABETES MELLITUS WITHOUT COMPLIC 12/19/2017 JESSICA BENITEZ MD Ot I10 ESSENTIAL (PRIMARY) HYPERTENSION 12/19/2017 JESSICA BENITEZ MD, Ot N18.3 CHRONIC KIDNEY DISEASE, STAGE 3 (MODERAT 12/19/2017 JESSICA BENITEZ MD Ot N28.1 CYST OF KIDNEY, ACQUIRED 12/21/2017 LUAN TURPIN APRN Ot E11.621 TYPE 2 DIABETES MELLITUS WITH FOOT ULCER 12/21/2017 LUAN TURPIN BOLT THREADER Ot L03.116 CELLULITIS OF LEFT LOWER LIMB 12/21/2017 LUAN TURPIN BOLT THREADER Ot L97.512 NON-PRS CHRONIC ULCER OTH PRT RIGHT FOOT 12/21/2017 LUAN TURPIN APRN Ot N18.3 CHRONIC KIDNEY DISEASE, STAGE 3 (MODERAT 12/24/2017 LUAN TURPIN BOLT THREADER Ot 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 12/24/2017 LUAN TURPIN APRN Ot E11.621 TYPE 2 DIABETES MELLITUS WITH FOOT ULCER 12/24/2017 LUAN TURPIN BOLT THREADER Ot L03.116 CELLULITIS OF LEFT LOWER LIMB 12/24/2017 LUAN TURPIN BOLT THREADER Ot L97.512 NON-PRS CHRONIC ULCER OTH PRT RIGHT FOOT 12/24/2017 LUAN TURPIN APRN Ot L97.529 NON-PRESSURE CHRONIC ULCER OTH PRT LEFT 12/24/2017 LUAN TURPIN BOLT THREADER Ot N18.3 CHRONIC KIDNEY DISEASE, STAGE 3 (MODERAT 12/26/2017 CHATO KNIGHT MD Ot L97.512 NON-PRS CHRONIC ULCER OTH PRT RIGHT FOOT 12/27/2017 CHATO KNIGHT MD Ot E11.621 TYPE 2 DIABETES MELLITUS WITH FOOT ULCER 12/27/2017 CHATO KNIGHT MD Ot 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 12/27/2017 CHATO KNIGHT MD Ot L03.116 CELLULITIS OF LEFT LOWER LIMB 12/27/2017 CHATO KNIGHT MD Ot L97.524 NON-PRS CHRONIC ULCER OTH PRT LEFT FOOT 12/27/2017 CHATO KNIGHT MD Ot N18.3 CHRONIC KIDNEY DISEASE, STAGE 3 (MODERAT 12/27/2017 Jensen QUEZADA MD, Ot E11.9 TYPE 2 DIABETES MELLITUS WITHOUT COMPLIC 12/27/2017 Jensen QUEZADA MD, Ot E78.5 HYPERLIPIDEMIA, UNSPECIFIED 12/27/2017 Jensen QUEZADA MD, Ot I12.9 HYPERTENSIVE CHRONIC KIDNEY DISEASE W ST 12/27/2017 Jensen QUEZADA MD, Ot I25.10 ATHSCL HEART DISEASE OF [place] CORONARY 12/27/2017 Jensen QUEZADA MD Ot I70.203 UNSP ATHSCL [place] ARTERIES OF EXTREMITI 12/27/2017 Jensen QUEZADA MD, Ot 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5 HYPERLIPIDEMIA, UNSPECIFIED 01/01/2018 Jensen QUEZADA MD Ot I12.9 HYPERTENSIVE CHRONIC KIDNEY DISEASE W ST 01/01/2018 Jensen QUEZADA MD Ot I25.10 ATHSCL HEART DISEASE OF [place] CORONARY 01/01/2018 Jensen QUEZADA MD Ot I70.203 UNSP ATHSCL [place] ARTERIES OF EXTREMITI 01/01/2018 Jensen QUZEADA MD Ot I70.245 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 W C 01/01/2018 Jensen QUEZADA MD Ot L97.529 NON-PRESSURE CHRONIC ULCER OTH PRT LEFT 01/01/2018 Jensen QUEZADA MD Ot M86.9 OSTEOMYELITIS, UNSPECIFIED 01/01/2018 Jensen QUEZADA MD Ot N18.3 CHRONIC KIDNEY DISEASE, STAGE 3 (MODERAT 01/01/2018 Jensen QUEZADA MD Ot 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 01/01/2018 Jensen QUEZADA MD Ot Z79.84 GROUP HOME (CURRENT) USE OF ORAL HYPOGLYC 01/01/2018 Jensen QUEZADA MD Ot Z95.1 PRESENCE OF AORTOCORONARY BYPASS GRAFT 01/02/2018 LUAN TURPIN APRN Ot E11.621 TYPE 2 DIABETES MELLITUS WITH FOOT ULCER 01/02/2018 LUAN TURPIN APRN Ot I70.245 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 W [facility] 01/02/2018 LUAN TURPIN BOLT THREADER Ot L03.116 CELLULITIS OF LEFT LOWER LIMB 01/02/2018 LUAN TURPIN BOLT THREADER Ot L97.524 NON-PRS CHRONIC ULCER OTH PRT LEFT FOOT 01/02/2018 LUAN TURPIN APRN Ot N18.3 CHRONIC KIDNEY DISEASE, STAGE 3 (MODERAT 01/02/2018 LUAN TURPIN BOLT THREADER Ot E11.621 TYPE 2 DIABETES MELLITUS WITH FOOT ULCER 01/02/2018 LUAN TURPIN BOLT THREADER Ot L03.116 CELLULITIS OF LEFT LOWER LIMB 01/02/2018 LUAN TURPIN BOLT THREADER Ot L97.512 NON-PRS CHRONIC ULCER OTH PRT RIGHT FOOT 01/02/2018 PAPI, LUAN R BOLT THREADER Ot N18.3 CHRONIC KIDNEY DISEASE, STAGE 3 (MODERAT 01/06/2018 LUAN TURPIN R BOLT THREADER Ot 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 01/06/2018 LUAN TURPIN BOLT THREADER Ot E11.621 TYPE 2 DIABETES MELLITUS WITH FOOT ULCER 01/06/2018 PAPI LUAN R BOLT THREADER Ot L03.116 CELLULITIS OF LEFT LOWER LIMB 01/06/2018 LUAN TURPIN R BOLT THREADER Ot L97.512 NON-PRS CHRONIC ULCER OTH PRT RIGHT FOOT 01/06/2018 PAPILUAN R BOLT THREADER Ot L97.529 NON-PRESSURE CHRONIC ULCER OTH PRT LEFT 01/06/2018 LUAN TURPIN R BOLT THREADER Ot N18.3 CHRONIC KIDNEY DISEASE, STAGE 3 (MODERAT 01/06/2018 ANTONIA ENRIQUE, CHATO Bryant Ot E11.621 TYPE 2 DIABETES MELLITUS WITH FOOT ULCER 01/06/2018 CHATO KNIGHT MD, Ot 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 01/06/2018 CHATO KNIGHT MD Ot L03.116 CELLULITIS OF LEFT LOWER LIMB 01/06/2018 CHATO KNIGHT MD, Ot L97.524 NON-PRS CHRONIC ULCER OTH PRT LEFT FOOT 01/06/2018 CHATO KNIGHT MD Ot N18.3 CHRONIC KIDNEY DISEASE, STAGE 3 (MODERAT 01/09/2018 DAMIEN ENRIQUE, Jensen DEL CID Ot E11.9 TYPE 2 DIABETES MELLITUS WITHOUT COMPLIC 01/09/2018 Jensen QUEZADA MD Ot E78.5 HYPERLIPIDEMIA, UNSPECIFIED 01/09/2018 DAMIEN ENRIQUE, Jensen DEL CID Ot I12.9 HYPERTENSIVE CHRONIC KIDNEY DISEASE W ST 01/09/2018 Jensen QUEZADA MD Ot I25.10 ATHSCL HEART DISEASE OF [place] CORONARY 01/09/2018 Jensen QUEZADA MD Ot I70.203 UNSP ATHSCL [place] ARTERIES OF EXTREMITI 01/09/2018 Jensen QUEZADA MD Ot 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 01/09/2018 Jensen QUEZADA MD Ot L97.529 NON-PRESSURE CHRONIC ULCER OTH PRT LEFT 01/09/2018 Jensen QUEZADA MD Ot M86.9 OSTEOMYELITIS, UNSPECIFIED 01/09/2018 DAMIEN ENRIQUE, Jensen DEL CID Ot N18.3 CHRONIC KIDNEY DISEASE, STAGE 3 (MODERAT 01/09/2018 DAMIEN ENRIQUE, Jensen DEL CID Ot Z79.82 GROUP HOME (CURRENT) USE OF ASPIRIN 01/09/2018 Jensen QUEZADA MD, Ot Z79.84 GROUP HOME (CURRENT) USE OF ORAL HYPOGLYC 01/09/2018 DAMIEN ENRIQUE, Jensen DEL CID Ot Z95.1 PRESENCE OF AORTOCORONARY BYPASS GRAFT 01/10/2018 LUAN TURPIN R BOLT THREADER Ot E11.621 TYPE 2 DIABETES MELLITUS WITH FOOT ULCER 01/10/2018 LUAN TURPIN R BOLT THREADER Ot I70.245 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 W [facility] 01/10/2018 LUAN TURPIN R BOLT THREADER Ot L03.116 CELLULITIS OF LEFT LOWER LIMB 01/10/2018 LUAN TURPIN R BOLT THREADER Ot L97.524 NON-PRS CHRONIC ULCER OTH PRT LEFT FOOT 01/10/2018 LUAN TURPIN R BOLT THREADER Ot N18.3 CHRONIC KIDNEY DISEASE, STAGE 3 (MODERAT 01/14/2018 PAPI LUAN R BOLT THREADER Ot E11.621 TYPE 2 DIABETES MELLITUS WITH FOOT ULCER 01/14/2018 PAPI LUAN R BOLT THREADER Ot I70.245 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 W [facility] 01/14/2018 LUAN TURPIN R BOLT THREADER Ot L03.116 CELLULITIS OF LEFT LOWER LIMB 01/14/2018 LUAN TURPIN R BOLT THREADER Ot L97.524 NON-PRS CHRONIC ULCER OTH PRT LEFT FOOT 01/14/2018 LUAN TURPIN R BOLT THREADER Ot N18.3 CHRONIC KIDNEY DISEASE, STAGE 3 (MODERAT 01/15/2018 PAPI LUAN R BOLT THREADER Ot E11.621 TYPE 2 DIABETES MELLITUS WITH FOOT ULCER 01/15/2018 LUAN TURPIN R BOLT THREADER Ot I70.245 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 W [facility] 01/15/2018 PAPI LUAN R BOLT THREADER Ot L03.116 CELLULITIS OF LEFT LOWER LIMB 01/15/2018 LUAN TURPIN R BOLT THREADER Ot L97.524 NON-PRS CHRONIC ULCER OTH PRT LEFT FOOT 01/15/2018 PAPI, LUAN R BOLT THREADER Ot N18.3 CHRONIC KIDNEY DISEASE, STAGE 3 (MODERAT 01/20/2018 PAPI LUAN R BOLT THREADER Ot E11.621 TYPE 2 DIABETES MELLITUS WITH FOOT ULCER 01/20/2018 JUAN J TURPINN R BOLT THREADER Ot I70.245 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 W [facility] 01/20/2018 PAPI LUAN R BOLT THREADER Ot L03.116 CELLULITIS OF LEFT LOWER LIMB 01/20/2018 LUAN TURIPN R BOLT THREADER Ot L97.524 NON-PRS CHRONIC ULCER OTH PRT LEFT FOOT 01/20/2018 PAPI LUAN R BOLT THREADER Ot N18.3 CHRONIC KIDNEY DISEASE, STAGE 3 (MODERAT 01/22/2018 PAPI LUAN R BOLT THREADER Ot E11.621 TYPE 2 DIABETES MELLITUS WITH FOOT ULCER 01/22/2018 LUAN TURPIN R BOLT THREADER Ot I70.245 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 W [facility] 01/22/2018 LUAN TURPIN R BOLT THREADER Ot L03.116 CELLULITIS OF LEFT LOWER LIMB 01/22/2018 LUAN TURPIN R BOLT THREADER Ot L97.524 NON-PRS CHRONIC ULCER OTH PRT LEFT FOOT 01/22/2018 LUAN TURPIN R BOLT THREADER Ot N18.3 CHRONIC KIDNEY DISEASE, STAGE 3 (MODERAT 01/22/2018 PAPI LUAN R BOLT THREADER Ot E11.621 TYPE 2 DIABETES MELLITUS WITH FOOT ULCER 01/22/2018 JUAN J TURPINN R BOLT THREADER Ot I70.245 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 W [facility] 01/22/2018 LUAN TURPIN R BOLT THREADER Ot L03.116 CELLULITIS OF LEFT LOWER LIMB 01/22/2018 LUAN TURPIN R BOLT THREADER Ot L97.524 NON-PRS CHRONIC ULCER OTH PRT LEFT FOOT 01/22/2018 PAPI LUAN R BOLT THREADER Ot N18.3 CHRONIC KIDNEY DISEASE, STAGE 3 (MODERAT 01/24/2018 PAPI LUAN R BOLT THREADER Ot E11.621 TYPE 2 DIABETES MELLITUS WITH FOOT ULCER 01/24/2018 PAPI LUAN R BOLT THREADER Ot I70.245 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 W [facility] 01/24/2018 PAPI LUAN R BOLT THREADER Ot L03.116 CELLULITIS OF LEFT LOWER LIMB 01/24/2018 PAPI LUAN R BOLT THREADER Ot L97.524 NON-PRS CHRONIC ULCER OTH PRT LEFT FOOT 01/24/2018 PAPI, LUAN R BOLT THREADER Ot N18.3 CHRONIC KIDNEY DISEASE, STAGE 3 (MODERAT 01/27/2018 PAPI, LUAN R BOLT THREADER Ot E11.621 TYPE 2 DIABETES MELLITUS WITH FOOT ULCER 01/27/2018 PAPI, LUAN R BOLT THREADER Ot 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 01/27/2018 PAPI, LUAN R BOLT THREADER Ot L03.116 CELLULITIS OF LEFT LOWER LIMB 01/27/2018 PAPI, LUAN R BOLT THREADER Ot L97.524 NON-PRS CHRONIC ULCER OTH PRT LEFT FOOT 01/27/2018 PAPI, LUAN R BOLT THREADER Ot N18.3 CHRONIC KIDNEY DISEASE, STAGE 3 (MODERAT 01/29/2018 PAPI, LUAN R BOLT THREADER Ot E11.621 TYPE 2 DIABETES MELLITUS WITH FOOT ULCER 01/29/2018 PAPI LUAN R BOLT THREADER Ot 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 01/29/2018 PAPI, LUAN R BOLT THREADER Ot L03.116 CELLULITIS OF LEFT LOWER LIMB 01/29/2018 PAPI, LUAN R BOLT THREADER Ot L97.524 NON-PRS CHRONIC ULCER OTH PRT LEFT FOOT 01/29/2018 PAPI LUAN R BOLT THREADER Ot N18.3 CHRONIC KIDNEY DISEASE, STAGE 3 (MODERAT 02/03/2018 PAPI, LUAN R BOLT THREADER Ot E11.621 TYPE 2 DIABETES MELLITUS WITH FOOT ULCER 02/03/2018 PAPI, LUAN R BOLT THREADER Ot 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 02/03/2018 PAPI LUAN R BOLT THREADER Ot L03.116 CELLULITIS OF LEFT LOWER LIMB 02/03/2018 PAPI, ULAN R BOLT THREADER Ot L97.524 NON-PRS CHRONIC ULCER OTH PRT LEFT FOOT 02/03/2018 PAPI, LUAN R BOLT THREADER Ot N18.3 CHRONIC KIDNEY DISEASE, STAGE 3 (MODERAT 02/05/2018 PAPI, LUAN R BOLT THREADER Ot E11.621 TYPE 2 DIABETES MELLITUS WITH FOOT ULCER 02/05/2018 PAPI, LUAN R BOLT THREADER Ot 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 02/05/2018 PAPI, LUAN R BOLT THREADER Ot L03.116 CELLULITIS OF LEFT LOWER LIMB 02/05/2018 PAPI LUAN R BOLT THREADER Ot L97.524 NON-PRS CHRONIC ULCER OTH PRT LEFT FOOT 02/05/2018 LUAN TURPIN R BOLT THREADER Ot N18.3 CHRONIC KIDNEY DISEASE, STAGE 3 (MODERAT 02/05/2018 CHATO KNIGHT MD Ot E11.621 TYPE 2 DIABETES MELLITUS WITH FOOT ULCER 02/05/2018 CHATO KNIGHT MD Ot I70.245 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 W [facility] 02/05/2018 CHATO KNIGHT MD Ot L97.524 NON-PRS CHRONIC ULCER OTH PRT LEFT FOOT 02/05/2018 CHATO KNIGHT MD, Ot M86.472 CHRONIC OSTEOMYELITIS W DRAINING SINUS, 02/05/2018 CHATO KNIGHT MD, Ot N18.3 CHRONIC KIDNEY DISEASE, STAGE 3 (MODERAT 02/05/2018 LUAN TURPIN R BOLT THREADER Ot E11.621 TYPE 2 DIABETES MELLITUS WITH FOOT ULCER 02/05/2018 LUAN TURPIN R BOLT THREADER Ot I70.245 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 W [facility] 02/05/2018 PAPI LUAN R BOLT THREADER Ot L03.116 CELLULITIS OF LEFT LOWER LIMB 02/05/2018 PAPI LUAN R BOLT THREADER Ot L97.524 NON-PRS CHRONIC ULCER OTH PRT LEFT FOOT 02/05/2018 LUAN TURPIN R BOLT THREADER Ot N18.3 CHRONIC KIDNEY DISEASE, STAGE 3 (MODERAT 02/17/2018 LUAN TURPIN R BOLT THREADER Ot E11.621 TYPE 2 DIABETES MELLITUS WITH FOOT ULCER 02/17/2018 LUAN TURPIN R BOLT THREADER Ot I70.245 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 W [facility] 02/17/2018 PAPI LUAN R BOLT THREADER Ot L97.524 NON-PRS CHRONIC ULCER OTH PRT LEFT FOOT 02/17/2018 PAPI LUAN R BOLT THREADER Ot M86.472 CHRONIC OSTEOMYELITIS W DRAINING SINUS, 02/17/2018 LUAN TURPIN R BOLT THREADER Ot N18.3 CHRONIC KIDNEY DISEASE, STAGE 3 (MODERAT 02/18/2018 CHATO KNIGHT MD Ot E11.621 TYPE 2 DIABETES MELLITUS WITH FOOT ULCER 02/18/2018 CHATO KNIGHT MD Ot I70.245 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 W [facility] 02/18/2018 ANTONIA MD, CHATO G Ot L97.524 NON-PRS CHRONIC ULCER OTH PRT LEFT FOOT 02/18/2018 CHATO KNIGHT MD Ot M86.472 CHRONIC OSTEOMYELITIS W DRAINING SINUS, 02/18/2018 CHATO KNIGHT MD Ot N18.3 CHRONIC KIDNEY DISEASE, STAGE 3 (MODERAT 02/19/2018 PAPI, LUAN R BOLT THREADER Ot E11.621 TYPE 2 DIABETES MELLITUS WITH FOOT ULCER 02/19/2018 PAPI, LUAN R BOLT THREADER Ot 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 02/19/2018 PAPI, LUAN R BOLT THREADER Ot L03.116 CELLULITIS OF LEFT LOWER LIMB 02/19/2018 PAPI, LUAN R BOLT THREADER Ot L97.524 NON-PRS CHRONIC ULCER OTH PRT LEFT FOOT 02/19/2018 PAPI, LUAN R BOLT THREADER Ot N18.3 CHRONIC KIDNEY DISEASE, STAGE 3 (MODERAT 02/19/2018 PAPI, LUAN R BOLT THREADER Ot E11.621 TYPE 2 DIABETES MELLITUS WITH FOOT ULCER 02/19/2018 PAPI, LUAN R BOLT THREADER Ot I70.245 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 W UL 02/19/2018 PAPI, LUAN R BOLT THREADER Ot L97.524 NON-PRS CHRONIC ULCER OTH PRT LEFT FOOT 02/19/2018 PAPI, LUAN R BOLT THREADER Ot M86.472 CHRONIC OSTEOMYELITIS W DRAINING SINUS, 02/19/2018 PAPI, LUAN R BOLT THREADER Ot N18.3 CHRONIC KIDNEY DISEASE, STAGE 3 (MODERAT 02/25/2018 PAPI, LUAN R BOLT THREADER Ot E11.621 TYPE 2 DIABETES MELLITUS WITH FOOT ULCER 02/25/2018 PAPI LUAN R BOLT THREADER Ot I70.245 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 W UL 02/25/2018 PAPI, LUAN R BOLT THREADER Ot L97.524 NON-PRS CHRONIC ULCER OTH PRT LEFT FOOT 02/25/2018 PAPI, LUAN R BOLT THREADER Ot M86.472 CHRONIC OSTEOMYELITIS W DRAINING SINUS, 02/25/2018 PAPI, LUAN R BOLT THREADER Ot N18.3 CHRONIC KIDNEY DISEASE, STAGE 3 (MODERAT 02/27/2018 PAPI, LUAN R BOLT THREADER Ot E11.621 TYPE 2 DIABETES MELLITUS WITH FOOT ULCER 02/27/2018 PAPI LUAN R BOLT THREADER Ot I70.245 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 W [facility] 02/27/2018 LUAN TURPIN R BOLT THREADER Ot L97.524 NON-PRS CHRONIC ULCER OTH PRT LEFT FOOT 02/27/2018 LUAN TURPIN R BOLT THREADER Ot M86.472 CHRONIC OSTEOMYELITIS W DRAINING SINUS, 02/27/2018 LUAN TURPIN BOLT THREADER Ot N18.3 CHRONIC KIDNEY DISEASE, STAGE 3 (MODERAT 02/28/2018 LUAN TURPIN R BOLT THREADER Ot E11.621 TYPE 2 DIABETES MELLITUS WITH FOOT ULCER 02/28/2018 LUAN TURPIN R BOLT THREADER Ot I70.245 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 W [facility] 02/28/2018 LUAN TURPIN R BOLT THREADER Ot L97.524 NON-PRS CHRONIC ULCER OTH PRT LEFT FOOT 02/28/2018 LUAN TURPIN R BOLT THREADER Ot M86.472 CHRONIC OSTEOMYELITIS W DRAINING SINUS, 02/28/2018 LUAN TURPIN R BOLT THREADER Ot N18.3 CHRONIC KIDNEY DISEASE, STAGE 3 (MODERAT 03/06/2018 LUAN TURPIN R BOLT THREADER Ot E11.621 TYPE 2 DIABETES MELLITUS WITH FOOT ULCER 03/06/2018 LUAN TURPIN R BOLT THREADER Ot I70.245 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 W [facility] 03/06/2018 LUAN TURPIN R BOLT THREADER Ot L97.524 NON-PRS CHRONIC ULCER OTH PRT LEFT FOOT 03/06/2018 LUAN TURPIN R BOLT THREADER Ot M86.472 CHRONIC OSTEOMYELITIS W DRAINING SINUS, 03/06/2018 LUAN TURPIN BOLT THREADER Ot N18.3 CHRONIC KIDNEY DISEASE, STAGE 3 (MODERAT 03/07/2018 LUAN TURPIN R BOLT THREADER Ot 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 03/07/2018 LUAN TURPIN R BOLT THREADER Ot E11.621 TYPE 2 DIABETES MELLITUS WITH FOOT ULCER 03/07/2018 LUAN TURPIN R BOLT THREADER Ot E11.69 TYPE 2 DIABETES MELLITUS WITH OTHER SPEC 03/07/2018 LUAN TURPIN R BOLT THREADER Ot I70.245 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 W [facility] 03/07/2018 LUAN TURPIN R BOLT THREADER Ot L97.524 NON-PRS CHRONIC ULCER OTH PRT LEFT FOOT 03/07/2018 LUAN TURPIN R BOLT THREADER Ot M86.472 CHRONIC OSTEOMYELITIS W DRAINING SINUS, 03/07/2018 PAPI LUAN R BOLT THREADER Ot N18.3 CHRONIC KIDNEY DISEASE, STAGE 3 (MODERAT 03/12/2018 PAPI, LUAN R BOLT THREADER Ot E11.621 TYPE 2 DIABETES MELLITUS WITH FOOT ULCER 03/12/2018 PAPI, LUAN R BOLT THREADER Ot 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 03/12/2018 PAPI, LUAN R BOLT THREADER Ot L97.524 NON-PRS CHRONIC ULCER OTH PRT LEFT FOOT 03/12/2018 PAPI LUAN R BOLT THREADER Ot M86.472 CHRONIC OSTEOMYELITIS W DRAINING SINUS, 03/12/2018 PAPI, LUAN R BOLT THREADER Ot N18.3 CHRONIC KIDNEY DISEASE, STAGE 3 (MODERAT 03/18/2018 PAPI LUAN R BOLT THREADER Ot E11.621 TYPE 2 DIABETES MELLITUS WITH FOOT ULCER 03/18/2018 PAPIJUAN JN R BOLT THREADER Ot 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 03/18/2018 PAPI LUAN R BOLT THREADER Ot L97.524 NON-PRS CHRONIC ULCER OTH PRT LEFT FOOT 03/18/2018 PAPI, LUAN R BOLT THREADER Ot M86.472 CHRONIC OSTEOMYELITIS W DRAINING SINUS, 03/18/2018 PAPI, LUAN R BOLT THREADER Ot N18.3 CHRONIC KIDNEY DISEASE, STAGE 3 (MODERAT 03/18/2018 JUAN J TURPINN R BOLT THREADER Ot E11.621 TYPE 2 DIABETES MELLITUS WITH FOOT ULCER 03/18/2018 JUAN J TURPINN R BOLT THREADER Ot 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 03/18/2018 PAPI LUAN R BOLT THREADER Ot L97.524 NON-PRS CHRONIC ULCER OTH PRT LEFT FOOT 03/18/2018 PAPI LUAN R BOLT THREADER Ot M86.472 CHRONIC OSTEOMYELITIS W DRAINING SINUS, 03/18/2018 PAPI LUAN R BOLT THREADER Ot N18.3 CHRONIC KIDNEY DISEASE, STAGE 3 (MODERAT 03/19/2018 PAPI LUAN R BOLT THREADER Ot 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 03/19/2018 LUAN TURPIN R BOLT THREADER Ot E11.621 TYPE 2 DIABETES MELLITUS WITH FOOT ULCER 03/19/2018 LUAN TURPIN R BOLT THREADER Ot E11.69 TYPE 2 DIABETES MELLITUS WITH OTHER SPEC 03/19/2018 LUAN TURPIN BOLT THREADER Ot I70.245 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 W [facility] 03/19/2018 LUAN TURPIN R BOLT THREADER Ot L97.524 NON-PRS CHRONIC ULCER OTH PRT LEFT FOOT 03/19/2018 LUAN TURPIN R BOLT THREADER Ot M86.472 CHRONIC OSTEOMYELITIS W DRAINING SINUS, 03/19/2018 PAPI LUAN R BOLT THREADER Ot N18.3 CHRONIC KIDNEY DISEASE, STAGE 3 (MODERAT 04/01/2018 PAPI LUAN R BOLT THREADER Ot E11.621 TYPE 2 DIABETES MELLITUS WITH FOOT ULCER 04/01/2018 PAPILUAN BOLT THREADER Ot I70.245 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 W [facility] 04/01/2018 LUAN TURPIN R BOLT THREADER Ot L97.524 NON-PRS CHRONIC ULCER OTH PRT LEFT FOOT 04/01/2018 LUAN TURPIN BOLT THREADER Ot M86.472 CHRONIC OSTEOMYELITIS W DRAINING SINUS, 04/01/2018 LUAN TURPIN BOLT THREADER Ot N18.3 CHRONIC KIDNEY DISEASE, STAGE 3 (MODERAT 04/26/2018 DAMIEN ENRIQUE, Jensen DEL CID Ot E11.9 TYPE 2 DIABETES MELLITUS WITHOUT COMPLIC 04/26/2018 DAMIEN ENRIQUE, Jensen DEL CID Ot E78.5 HYPERLIPIDEMIA, UNSPECIFIED 04/26/2018 Jensen QUEZADA MD Ot I12.9 HYPERTENSIVE CHRONIC KIDNEY DISEASE W 04/26/2018 Jensen QUEZADA MD Ot I25.10 ATHSCL HEART DISEASE OF [place] CORONARY 04/26/2018 Jensen QUEZADA MD Ot I70.203 UNSP ATHSCL [place] ARTERIES OF EXTREMITI 04/26/2018 Jensen QUEZADA MD Ot I70.245 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 W [facility] 04/26/2018 Jensen QUEZADA MD Ot L97.529 NON-PRESSURE CHRONIC ULCER OTH PRT LEFT 04/26/2018 Jensen QUEZADA MD Ot M86.9 OSTEOMYELITIS, UNSPECIFIED 04/26/2018 Jensen QUEZADA MD Ot N18.3 CHRONIC KIDNEY DISEASE, STAGE 3 (MODERAT 04/26/2018 Jensen QUEZADA MD Ot 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 Results Test [...] <=0.05 miu/l (units/ volume) 2.63 u[iU]/mL 0.35-4.94 Complete blood count (CBC) with automated white blood cell (WBC) differential - 12/23/17 12:15 Blood leukocytes automated count (number/volume) 6.8 10*3/uL 4.3-11.0 Blood erythrocytes automated count (number/volume) 4.25 10*6/uL 4.35-5.85 Venous blood hemoglobin measurement (mass/volume) 13.5 g/dL 13.3-17.7 Blood hematocrit (volume fraction) 39 % 40-54 Automated erythrocyte mean corpuscular volume 91 [foz_us] 80-99 Automated erythrocyte mean corpuscular hemoglobin (mass per erythrocyte) 32 pg 25-34 Automated erythrocyte mean corpuscular hemoglobin concentration measurement ( mass/volume) 35 g/dL 32-36 Automated erythrocyte distribution width ratio 13.0 % 10.0-14.5 Automated blood platelet count (count/volume) 203 10*3/uL 130-400 Automated blood platelet mean volume measurement 8.7 [foz_us] 7.4-10.4 Automated blood neutrophils/100 leukocytes 65 % 42-75 Automated blood lymphocytes/100 leukocytes 23 % 12-44 Blood monocytes/100 leukocytes 10 % 0-12 Automated blood eosinophils/100 leukocytes 2 % 0-10 Automated blood basophils/100 leukocytes 0 % 0-10 Blood neutrophils automated count (number/volume) 4.4 10*3 1.8-7.8 Blood lymphocytes automated count (number/volume) 1.5 10*3 1.0-4.0 Blood monocytes automated count (number/volume) 0.7 10*3 0.0-1.0 Automated eosinophil count 0.1 10*3/uL 0.0-0.3 Automated blood basophil count (count/volume) 0.0 10*3/uL 0.0-0.1 Comprehensive metabolic panel - 12/23/17 12:15 Serum or plasma sodium measurement (moles/volume) 136 mmol/L 135-145 Serum or plasma potassium measurement (moles/volume) 4.5 mmol/L 3.6-5.0 Serum or plasma chloride measurement (moles/volume) 103 mmol/L 98-107 Carbon dioxide 26 mmol/L 21-32 Serum or plasma anion gap determination (moles/volume) 7 mmol/L 5-14 Serum or plasma urea nitrogen measurement (mass/volume) 35 mg/dL 7-18 Serum or plasma creatinine measurement (mass/volume) 1.58 mg/dL 0.60-1.30 Serum or plasma urea nitrogen/creatinine mass ratio 22 NRG Serum or plasma creatinine measurement with calculation of estimated glomerular filtration rate 42 NRG Serum or plasma glucose measurement (mass/volume) 115 mg/dL 70-105 Serum or plasma calcium measurement (mass/volume) 9.6 mg/dL 8.5-10.1 Serum or plasma total bilirubin measurement (mass/volume) 0.6 mg/dL 0.1-1.0 Serum or plasma alkaline phosphatase measurement (enzymatic activity/volume) 58 U/L 40-136 Serum or plasma aspartate aminotransferase measurement (enzymatic activity/ volume) 24 U/L 5-34 Serum or plasma alanine aminotransferase measurement (enzymatic activity/volume ) 26 U/L 0-55 Serum or plasma protein measurement (mass/volume) 7.4 g/dL 6.4-8.2 Serum or plasma albumin measurement (mass/volume) 4.2 g/dL 3.2-4.5 CALCIUM CORRECTED 9.4 mg/dL 8.5-10.1 Hemoglobin A1c - 12/23/17 12:15 Blood hemoglobin A1C measurement (mass/volume) 6.5 % 4.0- 5.6 MEAN BLOOD GLUCOSE 140 % <=126 Bacteria identification in isolate by anaerobe culture - 12/25/17 09:00 Bacteria identification in isolate by anaerobe culture NOANA NRG Gram stain microscopy - 12/25/17 09:00 Gram stain microscopy NO BACTERIA SEEN NRG Bacteria identification in wound by culture - 12/25/17 09:00 Bacteria identification in wound by culture SEE COMMEN NRG FREE TEXT EXTERNAL RML SENSITIVITY REPORTED 12/28/17 08:05 NRG QUANTITY OF GROWTH . NR RML Sensitivity Panel - 12/25/17 09:00 Oxacillin susceptibility test by minimum inhibitory concentration 0.5 NRG Clindamycin susceptibility test by minimum inhibitory concentration <= NRG Erythromycin susceptibility test by minimum inhibitory concentration <= NRG Trimethoprim/sulfamethoxazole susceptibility test by minimum inhibitoryconcentration S NRG Vancomycin susceptibility test by minimum inhibitory concentration 1 NRG Levofloxacin susceptibility test by minimum inhibitory concentration <= NRG Rifampin susceptibility test by minimum inhibitory concentration <= NRG Cefazolin susceptibility test by minimum inhibitory concentration < = NRG Linezolid susceptibility test by minimum inhibitory concentration 2 NRG Penicillin G susceptibility test by minimum inhibitory concentration > NRG Moxifloxacin susceptibility test by minimum inhibitory concentration S NRG Minocycline susc MODESTO <= NRG RML Sensitivity Panel - 12/25/17 09:00 Oxacillin susceptibility test by minimum inhibitory concentration < = NRG Clindamycin susceptibility test by minimum inhibitory concentration <= NRG Erythromycin susceptibility test by minimum inhibitory concentration <= NRG Vancomycin susceptibility test by minimum inhibitory concentration < = NRG Levofloxacin susceptibility test by minimum inhibitory concentration <= NRG Rifampin susceptibility test by minimum inhibitory concentration <= NRG Cefazolin susceptibility test by minimum inhibitory concentration < = NRG Linezolid susceptibility test by minimum inhibitory concentration < = NRG Penicillin G susceptibility test by minimum inhibitory concentration > NRG Moxifloxacin susceptibility test by minimum inhibitory concentration S NRG Minocycline susc MODESTO <= NRG Automated blood complete blood count (hemogram) panel - 12/26/17 09:10 Blood leukocytes automated count (number/volume) 7.0 10*3/uL 4.3-11.0 Blood erythrocytes automated count (number/volume) 4.11 10*6/uL 4.35-5.85 Venous blood hemoglobin measurement (mass/volume) 13.3 g/dL 13.3-17.7 Blood hematocrit (volume fraction) 37 % 40-54 Automated erythrocyte mean corpuscular volume 90 [foz_us] 80-99 Automated erythrocyte mean corpuscular hemoglobin (mass per erythrocyte) 32 pg 25-34 Automated erythrocyte mean corpuscular hemoglobin concentration measurement ( mass/volume) 36 g/dL 32-36 Automated erythrocyte distribution width ratio 13.1 % 10.0-14.5 Automated blood platelet count (count/volume) 208 10*3/uL 130-400 Automated blood platelet mean volume measurement 9.2 [foz_us] 7.4-10.4 PT panel in platelet poor plasma by coagulation assay - 12/26/17 09:10 Prothrombin time (PT) in platelet poor plasma by coagulation assay 14.1 s 12.2-14.7 INR in platelet poor plasma or blood by coagulation assay 1.1 0.8-1.4 Activated partial thromboplastin time (aPTT) in platelet poor plasma bycoagulation assay - 12/26/17 09:10 Activated partial thromboplastin time (aPTT) in platelet poor plasma bycoagulation assay 31 s 24-35 Comprehensive metabolic panel - 12/26/17 09:10 Serum or plasma sodium measurement (moles/volume) 136 mmol/L 135-145 Serum or plasma potassium measurement (moles/volume) 4.2 mmol/L 3.6-5.0 Serum or plasma chloride measurement (moles/volume) 104 mmol/L 98-107 Carbon dioxide 20 mmol/L 21-32 Serum or plasma anion gap determination (moles/volume) 12 mmol/L 5-14 Serum or plasma urea nitrogen measurement (mass/volume) 37 mg/dL 7-18 Serum or plasma creatinine measurement (mass/volume) 1.65 mg/dL 0.60-1.30 Serum or plasma urea nitrogen/creatinine mass ratio 22 NRG Serum or plasma creatinine measurement with calculation of estimated glomerular filtration rate 40 NRG Serum or plasma glucose measurement (mass/volume) 133 mg/dL 70-105 Serum or plasma calcium measurement (mass/volume) 9.4 mg/dL 8.5-10.1 Serum or plasma total bilirubin measurement (mass/volume) 0.7 mg/dL 0.1-1.0 Serum or plasma alkaline phosphatase measurement (enzymatic activity/volume) 58 U/L 40-136 Serum or plasma aspartate aminotransferase measurement (enzymatic activity/ volume) 27 U/L 5-34 Serum or plasma alanine aminotransferase measurement (enzymatic activity/volume ) 30 U/L 0-55 Serum or plasma protein measurement (mass/volume) 7.2 g/dL 6.4-8.2 Serum or plasma albumin measurement (mass/volume) 4.2 g/dL 3.2-4.5 CALCIUM CORRECTED 9.2 mg/dL 8.5-10.1 Methicillin resistant Staphylococcus aureus (MRSA) screening culture - 09:10 Methicillin resistant Staphylococcus aureus (MRSA) screening culture NEG NRG Automated blood complete blood count (hemogram) panel - 12/27/17 05:30 Blood leukocytes automated count (number/volume) 6.0 10*3/uL 4.3-11.0 Blood erythrocytes automated count (number/volume) 3.95 10*6/uL 4.35-5.85 Venous blood hemoglobin measurement (mass/volume) 12.4 g/dL 13.3-17.7 Blood hematocrit (volume fraction) 36 % 40-54 Automated erythrocyte mean corpuscular volume 91 [foz_us] 80-99 Automated erythrocyte mean corpuscular hemoglobin (mass per erythrocyte) 31 pg 25-34 Automated erythrocyte mean corpuscular hemoglobin concentration measurement ( mass/volume) 35 g/dL 32-36 Automated erythrocyte distribution width ratio 13.3 % 10.0-14.5 Automated blood platelet count (count/volume) 195 10*3/uL 130-400 Automated blood platelet mean volume measurement 9.3 [foz_us] 7.4-10.4 Whole blood basic metabolic panel - 12/27/17 05:30 Serum or plasma sodium measurement (moles/volume) 136 mmol/L 135-145 Serum or plasma potassium measurement (moles/volume) 4.4 mmol/L 3.6-5.0 Serum or plasma chloride measurement (moles/volume) 106 mmol/L 98-107 Carbon dioxide 22 mmol/L 21-32 Serum or plasma anion gap determination (moles/volume) 8 mmol/L 5-14 Serum or plasma urea nitrogen measurement (mass/volume) 26 mg/dL 7-18 Serum or plasma creatinine measurement (mass/volume) 1.30 mg/dL 0.60-1.30 Serum or plasma urea nitrogen/creatinine mass ratio 20 NRG Serum or plasma creatinine measurement with calculation of estimated glomerular filtration rate 53 NRG Serum or plasma glucose measurement (mass/volume) 99 mg/dL 70-105 Serum or plasma calcium measurement (mass/volume) 8.7 mg/dL 8.5-10.1 Bacteria identification in isolate by anaerobe culture - 02/03/18 12:10 Bacteria identification in isolate by anaerobe culture NOANA NRG Gram stain microscopy - 02/03/18 12:10 Gram stain microscopy No bacteria NRG Bacteria identification in wound by culture - 02/03/18 12:10 Bacteria identification in wound by culture [id number] NR FREE TEXT EXTERNAL ID REPORTED BY [facility] 02/04 14:05 NR QUANTITY OF GROWTH FEW NR FREE TEXT ENTRY 2 SENSITIVITY REPORTED 02/05 10:05 [facility] - 02/03/18 12:10 Oxacillin susceptibility test by minimum inhibitory concentration > NRG Clindamycin susceptibility test by minimum inhibitory concentration > NRG Erythromycin susceptibility test by minimum inhibitory concentration > NRG Vancomycin susceptibility test by minimum inhibitory concentration 1 NRG Levofloxacin susceptibility test by minimum inhibitory concentration > NRG Rifampin susceptibility test by minimum inhibitory concentration <= NRG Cefazolin susceptibility test by minimum inhibitory concentration R NRG Linezolid susceptibility test by minimum inhibitory concentration < = NRG Penicillin G susceptibility test by minimum inhibitory concentration > NRG Minocycline susc MODESTO <= NRG Encounters ACCT No. Visit Date/Time Discharge Status Pt. Type Provider Facility Loc./Unit Complaint [id number] 03/17/2018 09:55:00 03/17/2018 23:59:59 CLS Outpatient JUAN J TURPINN R BOLT THREADER [facility] [id number] 03/06/2018 09:53:00 03/06/2018 23:59:59 CLS Outpatient PAPI LUAN R BOLT THREADER [facility] [id number] 02/27/2018 09:44:00 02/27/2018 23:59:59 CLS Outpatient PAPI LUAN R BOLT THREADER [facility] [id number] 02/20/2018 10:04:00 02/20/2018 23:59:59 CLS Outpatient PAPI LUAN R BOLT THREADER [facility] [id number] 02/13/2018 09:56:00 02/13/2018 23:59:59 CLS Outpatient PAPI LUAN R BOLT THREADER [facility] [id number] 02/03/2018 11:07:00 02/03/2018 23:59:59 CLS Outpatient CHATO KNIGHT MD [facility] [id number] 01/30/2018 09:43:00 01/30/2018 23:59:59 CLS Outpatient PAPI LUAN R BOLT THREADER [facility] [id number] 01/23/2018 10:03:00 01/23/2018 23:59:59 CLS Outpatient PAPI LUAN R BOLT THREADER [facility] [id number] 01/16/2018 10:16:00 01/16/2018 23:59:59 CLS Outpatient PAPI LUAN R BOLT THREADER [facility] [id number] 01/14/2018 09:18:00 01/14/2018 23:59:59 CLS Outpatient LUAN TURPIN BOLT THREADER [facility] [id number] 01/09/2018 10:35:00 01/09/2018 23:59:59 CLS Outpatient LUAN TURPIN R BOLT THREADER [facility] [id number] 12/31/2017 07:59:00 12/31/2017 23:59:59 CLS Outpatient LUAN TURPIN BOLT THREADER [facility] [id number] 12/26/2017 08:27:00 12/27/2017 13:18:00 DIS Outpatient Jensen QUEZADA MD [facility] CATH LT CRITICAL LIMB ISCHEMIA [id number] 12/25/2017 08:23:00 12/25/2017 23:59:59 CLS Outpatient CHATO KNIGHT MD [facility] [id number] 12/23/2017 11:42:00 12/23/2017 23:59:59 CLS Outpatient LUAN TURPIN BOLT THREADER [facility] RAD CELLULITIS OF LEFT LOWER LIMB [id number] 12/19/2017 09:10:00 12/19/2017 23:59:59 CLS Outpatient LUAN TURPIN BOLT THREADER [facility] [id number] 09/14/2016 12:21:00 09/14/2016 15:05:00 DIS Emergency BEVERLY JOHNSTON MD [facility] ER IRR HEART RATE [id number] 06/27/2016 08:24:00 06/27/2016 23:59:59 CLS Outpatient JESSICA BENITEZ MD [facility] RAD CHRONIC KIDNEY DISEASE,STAGE 3 [id number] 09/03/2014 13:13:00 09/03/2014 23:59:59 CLS Outpatient JEFF PENNINGTON MD [facility] RAD 6 MONTH FOLLOW UP [id number] 06/10/2014 19:50:00 06/11/2014 06:15:00 DIS Outpatient JEFF PENNINGTON MD [facility] SLEEP APNEA [id number] 02/02/2014 08:10:00 02/02/2014 23:59:59 CLS Outpatient ADITI ENRIQUE JEFF Barrett [facility] RAD ABNORMAL XRAY, MULTIPLE LUNG NODULES [id number] 10/12/2013 11:52:00 10/12/2013 23:59:59 CLS Outpatient YAHIR LUGO, JOSÉ MIGUEL Trujillo [facility] CARD HX OF R-4 TOE ULCER [id number] 09/29/2013 09:08:00 09/30/2013 13:45:00 DIS Inpatient GIN ENRIQUE FACC, NINA PRIETO CCDS [facility] CSD CHEST PAIN [id number] 2018 10:25:00 ACT Outpatient MAITE ENRIQUE, MARLYN Chawla [facility] CR TAVR 04/23/18 Makenzie 09/04/2014 05:41:44 ACT Document Registration
[2018-07-18] MEDS ORDERED: LISINOPRIL 10 MG (20:00)
--- NOTE | 2018-07-18 20:46 | Diagnostic Imaging Report ---
INDICATION: Trauma. Cow kicked gate into arm. Bruising and swelling. EXAMINATION: Three views of the left forearm. FINDINGS: The radius and ulna are intact without evidence of fractures. There is noted moderate degenerative change at the elbow. There are also findings consistent with osteoporosis along the distal radius and ulna. Articulating surfaces are smooth with good alignment of the radiocarpal joint. Carpal bones appear intact. There are no radiopaque foreign bodies. IMPRESSION: No acute abnormalities noted of the left forearm. 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 Dictated by: Dictated on workstation # [id number]
[2018-07-18] MEDS ORDERED: NEO/POLY/BAC (NEOSPORIN) OINT 15 GM TUBE TOP SCH (21:15)
[2018-07-18] MEDS ORDERED: TETANUS,DIPTH,PERTUSS P/F (BOOSTRIX) 0.5 ML VIAL IM ONE (21:15)
--- NOTE | 2018-07-18 21:15 | ED Upper Extremity ---
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 he also has an abrasion in that area from being hit with the gate. He was hit in the nose as well and has an abrasion there as well. He has bruising to his right eyelids from the injury. he denies losing consciousness. he has no n umbness or tingling. He has good strength in his left hand where he has the hematoma and abrasion from being hit with the gate. He does take Plavix and bleeds easily because of this. He denies other injuries. Allergies and Home Medications Allergies Coded Allergies: atorvastatin (Verified Allergy, Unknown, 07/18/18) MUSCLE ACHES Home Medications Amlodipine Besylate 10 Mg Tablet, 10 MG PO DAILY, (Reported) Aspirin 81 Mg Tablet.dr, 81 MG PO DAILY, (Reported) Ciprofloxacin HCl 250 Mg Tablet, 250 MG PO BID, (Reported) 7 DAY THERAPY FILLED 12-23-17 Clopidogrel Bisulfate 75 Mg Tablet, 75 MG PO DAILY Prescribed by: Jensen QUEZADA on 12/27/17 0953 Ezetimibe 10 Mg Tablet, 10 MG PO DAILY, (Reported) Isosorbide Mononitrate 60 Mg Tab, 60 MG PO DAILY, (Reported) Ketorolac Tromethamine 5 Ml Drops, 1 DROP OD QID, (Reported) Nitroglycerin 0.4 Mg Tab.subl, 0.4 MG SL UD PRN for CHEST PAIN, (Reported) Prednisolone Acetate/Pf 5 Ml Drops.susp, 1 DROP OD QID, (Reported) Ranolazine 1,000 Mg Tab.er.12h, 1,000 MG PO BID, (Reported) Sitagliptin Phosphate 50 Mg Tablet, 50 MG PO DAILY, (Reported) Sodium Hypochlorite 473 Ml Solution, TOP BID, (Reported) Trazodone HCl 100 Mg Tablet, 100 MG PO HS, (Reported) Patient Home Medication List Home Medication List Reviewed: Yes Review of Systems Constitutional: No chills, No dizziness, No fever EENTM: nose pain (with abrasion from where he was hit); No ear discharge, No ear pain, No blurred vision, No double vision, No eye pain, No vision loss, No epistaxis Respiratory: No cough, No short of breath Cardiovascular: No chest pain Gastrointestinal: no symptoms reported Genitourinary: no symptoms reported Musculoskeletal: see HPI, muscle pain (left forearm pain and swelling with hematoma) Skin: other (hematoma and abrasion to the left forearm. Abrasion to his nose and bruising to the right eyelids) Psychiatric/Neurological: No Symptoms Reported Past [id number] Hx Past Med/Social Hx: Reviewed Nursing Past Med/Soc Hx Patient Social History 2nd Hand Smoke Exposure: Yes Recent Foreign Travel: No Contact w/Someone Who Travel: No Immunizations Up To Date Tetanus Booster (TDap): Less than 5yrs PED Vaccines UTD: No Date of Pneumonia Vaccine: Sep 30, 2011 Past Medical History Surgeries: Yes (back [id number] CABG 1998) CABG Respiratory: No Cardiac: Yes Coronary Artery Disease, Hypertension Neurological: No Reproductive Disorders: No Gastrointestinal: No Musculoskeletal: Yes Arthritis Endocrine: Yes Diabetes, Non-Insulin dep Cancer: No Psychosocial: No Integumentary: No Blood Disorders: No Adverse Reaction/Blood Tranf: No Family Medical History Family history: Hypertension 19 MOTHER History of - disorder 19 FATHER (BACK PROBLEMS) 19 MOTHER (BACK PROBLEMS) G8 BROTHER (CANCER SPINE) G8 BROTHER (KNEE PROBLEMS) Hypercholesterolemia G8 SISTER Physical Exam Vital Signs Vital Signs - First Documented 07/18/18 07/18/18 19:57 21:34 Temp 97.5 Pulse 87 Resp 16 B/P (MAP) 126/57 (80) Pulse Ox 99 O2 Delivery Room Air Capillary Refill : Height, Weight, BMI Height: 5'11.00" Weight: 192lbs. 0.0oz. 87.498681bb; 26.8 BMI Method:Stated General Appearance: WD/WN, no apparent distress HEENT: PERRL/EOMI, pharynx normal; No photophobia; other (abrasion to the bridge of the nose and bruising to the right eyelids) Neck: non-tender, full range of motion, supple, normal inspection Cardiovascular: normal peripheral pulses, regular rate, rhythm Respiratory: chest non-tender, lungs clear, normal breath sounds, no respiratory distress, no accessory muscle use Gastrointestinal: normal bowel sounds, non tender, soft Elbow/Forearm: normal ROM, abrasions, pain, soft tissue tenderness (left forearm with hematoma and abrasion present on proximal forearm), swelling Wrist: Yes normal inspection, Yes non-tender, Yes no evidence of injury, Yes normal ROM Hand: normal inspection, non-tender, no evidence of injury, normal ROM Neurologic/Tendon: normal sensation, normal motor functions Neurologic/Psychiatric: drawing supervisor II-XII nml as tested, no motor/sensory deficits, alert, normal mood/affect, oriented x 3 Skin: normal color, warm/dry Progress/Results/Core Measures Results/Orders My Orders Orders - KISHA KELLY MD Forearm 2 View Left (07/18/18 20:16) Dipht,Pertuss(Acell),Tet Adult (Boostrix (07/18/18 21:15) Earl/Poly/Raman Topical Ointment (Neosporin (07/18/18 21:15) Wound Dressing-Ed (07/18/18 21:15) Roberto Bandage (07/18/18 21:15) Ice: Apply To Affected Area (07/18/18 21:15) Medications Given in ED Current Medications Medications Dose Ordered Sig/Hany Route Start Time Stop Time Status Last Admin Dose Admin Diphtheria/ Tetanus/Acell Pertussis 0.5 ml ONCE ONCE IM 07/18/18 21:15 07/18/18 21:16 DC 07/18/18 21:28 0.5 ML Vital Signs/I&O 07/18/18 07/18/18 19:57 21:34 Temp 97.5 97.8 Pulse 87 72 Resp 16 18 B/P (MAP) 126/57 (80) 131/64 (86) Pulse Ox 99 97 O2 Delivery Room Air Progress Progress Note : Time: 20:55 Progress Note Xray of forearm does not show any acute fracture or foreign body. He has a hematoma and superficial abrasion. Reviewed results with patient and family. Counseled on follow-up and return precautions. Also advised about potential compartment syndrome and return precautions. Will treat with ice and elevation. Advised that he could take Tylenol if needed for pain. Counseled that he would need to use rice therapy to help with the hematoma. We will update his tetanus booster and use triple antibiotic to help with the abrasion. Diagnostic Imaging Diagonstic Imaging: Xray Plain Films/CT/US/NM/MRI: forearm Comments NAME: VÍCTOR ORDONEZ [facility] REC#: [id number] PT STATUS: REG ER : 1935 PHYSICIAN: KISHA KELLY MD ADMIT DATE: 07/18/18/ER FS Draft Date of Exam:07/18/18 FOREARM 2 VIEW LEFT INDICATION: Trauma. Cow kicked gate into arm. Bruising and swelling. EXAMINATION: Three views of the left forearm. FINDINGS: The radius and ulna are intact without evidence of fractures. There is noted moderate degenerative change at the elbow. There are also findings consistent with osteoporosis along the distal radius and ulna. Articulating surfaces are smooth with good alignment of the radiocarpal joint. Carpal bones appear intact. There are no radiopaque foreign bodies. IMPRESSION: No acute abnormalities noted of the left forearm. 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 Dictated on workstation # [id number] Dict: 07/18/182030 Trans: 07/18/182044 [facility] [id number] Interpreted by: JOSE ARANDA MD Electronically signed by: Reviewed: Reviewed by Me Departure Impression Primary Impression: Traumatic hematoma of left forearm Qualified Codes: S50.12XA - Contusion of left forearm, initial encounter Additional Impressions: Abrasion of left forearm, initial encounter Abrasion of nose, initial encounter Traumatic hematoma of right eyelid Qualified Codes: S00.11XA - Contusion of right eyelid and periocular area, initial encounter Contusion of left forearm, initial encounter Facial contusion Qualified Codes: S00.83XA - Contusion of other part of head, initial encounter Disposition: 01 HOME, SELF-CARE Condition: Stable Departure-Patient Inst. Decision time for Depature: 21:21 Referrals: JEFF PENNINGTON MD (PCP/Family) Primary Care Physician Patient Instructions: Acute Compartment Syndrome (DC), Contusion (DC), HEMATOMA , Skin Abrasions (DC) Add. Discharge Instructions: Use Roberto bandage up to 12 hours a day as needed to help with compression and limit the swelling from the hematoma. He may also use ice 20-30 minutes every few hours as needed to help with the swelling and bruising. Keep the abrasions clean with soap and water and may apply triple antibiotic ointment 2-3 times a day as needed. Use acetaminophen or Tylenol as needed for pain, up to a total of 3000 mg in a 24 hour period. Check back with the regular provider for continued concerns. Try to keep your arm and head elevated above your heart level to help with swelling and bruising. If you develop numbness and tingling in your hand or have your fingers turn purple then you need to be seen immediately as this could be a sign of compartment syndrome and is a surgical emergency. All discharge instructions reviewed with patient and/or family. Voiced understanding. KISHA KELLY MD Jul 18, 2018 21:15
[2018-07-18 21:34] VITALS: BP 131/64
== END 2018-07-18 21:34 | disposition home or self-care (01) ==
LOC: EDUNIT# 18:06 → ER FS 18:08
DX: S50.12XA Contusion of left forearm, initial encounter (principal); S00.11XA Contusion of right eyelid and periocular area, initial encounter; S00.83XA Contusion of other part of head, initial encounter; S00.31XA Abrasion of nose, initial encounter; I25.10 Atherosclerotic heart disease of native coronary artery without angina pectoris; I10 Essential (primary) hypertension; E11.9 Type 2 diabetes mellitus without complications; Z80.8 Family history of malignant neoplasm of other organs or systems; Z82.49 Family history of ischemic heart disease and other diseases of the circulatory system; Z23 Encounter for immunization; Z88.8 Allergy status to other drugs, medicaments and biological substances; Z79.82 Long term (current) use of aspirin; Z79.02 Long term (current) use of antithrombotics/antiplatelets; Z79.52 Long term (current) use of systemic steroids; Z95.1 Presence of aortocoronary bypass graft; W22.09XA Striking against other stationary object, initial encounter
CPT/HCPCS: 73090; 90715

== ENCOUNTER 2018-09-19 09:52 | Outpatient (RCR) | payer MEDICARE ==
[~2018-09-19 09:52] MED LIST changes: +LISINOPRIL 10 MG
== END 2018-09-21 | disposition home or self-care (01) ==
LOC: CR 09:52
PROVIDERS: ATTEND Internal Medicine Interventional Cardiology
DX: Z48.812 Encounter for surgical aftercare following surgery on the circulatory system (principal); Z95.2 Presence of prosthetic heart valve
CPT/HCPCS: 93798

== ENCOUNTER 2018-10-10 10:00 | Outpatient (RCR) | payer MEDICARE | END 2018-12-23 | disposition home or self-care (01) | LOC: CR 10:00 | PROVIDERS: ATTEND Internal Medicine Interventional Cardiology | DX: Z48.812 Encounter for surgical aftercare following surgery on the circulatory system (principal); Z95.2 Presence of prosthetic heart valve | CPT/HCPCS: 93798 ==